=== PATIENT | female | born 1945 | race Caucasian/White ===

== ENCOUNTER 2020-07-23 11:59 | Outpatient (REF) | payer MEDICARE, SELFPAY ==
--- NOTE | 2020-07-23 | MM_ITS ---
EXAMINATION: MM SCREENING DIGITAL BREAST TOMOSYNTHESIS, BILATERAL CLINICAL INFORMATION: Screening. Asymptomatic. The lifetime risk of breast cancer based on the Tyrer-Cuzick Model is 3%. COMPARISON: Mammography: 11/30/2018, 11/24/2017 TECHNIQUE: Digital breast tomosynthesis is performed in both the craniocaudal and mediolateral oblique views along with computer-aided detection (CAD). Synthesized 2D images are generated from the tomosynthesis. FINDINGS: The breasts are almost entirely fatty (ACR BI-RADS breast composition Category a). Background stromal and fibroglandular densities are stable. There is no developing density. No significant changes. There are no significant masses, abnormal calcifications, or other abnormalities. MM/MM tomosynthesis screening BI IMPRESSION: No mammographic evidence of malignancy. ASSESSMENT: BI-RADS 1: Negative RECOMMENDATION: Routine annual mammography screening. This patient's information was entered into a reminder system with a target due date for their next mammogram.
== END 2020-07-23 12:00 | disposition home or self-care (01) ==
LOC: HO.MAMMO 11:59
PROVIDERS: PCP Family Medicine; Visit Provider Family Medicine
DX: Z12.31 Encounter for screening mammogram for malignant neoplasm of breast (principal)
CPT/HCPCS: 77063; 77067

== ENCOUNTER 2020-11-25 07:47 | Outpatient (REF) | payer MEDICARE, SELFPAY ==
--- NOTE | ~2020-11-25 | XR_ITS ---
EXAMINATION: BILATERAL AP KNEE. LEFT KNEE 2 VIEWS. CLINICAL INFORMATION: Pain left knee COMPARISON: None TECHNIQUE: AP bilateral knee standing. Left knee 2 views. FINDINGS: AP bilateral knee: Is moderate to severe loss of medial compartment joint space left knee and moderate loss of medial compartment right knee with moderate periapical spurring. There is minimal loss of lateral compartments both knee joints. No soft tissue abnormality seen. Left knee: There is severe loss of patellofemoral compartment joint space with moderate periapical spurring. There is an moderate size osteophyte along the posterior lateral femoral condyle. No abnormal joint effusion seen XR/XR knee standing BI IMPRESSION: Advanced degenerative changes tricompartment left knee with a moderate size posterior lateral condyle and calcified. No loose bodies or joint effusion seen in left knee. Degenerative arthritic changes medial and lateral compartment right knee with periarticular spurring.
--- NOTE | ~2020-11-25 | XR_ITS ---
EXAMINATION: BILATERAL AP KNEE. LEFT KNEE 2 VIEWS. CLINICAL INFORMATION: Pain left knee COMPARISON: None TECHNIQUE: AP bilateral knee standing. Left knee 2 views. FINDINGS: AP bilateral knee: Is moderate to severe loss of medial compartment joint space left knee and moderate loss of medial compartment right knee with moderate periapical spurring. There is minimal loss of lateral compartments both knee joints. No soft tissue abnormality seen. Left knee: There is severe loss of patellofemoral compartment joint space with moderate periapical spurring. There is an moderate size osteophyte along the posterior lateral femoral condyle. No abnormal joint effusion seen XR/XR knee LT 2V IMPRESSION: Advanced degenerative changes tricompartment left knee with a moderate size posterior lateral condyle and calcified. No loose bodies or joint effusion seen in left knee. Degenerative arthritic changes medial and lateral compartment right knee with periarticular spurring.
== END 2020-11-25 07:48 | disposition home or self-care (01) ==
LOC: HO.HOSX 07:47
PROVIDERS: Visit Provider Physician Assistant
DX: M17.12 Unilateral primary osteoarthritis, left knee (principal)
CPT/HCPCS: 20610; 73560; 73565; 99202; J1040

== ENCOUNTER 2021-01-08 13:00 | Outpatient (RCR) | payer MEDICARE, SELFPAY ==
--- NOTE | 2020-12-03 16:43 | MHC.PT.EP ---
[facility] [place] Office [place] Office [place] Office [address] [phone] F: [phone] F: [phone] F: [phone] F: [phone] Physical Therapy Plan of Care Date of Evaluation: 12/03/20 Date of Surgery: Diagnosis: OA of L knee Assessment: Pt is a 72 y/o female referred to PT for eval and treat of L knee L knee who presents with signs and sx consistent with L knee dysfunction resulting in decreased tolerance and ability to perform ambulatory and standing tasks for duration, as well as negotiating stairs, performing squatting activities and heavy HH chores secondary to decreased hip and knee strength, mild decreased L knee extension ROM as well as decreased posture, increased LE tissue tension, TTP of L popleteal area, gait abnormality and pain. Pt is deemed an appropriate candidate to receive skilled PT in order to address her physical limitations to improve her functional ability. Frequency and Duration: The patient will be seen 2 x /wk x 5 wks. Short Term Goals: In 1 week: initiate HEP with evidence of compliance. In 3 weeks: TTP of L popleteal area < 2+, initial 3+ (considerable). Half-Way Goals: In 5 weeks: I with HEP. In 5 weeks: negotiates 1fl of stairs with reciprocal fashion. initial: non-reciprocal, crawls. In 5 weeks: Pt will be able to walk 2 blocks with at most a little bit of difficulty; initial: extremely difficult or unable. Treatment Plan: Modalities to reduce pain, spasms and effusion. Manual therapy to restore motion and function. Therapeutic exercise to improve strength and flexibility. Neuromuscular re-education for posture and balance. Therapeutic activities to return to functional activities of daily living. Electronically signed by: Carroll Gomez PT. Please sign and return to therapist. Thank you for your referral.
--- NOTE | 2021-04-28 18:28 | MHC.PT.DC ---
[facility] [place] Office [place] Office [place] Office [address] Suri Tanner 140 [facility] [phone] F: [phone] F: [phone] F: [phone] F: [phone] Physical Therapy Discharge Report Diagnosis: OA of L knee Date of Surgery: Date of Evaluation: 12/03/20 Date of Discharge: 01/08/21 Treatments to Date: 10 Cancellations to Date: 0 No Shows to Date: 0 Discharge Status: Achieved Goals Improved Function Independent with HEP Discharge Summary: last note 01/08: Pt I with HEP. Pt improved gait with sc, transfers increased strength and balance. Electronically signed by: Carroll Gomez PT Please sign and return to therapist. Thank you for your referral.
== END 2021-04-28 18:28 | disposition home or self-care (01) ==
LOC: HO.PTCHIC 13:00
PROVIDERS: PCP Family Medicine; Visit Provider Physician Assistant
DX: M17.12 Unilateral primary osteoarthritis, left knee (principal)
CPT/HCPCS: 97110; 97140; 97162

== ENCOUNTER → 2021-03-03 13:38 | Outpatient (BNVA) | payer MEDICARE, SELFPAY | PROVIDERS: PCP Family Medicine; Visit Provider Surgery Vascular Surgery | DX: I83.11 Varicose veins of right lower extremity with inflammation (principal) | CPT/HCPCS: 99212 ==

== ENCOUNTER → 2021-03-23 13:23 | Outpatient (BNVA) | payer MEDICARE, SELFPAY | PROVIDERS: Visit Provider Physician Assistant | DX: M17.12 Unilateral primary osteoarthritis, left knee (principal); I10 Essential (primary) hypertension; Z96.643 Presence of artificial hip joint, bilateral; Z88.5 Allergy status to narcotic agent; Z88.0 Allergy status to penicillin; Z91.013 Allergy to seafood; Z88.8 Allergy status to other drugs, medicaments and biological substances; Z91.048 Other nonmedicinal substance allergy status | CPT/HCPCS: 99212 ==

== ENCOUNTER → 2021-03-25 10:15 | Outpatient (BNVA) | payer MEDICARE, SELFPAY | PROVIDERS: Visit Provider Orthopaedic Surgery | DX: M17.12 Unilateral primary osteoarthritis, left knee (principal) | CPT/HCPCS: 20610; 99212; J1040 ==

== ENCOUNTER 2021-03-30 12:42 | Outpatient (REF) | payer MEDICARE, SELFPAY ==
--- NOTE | ~2021-03-30 | US_ITS ---
EXAMINATION: US VENOUS ULTRASOUND WITH DOPPLER LOWER EXTREMITY, BILATERAL CLINICAL INFORMATION: EXAMINATION: RIGHT and LEFT LOWER EXTREMITY VENOUS ULTRASOUND (Reflux Exam) CLINICAL INDICATION: leg pain and varicose veins. COMPARISON: Previous exam most recent August 2019 TECHNIQUE: Color flow triplex imaging and compression Doppler was performed to evaluate both the deep and the superficial systems bilaterally. To evaluate the superficial system, the examination was performed in the upright position. Color-flow Doppler ultrasound and compression ultrasound were utilized. In addition, maneuvers were utilized to demonstrate reflux. FINDINGS: 1. DEEP VENOUS ULTRASOUND OF THE RIGHT LOWER EXTREMITY: Respiratory variation, normal compression and augmented flow are noted in the right common femoral vein as well as the right popliteal vein and there is no evidence of deep venous thrombosis at these locations. There is no evidence of reflux in the deep system in either the common femoral vein or the mid femoral vein. There is deep venous reflux in the popliteal vein measuring 1.2 seconds. There is a Francisco's cyst. 2. SUPERFICIAL ULTRASOUND WITH DOPPLER OF RIGHT LOWER EXTREMITY: The right great saphenous vein at the saphenofemoral junction measures 8 mm, at the mid thigh 2 mm, cpsnw-uma-ylpq 2 mm, gwbok-rcw-imkn 6 mm, at mid calf 5 mm and at the ankle measures 3 mm. There is right greater saphenous vein reflux from the ankles to above the knee measuring maximum 3.4 below the knee. The right small saphenous vein measures 4 mm and shows no reflux. There is are on varicosities in the thigh maximum measuring 5 mm. This demonstrates these demonstrate maximum 3.3 seconds reflux. 3. DEEP VENOUS ULTRASOUND OF THE LEFT LOWER EXTREMITY: Respiratory variation, normal compression and augmented flow are noted in the left common femoral vein as well as the left popliteal vein and there is no evidence of deep venous thrombosis at these locations. There is 0.6 seconds reflux in the common femoral vein. There is no evidence of reflux in the deep system in either the may femoral vein or the popliteal vein. . There is a Francisco's cyst. 4. SUPERFICIAL ULTRASOUND WITH DOPPLER OF LEFT LOWER EXTREMITY: Left great saphenous vein at the saphenofemoral junction measures 11 mm, at the mid thigh 4 mm, xkhqd-lse-obav 3 mm, qfacd-mbo-mohd 3 mm, at mid calf 2 mm and at the ankle measures 2 mm. There is 3.3 seconds reflux in the greater saphenous vein at the knee. The left small saphenous vein measures 1-3 mm and demonstrates 1.8 seconds reflux. There is a bet taker in the mid thigh that measures 2 mm and does not demonstrate reflux. There is a varicosity in the distal thigh that measures 4 mm and demonstrates 3.4 seconds reflux. US/US venous duplex LE BI IMPRESSION: 1. No evidence of DVT. Right popliteal and left common femoral vein deep venous reflux. 2. Bilateral greater saphenous vein reflux, right greater than left.
== END 2021-03-30 12:43 | disposition home or self-care (01) ==
LOC: HO.US 12:42
PROVIDERS: PCP Family Medicine; Visit Provider Surgery Vascular Surgery
DX: I83.893 Varicose veins of bilateral lower extremities with other complications (principal); I83.11 Varicose veins of right lower extremity with inflammation
CPT/HCPCS: 93970

== ENCOUNTER → 2021-03-31 13:14 | Outpatient (BNVA) | payer MEDICARE, SELFPAY | PROVIDERS: PCP Family Medicine; Visit Provider Surgery Vascular Surgery | DX: I83.11 Varicose veins of right lower extremity with inflammation (principal) | CPT/HCPCS: 99212 ==

== ENCOUNTER → 2021-05-01 08:27 | Outpatient (BNVA) | payer MEDICARE, SELFPAY | PROVIDERS: PCP Family Medicine; Visit Provider Surgery Vascular Surgery | DX: I83.11 Varicose veins of right lower extremity with inflammation (principal) | CPT/HCPCS: 36482 ==

== ENCOUNTER 2021-05-05 11:25 | Outpatient (REF) | payer MEDICARE, SELFPAY ==
--- NOTE | ~2021-05-05 | US_ITS ---
EXAMINATION: US VENOUS ULTRASOUND WITH DOPPLER LOWER EXTREMITY, RIGHT CLINICAL INFORMATION: Pain and swelling post venous procedure. COMPARISON: Previous exam most recent 03/30/2021 TECHNIQUE: Ultrasound of the deep veins is performed from the hip to the calf with compression sonography and color and pulse Doppler assessment. Spectral analysis with color-flow imaging is performed. FINDINGS: There is normal venous compression and respiratory variation and augmented flow. The visualized common femoral vein, superficial femoral vein, profunda femoral vein, popliteal vein, and the trifurcation region shows no evidence of deep venous thrombosis. There is echogenic material seen in the right greater saphenous vein post venous procedure. This is 15 cm from the saphenofemoral junction. There is a 10 x 3 x 6 cm Francisco's cyst. US/US venous duplex LE RT IMPRESSION: No DVT demonstrated in the right lower extremity. Large Francisco's cyst.
== END 2021-05-05 11:26 | disposition home or self-care (01) ==
LOC: HO.HMGCX 11:25
PROVIDERS: PCP Family Medicine; Visit Provider Surgery Vascular Surgery
DX: M79.604 Pain in right leg (principal)
CPT/HCPCS: 93971

== ENCOUNTER → 2021-05-14 13:11 | Outpatient (BNVA) | payer MEDICARE, SELFPAY | PROVIDERS: PCP Family Medicine; Visit Provider Surgery Vascular Surgery | DX: I83.11 Varicose veins of right lower extremity with inflammation (principal) | CPT/HCPCS: 99212 ==

== ENCOUNTER → 2021-06-11 14:06 | Outpatient (BNVA) | payer MEDICARE, SELFPAY | PROVIDERS: PCP Family Medicine; Visit Provider Surgery Vascular Surgery | DX: I83.11 Varicose veins of right lower extremity with inflammation (principal) | CPT/HCPCS: 99212 ==

== ENCOUNTER → 2021-07-30 13:46 | Outpatient (BNVA) | payer MEDICARE, SELFPAY | PROVIDERS: Visit Provider Physician Assistant | DX: M17.12 Unilateral primary osteoarthritis, left knee (principal) | CPT/HCPCS: 20610; 99212; J1040 ==

== ENCOUNTER 2021-09-02 13:49 | Outpatient (REF) | payer MEDICARE, SELFPAY ==
--- NOTE | ~2021-09-02 | MM_ITS ---
EXAMINATION: MM SCREENING DIGITAL BREAST TOMOSYNTHESIS, BILATERAL CLINICAL INFORMATION: Screening. Asymptomatic. The lifetime risk of breast cancer based on the Tyrer-Cuzick Model is 3%. COMPARISON: Mammography: 07/23/2020, 11/30/2018, 11/24/2017 TECHNIQUE: Digital breast tomosynthesis is performed in both the craniocaudal and mediolateral oblique views along with computer-aided detection (CAD). Synthesized 2D images are generated from the tomosynthesis. FINDINGS: The breasts are almost entirely fatty (ACR BI-RADS breast composition Category a). There are no significant masses, abnormal calcifications, or other abnormalities. Background stromal and fibroglandular densities are stable. No developing density. The axilla and skin contours are unremarkable. MM/MM tomosynthesis screening BI IMPRESSION: No mammographic evidence of malignancy. ASSESSMENT: BI-RADS 1: Negative RECOMMENDATION: Routine annual mammography screening. This patient's information was entered into a reminder system with a target due date for their next mammogram.
== END 2021-09-02 13:50 | disposition home or self-care (01) ==
LOC: HO.MAMMO 13:49
PROVIDERS: Visit Provider Family Medicine
DX: Z12.31 Encounter for screening mammogram for malignant neoplasm of breast (principal)
CPT/HCPCS: 77063; 77067

== ENCOUNTER → 2021-12-03 10:47 | Outpatient (BNVA) | payer MEDICARE, SELFPAY | PROVIDERS: Visit Provider Physician Assistant | DX: M17.12 Unilateral primary osteoarthritis, left knee (principal); I10 Essential (primary) hypertension; Z96.643 Presence of artificial hip joint, bilateral; Z88.8 Allergy status to other drugs, medicaments and biological substances; Z88.6 Allergy status to analgesic agent; Z88.1 Allergy status to other antibiotic agents; Z88.0 Allergy status to penicillin; Z91.013 Allergy to seafood | CPT/HCPCS: 20610; 99212; J1040 ==

== ENCOUNTER → 2022-04-08 13:19 | Outpatient (BNVA) | payer MEDICARE, SELFPAY | PROVIDERS: Visit Provider Physician Assistant | DX: M17.12 Unilateral primary osteoarthritis, left knee (principal) | CPT/HCPCS: 20610; 99212; J1040 ==

== ENCOUNTER 2022-05-18 22:48 | Emergency (ER) | payer MEDICARE, SELFPAY ==
[2022-05-19 01:22] VITALS: BP 145/65; PULSE 63; RESP 18; TEMP 36.6; O2SAT 99; BMI 34.4
--- NOTE | 2022-05-19 01:51 | ED.EXTPRO ---
HPI - Extremity Problem General Chief complaint: Extremity Injury, Upper Stated complaint: skin tear on arm Time Seen by Provider: 05/19/22 00:58 Source: patient Mode of arrival: ambulatory Limitations: no limitations History of Present Illness HPI Narrative: Patient comes to the ED complaining of a skin tear in her left upper extremity. Patient states that she was holding her old cat who lost balance and accidentaly scratched the patient in the arm. Pt is an indoor cat, is up-to-date with its immunizations.. However, patient states that she is not sure when she had her last tetanus shot. Patient states that the skin tear was bleeding quite a bit and therefore came to the emergency room. Patient is not on any blood thinners. Related Data Home Medications Medication Instructions Recorded Confirmed hydrochlorothiazide 12.5 mg capsule 12.5 mg PO DAILY 11/25/20 levothyroxine 13 mcg capsule 13 mcg PO DAILY 11/25/20 flaxseed oil 1,000 mg capsule 1,000 mg PO DAILY 03/03/21 levothyroxine 50 mcg tablet 50 mcg PO DAILY 05/14/21 Allergies Allergy/AdvReac Type Severity Reaction Status Date / Time diclofenac [From Voltaren] Allergy Mild HIVES Verified 04/08/22 13:24 penicillin G [Penicillin G] Allergy Mild ITCH Verified 04/08/22 13:24 penicillin V Allergy Unknown itching Verified 04/08/22 13:24 adhesive tape AdvReac Intermediate blisters Verified 04/08/22 13:24 codeine [Codeine] AdvReac Mild SYNCOPE,ABD Verified 04/08/22 13:24 PAIN erythromycin base AdvReac Mild ABDOMINAL Verified 04/08/22 13:24 [Erythromycin Base] PAIN Shellfish Allergy Severe ANAPHYLAXIS Uncoded 04/08/22 13:24 Review of Systems Review of Systems: Constitutional : No Weight loss, No Fever, No Chills, No Night Sweats, No Fatigue, No Malaise ENT/Mouth : No Hearing loss, No Ear Pain, No Nasal Congestion, No Sinus Pain, No Hoarseness, No sore throat, No Rhinorrhea, No Swallowing Difficulty Eyes: No Eye Pain, No Swelling, No Redness, No Foreign Body, No Discharge, No Vision Changes Cardiovascular : No Chest Pain, No SOB, No Dyspnea on Exertion, No Orthopnea, No Edema, No Palpitations Respiratory : No Cough, No Sputum, No Wheezing, No Smoke Exposure, No Dyspnea Gastrointestinal : No Nausea, No Vomiting, No Diarrhea, No Constipation, No abdominal Pain, No Hematochezia, No Melena Genitourinary : no irregular bleeding, No Dysuria, No Urinary Frequency, No Hematuria, No Urinary Incontinence, No Urgency, No Flank Pain, No Urinary Flow Changes, No Hesitancy Musculoskeletal : No joint pain, No Myalgias, No Joint Swelling Skin : Complaining of a skin tear in the left upper extremity Neuro : No Weakness, No Numbness, No Paresthesias, No Loss of Consciousness, No Dizziness, No Headache Psych : No Anxiety/Panic, No Depression, No SI/HI/AH/VH, No Social Issues, Heme/Lymph: No Bruising, No Bleeding,No Lymphadenopathy Endocrine : No Polyuria, No Polydipsia, No Temperature Intolerance [facility] Past Medical History Medical History FH: bilateral hip replacements Hypertension Knee pain Surgical History H/O thyroidectomy H/O: hysterectomy Social History Social History Advance Directives: Yes Advance Directives Information Provided: No Advance Directives on File: No Current occupational status: retired Current occupation: right handed Physical Exam Vital Signs: Vital Signs: Last Vital Signs Temp 97.9 F 05/19/22 01:22 Pulse 63 05/19/22 01:22 Resp 18 05/19/22 01:22 BP 145/65 H 05/19/22 01:22 Pulse Ox 99 05/19/22 01:22 O2 Del Method 05/19/22 01:22 BMI result Body Mass Index 34.4 Const: Other: Appearance: Alert. Oriented X3. No acute distress. Eyes: Pupils equal, round and reactive to light. ENT: Pharynx normal. Neck: Normal inspection. Neck supple. No lymph nodes noted. No crepitus CVS: Normal heart rate and rhythm. Pulses normal. Normal S1 and S2 Respiratory: No respiratory distress. Breath sounds normal. No Wheezing. No rales Abdomen: Soft and nontender. No rigidity. No distention. Skin: Skin warm and dry. triangular shaped skin tear to the left forearm, actively bleeding Extremities: No lower extremity edema. No Lacerations. No Rash Neuro: Oriented X 3. No motor deficit. No sensory deficit. Moving all extremities. No slurred speech. CN 2 through 12 grossly intact Psych: calm, cooperative, normal affect Course Course Course Narrative: despite holding pressure, the skin tear continued bleeding. I applied Surgicel to the wound, bleeding stopped. The wound was cleaned, Steri-Strips were applied. Patient instructed to follow-up with her primary care physician for wound check in 24-48 hours. At this time, patient does not need antibiotics. However, I discussed with the patient that if she sees any signs of infections which were discussed with the patient, she needs to return to the emergency room. Patient was given a booster of tdap Discharge Plan Discharge Clinical Impression: Skin tear of left upper extremity Patient Disposition: Home, Self-Care Instructions: Skin Tear (ED) Additional Instructions: Please follow-up with your primary care physician tomorrow. If you have any worsening or new symptoms, please return to the emergency room or call 911 Prescriptions: No Action flaxseed oil 1,000 mg capsule 1,000 mg PO DAILY Rx Instructions: administer with a meal hydrochlorothiazide 12.5 mg capsule 12.5 mg PO DAILY levothyroxine 13 mcg capsule 13 mcg PO DAILY levothyroxine 50 mcg tablet 50 mcg PO DAILY
[2022-05-19] MEDS: Diphth,Pertus(ACell),Tet Adult 0.5 ML SYRINGE IM (02:07)
== END 2022-05-19 02:12 | disposition home or self-care (01) ==
PROVIDERS: Emergency Provider Emergency Medicine; PCP Family Medicine
DX: S40.812A Abrasion of left upper arm, initial encounter (principal); W55.03XA Scratched by cat, initial encounter; Y93.89 Activity, other specified; Y92.019 Unspecified place in single-family (private) house as the place of occurrence of the external cause; Y99.9 Unspecified external cause status
CPT/HCPCS: 12001; 90471; 90715; 99282; 99284

== ENCOUNTER → 2022-07-12 12:32 | Outpatient (BNVA) | payer MEDICARE, SELFPAY | PROVIDERS: PCP Family Medicine; Visit Provider Physician Assistant | DX: M17.12 Unilateral primary osteoarthritis, left knee (principal) | CPT/HCPCS: 20610; 99212; J1040 ==

== ENCOUNTER 2022-09-08 11:54 | Outpatient (REF) | payer MEDICARE, SELFPAY ==
--- NOTE | ~2022-09-08 | MM_ITS ---
EXAMINATION: MM SCREENING DIGITAL BREAST TOMOSYNTHESIS, BILATERAL CLINICAL INFORMATION: Screening. Asymptomatic. The lifetime risk of breast cancer based on the Tyrer-Cuzick Model is 0.4%. COMPARISON: Mammography: September 02, 2021 and studies dating back to November 03, 2015 TECHNIQUE: Digital breast tomosynthesis is performed in both the craniocaudal and mediolateral oblique views along with computer-aided detection (CAD). Synthesized 2D images are generated from the tomosynthesis. FINDINGS: The breasts are almost entirely fatty (ACR BI-RADS breast composition Category a). There are no significant masses, abnormal calcifications, or other abnormalities. MM/MM tomosynthesis screening BI IMPRESSION: No significant changes from prior exam. ASSESSMENT: BI-RADS 1: Negative RECOMMENDATION: Routine annual mammography screening. This patient's information was entered into a reminder system with a target due date for their next mammogram.
== END 2022-09-08 11:55 | disposition home or self-care (01) ==
LOC: HO.MAMMO 11:54
PROVIDERS: PCP Family Medicine; Visit Provider Family Medicine
DX: Z12.31 Encounter for screening mammogram for malignant neoplasm of breast (principal)
CPT/HCPCS: 77063; 77067

== ENCOUNTER → 2022-10-14 12:20 | Outpatient (BNVA) | payer MEDICARE, SELFPAY | PROVIDERS: PCP Family Medicine; Visit Provider Physician Assistant | DX: M17.12 Unilateral primary osteoarthritis, left knee (principal) | CPT/HCPCS: 20610; 99212; J1040 ==

== ENCOUNTER → 2023-01-11 14:22 | Outpatient (BNVA) | payer MEDICARE, SELFPAY | PROVIDERS: PCP Family Medicine; Visit Provider Surgery Vascular Surgery | DX: I89.0 Lymphedema, not elsewhere classified (principal); M17.12 Unilateral primary osteoarthritis, left knee | CPT/HCPCS: 99212 ==

== ENCOUNTER → 2023-01-20 14:21 | Outpatient (BNVA) | payer MEDICARE, SELFPAY | PROVIDERS: PCP Family Medicine; Visit Provider Physician Assistant | DX: M17.12 Unilateral primary osteoarthritis, left knee (principal) | CPT/HCPCS: 20610; 99212; J1040 ==

== ENCOUNTER → 2023-02-22 10:52 | Outpatient (BNVA) | payer MEDICARE, SELFPAY | PROVIDERS: Visit Provider Orthopaedic Surgery | DX: M17.12 Unilateral primary osteoarthritis, left knee (principal) | CPT/HCPCS: 99212 ==

== ENCOUNTER 2023-04-11 12:32 | Outpatient (AMB) | payer MEDICARE, SELFPAY ==
[2023-04-11 12:35] VITALS: BMI 37.6
--- NOTE | 2023-04-11 12:35 | MHC.OFFVIS ---
Intake Vital Signs 04/11/23 12:35 Height 5 ft 6 in Weight 233 lb BMI 37.6 Intake Visit Reasons: OV-LT knee injection-last injection 01/20/23 Intake Note: Lilo is a 76 year old female who presents today for a follow up for her left knee osteoarthritis, last injection 01/20/23. Patient reports she would like to talk about repeating injections or surgery. Allergies diclofenac [From Voltaren] Allergy (Mild, Verified 04/11/23 12:35) HIVES penicillin G [Penicillin G] Allergy (Mild, Verified 04/11/23 12:35) ITCH penicillin V Allergy (Unknown, Verified 04/11/23 12:35) itching adhesive tape Adverse Reaction (Intermediate, Verified 04/11/23 12:35) blisters codeine [Codeine] Adverse Reaction (Mild, Verified 04/11/23 12:35) SYNCOPE,ABD PAIN erythromycin base [Erythromycin Base] Adverse Reaction (Mild, Verified 04/11/23 12:35) ABDOMINAL PAIN Shellfish Allergy (Severe, Uncoded 02/22/23 10:55) ANAPHYLAXIS HPI OV-LT knee injection-last injection 01/20/23 HPI Details 77-year-old female who presents in the office today for a follow up of left knee pain. The patient had a cortisone injection in the left knee on 01/20/2023. She would like to discuss another cortisone injection and possibly surgical intervention. [facility]LY [facility], [facility] Medical History FH: bilateral hip replacements Hypertension Knee pain Surgical History H/O thyroidectomy H/O: hysterectomy Social History Current occupational status: retired Current occupation: right handed Review of Systems Const All systems reviewed & are unremarkable except as noted in HPI and below Physical Exam Vital Signs: BMI result Body Mass Index 37.6 Const Other: Well-nourished well-developed very friendly female awake alert and oriented x3 in no acute distress General: cooperative, healthy appearing and no acute distress Resp Effort & Inspection: normal respiratory effort and able to speak in complete sentences Cardio Rate: regular rate Peripheral pulses: Peripheral pulses 2+ throughout GI Palpation (GI): Soft to palpation Skin Lesions: no lesions Rashes: no rashes Extrem Other: Left knee: extremity examination shows good capillary refill, no skin lesions noted, normal sensation light touch Left knee examination shows a mild effusion, palpable crepitus with range of motion, pain with range of motion, range of motion from -3 degrees to 115?, no instability Office Procedures Joint Injection/Drain Joint Injection/Drain Primary Site: left knee Prep: site was prepped using aseptic technique, ethochloride spray was applied and injection warnings given Injected: 80 mg of, DepoMedrol, with 8 mL of (2% plain lido ) and in the joint Approach Used: anterolateral Procedure: The patient tolerated the procedure well, but had some pain with the injection and there was some relief with the local anesthesia Coding 04465 - Large joint Procedure code (CPT) selection complete Results Reviewed Results Reviewed: 04/11/23 12:53 Lidocaine HCl 2 % MPF [Xylocaine 2 % MPF] 5 ml .ROUTE .STK-MED ONE methylPREDNISolone acetate [DEPO-MedroL] 80 mg .ROUTE .STK-MED ONE Assessment & Plan Assessment & Plan (1) Primary osteoarthritis of left knee: Code(s): M17.12 - Unilateral primary osteoarthritis, left knee Plan Ms. Bess is a 77-year-old female who presents in the office today for a follow up of left knee pain. The patient had a cortisone injection in the left knee on 01/20/2023. She would like to discuss another cortisone injection and possibly surgical intervention. The patient was offered a cortisone injection in the left knee with 80 mg of DepoMedrol. The patient was explained the risk, benefits, and alternatives to receiving this injection. After receiving consent for the injection, the patient had the procedure done while in office today. The patient tolerated the procedure well with no complications. The patient has been evaluated by Dr. Valencia and he is willing to proceed with left total knee arthroplasty. However at this time the office is attempting to seek his insurance privileges. I have sent a message to Claudia our nurse navigator to be on the look out for Dr. Ricketts privileges to be obtained. Once obtained we will proceed with a left total knee arthroplasty. We will try to schedule the patient for 06/2023. Follow up will be for her preoperative appointment once privileges are obtained, or sooner if needed. Patient Instructions: Scribed for Nohemi Pedro PA-C by Sheri West medical record librarians teacher, on 04/11/2023 at 12:40 pm, EST. Coding Level of Care Code Est Pt Level 3 (86576) Diagnoses Primary osteoarthritis of left knee M17.12 CPT Codes Coding - 94240 Large joint: 80336 - Large joint ([id number])
== END 2023-04-11 13:08 | disposition home or self-care (01) ==
PROVIDERS: Visit Provider Physician Assistant
DX: M17.12 Unilateral primary osteoarthritis, left knee (principal)
CPT/HCPCS: 20610

== ENCOUNTER → 2023-04-11 12:32 | Outpatient (BNVA) | payer MEDICARE, SELFPAY | PROVIDERS: Visit Provider Physician Assistant | DX: M17.12 Unilateral primary osteoarthritis, left knee (principal); Z96.643 Presence of artificial hip joint, bilateral | CPT/HCPCS: 20610; J1040 ==

== ENCOUNTER 2023-09-14 12:23 | Outpatient (REF) | payer MEDICARE, SELFPAY | END 2023-09-14 12:24 | disposition home or self-care (01) | LOC: HO.MAMMO 12:23 | PROVIDERS: PCP Family Medicine; Visit Provider Family Medicine | DX: Z12.31 Encounter for screening mammogram for malignant neoplasm of breast (principal) | CPT/HCPCS: 77063; 77067 ==

== ENCOUNTER → 2023-09-14 13:00 | Outpatient (BNV) | payer MEDICARE, SELFPAY | PROVIDERS: PCP Family Medicine; Visit Provider Radiology Diagnostic Radiology | DX: Z12.31 Encounter for screening mammogram for malignant neoplasm of breast (principal) | CPT/HCPCS: 77063; 77067 ==

== ENCOUNTER 2024-07-12 13:34 | Outpatient (AMB) | payer MEDICARE, SELFPAY ==
--- NOTE | 2024-07-12 14:21 | A.OFFVIS_ITS ---
Intake Visit Reasons: nocturia Intake Note: New Patient presents for initial visit for nocturia Urology Medications: none Blood Thinner: none PVR: 37ml's Electrotype Servicer Required: No Accompanied by: Self / Same As Patient Allergies diclofenac [From Voltaren] Allergy (Mild, Verified 07/12/24 15:06) HIVES penicillin G [Penicillin G] Allergy (Mild, Verified 07/12/24 15:06) ITCH penicillin V Allergy (Unknown, Verified 07/12/24 15:06) itching adhesive tape Adverse Reaction (Intermediate, Verified 07/12/24 15:06) blisters codeine [Codeine] Adverse Reaction (Mild, Verified 07/12/24 15:06) SYNCOPE,ABD PAIN erythromycin base [Erythromycin Base] Adverse Reaction (Mild, Verified 07/12/24 15:06) ABDOMINAL PAIN Shellfish Allergy (Severe, Uncoded 07/12/24 15:06) ANAPHYLAXIS Medication List - Last Reviewed 07/12/24 by Luis Antonio Erwin hydrochlorothiazide 12.5 mg PO DAILY levothyroxine 50 mcg PO DAILY HPI Comments Details: Lilo is a 78-year-old female patient of . She has a past medical history of hypertension and hypothyroidism. She presents to the office today as a new patient for nocturia. In discussion with the patient today she reports noting ongoing issues with nocturia. She reports initially symptoms of nocturia presented 4-5 years ago however feels since this summer they have increasingly worsened and she is up to experiencing nocturia 5 times per night. She otherwise denies any bothersome urinary issues throughout the day. She denies urinary urgency, urinary frequency, hematuria, dysuria, foul smelling urine, changes to urinary stream, flank pain, fever, and or chills. In assessment of the patient today 2 to 3+ bilateral lower leg edema noted. We discussed affects of lower leg edema in correlation to nocturia. She discusses typically she utilizes sequentials however did not put them on today. We discussed importance in doing so. In office urinalysis results reviewed with the patient today. PVR 37 mL. She denies any signs or symptoms of sleep apnea. We discussed at length potential causes of nocturia. Discussed obtaining retroperitoneal ultrasound for further assessment evaluation. She discusses her 's recent diagnosis of Lewy bodies dementia. She otherwise offers no other issues or concerns at this time. [facility] Medical History FH: bilateral hip replacements Hypertension Knee pain Surgical History H/O thyroidectomy H/O: hysterectomy Social History Current occupational status: retired Current occupation: right handed Review of Systems Const All systems reviewed & are unremarkable except as noted in HPI and below Physical Exam Const General: cooperative, healthy appearing, comfortable, no acute distress, well developed, alert and awake Nutritional Appearance: overweight Orientation/consciousness: patient oriented x3 Limitations: ambulation with cane HEENT Head: Yes normal to inspection, Yes normocephalic and Yes atraumatic Ears: hearing grossly normal bilaterally Eyes General: appearance normal, both eyes and all related structures Neck Neck: Yes normal visual inspection and Yes trachea midline Chest Chest palpation & inspection: normal inspection of the chest Resp Effort & Inspection: normal respiratory effort and able to speak in complete sentences Cardio Rate: regular rate GI Inspection: Yes normal to inspection General: Yes no CVA tenderness Back/Spine/Pelvis Back: no CVA tenderness Skin General skin exam: no rashes or lesions noted Neuro General: patient oriented x3 Extrem General: Yes normal to inspection Psych Appearance: grossly normal and well kempt Mental Status: mental status grossly normal Speech and movement: Normal speech and movement present and Clear speech present Affect: normal affect Attitude: cooperative Thought process: Normal thought process present Thought content: Normal thought content present Insight: Fair insight present (Psych) Judgement: Fair judgement present (Psych) Office Procedures Post Void Residual Post Residual Void Post Void Residual (PVR): 37 04134-Yiiv Void Residual by ultrasound Results AMB Urinalysis, Automated UA Leukoctes 15 Arnulfo/uL Last Edit by Luis Antonio Erwin on 07/12/24 15:08 UA Nitrite Last Edit by Luis Antonio Erwin on 07/12/24 15:08 UA Urobilinogen 0.2 mg/dL Last Edit by Luis Antonio Erwin on 07/12/24 15:08 UA Protein 0 mg/dL Last Edit by Luis Antonio Erwin on 07/12/24 15:08 UA pH 5.5 Last Edit by Luis Antonio Erwin on 07/12/24 15:08 UA Blood 10 Asher/uL Last Edit by Luis Antonio Erwin on 07/12/24 15:08 UA Specific Worthington 1.025 Last Edit by Luis Antonio Erwin on 07/12/24 15:08 UA Ketone Last Edit by Luis Antonio Erwin on 07/12/24 15:08 UA Bilirubin 0 mg/dL Last Edit by Luis Antonio Erwin on 07/12/24 15:08 UA Glucose 0 mg/dL Last Edit by Luis Antonio Erwin on 07/12/24 15:08 Assessment & Plan Assessment & Plan (1) Nocturia: Code(s): R35.1 - Nocturia Category: Medical Plan In office urinalysis results with the patient today; as noted above. PVR 37 mL. We discussed bladder triggers/irritants. Discussed importance of elevating legs in the late evening prior to bed to assist with decreasing episodes of nocturia. We discussed importance of limiting fluids 2-3 hours prior to bed to decrease episodes of nocturia. Will obtain retroperitoneal ultrasound for further assessment evaluation. We discussed potential near future in office cystoscopy and or urodynamics for further assessment evaluation. Follow-up in 1-3 months with imaging and PVR; or sooner with any issues, concerns, and or questions. Orders: Orders AMB Post Void Residual by ultrasound Today R35.1 - Nocturia AMB Urinalysis Automated Today Z13.9 - Encounter for screening, unspecified US retroperitoneal comp Today R35.1 - Nocturia Patient Instructions: The patient had an opportunity to ask questions regarding the treatment plan. All questions were answered. Physical exam, labs, and imaging were discussed and reviewed in detail. As well as risks, benefits, and discussion of treatment choices. No major barriers to understanding were identified. The patient expressed understanding and agreement with the above treatment plan. The patient was made aware they should contact our office by phone for worsening of their current condition, the appearance of new symptoms, or with any questions or concerns. Compliance is encouraged with any medications and follow up testing that is ordered. It is a privilege to be allowed the opportunity to participate in? your urological care.? Again, if you have any questions or concerns If you have any questions or concerns please do not hesitate to contact me. The office is [phone]. This note is constructed using voice recognition software. While every effort has been made to ensure accuracy cigarette stamper errors may have been included. Yours sincerely, PAULINE Rivas Coding Level of Care Code New Pt Level 3 (49147) Diagnoses Nocturia R35.1 CPT Codes Post Residual Void - PVR CPT Code: 76773-Setn Void Residual by ultrasound ([id number])
== END 2024-07-12 15:05 | disposition home or self-care (01) ==
PROVIDERS: PCP Family Medicine; Visit Provider Nurse Practitioner Family
DX: R35.1 Nocturia (principal); Z13.9 Encounter for screening, unspecified
CPT/HCPCS: 99203

== ENCOUNTER → 2024-07-12 13:34 | Outpatient (BNVA) | payer MEDICARE, SELFPAY | PROVIDERS: PCP Family Medicine; Visit Provider Nurse Practitioner Family | DX: R35.1 Nocturia (principal) | CPT/HCPCS: 51798; 81003; 99202 ==

== ENCOUNTER 2024-08-23 13:46 | Outpatient (REF) | payer MEDICARE, SELFPAY ==
--- OUTSIDE RECORDS SUMMARY | 2024-08-23 13:48 | XMS_ITS ---
[facility] Address [address] [place] [address] Care Team Providers Care Public Area Supervisor Name Role Phone La Zamora MD Primary Care Provider Unavailab Vee Crews Unavailable [phone] Allergies Allergen (clinical drug ingredient) Drug/Non Drug Allergy documented on EMR Reaction Allergy Type Onset Date Status amoxicillin Amoxicillin vaginal itching Drug Allergy Active povidone-iodine Betadine throat constricts Drug Allergy Inactive Erythrocin stomach cramps Drug Allergy A ctive Voltaren hives, rash Drug Allergy Activ e shrimp allergenic extract Shrimp (Diagnostic) throat constricts Drug Allergy Active Adhesive blistering Allergy Active codeine Codeine fainted, stomachache Drug Allergy Active Penicillin vaginal itching Drug Allergy Active Shellfish (FN) Shellfish-derived Products throat constricts Drug Allergy Active REASON FOR VISIT Painful nail(s) aggrevated by shoes and causing difficulty standing/walking., At Risk Footcare, Foot pain Medications Medication SIG (Take, Route, Frequency, Duration) Notes Start Date End Date Status Propranolol HCl ER Beads 80 MG 1 capsule at bedtime Orally Once a day Not-Taking Uuutslsl-Etwnwzzuc-Wyaicntp Not-Taking Iron 325 (65 Fe) MG 1 tablet Orally Once a day Not-Taking Nitro-Bid 2 % as directed Transdermal apply bid to toes for 30 days Not-Taking Flax Seeds Orally Not-Takin g Levothyroxine Sodium .05 1 tablet on an empty stomach in the morning Orally Once a day Active hydroCHLOROthiazide 12.5 MG Orally Active Flax Seeds Not-Takin g Tylenol Extra Strength 500 MG 1 tablet as needed Orally every 6 hrs Active Baby Aspirin Not-Dung ing Social History Tobacco Use: Social History Observation Description Date Details (start date - stop date) Former Smoker NA - NA Tobacco Use/Smoking Question Answer Notes Are you a: former smoker Additional Findings: Tobacco Non-User Current no n-smoker Tobacco use other than smoking: Question Answer Notes Are you an other tobacco user? No Problems Problem Type SNOMED Code ICD Code Onset Dates Problem Status W/U Status Risk Notes Problem Atherosclerosis of [place] artery of both lower extremities, with unspecified presence of clinical manifestation (I70.203) Active confirmed Q7(A), Q8(2B), Q9(1B,2C) Vital Signs Height 5 ft 7 in in 06/21/2024 Weight 219 lbs 06/21/2024 BMI 34.3 kg/m2 06/21/2024 Procedures Procedure Date Ordered Date Performed Result Body Sit e 66883-IMIMXIL NAIL, 6 OR MORE 06/21/2024 N/A 33545-XTNW SKIN LESIONS, OVER 4 06/21/2024 N/A Encounters Encounter Location Date Provider Diagnosis [facility] [address] [address] 06/21/2024 Vee Black Neuritis of right fo ot G57.91 ; Pain in right foot M79.671 ; Atherosclerosis of [place]ki[place] artery of both lower extremities, with unspecified presence of clinical manifestation I70.203 ; Tinea unguium B35.1 ; Pain in right toe(s) M79.674 and Pain in left toe(s) M79.675 Assessments Encounter Date Diagnosis (ICD Code) Assessment Notes Treatment Notes Treatment Clinical Notes Section Notes 06/21/2024 Neuritis of right foot (ICD-10 - G57.91) Response to treatment - Improvement 06/21/2024 Pain in right foot (ICD-10 - M79.671) 06/21/2024 Atherosclerosis of [place] artery of both lower extremities, with unspecified presence of clinical manifestation (ICD-10 - I70.203) Q7(A), Q8(2B), Q9(1B,2C) 06/21/2024 Tinea unguium (ICD-10 - B35.1) 06/21/2024 Pain in right toe(s) (ICD-10 - M79.674) 06/21/2024 Pain in left toe(s) (ICD-10 - M79.675) Plan Of Treatment Pending Test Test Name Order Date [id number]-[id number] NAIL, 6 OR MORE 06/21/2024 10615-HFBE SKIN LESIONS, OVER 4 06/21/20 Next Appt Details Follow Up: prn, Reason: Provider Name:Vee Ta , 08/30/2024 02:15:00 PM, [address] [place] [address], [phone], Provider Name:Vee Ta , 11/01/2024 01:30:00 PM, [address] [place] [address], [phone], Procedure Notes * Category Sub-Category Detail Notes Debride Nail 6-10 Nail debridement Performance o f this nail treatment by a nonprofessional would put this patients foot and overall health at risk. Therefore, nail debridement was performed extensively to reduce/remove overall nail length, girth, thickness, subungual debris, and necrotic tissue, by manual and/or electrical means through the use of a nail nipper and/or dremel-type precision thread grinder operator, to a more viable healthy nail plate or bed tissue 6-10. Silver nitrate used for any petechial bleeding as necessary. Definitive antifungal treatment options have been reviewed and discussed with the patient. The patient chooses, no pharmaceutical tx - 29393 Keratoma Treatment Parring or Cutting o f Benign Hyperkeratotic Lesion(s) 74025 ( >4 Lesions) - The Benign hyperkeratotic lesions, as described above were pared, and/or cut utilizing a sterile #15 blade, tissue nippers, and/or dremel, Q8 Progress Notes * Lilo KAYE MDOB:1945 (78 yo F)Acc No.[id number]:06/21/2024 Progress Note Patient:?Lilo Kaye Provider:?Vee DORY Ta :1945???Age:78 Y???Sex:Female D ate:06/21/2024 Address:[address] [place] [address] [id number] Pcp:La Zamora MD Subjective: * Chief Complaints: * ??? Painful nail(s) aggrevat ed by shoes and causing difficulty standing/walking.At Risk FootcareFoot pain * HPI: ???Painful Nails:?Pt States Last PCP Visit:?Date:?05/17/2024 ???At Risk footcare:?Pt States Last PCP Visit:?Date?05/17/2024 ???Foot Pain:?Nature:?, numbness.?Location:?, Great toe joint , RIGHT.?Duration:?several months.?Onset:?unknown.?Course:?, improved , at 60 %.?Aggravated:?any pressure.?Treatments:?rest/alter normal daily activity,soaks and topical medications.? * ROS:?General/Constitutional:?Nausea?denies.?Vomiting?denies.?Hunger Thirst?denies.?Loss appetite?denies.?Chills?denies.?Fatigue?admits.?Fever?denies.?Night Sweats?denies.?Unexplained weight loss?denies.?Unexplained weight gain?admits.?HEENTM:?Dentures?denies.?Dizziness?denies.?Glasses/contacts?admits.?Retinopathy?de nies.?Blurred/double vision?denies.?TMJ?denies.?Discharge/drainage?denies.?Implants?admits.?Sore throat?denies.?Dental implants?denies.?Hard of hearing ?denies.?Difficulty chewing/swallowing/speaking?denies.?Nose bleeds?denies.?Sore mouth?denies.?Respiratory:?On Oxygen?denies.?Pneumonia/pleurisy?admits.?Bronchitis?admits.?Emphysema?denies.?C oughing?denies.?Cough blood?denies.?Shortness of breath?denies.?Wheezing?denies.?Cardiovascular:?Pacemaker?denies.?MVP?denies.?WPW?denies.?CHF?denies.?Heart attack?denies.?Septal defect?denies.?Rapid beat?denies.?Chest pain ?denies.?Atrial Fib.?denies.?Murmur/Palpitations?denies.?Gastrointestinal:?Hemorrhoids?denies.?Stomach/Abdominal pain?denies.?Dark blood stool?denies.?Irritable bowel ?denies.?Constipation?denies.?Diarrhea?denies.?Hematology:?Swelling?admits.?Clots?denies.?Varicose Veins?denies.?Bruising?denies.?Bleeding problem?denies.?Genitourinary:?Blood urine?denies.?Frequent/Painfu/urination/bladder control?denies.?Kidney stones?denies.?Infection (UTI)?denies.?Nephropathy?denies.?sex trans dis (STD)?denies.?Prostate?denies.?Musculoskeletal:?Hammertoes?denies.?Bunions?denies.?Back Pain?admits.?Muscle Cramps/ Resting?denies.?Muscle cramps / walking?denies.?Generalized aches and pains?admits.?Weakness?denies.?Integ.:?Baez?denies.?Scars?denies.?Corns/calluses?denies.?Ingrown nails?denies.?Painful nails?denies.?Open Sores?denies.?Rashes?denies.?Neurologic:?Difficulty sleeping?denies.?Brain disorder?denies.?Numbness?admits.?Balance trouble?denies.?Confusion?denies.?Fainting/blackouts?denies.?Tingling?denies.?Tr emors?denies.? * Medical History:? * Surgical History:?vein surge ry 05/01/21Cortisone Inj 07/30/21Cortisone Inj 04/11/23 * Hospitalization/Major Diagno stic Procedure:?[facility]- Stomach cramps/ diarrhea 03/10/24 * Family History:?Mother: dece ased.?Father: , diagnosed with Unspecified heart disease.?Siblings: prostate cancer.?Spouse: dementia.? * Social History:?Tobacco Use:?Tobacco Use/Smoking?Are you a:?former smoker ?Additional Findings: Tobacco Non-User?Current non-smoker ?Tobacco use other than smoking?Are you an other tobacco user??No ???Miscellaneous:?no Caffeine, coffee, tea and Soda decaf, 1-2 cups per day. ?Children: yes, 2. ?Exercise: yes, sewing, knitting, quilting, walking when able, cooking. ?Marital status: . 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 * Medications:?TakinghydroCHLO ROthiazide 12.5 MG Tablet Orally Levothyroxine Sodium .05 Tablet 1 tablet on an empty stomach in the morning Orally Once a dayTylenol Extra Strength 500 MG Tablet 1 tablet as needed Orally every 6 hrsTaking hydroCHLOROthiazide 12.5 MG Tablet Orally Taking Levothyroxine Sodium .05 Tablet 1 tablet on an empty stomach in the morning Orally Once a dayTaking Tylenol Extra Strength 500 MG Tablet 1 tablet as needed Orally every 6 hrsNot-Taking/PRNFlax Seeds Baby Aspirin Dzdlpxkk-Ntmpvufvm-Bljmgnah Nitro-Bid 2 % Ointment as directed Transdermal apply bid to toesIron 325 (65 Fe) MG Tablet 1 tablet Orally Once a dayFlax Seeds Powder Orally Propranolol HCl ER Beads 80 MG Capsule Extended Release 24 Hour 1 capsule at bedtime Orally Once a dayMedication List reviewed and reconciled with the patientNot-Taking/PRN Flax Seeds Not-Taking/PRN Baby Aspirin Not- Taking/PRN Lsagqsiw-Qieglbbvc-Patlatfm Not-Taking/PRN Nitro-Bid 2 % Ointment as directed Transdermal apply bid to toesNot-Taking/PRN Iron 325 (65 Fe) MG Tablet 1 tablet Orally Once a dayNot-Taking/PRN Flax Seeds Powder Orally Not-Taking/PRN Propranolol HCl ER Beads 80 MG Capsule Extended Release 24 Hour 1 capsule at bedtime Orally Once a dayMedication List reviewed and reconciled with the patient * Allergies:?Erythrocin: stoma ch crampsVoltaren: hives, rashAmoxicillin: vaginal itchingCodeine: fainted, stomachacheShrimp (Diagnostic): throat constrictsShellfish-derived Products: throat constrictsAdhesive: blisteringPenicillin: vaginal itchingyes[Allergies Verified] Objective: * Vitals:?Ht: 5 ft 7 in, Wt: 2 19, BMI: 34.3, Shoe size: 9W, Wt-k.34 kg. * Examination: ???Neurological: ?SENSORY:?Neurological exam demonstrates , reduced light touch sensation , reduced sharp/dull pin prick discrimination right hallux , reduced vibration sensation , 5.07 monofilament test performed at plantar aspects of 5 varied sites per foot shows sensation , reduced at right hallux , Pt relates , anesthesia , Neurological exam reveals intact sensorium, pain sensation normal, vibration sensation intact, pinprick sensation is normal in the lower extremities, Pt denies, anesthesia, burning, paresthesia, tingling, B/L.?TINEL'S COMPRESSION:?Positive , Medial dorsal cutaneous nerve distribution , Intermediate dorsal cutaneous nerve distribution , Right reduced at 60 % Less.?Dermatologic: ?SKIN FINDINGS:?Skin exam reveals Keratotic lesion(s) located at, SUB MTH (s), 1, B/L, Heel(s), B/L SUB MTH (s) 5 B/L?.?Nails: ?NAILS are:?Elongated, overgrown, dystrophic, lytic, greater than 3mm thick, discolored and friable with crumbly malodorous subungual debris, with pain on palpation, , , 1-5 B/L ,?.?Vascular: ?DP PULSES(B):?, 2/4, B/L.?PT PULSES(B):?, 0/4, B/L.?CAPILLARY FILL TIME:? delayed, all digits, B/L.?TROPHIC CONDITION-TEXTURE/ELASTICITY/TURGOR/HAIR GROWTH(B):? decreased, fragile, thin, shiny skin, with sparse to absent hair growth, B/L.?TEMPERTURE GRADIENT(C):? decreased, cool to cool, proximal to distal, B/L.?PIGMENTATION:?, cyanotic, B/L.?EDEMA(C):?, 2/4 , non-pitting.?CLAUDICATION(C):?denies, B/L.?REST PAIN:?denies, B/L.?PARESTHESIA(C):?absent, B/L.?BURNING(C):?absent, B/L.? Assessment: * Assessment: 1.?Pain in right foot - M79. 671?2.?Neuritis of right foot - G57.91 (Primary), Response to treatment - Improvement?3.?Atherosclerosis of [place] artery of both lower extremities, with unspecified presence of clinical manifestation - I70.203, Q7(A), Q8(2B), Q9(1B,2C)?4.?Tinea unguium - B35.1?5.?Pain in right toe(s) - M79.674?6.?Pain in left toe(s) - M79.675? Plan: * Treatment: 2.?Tinea unguium?Procedure: [id number]-[id number] NAIL, 6 OR MORE * Procedures:?Debride Nail 6-10:?Nail debridement?Performance of this nail treatment by a nonprofessional would put this patients foot and overall health at risk. Therefore, nail debridement was performed extensively to reduce/remove overall nail length, girth, thickness, subungual debris, and necrotic tissue, by manual and/or electrical means through the use of a nail nipper and/or dremel-type precision thread grinder operator, to a more viable healthy nail plate or bed tissue 6-10. Silver nitrate used for any petechial bleeding as necessary. Definitive antifungal treatment options have been reviewed and discussed with the patient. The patient chooses, no pharmaceutical tx - 65273.?Keratoma Treatment:?Parring or Cutting of Benign Hyperkeratotic Lesion(s)?98870 ( >4 Lesions) - The Benign hyperkeratotic lesions, as described above were pared, and/or cut utilizing a sterile #15 blade, tissue nippers, and/or dremel, Q8.? * Procedure Codes:?77411 DEBRI DE NAIL, 6 OR MORE, Modifiers: XS 27777 TRIM SKIN LESIONS, OVER 4, Modifiers: Q8 * Preventive Medicine:? ??Counseling:?Discussion:?-12: Office or other outpatient visit for the evaluation and management of an established patient, which required a medically appropriate history and/or examination and STRAIGHTFORWARD level of MEDICAL DECISION MAKING, 1 SELF-LIMITED OR MINOR PROBLEM, MINIMAL- NO AMOUNT/COMPLEXITY OF DATA TO BE REVIEWED/ANALYZED, AND MINIMAL RISK OF COMPLICATION/MORBIDITY. The visit on the day of the encounter encompassed interpreting the data and educating the patient as to the nature of their condition, treatment options available according to their individual PMH, meds, allergies, and overall health/living conditions, as well as any potential risks or complications that may occur from a failure to adhere to, and participate in, the recommended course of therapy. The discussion included a complete verbal, and/or written explanation of the examination results, any x-rays taken, the proposed diagnosis, and outline of the treatment plan. A schedule for future care needs was also explained. The patient verbalized an understanding of the instructions at this time and agreed to be an active participant in their treatment. If the patient should think of any questions or concerns after the visit, I have encouraged the patient to call the office, Given recent successful results to treatment, The patient wishes to continue with the present treatment plan for their condition.? * Follow Up:?prn * Images: * Sign off status: Completed true * Provider:?Vee Ta DPM Date:?2023 Generated for Chastity mir/Janell/Yancy on:?08/23/2024 01:48 PM EST History and Physical Notes * HPI (History of Present Illness) Category Sub-Category Detail Notes Category Not es Painful Nails Pt States Last PCP Visit: Date:: 05/17/2024 At Risk footcare Pt States Last PCP Visit: Date: 4 Foot Pain Nature: , numbness Location: , Great toe joint , RIGHT Duration: several months Onset: unknown Course: , improved , at 60 % Aggravated: any pressure Treatments: rest/alter normal da camryn activity,soaks and topical medications Examination Category Sub-Category Detail Notes Category Not es Neurological SENSORY: Neurological exa m demonstrates , reduced light touch sensation , reduced sharp/dull pin prick discrimination right hallux , reduced vibration sensation , 5.07 monofilament test performed at plantar aspects of 5 varied sites per foot shows sensation , reduced at right hallux , Pt relates , anesthesia , Neurological exam reveals intact sensorium, pain sensation normal, vibration sensation intact, pinprick sensation is normal in the lower extremities, Pt denies, anesthesia, burning, paresthesia, tingling, B/L TINEL'S COMPRESSION: Positive , Medial d orsal cutaneous nerve distribution , Intermediate dorsal cutaneous nerve distribution , Right reduced at 60 % Less Dermatologic SKIN FINDINGS: Skin exam reveal s Keratotic lesion(s) located at, SUB MTH (s), 1, B/L, Heel(s), B/L SUB MTH (s) 5 B/L ULCER: Vascular DP PULSES (B): , 2/4, B/L PT PULSES (B): , 0/4, B/L CAPILLARY FILL TIME: delayed, all digits , B/L TEMPERTURE GRADIENT (C): decreased, cool to cool, proximal to distal, B/L TROPHIC CONDITION-TEXTURE/ELASTICITY/TURGOR/HAIR GROWTH (B): decreased, fragile, thin, shiny skin, wi th sparse to absent hair growth, B/L EDEMA (C): , 2/4 , non-pitting CLAUDICATION (C): denies, B/L REST PAIN: denies, B/L PIGMENTATION: , cyanotic, B/L PARESTHESIA (C): absent, B/L BURNING (C): absent, B/L Nails NAILS are: Elongated, overg rown, dystrophic, lytic, greater than 3mm thick, discolored and friable with crumbly malodorous subungual debris, with pain on palpation, , , 1-5 B/L ,
--- OUTSIDE RECORDS SUMMARY | 2024-08-23 13:49 | XMS_ITS ---
Author Organization [facility] Address [address] [facility] [place] [address] Care Team Providers Care Paraprofessional Aide Name Role Phone La Zamora MD Primary Care Provider Unavailab Vee Crews Unavailable [phone] Allergies Allergen (clinical drug ingredient) Drug/Non Drug [...] shoes and causing difficulty standing/walking., At Risk Footcare Medications Medication SIG (Take, Route, Frequency, Duration) Notes Start Date End Date Status Tylenol Extra Strength 500 MG 1 tablet as needed Orally every 6 hrs Active Flax Seeds Not-Takin g Baby Aspirin Not-Dung ing Rxbatmih-Wxjpwpfdh-Mubilfun Not-Taking Nitro-Bid 2 % as directed Transdermal apply bid to toes for 30 days Not-Taking Iron 325 (65 Fe) MG 1 tablet Orally Once a day Not-Taking Flax Seeds Orally Not-Takin g Propranolol HCl ER Beads 80 MG 1 capsule at bedtime Orally Once a day Not-Taking hydroCHLOROthiazide 12.5 MG Orally Active Levothyroxine Sodium .05 1 tablet on an empty stomach in the morning Orally Once a day Active Social History Tobacco Use: Social History Observation Description Date Details (start date - stop date) Former Smoker NA - NA Tobacco Use/Smoking Question Answer Notes Are you a: former smoker Additional Findings: Tobacco Non-User Current no n-smoker Alcohol Screen Question Answer Notes Did you have a drink contain ing alcohol in the past year? Yes How often did you have a dri nk containing alcohol in the past year? Monthly or less (1 point) Points 1 Interpretation Negative Tobacco use other than smoking: Question Answer Notes Are you an other tobacco user? 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 of extremities, bilateral legs I70.203 ; Tinea unguium B35.1 ; Pain in right toe(s) M79.674 and Pain in left toe(s) M79.675 Assessments Encounter Date Diagnosis (ICD Code) Assessment Notes Treatment Notes Treatment Clinical Notes Section Notes 02/16/2024 Unspecified atherosclerosis of [place] arteries of extremities, bilateral legs (ICD-10 - I70.203) 02/16/2024 Tinea unguium (ICD-10 - B35.1) 02/16/2024 Pain in right toe(s) (ICD-10 - M79.674) 02/16/2024 Pain in left toe(s) (ICD-10 - M79.675) Plan Of Treatment Pending Test Test Name Order Date 53582-MSIVFTC NAIL, 6 OR MORE 02/16/2024 40570-IJXX SKIN LESIONS, OVER 4 02/16/20 24 Next Appt Details Follow Up: prn, Reason: Provider Name:Vee Ta , 08/30/2024 02:15:00 PM, [address] [place] [address], [phone], Provider Name:Vee Ta , 11/01/2024 01:30:00 PM, [address] [place], [phone], Procedure Notes * Category Sub-Category Detail Notes Debride Nail 6-10 Nail debridement Nail debridem ent performed extensively to reduce/remove overall nail length and girth, subungual debris, and necrotic tissue, by manual and electrical means with use of a nail nipper and/or dremel, to more viable healthy nail plate or bed tissue 6-10. Silver nitrate used for any petechial bleeding as necessary. Patient chooses, no pharmaceutical tx (68334) Keratoma Treatment Parring or Cutting o f Benign Hyperkeratotic Lesion(s) 79253 ( >4 Lesions) - The Benign hyperkeratotic lesions, as described above were pared, and/or cut utilizing a sterile #15 blade, tissue nippers, and/or dremel, Q8 Progress Notes * Lilo KAYE MDOB:1945 (78 yo F)Acc No.[id number]:02/16/2024 Progress Note Patient:?Lilo Kaye Provider:?Vee Ta DPM :1945???Age:78 Y???Sex:Female D ate:02/16/2024 Address:[address] [place] [address] [id number] Pcp:La Zamora MD Subjective: * Chief Complaints: * ??? Painful nail(s) aggrevat ed by shoes and causing difficulty standing/walking.At Risk Footcare * HPI: ???Painful Nails:?Pt States Last PCP Visit:?Date:?11/11/2023 ???At Risk footcare:?Pt States Last PCP Visit:?Date?11/11/2023 * Medical History:? * Surgical History:?vein surge ry 05/01/21Cortisone Inj 07/30/21Cortisone Inj 04/11/23 * Hospitalization/Major Diagno stic Procedure:?Denies Past Hospitalization * Family History:?Mother: dece ased.?Father: , diagnosed with Unspecified heart disease.?Siblings: prostate cancer.?Spouse: dementia.? * Social History:?Tobacco Use:?Tobacco Use/Smoking?Are you a:?former smoker ?Additional Findings: Tobacco Non-User?Current non-smoker ?Tobacco use other than smoking?Are you an other tobacco user??No ???Drugs/Alcohol:?Drugs?Have you used drugs other than those for medical reasons in the past 12 months??No ?Alcohol Screen?Did you have a drink containing alcohol in the past year??Yes ?How often did you have a drink containing alcohol in the past year??Monthly or less (1 point) ?Points?1 ?Interpretation?Negative ???Miscellaneous:?no Caffeine, coffee, tea and Soda decaf, 1-2 cups per day. ?Children: yes, 2. ?Exercise: yes, sewing, knitting, quilting, walking when able, cooking. ?Marital status: . 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 * Medications:?TakinghydroCHLO ROthiazide 12.5 MG Tablet Orally [...] Orally every 6 hrsNot-Taking/PRNFlax Seeds Baby Aspirin Ohnjuyrm-Otctkkrfx-Ebsoouuz Nitro-Bid 2 % Ointment as directed Transdermal apply bid to toesIron 325 (65 Fe) MG Tablet 1 tablet Orally Once a dayFlax Seeds Powder Orally Propranolol HCl ER Beads 80 MG Capsule Extended Release 24 Hour 1 capsule at bedtime Orally Once a dayMedication List reviewed and reconciled with the patientNot-Taking/PRN Flax Seeds Not-Taking/PRN Baby Aspirin Not- Taking/PRN Hrttgsvs-Ollltcahl-Pdheinlv Not-Taking/PRN Nitro-Bid 2 % Ointment as directed [...] Vitals:?Ht: 5 ft 7 in, Wt: 2 24, BMI: 35.08, Shoe size: 9W, Wt-k.6 kg. * Examination: ???Vascular: ?DORSALIS PEDIS PULSE:?2/4, B/L.?POSTERIOR TIBIAL PULSE:?1/4, Right, 0/4, Left.?CAPILLARY REFILL:?delayed, all digits B/L.?TEMPERATURE GRADIENT:?cool to cold, B/L.?EDEMA:? +1/4.?INSPECTION:?cyanosis, bilateral digits 1-5.?HAIR GROWTH:? absent.?ABSENCE OF HAIR GROWTH:? bilaterally.?Dermatologic: ?SKIN FINDINGS:?Skin exam reveals Keratotic lesion(s) located at, SUB MTH (s), 1, B/L, Heel(s), B/L SUB MTH (s) 5 B/L .?Nails: ?NAILS are:?Elongated, overgrown, dystrophic, lytic, greater than 3mm thick, discolored and friable with crumbly malodorous subungual debris, with pain on palpation, , , 1-5 B/L.? Assessment: * Assessment: 1.?Unspecified atheroscleros is of [place] arteries of extremities, bilateral legs - I70.203 (Primary)?2.?Tinea unguium - B35.1?3.?Pain in right toe(s) - M79.674?4.?Pain in left toe(s) - M79.675? Plan: * Treatment: 2.?Tinea unguium?Procedure: 68146-KDSFJBR NAIL, 6 OR MORE * Procedures:?Debride Nail 6-10:?Nail debridement?Nail debridement performed extensively to reduce/remove overall nail length and girth, subungual debris, and necrotic tissue, by manual and electrical means with use of a nail nipper and/or dremel, to more viable healthy nail plate or bed tissue 6-10. Silver nitrate used for any petechial bleeding as necessary. Patient chooses, no pharmaceutical tx (24867).?Keratoma Treatment:?Parring or Cutting of Benign Hyperkeratotic Lesion(s)?44345 ( >4 Lesions) - The Benign hyperkeratotic lesions, as described above were pared, and/or cut utilizing a sterile #15 blade, tissue nippers, and/or dremel, Q8.? * Procedure Codes:?76562 DEBRI DE NAIL, 6 OR MORE, Modifiers: XS 02890 TRIM SKIN LESIONS, OVER 4, Modifiers: Q8 * Follow Up:?prn * Images: * Sign off status: Completed true * Provider:Anita Ta DPM Date:?2023 Generated for Chastity mir/Janell/Yancy on:?08/23/2024 01:49 PM EST History and Physical Notes * HPI (History of Present Illness) Category Sub-Category Detail Notes Category Not es Painful Nails Pt States Last PCP Visit: Date:: 11/11/2023 At Risk footcare Pt States Last PCP Visit: Date: 4 Examination Category Sub-Category Detail Notes Category Not es Neurological SENSORY: Dermatologic SKIN FINDINGS: Skin exam reveal s Keratotic lesion(s) located at, SUB MTH (s), 1, B/L, Heel(s), B/L SUB MTH (s) 5 B/L ULCER: Vascular DORSALIS PEDIS PULSE: 2/4, B/L EDEMA: +1/4 CAPILLARY REFILL: delayed, all digits B/L TEMPERATURE GRADIENT: cool to cold, B/L ABSENCE OF HAIR GROWTH: bilaterally POSTERIOR TIBIAL PULSE: 1/4, Right, 0/4, Left INSPECTION: cyanosis, bilateral digits 1-5 HAIR GROWTH: absent Nails NAILS are: Elongated, overg rown, dystrophic, lytic, greater than 3mm thick, discolored and friable with crumbly malodorous subungual debris, with pain on palpation, , , 1-5 B/L
--- OUTSIDE RECORDS SUMMARY | 2024-08-23 13:49 | XMS_ITS ---
Author Organization [facility] Address [address] [facility] [place] [address] Care Team Providers Care Medical Coding Technician Name Role Phone La Zamora MD Primary Care Provider Unavailab Vee Crews Unavailable [phone] Allergies Allergen (clinical drug ingredient) Drug/Non Drug [...] Duration) Notes Start Date End Date Status Flax Seeds Orally Not-Takin g Propranolol HCl ER Beads 80 MG 1 capsule at bedtime Orally Once a day Not-Taking Pwfijldr-Gislcldjz-Hxmzpouy Not-Taking Nitro-Bid 2 % as directed Transdermal apply bid to toes for 30 days Not-Taking Iron 325 (65 Fe) MG 1 tablet Orally Once a day Not-Taking hydroCHLOROthiazide 12.5 MG Orally Active Baby Aspirin Not-Dung ing Levothyroxine Sodium .05 1 tablet on an empty stomach in the morning Orally Once a day Active Tylenol Extra Strength 500 MG 1 tablet as needed Orally every 6 hrs Active Flax Seeds Not-Takin g Social History Tobacco Use: Social History Observation [...] Problem Status W/U Status Risk Notes Problem Mononeuropathy of lower limb (876886136) Neuritis of right foot (G57.91) Active confirmed Response to treatment - Improvement Vital Signs Height 5 ft 7 in in 04/19/2024 Weight 220 lbs 04/19/2024 BMI 34.45 kg/m2 04/19/2024 Procedures Procedure Date Ordered Date Performed Result Body Sit e 48983-JYFDHTK NAIL, 6 OR MORE 04/19/2024 N/A 82935-AEKT SKIN LESIONS, OVER 4 04/19/2024 N/A Encounters Encounter Location Date Provider Diagnosis [facility] [address] [place] [address] 04/19/2024 Vee Black Unspecified atherosclerosis of [place] arteries of extremities, bilateral legs I70.203 ; Neuritis of right foot G57.91 ; Tinea unguium B35.1 ; Pain in right toe(s) M79.674 ; Pain in left toe(s) M79.675 and Pain in right foot M79.671 Assessments Encounter Date Diagnosis (ICD Code) Assessment Notes Treatment Notes Treatment Clinical Notes Section Notes 04/19/2024 Unspecified atherosclerosis of [place] arteries of extremities, bilateral legs (ICD-10 - I70.203) 04/19/2024 Neuritis of right foot (ICD-10 - G57.91) 04/19/2024 Tinea unguium (ICD-10 - B35.1) 04/19/2024 Pain in right toe(s) (ICD-10 - M79.674) 04/19/2024 Pain in left toe(s) (ICD-10 - M79.675) 04/19/2024 Pain in right foot (ICD-10 - M79.671) Plan Of Treatment Pending Test Test Name Order Date 25713-BHQBFHB NAIL, 6 OR MORE 04/19/2024 41814-RSDJ SKIN LESIONS, OVER 4 04/19/20 24 Next Appt Details Follow Up: prn, Reason: Provider Name:Vee Ta , 08/30/2024 02:15:00 PM, [address] [place] [address], [phone], Provider Name:Vee Ta , 11/01/2024 01:30:00 PM, [address] [place] [address], [phone], Procedure Notes * Category Sub-Category Detail Notes [...] as necessary. Patient chooses, no pharmaceutical tx (93572) Keratoma Treatment Parring or Cutting o f Benign Hyperkeratotic Lesion(s) 60118 ( >4 Lesions) - The Benign hyperkeratotic lesions, as described above were pared, and/or cut utilizing a sterile #15 blade, tissue nippers, and/or dremel, Q8 Progress Notes * Lilo KAYE MDOB:1945 (78 yo F)Acc No.[id number]:04/19/2024 Progress Note Patient:?Lilo Kaye Provider:?Vee DORY Ta :1945???Age:78 Y???Sex:Female D ate:04/19/2024 Address:[address] [place] [address] [id number] Pcp:La Zamora MD Subjective: * Chief Complaints: * ??? Painful nail(s) aggrevat ed by shoes and causing difficulty standing/walking.At Risk FootcareFoot pain * HPI: ???Painful Nails:?Pt States Last PCP Visit:?Date:?11/11/2023 ???At Risk footcare:?Pt States Last PCP Visit:?Date?11/11/2023 ???Foot Pain:?Nature:?, numbness.?Location:?, Great toe joint , RIGHT.?Duration:?several months.?Onset:?unknown.?Course:?worse.?Aggravated:?any pressure.?Treatments:?rest/alter normal daily activity.? * ROS:?General/Constitutional:?Nausea?denies.?Vomiting?denies.?Hunger Thirst?denies.?Loss appetite?denies.?Chills?denies.?Fatigue?admits.?Fever?denies.?Night Sweats?denies.?Unexplained weight loss?denies.?Unexplained [...] able, cooking. ?Marital status: . 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 * Medications:?TakinghydroCHLO ROthiazide 12.5 MG Tablet Orally [...] Orally every 6 hrsNot-Taking/PRNFlax Seeds Baby Aspirin Hlfjlhuw-Mucvskain-Immxxxvf Nitro-Bid 2 % Ointment as directed Transdermal apply bid to toesIron 325 (65 Fe) MG Tablet 1 tablet Orally Once a dayFlax Seeds Powder Orally Propranolol HCl ER Beads 80 MG Capsule Extended Release 24 Hour 1 capsule at bedtime Orally Once a dayMedication List reviewed and reconciled with the patientNot-Taking/PRN Flax Seeds Not-Taking/PRN Baby Aspirin Not- Taking/PRN Tjrfuopk-Sjsszyxsf-Kbtzatkt Not-Taking/PRN Nitro-Bid 2 % Ointment as directed [...] Vitals:?Ht: 5 ft 7 in, Wt: 2 20, BMI: 34.45, Shoe size: 9W, Wt-k.79 kg. * Examination: ???Neurological: ?SENSORY:?Neurological exam demonstrates , reduced light touch sensation , reduced sharp/dull pin prick discrimination right hallux , reduced vibration sensation , 5.07 monofilament test performed at plantar aspects of 5 varied sites per foot shows sensation , reduced at right hallux , Pt relates , anesthesia.?TINEL'S COMPRESSION:?Positive , Medial dorsal cutaneous nerve distribution , Intermediate dorsal cutaneous nerve distribution , Right.?Vascular: ?DORSALIS PEDIS PULSE:?2/4, B/L.?POSTERIOR TIBIAL PULSE:?1/4, Right, [...] with pain on palpation, , , 1-5 B/L.?Neuroma Pain: ?PALPATION:?No interspace pain noted on palpation.?General Examination: ?GENERAL APPEARANCE:?Reveals a pleasant, alert, well nourished, well- developed, well hydrated individual, who demonstrates proper attention to hygiene/body habitus, and is in no acute distress, Pt serves as own historian for office visit today.?ORIENTED:?person, place, and time.?FOOT EXAM:? Assessment: * Assessment: 1.?Unspecified atheroscleros is of [place] arteries of extremities, bilateral legs - I70.203?2.?Neuritis of right foot - G57.91 (Primary), Acute problem, Uncomplicated (3)?3.?Tinea unguium - B35.1?4.?Pain in right toe(s) - M79.674?5.?Pain in left toe(s) - M79.675?6.?Pain in right foot - M79.671? Plan: * Treatment: 2.?Tinea unguium?Procedure: 98723-XNBXHRD NAIL, 6 OR MORE * Procedures:?Debride Nail 6-10:?Nail debridement?Nail debridement performed extensively to reduce/remove overall nail length and girth, subungual debris, and necrotic tissue, by manual and electrical means with use of a nail nipper and/or dremel, to more viable healthy nail plate or bed tissue 6-10. Silver nitrate used for any petechial bleeding as necessary. Patient chooses, no pharmaceutical tx (15888).?Keratoma Treatment:?Parring or Cutting of Benign Hyperkeratotic Lesion(s)?68505 ( >4 Lesions) - The Benign hyperkeratotic lesions, as described above were pared, and/or cut utilizing a sterile #15 blade, tissue nippers, and/or dremel, Q8.? * Procedure Codes:?69444 DEBRI DE NAIL, 6 OR MORE, Modifiers: XS 57911 TRIM SKIN LESIONS, OVER 4, Modifiers: Q8 * Preventive Medicine:? ??Counseling:?Discussion:?-13: Office or other outpatient visit for the evaluation and management of an established patient, which required a medically appropriate history and/or examination and LOW level of DECISION MAKING for: 1 STABLE ACUTE UNCOMPLICATED PROBLEM, 2 OR MORE MINOR PROBLEMS, OR 1 STABLE CHRONIC PROBLEM, THAT POSE(S) A LOW RISK FOR MORBIDITY/MORTALITY. The visit on the day of the [...] have encouraged the patient to call the office.?Neuritis/Neuropathy:?The patient was counseled on the diagnosis, possible etiologies (including mechanical stress, injury, entrapment, chemotherapy, diabetes, vertebral disk herniation if hx), treatment options, and importance for adherence to recommendations in order to address the patients Neuritis/Neuropathy. The advantages and disadvantages re: Accomidative mechanical support/offloading, Topical vs PO analgesics including aspercream/Voltaren gel/Lidoderm patches/Neurontin/Lyrica along with their potential side effects were discussed with the patient to their satisfaction. Also discussed the use of therapeutic injectable cortisone if needed. Surgical treatment, if considered an option, was discussed as well. If surgery is warranted, we discussed the potential successful outcomes as well as the possible complications such as failure, painful scar, permanent tingling/numbness/neuralgea/or intractable pain. Patient questions re: medication use, dosage, and possible side effects and drug interactions were reviewed and the answers to each understood. If the condition worsens, the patient was instructed to contact the office for an appointment. The patient verbally confirmed a full understanding of the above, Recommended Topical analgesics including aspercream/Voltaren gel/Lidoderm patches.? * Follow Up:?prn * Images: * Sign off status: Completed true * Provider:Anita Ta DPM Date:?2023 Generated for Sanderi adeola/Janell/eTransmitting on:?08/23/2024 01:48 PM EST History and Physical Notes * HPI (History of Present Illness) Category Sub-Category Detail Notes Category Not es Painful Nails Pt States Last PCP Visit: Date:: 11/11/2023 At Risk footcare Pt States Last PCP Visit: Date: Foot Pain Nature: , numbness Location: , Great toe joint , RIGHT Duration: several months Onset: unknown Course: worse Aggravated: any pressure Treatments: rest/alter normal da camryn activity Examination Category Sub-Category Detail Notes Category Not es Neuroma Pain PALPATION: No interspace pain noted on palpation Neurological SENSORY: Neurological exa m demonstrates , reduced light touch sensation , reduced sharp/dull pin prick discrimination right hallux , reduced vibration sensation , 5.07 monofilament test performed at plantar aspects of 5 varied sites per foot shows sensation , reduced at right hallux , Pt relates , anesthesia TINEL'S COMPRESSION: Positive , Medial d orsal cutaneous nerve distribution , Intermediate dorsal cutaneous nerve distribution , Right Dermatologic SKIN FINDINGS: Skin exam reveal s [...] cyanosis, bilateral digits 1-5 HAIR GROWTH: absent General Examination GENERAL APPEARANCE: Reveals a pleasant, alert, well nourished, well-developed, well hydrated individual, who demonstrates proper attention to hygiene/body habitus, and is in no acute distress, Pt serves as own historian for office visit today FOOT EXAM: Lower Extremity Neurological Exa m performed:: Yes Visual exam of foot performed:: Yes Date: 04/19/2024 Sensory testing performed:: sensations d iminished Sensory and motor testing performed:: se nsations diminished ORIENTED: person, place, and t truong Nails NAILS are: Elongated, overg rown, dystrophic, lytic, greater than 3mm thick, discolored and friable with crumbly malodorous subungual debris, with pain on palpation, , , 1-5 B/L
--- OUTSIDE RECORDS SUMMARY | 2024-08-23 13:49 | XMS_ITS | Patient Health Record ---
Author Organization [facility] mike Cervantes Address [address] [facility] [place] [address] Care Team Providers Care Plant Physiology Teacher Name Role Phone La Zamora MD Primary Care Provider Unavailab Vee Crews Unavailable [phone] Allergies Allergen (clinical drug ingredient) Drug/Non Drug [...] Shellfish-derived Products throat constricts Drug Allergy Active Reason For Referral No Information Medications Medication SIG (Take, Route, Frequency, Duration) Notes Start Date End Date Status Propranolol HCl ER Beads 80 MG 1 capsule at bedtime Orally Once a day Not-Taking Levothyroxine Sodium .05 1 tablet on an empty stomach in the morning Orally Once a day Active hydroCHLOROthiazide 12.5 MG Orally Active Flax Seeds Not-Takin g Tylenol Extra Strength 500 MG 1 tablet as needed Orally every 6 hrs Active Nacnoaez-Gqfmxdnjk-Smyrkxcv Not-Taking Baby Aspirin Not-Dung ing Iron 325 (65 Fe) MG 1 tablet Orally Once a day Not-Taking Nitro-Bid 2 % as directed Transdermal apply bid to toes for 30 days Not-Taking Flax Seeds Orally Not-Takin g Immunizations Vaccine Route Administration Date Status Comme nts COVID-19 Moderna Vaccine Unknown 07/09/2021 Administered 1st 10/07/2020 2nd 11/04/2020 Influenza Unknown 05/29/2021 Administered Social History Tobacco Use: Social History Observation [...] W/U Status Risk Notes Problem Atherosclerosis of kashia arteries of the extremities (847626299578918) 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, bilateral legs (I70.203) Active confirmed Problem Raynaud (590143220) Raynaud's syndrome without gangrene (I73.00) Active confirmed Problem Localized, primary osteoarthritis of the ankle and/or foot (570495579) Primary osteoarthritis, right ankle and foot (M19.071) Active confirmed Problem Ulcer of toe (954119174) Non-pressure chronic ulcer of other part of left foot limited to breakdown of skin (L97.521) Active confirmed Problem Non-pressure ulcer lower limb (931682226) Non-pressure chronic ulcer of other part of right foot limited to breakdown of 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) Active confirmed Problem Acquired hammer toe of right foot (9399303244788611 ) Other hammer toe(s) (acquired), right foot (M20.41) Active confirmed Problem Mononeuropathy of lower limb (792316288) Neuritis of right foot (G57.91) Active confirmed Response to treatment - Improvement Problem Atherosclerosis of kashia artery of both lower extremities, with unspecified presence of clinical manifestation (I70.203) Active confirmed Q7(A), Q8(2B), Q9(1B,2C) Problem Ulcer of toe of right foot (disorder) (2101638909136437 1) Skin ulcer of toe of right foot, limited to breakdown of 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) Active confirmed Problem Ulcer of toe of left foot (disorder) (5586673706931664 2) Skin ulcer of toe of left foot, limited to breakdown of skin (L97.521) Active confirmed Vital Signs Height 5 ft 7 in in 06/21/2024 Weight 219 lbs 06/21/2024 BMI 34.3 kg/m2 06/21/2024 Procedures Procedure Date Ordered Date Performed Result Body Sit e 79337-XOXWBRG NAIL, 6 OR MORE 10/13/2023 N/A 24920-Yuunlndp Plate 10/13/2023 N/A 15282-RTQW SKIN LESIONS, OVER 4 10/13/2023 N/A 09287-XDOFNRB NAIL, 6 OR MORE 12/15/2023 N/A 44806-NSBD SKIN LESIONS, OVER 4 12/15/2023 N/A 42580-NFAJYYY NAIL, 6 OR MORE 02/16/2024 N/A 99538-MKDX SKIN LESIONS, OVER 4 02/16/2024 N/A 11722-CAOZNTF NAIL, 6 OR MORE 04/19/2024 N/A 14290-RYLE SKIN LESIONS, OVER 4 04/19/2024 N/A 82677-SQTKJOW NAIL, 6 OR MORE 06/21/2024 N/A 07984-EVZU SKIN LESIONS, OVER 4 06/21/2024 N/A Encounters Encounter Location Date Provider Diagnosis [address] [address] 10/13/2023 Vee Black 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, bilateral legs I70.203 ; Tinea unguium B35.1 ; Pain in right toe(s) M79.674 ; Pain in left toe(s) M79.675 and Ingrown nail L60.[address] [address] 12/15/2023 Vee Black 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, bilateral legs I70.203 ; Tinea unguium B35.1 ; Pain in right toe(s) M79.674 and Pain in left toe(s) M79.[address] [address] 02/16/2024 Vee Black 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, bilateral legs I70.203 ; Tinea unguium B35.1 ; Pain in right toe(s) M79.674 and Pain in left toe(s) M79.[address] [address] 04/19/2024 Vee Black 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, bilateral legs I70.203 ; Neuritis of right foot G57.91 ; Tinea unguium B35.1 ; Pain in right toe(s) M79.674 ; Pain in left toe(s) M79.675 and Pain in right foot M79.[address] [address] 06/21/2024 Vee Black Neuritis of right fo ot G57.91 ; Pain in right foot M79.671 ; Atherosclerosis of kashia artery of both lower extremities, with unspecified presence of clinical manifestation I70.203 ; Tinea unguium B35.1 ; Pain in right toe(s) M79.674 and Pain in left toe(s) M79.675 Assessments Encounter Date Diagnosis (ICD Code) Assessment Notes Treatment Notes Treatment Clinical Notes Section Notes 10/13/2023 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, bilateral legs (ICD-10 - I70.203) 12/15/2023 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, bilateral legs (ICD-10 - I70.203) 02/16/2024 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, bilateral legs (ICD-10 - I70.203) 12/15/2023 Tinea unguium (ICD-10 - B35.1) 04/19/2024 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, bilateral legs (ICD-10 - I70.203) 04/19/2024 Neuritis of right foot (ICD-10 - G57.91) 06/21/2024 Pain in right foot (ICD-10 - M79.671) 06/21/2024 Neuritis of right foot (ICD-10 - G57.91) Response to treatment - Improvement 06/21/2024 Atherosclerosis of kashia artery of both lower extremities, with unspecified presence of clinical manifestation (ICD-10 - I70.203) Q7(A), Q8(2B), Q9(1B,2C) 12/15/2023 Pain in right toe(s) (ICD-10 - M79.674) 04/19/2024 Tinea unguium (ICD-10 - B35.1) 02/16/2024 Tinea unguium (ICD-10 - B35.1) 10/13/2023 Tinea unguium (ICD-10 - B35.1) 10/13/2023 Pain in right toe(s) (ICD-10 - M79.674) 02/16/2024 Pain in right toe(s) (ICD-10 - M79.674) 04/19/2024 Pain in right toe(s) (ICD-10 - M79.674) 12/15/2023 Pain in left toe(s) (ICD-10 - M79.675) 06/21/2024 Tinea unguium (ICD-10 - B35.1) 06/21/2024 Pain in right toe(s) (ICD-10 - M79.674) 04/19/2024 Pain in left toe(s) (ICD-10 - M79.675) 02/16/2024 Pain in left toe(s) (ICD-10 - M79.675) 10/13/2023 Pain in left toe(s) (ICD-10 - M79.675) 10/13/2023 Ingrown nail (ICD-10 - L60.0) 06/21/2024 Pain in left toe(s) (ICD-10 - M79.675) 04/19/2024 Pain in right foot (ICD-10 - M79.671) Plan Of Treatment Pending Test Test Name Order Date X ray : Ankle, right 2V 08/18/2020 X ray : Foot, left 3V 11/10/2015 66216-GHNVRJM NAIL, 6 OR MORE 09/01/2015 96294-CSQOLPU NAIL, 6 OR MORE 11/10/2015 39925-CYTXCEV NAIL, 6 OR MORE 01/13/2015 66535-LSGHBQU NAIL, 6 OR MORE 06/23/2015 04473-AKOYBTW NAIL, 6 OR MORE 05/27/2016 62292-TSPYJOI NAIL, 6 OR MORE 12/06/2013 76431-PPNKVBP NAIL, 6 OR MORE 03/11/2014 82553-UXDNZWT NAIL, 6 OR MORE 06/12/2014 22249-EXEEUVX NAIL, 6 OR MORE 09/04/2014 05219-GVDDHLL NAIL, 6 OR MORE 11/07/2014 48272-KNBSIVJ NAIL, 6 OR MORE 04/21/2015 06029-JOOVJCI NAIL, 6 OR MORE 2016 54943-GECKEBU NAIL, 6 OR MORE 02/17/2017 26624-IPYUSGF NAIL, 6 OR MORE 04/21/2017 15086-OCURPSO NAIL, 6 OR MORE 07/29/2016 21514-XGVKEKA NAIL, 6 OR MORE 10/11/2016 48819-THWPJTY NAIL, 6 OR MORE 06/27/2017 36422-SLOSMUM NAIL, 6 OR MORE 09/08/2017 82588-QUOSFKP NAIL, 6 OR MORE 11/10/2017 15725-REDEPUX NAIL, 6 OR MORE 01/12/2018 27025-HJLEDUK NAIL, 6 OR MORE 03/23/2018 58590-XOZHWXL NAIL, 6 OR MORE 05/25/2018 40480-FQVIDMU NAIL, 6 OR MORE 07/31/2018 05955-JRCRMHQ NAIL, 6 OR MORE 10/02/2018 71719-TWUPDSD NAIL, 6 OR MORE 12/04/2018 06270-LKROUOK NAIL, 6 OR MORE 10/30/2020 17020-TUNMEEZ NAIL, 6 OR MORE 01/01/2021 74623-IGCEQNT NAIL, 6 OR MORE 03/12/2021 88430-QBLMNFY NAIL, 6 OR MORE 05/15/2021 87550-EMVHIUZ NAIL, 6 OR MORE 04/23/2019 47098-ILWAZJU NAIL, 6 OR MORE 06/25/2019 09812-DCHSLSM NAIL, 6 OR MORE 09/10/2019 27271-IHZULXM NAIL, 6 OR MORE 11/21/2019 27914-OFWDDSJ NAIL, 6 OR MORE 01/24/2020 01222-SIJPVBK NAIL, 6 OR MORE 04/03/2020 73967-HVOYKFN NAIL, 6 OR MORE 06/16/2020 68378-IAXCNXR NAIL, 6 OR MORE 08/17/2021 45120-MLRLACW NAIL, 6 OR MORE 08/18/2020 26005-MKKPFHG NAIL, 6 OR MORE 11/26/2021 84795-SUQSBMV NAIL, 6 OR MORE 02/08/2022 02887-CXTTRPS NAIL, 6 OR MORE 04/12/2022 27227-MRKLFDZ NAIL, 6 OR MORE 06/14/2022 16432-CAMUNMJ NAIL, 6 OR MORE 08/16/2022 16946-EWKHQKK NAIL, 6 OR MORE 10/21/2022 68676-RJKFXIG NAIL, 6 OR MORE 12/23/2022 62358-OQHFSPW NAIL, 6 OR MORE 02/24/2023 19152-SDHHQQK NAIL, 6 OR MORE 04/28/2023 61318-QJUASUH NAIL, 6 OR MORE 08/08/2023 76586-PNEGFGS NAIL, 6 OR MORE 10/13/2023 27302-VCEFLSI NAIL, 6 OR MORE 12/15/2023 06894-KQEIVJH NAIL, 6 OR MORE 02/16/2024 06590-KODNKYE NAIL, 6 OR MORE 04/19/2024 76182-VKIORPT NAIL, 6 OR MORE 06/21/2024 58708-CDMZEDL NAIL, 1-5 05/27/2016 50541-VAUIROG NAIL, 1-5 01/12/2016 11852-EIXWNMT NAIL, 1-5 03/16/2016 35236-Wgad Destruction, 1-14 02/17/2017 83052-Gyuo Destruction, 1-14 10/11/2016 88983-Vgyr Destruction, 1-14 2016 66634-Umiubrox Plate 2016 25987-Ehfnrsyg Plate 04/21/2017 30155-Pamsrcsk Plate 06/27/2017 22694-Kybojqli Plate 10/02/2018 37568-Ruhnvhcs Plate 07/31/2018 77688-Jfyovpyq Plate 05/27/2016 82129-Tziycpip Plate 12/06/2013 33534-Aihwcoxp Plate 06/23/2015 12894-Ljqcrmtj Plate 04/21/2015 80875-Mztjfxid Plate 11/07/2014 72941-Kipjknhe Plate 01/13/2015 90253-Qggltpbs Plate 09/04/2014 81691-Mtfjaulz Plate 06/12/2014 03789-Fdqsmegw Plate 03/11/2014 29270-Evdkrrjq Plate 10/13/2023 48868-Nzihomad Plate 04/12/2022 20402-Gbsdmenh Plate 02/08/2022 68630-Rqzvnetq Plate 11/26/2021 06803-Pmolrmon Plate 04/03/2020 18374-Dibwoggb Plate 09/10/2019 98238-Ydblnwep Plate 03/12/2021 95437-Nkjckqia Plate 10/30/2020 63715-Hbemadqt Plate 06/16/2020 65894-Ardvcmxw Plate 02/24/2023 49460-Wkirfxbe Plate Each Additional 21644-Zxgtofrh Plate Each Additional 35166-Owepxxaf Plate Each Additional 97907-Knqfersk Plate Each Additional 93995-Uwycwpjb Plate Each Additional 81109-Umwflwct Plate Each Additional 65887- Debride <25 sq cm 06/11/2016 48255- Debride <25 sq cm 12/03/2015 10782- Debride <25 sq cm 12/04/2018 36054- Debride <25 sq cm 03/23/2018 00585- Debride <25 sq cm 06/27/2017 20273- Debride <25 sq cm 04/21/2017 69453- Debride <25 sq cm 04/28/2023 72834- Debride <25 sq cm 02/08/2022 81091- Debride <25 sq cm 01/24/2020 59667- Debride <25 sq cm 01/01/2021 19915- Debride <25 sq cm 05/15/2021 21010- Debride <25 sq cm 08/17/2021 50133-MBRXRSP SKIN/TISSUE 11/07/2014 32421 I&D ABSCESS- SIMPLE,SINGLE 014 60836 I&D ABSCESS- SIMPLE,SINGLE 016 81194 I&D ABSCESS- SIMPLE,SINGLE 016 13796 I&D ABSCESS- SIMPLE,SINGLE 016 54397 I&D ABSCESS- SIMPLE,SINGLE 016 02239 I&D ABSCESS- SIMPLE,SINGLE 017 42253-FIAN SKIN LESIONS, OVER 4 12/05/19 19 45962-NQVO SKIN LESIONS, OVER 4 01/14/20 15 71706-TXUM SKIN LESIONS, OVER 4 04/21/20 15 27984-KAIB SKIN LESIONS, OVER 4 08/17/20 21 19300-OIIK SKIN LESIONS, OVER 4 05/15/20 35104-PTHP SKIN LESIONS, OVER 4 03/12/20 47691-MCCE SKIN LESIONS, OVER 4 01/02/20 13093-CTGS SKIN LESIONS, OVER 4 08/18/20 78992-OKDG SKIN LESIONS, OVER 4 10/31/19 67861-RODL SKIN LESIONS, OVER 4 02/13/20 99414-OEVP SKIN LESIONS, OVER 4 04/03/20 30143-WOGV SKIN LESIONS, OVER 4 06/16/20 12405-ZMMW SKIN LESIONS, OVER 4 11/21/19 94002-PTRN SKIN LESIONS, OVER 4 01/24/20 25179-ILUG SKIN LESIONS, OVER 4 06/25/20 71558-NZCB SKIN LESIONS, OVER 4 09/10/19 36557-LRCE SKIN LESIONS, OVER 4 02/09/20 02052-QOMS SKIN LESIONS, OVER 4 11/27/19 67334-QJBA SKIN LESIONS, OVER 4 04/12/20 46688-PHMT SKIN LESIONS, OVER 4 06/14/20 45528-VHCH SKIN LESIONS, OVER 4 08/16/20 40701-LRNA SKIN LESIONS, OVER 4 10/21/19 45520-CMJU SKIN LESIONS, OVER 4 04/28/20 95254-WHKO SKIN LESIONS, OVER 4 02/25/20 80382-TUWZ SKIN LESIONS, OVER 4 12/24/19 86256-UQDC SKIN LESIONS, OVER 4 10/13/19 61365-MLOW SKIN LESIONS, OVER 4 08/08/20 10686-NYNQ SKIN LESIONS, OVER 4 02/16/20 76272-GMNU SKIN LESIONS, OVER 4 12/15/19 95035-MUDZ SKIN LESIONS, OVER 4 06/21/20 66585-RQWW SKIN LESIONS, OVER 4 04/19/20 78584-NBCF SKIN LESIONS, 2 TO 4 10/02/19 37068-MTDJ SKIN LESIONS, 2 TO 4 05/25/20 92595-QYKW SKIN LESIONS, 2 TO 4 07/31/20 36393-NJHO SKIN LESIONS, 2 TO 4 03/23/20 40714-DWON SKIN LESIONS, 2 TO 4 01/13/20 95874-ZPFX SKIN LESIONS, 2 TO 4 01/11/20 18 53050-ZREE SKIN LESIONS, 2 TO 4 11/11/19 18 87580-Zhrd. Subungual Hematoma 9 86112-OAAJZRJO OF HEMATOMA/FLUID 019 80524-DGPPHLGD OF HEMATOMA/FLUID 018 Next Appt Details Provider Name:Vee Ta , 08/30/2024 02:15:00 PM, [address] [place] [address], [phone], Provider Name:Vee Ta , 11/01/2024 01:30:00 PM, [address] [place] [address], [phone], Insurance Providers Payer Name Payer Address Payer Phone Subscriber Number Group Number Insured Name Patient Relationship to Insured Coverage Start Date Coverage End Date Medicare National Govt [employer] [address] [place] [address] [id number] Lilo Bess Self - patient is the insured [employer] [address] [place] [address] [id number] Lilo Bess Self - patient is the insured Medical (General) History Medical History History ICD Code Arthritis Back,Hip,and Knee pain Cancer Hiatal hernia High blood pressure Neuropathy Eczema Raynauds syndrome Scarlet fever Sciatica Thyroid disorder Skin ulcer Measles Mumps Chicken pox Bone implants/screws Transfusions covid Surgical History Surgery Date(Month/Year) vein surgery 05/01/21 Cortisone Inj 07/30/21 Cortisone Inj 04/11/23 Hospitalization History Reason Date(Month/Year) [facility]- Stomach cramps/ diarrhea
== END 2024-08-23 13:47 | disposition home or self-care (01) ==
LOC: HO.HMGCX 13:46
PROVIDERS: PCP Family Medicine; Visit Provider Nurse Practitioner Family
DX: R35.1 Nocturia (principal)
CPT/HCPCS: 76775

== ENCOUNTER → 2024-08-23 13:49 | Outpatient (BNV) | payer MEDICARE, SELFPAY | PROVIDERS: PCP Family Medicine; Visit Provider Radiology Diagnostic Radiology | DX: R35.1 Nocturia (principal) | CPT/HCPCS: 76775 ==

== ENCOUNTER 2024-08-27 13:31 | Outpatient (REF) | payer MEDICARE, SELFPAY ==
--- NOTE | ~2024-08-27 | US_ITS ---
EXAMINATION: US BLADDER HISTORY: NOCTURIA COMPARISON: There are no prior studies for comparison. FINDINGS: Sonographic examination of the urinary bladder was performed before and after voiding. Before voiding, the urinary bladder measured 8.7 x 7.2 x 7.4 cm for an estimated bladder volume of 239 mL. No intrinsic bladder abnormality is identified. Bilateral ureteral jets are noted. After voiding, the urinary bladder measured 2.0 x 2.3 x 3.3 cm, for an estimated volume of 8 mL. US/US bladder IMPRESSION: Post void bladder residual of 8 mL. No intrinsic bladder abnormality is identified. Electronically signed by: Jose Kilpatrick MD 09/04/2024 11:33 AM [facility]
--- OUTSIDE RECORDS SUMMARY | 2024-08-27 13:34 | XMS_ITS ---
Author Organization [facility] Address [address] [facility] [place] [address] Care Team Providers Care Isobutylene Operator Chief Name Role Phone La Zamora MD Primary Care Provider Unavailab Vee Crews Unavailable [phone] Allergies Allergen (clinical drug ingredient) Drug/Non Drug [...] at bedtime Orally Once a day Not-Taking Awbunxyq-Pqrfrolre-Tdvimewc Not-Taking Nitro-Bid 2 % as directed Transdermal [...] Risk Notes Problem Mononeuropathy of lower limb (784928120) Neuritis of right foot (G57.91) Active confirmed Response to treatment - Improvement Vital Signs Height 5 ft 7 in in 04/19/2024 Weight 220 lbs 04/19/2024 BMI 34.45 kg/m2 04/19/2024 Procedures Procedure Date Ordered Date Performed Result Body Sit e 93026-WVYIEDW NAIL, 6 OR MORE 04/19/2024 N/A 49218-UEXZ SKIN LESIONS, OVER 4 04/19/2024 N/A Encounters Encounter Location Date Provider Diagnosis [facility] [place] [address] [place] [address] 04/19/2024 Vee Black Unspecified atherosclerosis of [place] arteries of extremities, bilateral legs I70.203 ; Neuritis of right foot G57.91 ; Tinea unguium B35.1 ; Pain in right toe(s) M79.674 ; Pain in left toe(s) M79.675 and Pain in right foot M79.671 Assessments Encounter Date Diagnosis (ICD Code) Assessment Notes Treatment Notes Treatment Clinical Notes Section Notes 04/19/2024 Unspecified atherosclerosis of [place] arteries of extremities, bilateral legs (ICD-10 - I70.203) 04/19/2024 Neuritis of right foot (ICD-10 - G57.91) 04/19/2024 Tinea unguium (ICD-10 - B35.1) 04/19/2024 Pain in right toe(s) (ICD-10 - M79.674) 04/19/2024 Pain in left toe(s) (ICD-10 - M79.675) 04/19/2024 Pain in right foot (ICD-10 - M79.671) Plan Of Treatment Pending Test Test Name Order Date 14555-WGUAQVM NAIL, 6 OR MORE 04/19/2024 25525-XXVZ SKIN LESIONS, OVER 4 04/19/20 24 Next Appt Details Follow Up: prn, Reason: Provider Name:Vee Ta , 08/30/2024 02:15:00 PM, [address] [place] [address], [phone], Provider Name:Vee Ta , 11/01/2024 01:30:00 PM, [address] [place] [address], [phone], Procedure Notes * Category Sub-Category Detail Notes [...] as necessary. Patient chooses, no pharmaceutical tx (06618) Keratoma Treatment Parring or Cutting o f Benign Hyperkeratotic Lesion(s) 33791 ( >4 Lesions) - The Benign hyperkeratotic lesions, as described above were pared, and/or cut utilizing a sterile #15 blade, tissue nippers, and/or dremel, Q8 Progress Notes * Lilo KAYE MDOB:1945 (78 yo F)Acc No.[id number]:04/19/2024 Progress Note Patient:?Lilo Kaye Provider:?Vee DORY Ta :1945???Age:78 Y???Sex:Female D ate:04/19/2024 Address:[address] [place] [address] [phone] Pcp:La Zamora MD Subjective: * Chief Complaints: [...] able, cooking. ?Marital status: . 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 * Medications:?TakinghydroCHLO ROthiazide 12.5 MG Tablet Orally [...] Orally every 6 hrsNot-Taking/PRNFlax Seeds Baby Aspirin Cqxiitlc-Vqgrtvrlv-Ojdpzqcs Nitro-Bid 2 % Ointment as directed Transdermal apply bid to toesIron 325 (65 Fe) MG Tablet 1 tablet Orally Once a dayFlax Seeds Powder Orally Propranolol HCl ER Beads 80 MG Capsule Extended Release 24 Hour 1 capsule at bedtime Orally Once a dayMedication List reviewed and reconciled with the patientNot-Taking/PRN Flax Seeds Not-Taking/PRN Baby Aspirin Not- Taking/PRN Rtfivwpx-Lgyfoqvfi-Yixrfzna Not-Taking/PRN Nitro-Bid 2 % Ointment as directed [...] Assessment: * Assessment: 1.?Unspecified atheroscleros is of guid[place] arteries of extremities, bilateral legs - I70.203?2.?Neuritis of right foot - G57.91 (Primary), Acute problem, Uncomplicated (3)?3.?Tinea unguium - B35.1?4.?Pain in right toe(s) - M79.674?5.?Pain in left toe(s) - M79.675?6.?Pain in right foot - M79.671? Plan: * Treatment: 2.?Tinea unguium?Procedure: 90630-JZOIIOB NAIL, 6 OR MORE * Procedures:?Debride Nail 6-10:?Nail debridement?Nail debridement performed extensively to reduce/remove overall nail length and girth, subungual debris, and necrotic tissue, by manual and electrical means with use of a nail nipper and/or dremel, to more viable healthy nail plate or bed tissue 6-10. Silver nitrate used for any petechial bleeding as necessary. Patient chooses, no pharmaceutical tx (25657).?Keratoma Treatment:?Parring or Cutting of Benign Hyperkeratotic Lesion(s)?11286 ( >4 Lesions) - The Benign hyperkeratotic lesions, as described above were pared, and/or cut utilizing a sterile #15 blade, tissue nippers, and/or dremel, Q8.? * Procedure Codes:?46332 DEBRI DE NAIL, 6 OR MORE, Modifiers: XS 29051 TRIM SKIN LESIONS, OVER 4, Modifiers: Q8 [...] Ta DPM Date:?2023 Generated for Sanderi adeola/Janell/eTransmitting on:?08/27/2024 01:34 PM EST History and Physical Notes * [...]
--- OUTSIDE RECORDS SUMMARY | 2024-08-27 13:34 | XMS_ITS ---
Author Organization [facility] Address [address] [facility] [place] [address] Care Team Providers Care Obgyn Hospitalist Physician Name Role Phone La Zamora MD Primary Care Provider Unavailab Vee Crews Unavailable [phone] Allergies Allergen (clinical drug ingredient) Drug/Non Drug [...] Seeds Not-Takin g Baby Aspirin Not-Dung ing Wnhzgnts-Lfftxupfc-Ckbkrqhe Not-Taking Nitro-Bid 2 % as directed Transdermal [...] Ordered Date Performed Result Body Sit e 95362-JBKHVSE NAIL, 6 OR MORE 02/16/2024 N/A 37463-KCAT SKIN LESIONS, OVER 4 02/16/2024 N/A Encounters Encounter Location Date Provider Diagnosis [facility] [address] [address] 02/16/2024 Vee Keyon Unspecified atherosclerosis of [place] arteries of extremities, bilateral legs I70.203 ; Tinea unguium B35.1 ; Pain in right toe(s) M79.674 and Pain in left toe(s) M79.675 Assessments Encounter Date Diagnosis (ICD Code) Assessment Notes Treatment Notes Treatment Clinical Notes Section Notes 02/16/2024 Unspecified atherosclerosis of [place] arteries of extremities, bilateral legs (ICD-10 - I70.203) 02/16/2024 Tinea unguium (ICD-10 - B35.1) 02/16/2024 Pain in right toe(s) (ICD-10 - M79.674) 02/16/2024 Pain in left toe(s) (ICD-10 - M79.675) Plan Of Treatment Pending Test Test Name Order Date 69423-BUASWSF NAIL, 6 OR MORE 02/16/2024 79073-JDNA SKIN LESIONS, OVER 4 02/16/20 24 Next Appt Details Follow Up: prn, Reason: Provider Name:Vee Ta , 08/30/2024 02:15:00 PM, [address] [place] [address], [phone], Provider Name:Vee Ta , 11/01/2024 01:30:00 PM, [address] [place], [phone], Procedure Notes * Category Sub-Category Detail Notes [...] as necessary. Patient chooses, no pharmaceutical tx (79158) Keratoma Treatment Parring or Cutting o f Benign Hyperkeratotic Lesion(s) 36012 ( >4 Lesions) - The Benign hyperkeratotic lesions, as described above were pared, and/or cut utilizing a sterile #15 blade, tissue nippers, and/or dremel, Q8 Progress Notes * Lilo KAYE MDOB:1945 (78 yo F)Acc No.[id number]:02/16/2024 Progress Note Patient:?Lilo Kaye Provider:?Vee Ta DPM :1945???Age:78 Y???Sex:Female D ate:02/16/2024 Address:[address] [place] [address] [facility] Pcp:La Zamora MD Subjective: * Chief Complaints: [...] able, cooking. ?Marital status: . 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 * Medications:?TakinghydroCHLO ROthiazide 12.5 MG Tablet Orally [...] Orally every 6 hrsNot-Taking/PRNFlax Seeds Baby Aspirin Tssjycxi-Lpnojnqta-Umxtxwcw Nitro-Bid 2 % Ointment as directed Transdermal apply bid to toesIron 325 (65 Fe) MG Tablet 1 tablet Orally Once a dayFlax Seeds Powder Orally Propranolol HCl ER Beads 80 MG Capsule Extended Release 24 Hour 1 capsule at bedtime Orally Once a dayMedication List reviewed and reconciled with the patientNot-Taking/PRN Flax Seeds Not-Taking/PRN Baby Aspirin Not- Taking/PRN Cxlkfbhz-Idrrwgajc-Mrzzcoxo Not-Taking/PRN Nitro-Bid 2 % Ointment as directed [...] Assessment: * Assessment: 1.?Unspecified atheroscleros is of [place] arteries of extremities, bilateral legs - I70.203 (Primary)?2.?Tinea unguium - B35.1?3.?Pain in right toe(s) - M79.674?4.?Pain in left toe(s) - M79.675? Plan: * Treatment: 2.?Tinea unguium?Procedure: 97752-AAAJARZ NAIL, 6 OR MORE * Procedures:?Debride Nail 6-10:?Nail debridement?Nail debridement performed extensively to reduce/remove overall nail length and girth, subungual debris, and necrotic tissue, by manual and electrical means with use of a nail nipper and/or dremel, to more viable healthy nail plate or bed tissue 6-10. Silver nitrate used for any petechial bleeding as necessary. Patient chooses, no pharmaceutical tx (90698).?Keratoma Treatment:?Parring or Cutting of Benign Hyperkeratotic Lesion(s)?70921 ( >4 Lesions) - The Benign hyperkeratotic lesions, as described above were pared, and/or cut utilizing a sterile #15 blade, tissue nippers, and/or dremel, Q8.? * Procedure Codes:?43088 DEBRI DE NAIL, 6 OR MORE, Modifiers: XS 55746 TRIM SKIN LESIONS, OVER 4, Modifiers: Q8 * Follow Up:?prn * Images: * Sign off status: Completed true * Provider:Anita Ta DPM Date:?2023 Generated for Chastity mir/Janell/Yancy on:?08/27/2024 01:34 PM EST History and Physical [...]
--- OUTSIDE RECORDS SUMMARY | 2024-08-27 13:34 | XMS_ITS | Patient Health Record ---
Author Organization [facility] mike Cervantes Address [address] [facility] [place] [address] Care Team Providers Care Park Aide Name Role Phone La Zamora MD Primary Care Provider Unavailab Vee Crews Unavailable [phone] Allergies Allergen (clinical drug ingredient) Drug/Non Drug [...] as needed Orally every 6 hrs Active Awfxtuel-Ldndijfmf-Qtqaholl Not-Taking Baby Aspirin Not-Dung ing Iron 325 [...] W/U Status Risk Notes Problem Atherosclerosis of [place] arteries of the extremities (339607809062560) Unspecified atherosclerosis of [place] arteries of extremities, bilateral legs (I70.203) Active confirmed Problem Raynaud (557079782) Raynaud's syndrome without gangrene (I73.00) Active confirmed Problem Localized, primary osteoarthritis of the ankle and/or foot (466456206) Primary osteoarthritis, right ankle and foot (M19.071) Active confirmed Problem Ulcer of toe (794754003) Non-pressure chronic ulcer of other part of left foot limited to breakdown of skin (L97.521) Active confirmed Problem Non-pressure ulcer lower limb (735285488) Non-pressure chronic ulcer of other part of right foot limited to breakdown of 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) Active confirmed Problem Acquired hammer toe of right foot (1871096050989023 ) Other hammer toe(s) (acquired), right foot (M20.41) Active confirmed Problem Mononeuropathy of lower limb (413259170) Neuritis of right foot (G57.91) Active confirmed Response to treatment - Improvement Problem Atherosclerosis of [place] artery of both lower extremities, with unspecified presence of clinical manifestation (I70.203) Active confirmed Q7(A), Q8(2B), Q9(1B,2C) Problem Ulcer of toe of right foot (disorder) (2099694926879708 1) Skin ulcer of toe of right foot, limited to breakdown of 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) Active confirmed Problem Ulcer of toe of left foot (disorder) (8830231278610553 2) Skin ulcer of toe of left foot, limited to breakdown of skin (L97.521) Active confirmed Vital Signs Height 5 ft 7 in in 06/21/2024 Weight 219 lbs 06/21/2024 BMI 34.3 kg/m2 06/21/2024 Procedures Procedure Date Ordered Date Performed Result Body Sit e 72154-ABIHPPU NAIL, 6 OR MORE 10/13/2023 N/A 06071-Mkytdlzu Plate 10/13/2023 N/A 84747-BZKC SKIN LESIONS, OVER 4 10/13/2023 N/A 57299-OFIWNAK NAIL, 6 OR MORE 12/15/2023 N/A 23677-XNKC SKIN LESIONS, OVER 4 12/15/2023 N/A 21881-QFMOOFV NAIL, 6 OR MORE 02/16/2024 N/A 26909-BVBB SKIN LESIONS, OVER 4 02/16/2024 N/A 73493-TAMFHQN NAIL, 6 OR MORE 04/19/2024 N/A 76666-PQYL SKIN LESIONS, OVER 4 04/19/2024 N/A 46299-REOJWRJ NAIL, 6 OR MORE 06/21/2024 N/A 78043-KLYX SKIN LESIONS, OVER 4 06/21/2024 N/A Encounters Encounter Location Date Provider Diagnosis [address] [address] 10/13/2023 Vee Black Unspecified atherosclerosis of [place] arteries of extremities, bilateral legs I70.203 ; Tinea unguium B35.1 ; Pain in right toe(s) M79.674 ; Pain in left toe(s) M79.675 and Ingrown nail L60.[address] [address] 12/15/2023 Vee Black Unspecified atherosclerosis of [place] arteries of extremities, bilateral legs I70.203 ; Tinea unguium B35.1 ; Pain in right toe(s) M79.674 and Pain in left toe(s) M79.[address] [address] 02/16/2024 Vee Black Unspecified atherosclerosis of [place] arteries of extremities, bilateral legs I70.203 ; Tinea unguium B35.1 ; Pain in right toe(s) M79.674 and Pain in left toe(s) M79.[address] [address] 04/19/2024 Vee Black Unspecified atherosclerosis of [place] arteries of extremities, bilateral legs I70.203 ; Neuritis of right foot G57.91 ; Tinea unguium B35.1 ; Pain in right toe(s) M79.674 ; Pain in left toe(s) M79.675 and Pain in right foot M79.[address] [address] 06/21/2024 Vee Black Neuritis of right fo ot G57.91 ; Pain in right foot M79.671 ; Atherosclerosis of [place] artery of both lower extremities, with unspecified presence of clinical manifestation I70.203 ; Tinea unguium B35.1 ; Pain in right toe(s) M79.674 and Pain in left toe(s) M79.675 Assessments Encounter Date Diagnosis (ICD Code) Assessment Notes Treatment Notes Treatment Clinical Notes Section Notes 10/13/2023 Unspecified atherosclerosis of [place] arteries of extremities, bilateral legs (ICD-10 - I70.203) 12/15/2023 Unspecified atherosclerosis of [place] arteries of extremities, bilateral legs (ICD-10 - I70.203) 02/16/2024 Unspecified atherosclerosis of [place] arteries of extremities, bilateral legs (ICD-10 - I70.203) 12/15/2023 Tinea unguium (ICD-10 - B35.1) 04/19/2024 Unspecified atherosclerosis of [place] arteries of extremities, bilateral legs (ICD-10 - I70.203) 04/19/2024 Neuritis of right foot (ICD-10 - G57.91) 06/21/2024 Pain in right foot (ICD-10 - M79.671) 06/21/2024 Neuritis of right foot (ICD-10 - G57.91) Response to treatment - Improvement 06/21/2024 Atherosclerosis of [place] artery of both lower extremities, with unspecified [...] X ray : Foot, left 3V 11/10/2015 28647-ATQYRXE NAIL, 6 OR MORE 09/01/2015 98147-BIVXXQW NAIL, 6 OR MORE 11/10/2015 99760-CIKRGTE NAIL, 6 OR MORE 01/13/2015 90263-EMEWOWB NAIL, 6 OR MORE 06/23/2015 46082-IDDRPQK NAIL, 6 OR MORE 05/27/2016 04692-LFWJMJI NAIL, 6 OR MORE 12/06/2013 68546-TFXZLXW NAIL, 6 OR MORE 03/11/2014 21501-VSNOZDD NAIL, 6 OR MORE 06/12/2014 03117-GKSEBJA NAIL, 6 OR MORE 09/04/2014 32545-KZVCTZS NAIL, 6 OR MORE 11/07/2014 52116-ZXSCRZK NAIL, 6 OR MORE 04/21/2015 36185-GLCBSGW NAIL, 6 OR MORE 2016 23178-ZUDHABC NAIL, 6 OR MORE 02/17/2017 33561-JCOGQGY NAIL, 6 OR MORE 04/21/2017 16245-YGVHEZI NAIL, 6 OR MORE 07/29/2016 25709-YPQNGWI NAIL, 6 OR MORE 10/11/2016 93985-IAKQOCP NAIL, 6 OR MORE 06/27/2017 05455-WUMJIZK NAIL, 6 OR MORE 09/08/2017 80328-MWNLQQF NAIL, 6 OR MORE 11/10/2017 33609-JMWFTLH NAIL, 6 OR MORE 01/12/2018 33149-CKDENBM NAIL, 6 OR MORE 03/23/2018 80589-ZXADYOX NAIL, 6 OR MORE 05/25/2018 99499-OVXVQTR NAIL, 6 OR MORE 07/31/2018 06272-VGHYEKL NAIL, 6 OR MORE 10/02/2018 39398-QSYIQPS NAIL, 6 OR MORE 12/04/2018 45517-EAQLNYV NAIL, 6 OR MORE 10/30/2020 14749-GVTLAKT NAIL, 6 OR MORE 01/01/2021 22616-UJHOYVJ NAIL, 6 OR MORE 03/12/2021 54502-JXTBNPV NAIL, 6 OR MORE 05/15/2021 83283-GKYSJNI NAIL, 6 OR MORE 04/23/2019 44528-FMEQEZO NAIL, 6 OR MORE 06/25/2019 04853-JLULQZX NAIL, 6 OR MORE 09/10/2019 17029-NNVJMQP NAIL, 6 OR MORE 11/21/2019 55630-DKMADKO NAIL, 6 OR MORE 01/24/2020 96661-LXUYLJB NAIL, 6 OR MORE 04/03/2020 30751-RJZOVKU NAIL, 6 OR MORE 06/16/2020 11920-HITHUYX NAIL, 6 OR MORE 08/17/2021 99974-EQQTFDC NAIL, 6 OR MORE 08/18/2020 99497-GSCHFFT NAIL, 6 OR MORE 11/26/2021 34256-NMJZWZE NAIL, 6 OR MORE 02/08/2022 93168-NVHGCIZ NAIL, 6 OR MORE 04/12/2022 62505-IMIQKKW NAIL, 6 OR MORE 06/14/2022 43413-ECLVFLD NAIL, 6 OR MORE 08/16/2022 53400-FQEYKPL NAIL, 6 OR MORE 10/21/2022 92399-ZUYMZMD NAIL, 6 OR MORE 12/23/2022 37161-BVKSOOM NAIL, 6 OR MORE 02/24/2023 70133-CZFXCBY NAIL, 6 OR MORE 04/28/2023 67203-TIGUCQB NAIL, 6 OR MORE 08/08/2023 43564-QYOBIOH NAIL, 6 OR MORE 10/13/2023 41519-LRFSCMM NAIL, 6 OR MORE 12/15/2023 37329-DCMKKKP NAIL, 6 OR MORE 02/16/2024 96573-JHHMYFS NAIL, 6 OR MORE 04/19/2024 56938-ZNQOJVE NAIL, 6 OR MORE 06/21/2024 69514-ZDTKBRV NAIL, 1-5 05/27/2016 74058-XUTOMFO NAIL, 1-5 01/12/2016 07490-CPTINZU NAIL, 1-5 03/16/2016 65473-Dsax Destruction, 1-14 02/17/2017 31916-Brsw Destruction, 1-14 10/11/2016 36050-Yoni Destruction, 1-14 2016 10024-Nmdswupf Plate 2016 29659-Gnmjajpq Plate 04/21/2017 32726-Xjwimkic Plate 06/27/2017 65213-Eujjzxvl Plate 10/02/2018 85447-Szaqneur Plate 07/31/2018 25434-Dpyrdqzw Plate 05/27/2016 54849-Cvztdgus Plate 12/06/2013 03070-Chnbijyh Plate 06/23/2015 71615-Xvexupfa Plate 04/21/2015 65492-Pvmgtudt Plate 11/07/2014 29532-Vtoeqgpv Plate 01/13/2015 01480-Gxvdcdwr Plate 09/04/2014 45707-Mvrdrrsz Plate 06/12/2014 56033-Sysrhqag Plate 03/11/2014 16007-Rjrxcott Plate 10/13/2023 87067-Xtrsbvfp Plate 04/12/2022 06061-Dzxxrrpq Plate 02/08/2022 30740-Twhxzjrw Plate 11/26/2021 50964-Fnuuocwo Plate 04/03/2020 31837-Grbyysau Plate 09/10/2019 34592-Jhqsqwgj Plate 03/12/2021 67188-Lrhleqvh Plate 10/30/2020 65696-Bhzpzsiw Plate 06/16/2020 41228-Kzurdvpu Plate 02/24/2023 05232-Ucdeffvf Plate Each Additional 87797-Bzwmczsy Plate Each Additional 66059-Bjyuwhzh Plate Each Additional 70536-Ffmqjiqw Plate Each Additional 81171-Xbkxpean Plate Each Additional 23609-Vyrjwovw Plate Each Additional 73248- Debride <25 sq cm 06/11/2016 19238- Debride <25 sq cm 12/03/2015 95134- Debride <25 sq cm 12/04/2018 57110- Debride <25 sq cm 03/23/2018 99618- Debride <25 sq cm 06/27/2017 94385- Debride <25 sq cm 04/21/2017 43849- Debride <25 sq cm 04/28/2023 78253- Debride <25 sq cm 02/08/2022 72098- Debride <25 sq cm 01/24/2020 76350- Debride <25 sq cm 01/01/2021 52599- Debride <25 sq cm 05/15/2021 11103- Debride <25 sq cm 08/17/2021 69169-TEUQMWW SKIN/TISSUE 11/07/2014 39657 I&D ABSCESS- SIMPLE,SINGLE 014 03769 I&D ABSCESS- SIMPLE,SINGLE 016 40763 I&D ABSCESS- SIMPLE,SINGLE 016 08028 I&D ABSCESS- SIMPLE,SINGLE 016 81287 I&D ABSCESS- SIMPLE,SINGLE 016 00975 I&D ABSCESS- SIMPLE,SINGLE 017 98583-XINU SKIN LESIONS, OVER 4 12/05/19 19 90416-QEJH SKIN LESIONS, OVER 4 01/14/20 15 71241-LONY SKIN LESIONS, OVER 4 04/21/20 15 06100-FXFV SKIN LESIONS, OVER 4 08/17/20 21 67918-TIPZ SKIN LESIONS, OVER 4 05/15/20 66247-SCPI SKIN LESIONS, OVER 4 03/12/20 76132-QPHL SKIN LESIONS, OVER 4 01/02/20 57205-GUKC SKIN LESIONS, OVER 4 08/18/20 36575-SOKF SKIN LESIONS, OVER 4 10/31/19 67280-PNWF SKIN LESIONS, OVER 4 02/13/20 19064-QWRZ SKIN LESIONS, OVER 4 04/03/20 65112-FKCA SKIN LESIONS, OVER 4 06/16/20 73696-DAWK SKIN LESIONS, OVER 4 11/21/19 23843-PJUP SKIN LESIONS, OVER 4 01/24/20 92907-OPTW SKIN LESIONS, OVER 4 06/25/20 27663-VAOY SKIN LESIONS, OVER 4 09/10/19 62180-NUJN SKIN LESIONS, OVER 4 02/09/20 70288-FVST SKIN LESIONS, OVER 4 11/27/19 91019-IGAL SKIN LESIONS, OVER 4 04/12/20 90006-TEDE SKIN LESIONS, OVER 4 06/14/20 59307-FDZZ SKIN LESIONS, OVER 4 08/16/20 22074-SZPE SKIN LESIONS, OVER 4 10/21/19 39284-MYEG SKIN LESIONS, OVER 4 04/28/20 45092-SGLF SKIN LESIONS, OVER 4 02/25/20 68292-AWVH SKIN LESIONS, OVER 4 12/24/19 20542-EXTC SKIN LESIONS, OVER 4 10/13/19 12254-EUGZ SKIN LESIONS, OVER 4 08/08/20 89437-KEDO SKIN LESIONS, OVER 4 02/16/20 61512-JTDU SKIN LESIONS, OVER 4 12/15/19 58708-KKOE SKIN LESIONS, OVER 4 06/21/20 54729-VZJN SKIN LESIONS, OVER 4 04/19/20 47846-LQCK SKIN LESIONS, 2 TO 4 10/02/19 55463-HMLT SKIN LESIONS, 2 TO 4 05/25/20 09607-RAYK SKIN LESIONS, 2 TO 4 07/31/20 38746-VESG SKIN LESIONS, 2 TO 4 03/23/20 72755-CYZS SKIN LESIONS, 2 TO 4 01/13/20 47408-ZFVU SKIN LESIONS, 2 TO 4 01/11/20 18 76288-MALL SKIN LESIONS, 2 TO 4 11/11/19 18 98005-Qhxl. Subungual Hematoma 9 48667-RUUPQENJ OF HEMATOMA/FLUID 019 49878-FFJRRIOM OF HEMATOMA/FLUID 018 Next Appt Details Provider Name:Vee Ta , 08/30/2024 02:15:00 PM, [address] [place] [address], [phone], Provider Name:Vee Ta , 11/01/2024 01:30:00 PM, [address] [place] [address], [phone], Insurance Providers Payer Name Payer Address Payer Phone Subscriber Number Group Number Insured Name Patient Relationship to Insured Coverage Start Date Coverage End Date Medicare National Govt [employer] [address] [facility] [place] [address] [id number] Lilo Bess Self - patient is the insured [employer] [address] [place] [address] [phone] [id number] Lilo Bess Self - patient is the [...]
--- OUTSIDE RECORDS SUMMARY | 2024-08-27 13:34 | XMS_ITS ---
Author Organization [facility] Address [address] [facility] [place] [address] Care Team Providers Care Clinical Biochemist Name Role Phone La Zamora MD Primary Care Provider Unavailab Vee Crews Unavailable [phone] Allergies Allergen (clinical drug ingredient) Drug/Non Drug [...] at bedtime Orally Once a day Not-Taking Zldxdvla-Isxirfvun-Lldhmpzh Not-Taking Iron 325 (65 Fe) MG 1 [...] W/U Status Risk Notes Problem Atherosclerosis of [place] artery of both lower extremities, with unspecified presence of clinical manifestation (I70.203) Active confirmed Q7(A), Q8(2B), Q9(1B,2C) Vital Signs Height 5 ft 7 in in 06/21/2024 Weight 219 lbs 06/21/2024 BMI 34.3 kg/m2 06/21/2024 Procedures Procedure Date Ordered Date Performed Result Body Sit e 45764-CYLQOBV NAIL, 6 OR MORE 06/21/2024 N/A 71659-DKAX SKIN LESIONS, OVER 4 06/21/2024 N/A Encounters Encounter Location Date Provider Diagnosis [facility] [address] [address] 06/21/2024 Vee Black Neuritis of right fo ot G57.91 ; Pain in right foot M79.671 ; Atherosclerosis of [place] artery of both lower extremities, with unspecified [...] foot (ICD-10 - M79.671) 06/21/2024 Atherosclerosis of [place] artery of both lower extremities, with unspecified presence of clinical manifestation (ICD-10 - I70.203) Q7(A), Q8(2B), Q9(1B,2C) 06/21/2024 Tinea unguium (ICD-10 - B35.1) 06/21/2024 Pain in right toe(s) (ICD-10 - M79.674) 06/21/2024 Pain in left toe(s) (ICD-10 - M79.675) Plan Of Treatment Pending Test Test Name Order Date 66577-BKXHBZY NAIL, 6 OR MORE 06/21/2024 84163-HPRF SKIN LESIONS, OVER 4 06/21/20 Next Appt Details Follow Up: prn, Reason: Provider Name:Vee Ta , 08/30/2024 02:15:00 PM, [address] [place] [address], [phone], Provider Name:Vee Ta , 11/01/2024 01:30:00 PM, [address] [place] [address], [phone], Procedure Notes * Category Sub-Category Detail Notes Debride Nail 6-10 Nail debridement Performance o f this nail treatment by a nonprofessional would put this patients foot and overall health at risk. Therefore, nail debridement was performed extensively to reduce/remove overall nail length, girth, thickness, subungual debris, and necrotic tissue, by manual and/or electrical means through the use of a nail nipper and/or dremel-type edge grinder machine, to a more viable healthy nail plate or bed tissue 6-10. Silver nitrate used for any petechial bleeding as necessary. Definitive antifungal treatment options have been reviewed and discussed with the patient. The patient chooses, no pharmaceutical tx - 79792 Keratoma Treatment Parring or Cutting o f Benign Hyperkeratotic Lesion(s) 95582 ( >4 Lesions) - The Benign hyperkeratotic lesions, as described above were pared, and/or cut utilizing a sterile #15 blade, tissue nippers, and/or dremel, Q8 Progress Notes * Lilo KAYE MDOB:1945 (78 yo F)Acc No.[id number]:06/21/2024 Progress Note Patient:?Lilo Kaye Provider:?Vee DORY Ta :1945???Age:78 Y???Sex:Female D ate:06/21/2024 Address:[address] [place] [address] [id number] Pcp:La Zamora MD Subjective: * Chief Complaints: [...] able, cooking. ?Marital status: . ?Occupation: retired, [employer]. * Medications:?TakinghydroCHLO ROthiazide 12.5 MG Tablet Orally [...] Orally every 6 hrsNot-Taking/PRNFlax Seeds Baby Aspirin Klakvzla-Vxouqzqfa-Ykalvsmq Nitro-Bid 2 % Ointment as directed Transdermal apply bid to toesIron 325 (65 Fe) MG Tablet 1 tablet Orally Once a dayFlax Seeds Powder Orally Propranolol HCl ER Beads 80 MG Capsule Extended Release 24 Hour 1 capsule at bedtime Orally Once a dayMedication List reviewed and reconciled with the patientNot-Taking/PRN Flax Seeds Not-Taking/PRN Baby Aspirin Not- Taking/PRN Clqtmlow-Tazlbrztf-Dhgkenko Not-Taking/PRN Nitro-Bid 2 % Ointment as directed [...] (Primary), Response to treatment - Improvement?3.?Atherosclerosis of [place] artery of both lower extremities, with unspecified presence of clinical manifestation - I70.203, Q7(A), Q8(2B), Q9(1B,2C)?4.?Tinea unguium - B35.1?5.?Pain in right toe(s) - M79.674?6.?Pain in left toe(s) - M79.675? Plan: * Treatment: 2.?Tinea unguium?Procedure: 73294-SYBAYFU NAIL, 6 OR MORE * Procedures:?Debride Nail 6-10:?Nail debridement?Performance of this nail treatment by a nonprofessional would put this patients foot and overall health at risk. Therefore, nail debridement was performed extensively to reduce/remove overall nail length, girth, thickness, subungual debris, and necrotic tissue, by manual and/or electrical means through the use of a nail nipper and/or dremel-type edge grinder machine, to a more viable healthy nail plate or bed tissue 6-10. Silver nitrate used for any petechial bleeding as necessary. Definitive antifungal treatment options have been reviewed and discussed with the patient. The patient chooses, no pharmaceutical tx - 96458.?Keratoma Treatment:?Parring or Cutting of Benign Hyperkeratotic Lesion(s)?33458 ( >4 Lesions) - The Benign hyperkeratotic lesions, as described above were pared, and/or cut utilizing a sterile #15 blade, tissue nippers, and/or dremel, Q8.? * Procedure Codes:?46585 DEBRI DE NAIL, 6 OR MORE, Modifiers: XS 27228 TRIM SKIN LESIONS, OVER 4, Modifiers: Q8 [...] Provider:?Vee Ta DPM Date:?2023 Generated for Chastity mir/Janell/eTmara on:?08/27/2024 01:33 PM EST History and Physical Notes * [...]
--- OUTSIDE RECORDS SUMMARY | 2024-08-27 13:34 | XMS_ITS | Continuity of Care Document ---
Author Organization [facility] RETAIL TEAM LEADER Oncolog y Address [address] [place] [address]- Support Name Relationship Address Phone HOPFE, BARBARA Personal Relationship Unknown Unav ailable HOPFE, BARBARA Personal Relationship Unknown Unav ailable HOPFE, BARBARA spouse Unknown Unavailable HOPFE, BARBARA Personal Relationship Unknown Unav ailable HOPFE, BARBARA Personal Relationship Unknown Unav ailable HOPFE, BARBARA Personal Relationship Unknown Unav ailable HOPFE, BARBARA Personal Relationship Unknown Unav ailable HOPFE, BARBARA Personal Relationship Unknown Unav ailable HOPFE, BARBARA Personal Relationship Unknown Unav ailable HOPFE, BARBARA Personal Relationship Unknown Unav ailable HOPFE, BARBARA Personal Relationship Unknown Unav ailable HOPFE, BENNIE Personal Relationship Unknown Unavai lable HOPFE, BARBARA Personal Relationship Unknown Unav ailable HOPFE, BARBARA Personal Relationship Unknown Unav ailable HOPFE, BARBARA Personal Relationship Unknown Unav ailable HOPFE, BENNIE M Personal Relationship Unknown Unava ilable DARIA, LONNIE child Unknown Unavailable HOPFE, BARBARA Personal Relationship Unknown Unav ailable HOPFE, BARBARA Personal Relationship Unknown Unav ailable HOPFE, BARBARA Personal Relationship Unknown Unav ailable Care Team Providers Care Promotions Executive Producer Name Role Phone Noah DELGADO, La Conrad Primary Care Physician [phone] [place] [facility] [place] - 08/19/24 [facility] TE[employer] LE[facility] Oncology [address], [place] [address] Encounter Type: Triage Allergies, Adverse Reactions, Alerts Substance Criticality Severity Reaction Reaction Severity Status codeine stomach pain fainted Active Adhesive Bandage 1 A ctive erythromycin stomach pain Acti ve penicillin vaginal itching Act yana Voltaren hives Active shellfish throat closes hives Active 1patient reports having blisters with custodial use. Immunizations Given and Recorded Vaccine Date Status Refusal Reason influenza virus vaccine, inactivated 10/15/23 Abel rded influenza virus vaccine, inactivated 05/27/21 Abel rded influenza virus vaccine, inactivated 05/08/20 Abel rded influenza virus vaccine, inactivated 05/17/19 Abel rded influenza virus vaccine, inactivated 06/28/18 Abel rded influenza virus vaccine, inactivated 05/18/18 Abel rded influenza virus vaccine, inactivated 06/13/17 Abel rded influenza virus vaccine, inactivated 1 05/29/17 Re corded influenza virus vaccine, inactivated 06/17/16 Abel rded influenza virus vaccine, inactivated 2 06/05/15 Re corded influenza virus vaccine, inactivated 06/20/14 Abel rded influenza virus vaccine, inactivated 3 05/29/14 Gi latasha influenza virus vaccine, inactivated 4 05/29/13 Gi latasha influenza virus vaccine, inactivated 5 05/29/12 Gi latasha SARS-CoV-2(COVID-19)mRNA-LNP vac([id number]) 06/12/23 Recorded [id number] bivalent booster vax 08/04/22 Recorded tetanus/diphtheria/pertussis, acel(Tdap) 05/19/22 Recorded tetanus/diphtheria/pertussis, acel(Tdap) 09/18/13 Given SARS-CoV-2 (COVID-19) mRNA-1273 vaccine 07/08/21 R ecorded SARS-CoV-2 (COVID-19) mRNA-1273 vaccine 11/04/20 R ecorded SARS-CoV-2 (COVID-19) mRNA-1273 vaccine 10/07/20 R ecorded Influenza Virus Vaccine (oldterm) 05/30/20 Recorde d Influenza Virus Vaccine (oldterm) 06/03/15 Given Influenza Virus Vaccine (oldterm) 6 05/29/10 Given Influenza Virus Vaccine (oldterm) 7 06/17/08 Given pneumococcal 13-valent vaccine 12/10/14 Given Fluarix (oldterm) 8 06/02/11 Given Pneumococcal Vacc (oldterm) 9 01/14/09 Given Tetanus Toxoid Vaccine (oldterm) 08/29/03 Given 1Location History: [facility] 2Result Comment: [10/06/2016] given at [facility] 3Result Comment: [10/28/2014] [facility] 4Result Comment: [09/18/2013] Received at [facility] [place] [facility] 5Admin Note: [place] [facility] 6Admin Note: [facility] 7Admin Note: elsewhere 8Admin Note: [facility] 9Admin Note: Received at [facility] Medications hydroCHLOROthiazide 12.5 mg oral capsule 1 capsule, By Mouth, Daily, # 90 capsule, 3 Refills, Maintenance, 11/11/23 1:15:00 PM EDT, [facility], 163, cm, 11/11/23 12:58:00 EDT, Height Start Date: 11/11/23 Status: Ordered Quantity: 90.0 Unit: capsule Repeat number: 4 levothyroxine 0.05 mg oral tablet 1 tablet, By Mouth, Daily, # 90 tablet, 3 Refills, Maintenance, 11/11/23 1:15:00 PM EDT, [facility], 163, cm, 11/11/23 12:58:00 EDT, Height Start Date: 11/11/23 Status: Ordered Quantity: 90.0 Unit: tablet Repeat number: 4 Readi-Cat 2 Smoothie Creamy Vanilla 2% oral suspension See Instructions, If scan before 12PM; drink one bottle before bed, second bottle 90 mins before scan. If scan after noon; drink one bottle at 8 AM, second bottle 90 mins before scan. If scan after 4PM; drink one bottle 6 hours before, second bottle 90 mins before scan., # 2 each, 0 Refills, Maintenance, 01/12/24 1:18:00 PM EDT, [facility], Partial fill upon patient request if theprescription is for a schedule II opioid drug., If scan before 12PM; drink one bottle before bed, second bottle 90 mins before scan. ; If scan after noon; drink one bottle at 8 AM, second bottle 90 mins before scan. If scan after 4PM; drink one bottle 6 hours before, second bottle 90 mins before scan., 170.18, cm, 01/12/24 13:15:00 EDT, Height, 101, kg, 01/12/24 13:15:00 EDT, Dry Weight Start Date: 01/12/24 Status: Ordered Quantity: 2.0 Unit: each Repeat number: 1 Problem List Condition Confirmation Course Effective Dates Status H ealth Status Informant Anemia Confirmed Active Edema of leg Confirmed Active History of endometrial cancer Confirmed Active Hyperglycemia Confirmed Active Hypertension Confirmed Active Hypothyroid Confirmed Active Malignant neoplasm of corpus uteri, excluding isthmus Confirmed Active Morbid Obesity (BMI>40) 278.01 Confirmed Active Obesity monitoring status Confirmed Active Osteoarthritis Confirmed Active PAD (peripheral artery disease) Confirmed Active Raynaud's Syndrome Confirmed Active Severe obesity (BMI 35.0-39.9) with comorbidity Confirmed Active Social History Social History Type Response Smoking Status Former smoker; Start ed at age: 11; Stopped at age: 22; entered on: 09/22/15 Sex Sex Representation Female (finding) Patient Care team information Care Team Personnel Name: La Zamora MD Position: [facility] Physician - Primary Care Member Role: PCP Address: [address] [place] [address]- Telecom: Name: Priscilla Benites RN Position: [facility] RN Member Role: Primary Care Nurse Name: Dayana Rudolph RN Position: [facility] [place] Nurse Member Role: Primary Care Nurse Name: Ute Pal RN Position: [facility] RN Member Role: Primary Care Nurse Care Team Related Persons Name: BARBARA KAYE Name: LONNIE HUFF Insurance Providers Guarantor name: BENNIE KAYE Health Plan Information #: 1 Payer: MEDICARE PART B OUTPT Member Number: NA Policy Number: NA Group Number: NA Health Plan Information #: 2 Payer: MEDEX Member Number: NA Policy Number: NA Group Number: NA
== END 2024-08-27 13:32 | disposition home or self-care (01) ==
LOC: HO.HMGCX 13:31
PROVIDERS: PCP Family Medicine; Visit Provider Nurse Practitioner Family
DX: R35.1 Nocturia (principal)
CPT/HCPCS: 76857

== ENCOUNTER → 2024-08-27 13:33 | Outpatient (BNV) | payer MEDICARE, SELFPAY | PROVIDERS: PCP Family Medicine; Visit Provider Radiology Diagnostic Radiology | DX: R35.1 Nocturia (principal) | CPT/HCPCS: 76857 ==

== ENCOUNTER 2024-09-05 14:15 | Outpatient (AMB) | payer MEDICARE, SELFPAY ==
--- NOTE | 2024-09-05 14:17 | MHC.OFFVIS ---
Intake Visit Reasons: 2m/US Intake Note: Patient presents today for follow up visit for nocturia and ultrasound results Imaging Completed: 08/27/24 Urology Medications: none Blood Thinner: none PVR: 13ml's Commercial Floor Covering Installer Required: No Accompanied by: Self / Same As Patient Allergies diclofenac [From Voltaren] Allergy (Mild, Verified 09/05/24 15:39) HIVES penicillin G [Penicillin G] Allergy (Mild, Verified 09/05/24 15:39) ITCH penicillin V Allergy (Unknown, Verified 09/05/24 15:39) itching adhesive tape Adverse Reaction (Intermediate, Verified 09/05/24 15:39) blisters codeine [Codeine] Adverse Reaction (Mild, Verified 09/05/24 15:39) SYNCOPE,ABD PAIN erythromycin base [Erythromycin Base] Adverse Reaction (Mild, Verified 09/05/24 15:39) ABDOMINAL PAIN Shellfish Allergy (Severe, Uncoded 09/05/24 15:39) ANAPHYLAXIS Medication List - Last Reconciled 09/05/24 by VIVIANE Rivas-SKYE hydrochlorothiazide 12.5 mg PO DAILY levothyroxine 50 mcg PO DAILY HPI Comments Details: Lilo is a 78-year-old female patient of . She has a past medical history of hypertension and hypothyroidism. She presents to the office today for follow-up. Of note, patient was seen approximately 2 months ago as a new patient for nocturia at which time a retroperitoneal ultrasound was ordered for further assessment evaluation. These results were reviewed with the patient today. No intrinsic bladder abnormality is identified. Bilateral kidneys with no hydronephrosis or renal calculi. Lower pole right renal cyst measuring 1.2 cm. Left kidney with peripelvic upper pole and mid pole renal cysts largest measuring 1.2 cm. Discussed incidental finding noting large gallbladder stone with sludge. In discussion with the patient today she reports feeling it has been helpful elevating bilateral lower extremities in the late evening. She reports episodes of nocturia have decreased from 5-6 times per night to no more than 3 times per night. She also notes she feels she has better control of her bladder upon wakening. In office urinalysis results reviewed with the patient today 3+ leukocytes however patient denies any UTI like symptoms. She denies urinary urgency, urinary frequency, hematuria, dysuria, foul smelling urine, changes to urinary stream, flank pain, fever, and or chills. We discussed affects of lower leg edema in correlation to nocturia. PVR 13 mL. She denies any signs or symptoms of sleep apnea. We discussed at length potential causes of nocturia. She discusses her 's recent diagnosis of Lewy bodies dementia. She otherwise offers no other issues or concerns at this time. [facility] Medical History FH: bilateral hip replacements Hypertension Knee pain Surgical History H/O: hysterectomy H/O thyroidectomy Social History Current occupational status: retired Current occupation: right handed Review of Systems Const All systems reviewed & are unremarkable except as noted in HPI and below Physical Exam Const General: cooperative, healthy appearing, comfortable, no acute distress, well developed, alert and awake Nutritional Appearance: overweight Orientation/consciousness: patient oriented x3 Limitations: ambulation with cane HEENT Head: Yes normal to inspection, Yes normocephalic and Yes atraumatic Ears: hearing grossly normal bilaterally Eyes General: appearance normal, both eyes and all related structures Neck Neck: Yes normal visual inspection and Yes trachea midline Chest Chest palpation & inspection: normal inspection of the chest Resp Effort & Inspection: normal respiratory effort and able to speak in complete sentences Cardio Rate: regular rate GI Inspection: Yes normal to inspection General: Yes no CVA tenderness Back/Spine/Pelvis Back: no CVA tenderness Skin General skin exam: no rashes or lesions noted Neuro General: patient oriented x3 Extrem General: Yes normal to inspection Psych Appearance: grossly normal and well kempt Mental Status: mental status grossly normal Speech and movement: Normal speech and movement present and Clear speech present Affect: normal affect Attitude: cooperative Thought process: Normal thought process present Thought content: Normal thought content present Insight: Fair insight present (Psych) Judgement: Fair judgement present (Psych) Office Procedures Post Void Residual Post Residual Void Post Void Residual (PVR): 13 33275-Hxaw Void Residual by ultrasound Results AMB Urinalysis, Automated UA Leukoctes 500 Arnulfo/uL Last Edit by Luis Antonio Erwin on 09/05/24 14:35 UA Nitrite Last Edit by Luis Antonio Erwin on 09/05/24 14:35 UA Urobilinogen 0.2 mg/dL Last Edit by WhoisEDIkassye Yaima on 09/05/24 14:35 UA Protein 15 mg/dL Last Edit by WhoisEDIjustyna Erwin on 09/05/24 14:35 UA pH 6.0 Last Edit by WhoisEDIkassye Yaima on 09/05/24 14:35 UA Blood 10 Asher/uL Last Edit by [employer] on 09/05/24 14:35 UA Specific [place] 1.020 Last Edit by YOGITECHmargie on 09/05/24 14:35 UA Ketone Last Edit by GLOBALDRUMsherice [employer] and Powerm[employer]ie on 09/05/24 14:35 UA Bilirubin 0 mg/dL Last Edit by YOGITECHmargie on 09/05/24 14:35 UA Glucose 0 mg/dL Last Edit by WhoisEDIjustyna Erwin on 09/05/24 14:35 Results Reviewed Results Reviewed: Laboratory Last Values Urine pH (Auto) 6.0 09/05/24 14:25 Specific [place] (Auto) 1.020 09/05/24 14:25 Urine Protein (Auto) 15 mg/dL 09/05/24 14:25 Glucose (UA)(Auto) 0 mg/dL 09/05/24 14:25 Urine Blood (Auto) 10 Asher/uL 09/05/24 14:25 Urine Bilirubin (Auto) 0 mg/dL 09/05/24 14:25 Urine Urobilinogen (Auto) 0.2 mg/dL 09/05/24 14:25 Leukocyte Esterase (Auto) 500 Arnulfo/uL 09/05/24 14:25 Date of Service: 08/27/24 EXAMINATION: US BLADDER HISTORY: NOCTURIA COMPARISON: There are no prior studies for comparison. FINDINGS: Sonographic examination of the urinary bladder was performed before and after voiding. Before voiding, the urinary bladder measured 8.7 x 7.2 x 7.4 cm for an estimated bladder volume of 239 mL. No intrinsic bladder abnormality is identified. Bilateral ureteral jets are noted. After voiding, the urinary bladder measured 2.0 x 2.3 x 3.3 cm, for an estimated volume of 8 mL. IMPRESSION: Post void bladder residual of 8 mL. No intrinsic bladder abnormality is identified. Assessment & Plan Assessment & Plan (1) Nocturia: Code(s): R35.1 - Nocturia Category: Medical (2) Renal cyst: Code(s): N28.1 - Cyst of kidney, acquired Category: Medical Plan In office urinalysis results with the patient today; as noted above. PVR 13 mL. We discussed bladder triggers/irritants. Discussed importance of continuing to elevate legs in the late evening prior to bed to assist with decreasing episodes of nocturia. Continue elevating bilateral lower leg extremities in the evening. We discussed importance of limiting fluids 2-3 hours prior to bed to decrease episodes of nocturia. She reports be happy with current voiding parameters. Will continue with surveillance monitoring at this time. We discussed further treatment options and risks and benefits of these treatment options. Recent retroperitoneal ultrasound results reviewed with the patient today she will follow-up with PCP regarding GI findings. We discussed potential near future in office cystoscopy and or urodynamics for further assessment evaluation. Follow-up in 3-6 months with PVR; or sooner with any issues, concerns, and or questions. Orders: Orders AMB Post Void Residual by ultrasound Today R35.1 - Nocturia AMB Urinalysis Automated Today Z13.9 - Encounter for screening, unspecified Patient Instructions: The patient had an opportunity to ask questions regarding the treatment plan. All questions were answered. Physical exam, labs, and imaging were discussed and reviewed in detail. As well as risks, benefits, and discussion of treatment choices. No major barriers to understanding were identified. The patient expressed understanding and agreement with the above treatment plan. The patient was made aware they should contact our office by phone for worsening of their current condition, the appearance of new symptoms, or with any questions or concerns. Compliance is encouraged with any medications and follow up testing that is ordered. It is a privilege to be allowed the opportunity to participate in? your urological care.? Again, if you have any questions or concerns If you have any questions or concerns please do not hesitate to contact me. The office is [phone]. This note is constructed using voice recognition software. While every effort has been made to ensure accuracy supervisor heat treating errors may have been included. Yours sincerely, PAULINE Rivas Coding Level of Care Code Est Pt Level 3 (22495) Complex EM visit Add On G2211 Diagnoses Nocturia R35.1 Renal cyst N28.1 CPT Codes Post Residual Void - PVR CPT Code: 37778-Mdzx Void Residual by ultrasound ([id number])
--- OUTSIDE RECORDS SUMMARY | 2024-09-05 14:25 | XMS_ITS ---
Author Organization [facility] Address [address] [facility] [place] [address] Care Team Providers Care Foamite Mixer Name Role Phone La Zamora MD Primary Care Provider Unavailab Vee Crews Unavailable [phone] Allergies Allergen (clinical drug ingredient) Drug/Non Drug [...] Date Status Flax Seeds Orally Not-Takin g Baby Aspirin Not-Dung ing Mcyujhxk-Yyvlrzkgl-Xpdecwgt Not-Taking Nitro-Bid 2 % as directed Transdermal apply bid to toes for 30 days Not-Taking Iron 325 (65 Fe) MG 1 tablet Orally Once a day Not-Taking Levothyroxine Sodium .05 1 tablet on an empty stomach in the morning Orally Once a day Active Tylenol Extra Strength 500 MG 1 tablet as needed Orally every 6 hrs Active Flax Seeds Not-Takin g Propranolol HCl ER Beads 80 MG 1 capsule at bedtime Orally Once a day Not-Taking hydroCHLOROthiazide 12.5 MG Orally Active Social History Tobacco Use: Social History [...] Signs Height 5 ft 7 in in 08/30/2024 Weight 219 lbs 08/30/2024 BMI 34.3 kg/m2 08/30/2024 Blood pressure systolic 145 mm Hg 08/30/19 25 Blood pressure diastolic 66 mm Hg 025 Procedures Procedure Date Ordered Date Performed Result Body Sit e 03586-QQLVNCF NAIL, 6 OR MORE 08/30/2024 N/A 68476-JXCJ SKIN LESIONS, OVER 4 08/30/2024 N/A Encounters Encounter Location Date Provider Diagnosis [facility] [address] [place] [address] 08/30/2024 Vee Ta Atherosclerosis of [place] artery of both lower extremities, with unspecified presence of clinical manifestation I70.203 ; Tinea unguium B35.1 ; Pain in right toe(s) M79.674 and Pain in left toe(s) M79.675 Assessments Encounter Date Diagnosis (ICD Code) Assessment Notes Treatment Notes Treatment Clinical Notes Section Notes 08/30/2024 Atherosclerosis of [place] artery of both lower extremities, with unspecified presence of clinical manifestation (ICD-10 - I70.203) Q7(A), Q8(2B), Q9(1B,2C) 08/30/2024 Tinea unguium (ICD-10 - B35.1) 08/30/2024 Pain in right toe(s) (ICD-10 - M79.674) 08/30/2024 Pain in left toe(s) (ICD-10 - M79.675) Plan Of Treatment Pending Test Test Name Order Date 88183-WCXQAHP NAIL, 6 OR MORE 08/30/2024 01141-TESQ SKIN LESIONS, OVER 4 08/30/19 25 Next Appt Details Follow Up: prn, Reason: Provider Name:Vee Ta , 11/01/2024 01:30:00 PM, [address] [place] [address], [phone], Provider Name:Vee Ta , 01/03/2025 01:00:00 PM, [address] [place] [address], [phone], Procedure Notes * Category Sub-Category Detail Notes Debride Nail 6-10 Nail debridement Due to the cl inical pathology outlined in the exam findings, performance of this nail treatment is medically necessary as its management by an unskilled/untrained nonprofessional would put this patients foot and overall health at risk. Therefore, debridement to affected nail(s), as described in exam ( TA, T1, T2, T3, T4, T5, T6, T7, T8, T9, ), was performed exclusively by the physician of record to reduce/remove overall nail length, girth, thickness, subungual debris, and necrotic tissue, by manual and/or electrical means through the use of a nail nipper and/or dremel-type needle grinder, to a more viable healthy nail plate or bed tissue 6-10 nails in total. Silver nitrate was used for any petechial bleeding as necessary. Definitive antifungal treatment options, both pharmaceutical and surgical, have been reviewed and discussed with the patient. The patient solely prefers the use of intermittent/as needed professional debridement services for their nail condition and understands the need for additional periodic treatments to maintain effectiveness in symptomatic relief - 90692 Keratoma Treatment Parring or Cutting o f Benign Hyperkeratotic Lesion(s) (-57) More than 4 Lesions - Due to the at risk nature of the patients medical condition as documented in the exam findings, performance of this keratoderma treatment is medically necessary as its management by an unskilled/untrained nonprofessional would put this patients foot and overall health at risk. Therefore, the benign hyperkeratotic lesions, ( 6) in total, locations as stated and described in the exam ( SUB MTH (s), 1, B/L, Plantar Heel(s), B/L, SUB MTH (s) 5 B/L ), were pared, and/or cut utilizing a sterile 15 blade, tissue nippers, and/or power dremel instrumentation by the physician of record - 97926, Q8 Progress Notes * Lilo KAYE MDOB:1945 (78 yo F)Acc No.[id number]:08/30/2024 Progress Note Patient:?Lilo KAYE Provider:?Vee Ta DPM :1945???Age:78 Y???Sex:Female D ate:08/30/2024 Address:[address] [place] [address] [place] [id number] Pcp:La Zamora MD Subjective: * Chief Complaints: * ??? Painful nail(s) aggrevat ed by shoes and causing difficulty standing/walking.At Risk Footcare * HPI: ???Painful Nails:?Pt States Last PCP Visit:?Date:?05/17/2024 ???At Risk footcare:?Pt States Last PCP Visit:?Date?05/17/2024 * ROS:?General/Constitutional:?Nausea?denies.?Vomiting?denies.?Hunger Thirst?denies.?Loss appetite?denies.?Chills?denies.?Fatigue?admits.?Fever?denies.?Night Sweats?denies.?Unexplained weight loss?denies.?Unexplained weight gain?admits.?HEENTM:?Dentures?denies.?Dizziness?denies.?Glasses/contacts?admits.?Retinopathy?de nies.?Blurred/double vision?denies.?TMJ?denies.?Discharge/drainage?denies.?Implants?admits.?Sore throat?denies.?Dental implants?denies.?Hard of hearing ?denies.?Difficulty chewing/swallowing/speaking?denies.?Nose bleeds?denies.?Sore mouth?denies.?Respiratory:?On Oxygen?denies.?Pneumonia/pleurisy?admits.?Bronchitis?admits.?Emphysema?denies.?C oughing?denies.?Cough blood?denies.?Shortness of breath?denies.?Wheezing?denies.?Cardiovascular:?Pacemaker?denies.?MVP?denies.?WPW?denies.?CHF?denies.?Heart attack?denies.?Septal defect?denies.?Rapid beat?denies.?Chest pain ?denies.?Atrial Fib.?denies.?Murmur/Palpitations?denies.?Gastrointestinal:?Hemorrhoids?denies.?Stomach/Abdominal pain?denies.?Dark blood stool?denies.?Irritable bowel ?denies.?Constipation?denies.?Diarrhea?denies.?Hematology:?Swelling?admits.?Clots?denies.?Varicose Veins?denies.?Bruising?denies.?Bleeding problem?denies.?Genitourinary:?Blood urine?denies.?Frequent/Painfu/urination/bladder control?denies.?Kidney stones?denies.?Infection (UTI)?denies.?Nephropathy?denies.?sex trans dis (STD)?denies.?Prostate?denies.?Musculoskeletal:?Hammertoes?denies.?Bunions?denies.?Back Pain?admits.?Muscle Cramps/ Resting?denies.?Muscle cramps / walking?denies.?Generalized aches and pains?admits.?Weakness?denies.?Integ.:?Baez?denies.?Scars?denies.?Corns/calluses?, admits.?Ingrown nails?denies.?Painful nails?,admits.?Open Sores?denies.?Rashes?denies.?Neurologic:?Difficulty sleeping?denies.?Brain disorder?denies.?Numbness?admits.?Balance trouble?denies.?Confusion?denies.?Fainting/blackouts?denies.?Tingling?denies.?Tr emors?denies.? * Medical [...] year??Monthly or less (1 point) ?Points?1 ?Interpretation?Negative ???Miscellaneous:?Caffeine: no, coffee, tea and Soda decaf, 1-2 cups per day. ?Children: yes, 2. ?Exercise: yes, sewing, knitting, quilting, walking when able, cooking. ?Marital status: . 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 * Medications:?TakinghydroCHLO ROthiazide 12.5 MG Tablet Orally Levothyroxine Sodium .05 Tablet 1 tablet on an empty stomach in the morning Orally Once a day Tylenol Extra Strength 500 MG Tablet 1 tablet as needed Orally every 6 hrs Taking hydroCHLOROthiazide 12.5 MG Tablet Orally Taking Levothyroxine Sodium .05 Tablet 1 tablet on an empty stomach in the morning Orally Once a day Taking Tylenol Extra Strength 500 MG Tablet 1 tablet as needed Orally every 6 hrs Not-Taking/PRNFlax Seeds Baby Aspirin Gpgvjjzk-Hlbdmzarl-Unvtajwf Nitro-Bid 2 % Ointment as directed Transdermal apply bid to toes Iron 325 (65 Fe) MG Tablet 1 tablet Orally Once a day Flax Seeds Powder Orally Propranolol HCl ER Beads 80 MG Capsule Extended Release 24 Hour 1 capsule at bedtime Orally Once a day Medication List reviewed and reconciled with the patientNot-Taking/PRN Flax Seeds Not-Taking/PRN Baby Aspirin Not- Taking/PRN Sqprkedr-Fyluyffml-Vfzfplvh Not-Taking/PRN Nitro-Bid 2 % Ointment as directed Transdermal apply bid to toes Not-Taking/PRN Iron 325 (65 Fe) MG Tablet 1 tablet Orally Once a day Not-Taking/PRN Flax Seeds Powder Orally Not-Taking/PRN Propranolol HCl ER Beads 80 MG Capsule Extended Release 24 Hour 1 capsule at bedtime Orally Once a day Medication List reviewed and reconciled with the patient * Allergies:?Erythrocin: stoma ch crampsVoltaren: hives, rashAmoxicillin: vaginal itchingCodeine: fainted, stomachacheShrimp (Diagnostic): throat constrictsShellfish-derived Products: throat constrictsAdhesive: blisteringPenicillin: vaginal itchingyes[Allergies Verified] Objective: * Vitals:?Ht: 5 ft 7 in, Wt: 2 19, BMI: 34.3, Shoe size: 9W, BP: 145/66 mm Hg, Wt- k.34 kg. * Examination: ???Neurological: ?SENSORY:?Neurological exam demonstrates [...] extremities, Pt denies, anesthesia, burning, paresthesia, tingling, B/L.?Dermatologic: ?SKIN FINDINGS:?Skin exam reveals Keratotic lesion(s) located at SUB MTH (s), 1, B/L, Plantar Heel(s), B/L, SUB MTH (s) 5 B/L .?Nails: ?NAILS are:?Elongated, overgrown, dystrophic, lytic, greater than 3mm thick, discolored and friable with crumbly malodorous subungual debris, with pain on palpation, , , 1-5 B/L ,?.?Vascular: ?DP PULSES (B):?, 2/4, B/L.?PT PULSES (B):?, 0/4, B/L.?CAPILLARY FILL TIME:? delayed, all digits, B/L.?TROPHIC CONDITION-TEXTURE/ELASTICITY/TURGOR/HAIR GROWTH (B):? decreased, fragile, thin, shiny skin, with sparse to absent hair growth, B/L.?TEMPERTURE GRADIENT (C):? decreased, cool to cool, proximal to distal, B/L.?PIGMENTATION:?, cyanotic, B/L.?EDEMA (C):?, 2/4 , non-pitting.?CLAUDICATION (C):?denies, B/L.?REST PAIN:?denies, B/L.?PARESTHESIA (C):?absent, B/L.?BURNING (C):?absent, B/L.? Assessment: * Assessment: 1.?Tinea unguium - B35.1???2 .?Atherosclerosis of [place] artery of both lower extremities, with unspecified presence of clinical manifestation - I70.203 (Primary)???Notes :Q7(A), Q8(2B), Q9(1B,2C)???3.?Pain in right toe(s) - M79.674???4.?Pain in left toe(s) - M79.675??? Plan: * Treatment: 2.?Tinea unguium?Procedure: 43350-ICPTGKH NAIL, 6 OR MORE * Procedures:?Debride Nail 6-10:?Nail debridement?Due to the clinical pathology outlined in the exam findings, performance of this nail treatment is medically necessary as its management by an unskilled/untrained nonprofessional would put this patients foot and overall health at risk. Therefore, debridement to affected nail(s), as described in exam ( TA, T1, T2, T3, T4, T5, T6, T7, T8, T9, ), was performed exclusively by the physician of record to reduce/remove overall nail length, girth, thickness, subungual debris, and necrotic tissue, by manual and/or electrical means through the use of a nail nipper and/or dremel-type needle grinder, to a more viable healthy nail plate or bed tissue 6- 10 nails in total. Silver nitrate was used for any petechial bleeding as necessary. Definitive antifungal treatment options, both pharmaceutical and surgical, have been reviewed and discussed with the patient. The patient solely prefers the use of intermittent/as needed professional debridement services for their nail condition and understands the need for additional periodic treatments to maintain effectiveness in symptomatic relief - 00509.?Keratoma Treatment:?Parring or Cutting of Benign Hyperkeratotic Lesion(s)?(-57) More than 4 Lesions - Due to the at risk nature of the patients medical condition as documented in the exam findings, performance of this keratoderma treatment is medically necessary as its management by an unskilled/untrained nonprofessional would put this patients foot and overall health at risk. Therefore, the benign hyperkeratotic lesions, ( 6) in total, locations as stated and described in the exam ( SUB MTH (s), 1, B/L, Plantar Heel(s), B/L, SUB MTH (s) 5 B/L ), were pared, and/or cut utilizing a sterile 15 blade, tissue nippers, and/or power dremel instrumentation by the physician of record - 72397, Q8.? * Procedure Codes:?18069 DEBRI DE NAIL, 6 OR MORE, Modifiers: XS 16417 TRIM SKIN LESIONS, OVER 4, Modifiers: Q8 * Preventive Medicine:? ??Screening/Special Tests:?Fall Risk?Screening:?No falls in the past year * Follow Up:?prn * Images: * Sign off status: Completed true * Provider:?Vee Ta DPM Date:?2024 Generated for Chastity mir/Janell/eTransmitting on:?09/05/2024 02:24 PM EST History and Physical Notes * HPI (History of Present Illness) Category Sub-Category Detail Notes Category Not es Painful Nails Pt States Last PCP Visit: Date:: 05/17/2024 At Risk footcare Pt States Last PCP Visit: Date: Examination Category Sub-Category Detail Notes Category Not [...] anesthesia, burning, paresthesia, tingling, B/L TINEL'S COMPRESSION: Dermatologic SKIN FINDINGS: Skin exam reveal s Keratotic lesion(s) located at SUB MTH (s), 1, B/L, Plantar Heel(s), B/L, SUB MTH (s) 5 B/L ULCER: Vascular [...]
--- OUTSIDE RECORDS SUMMARY | 2024-09-05 14:25 | XMS_ITS ---
Author Organization [facility] Address [address] [facility] [place] [address] Care Team Providers Care Tool/Die Maker Name Role Phone La Zamora MD Primary Care Provider Unavailab Vee Crews Unavailable [phone] Allergies Allergen (clinical drug ingredient) Drug/Non Drug [...] at bedtime Orally Once a day Not-Taking Rpeaucvw-Xeozncspq-Gjtjkkjt Not-Taking Iron 325 (65 Fe) MG 1 [...] W/U Status Risk Notes Problem Atherosclerosis of cabaz[place] artery of both lower extremities, with unspecified presence of clinical manifestation (I70.203) Active confirmed Q7(A), Q8(2B), Q9(1B,2C) Vital Signs Height 5 ft 7 in in 06/21/2024 Weight 219 lbs 06/21/2024 BMI 34.3 kg/m2 06/21/2024 Procedures Procedure Date Ordered Date Performed Result Body Sit e 82139-NWJMQBJ NAIL, 6 OR MORE 06/21/2024 N/A 48039-QUEJ SKIN LESIONS, OVER 4 06/21/2024 N/A Encounters Encounter Location Date Provider Diagnosis [facility] [address] [address] 06/21/2024 Vee Black Neuritis of right fo ot G57.91 ; Pain in right foot M79.671 ; Atherosclerosis of cabaz[place] artery of both lower extremities, with unspecified [...] foot (ICD-10 - M79.671) 06/21/2024 Atherosclerosis of cabaz[place] artery of both lower extremities, with unspecified presence of clinical manifestation (ICD-10 - I70.203) Q7(A), Q8(2B), Q9(1B,2C) 06/21/2024 Tinea unguium (ICD-10 - B35.1) 06/21/2024 Pain in right toe(s) (ICD-10 - M79.674) 06/21/2024 Pain in left toe(s) (ICD-10 - M79.675) Plan Of Treatment Pending Test Test Name Order Date 94765-SJCGGWE NAIL, 6 OR MORE 06/21/2024 38733-RXGB SKIN LESIONS, OVER 4 06/21/20 Next Appt Details Follow Up: prn, Reason: Provider Name:Vee Ta , 11/01/2024 01:30:00 PM, [address] [place] [address], [phone], Provider Name:Vee Ta , 01/03/2025 01:00:00 PM, [address] [place] [address], [phone], Procedure Notes * Category Sub-Category Detail Notes Debride Nail 6-10 Nail debridement Performance o f this nail treatment by a nonprofessional would put this patients foot and overall health at risk. Therefore, nail debridement was performed extensively to reduce/remove overall nail length, girth, thickness, subungual debris, and necrotic tissue, by manual and/or electrical means through the use of a nail nipper and/or dremel-type grinder and plater, to a more viable healthy nail plate or bed tissue 6-10. Silver nitrate used for any petechial bleeding as necessary. Definitive antifungal treatment options have been reviewed and discussed with the patient. The patient chooses, no pharmaceutical tx - 94788 Keratoma Treatment Parring or Cutting o f Benign Hyperkeratotic Lesion(s) 84577 ( >4 Lesions) - The Benign hyperkeratotic lesions, as described above were pared, and/or cut utilizing a sterile #15 blade, tissue nippers, and/or dremel, Q8 Progress Notes * Lilo KAYE MDOB:1945 (78 yo F)Acc No.[id number]:06/21/2024 Progress Note Patient:?Lilo Kaye Provider:?Vee DORY Ta :1945???Age:78 Y???Sex:Female D ate:06/21/2024 Address:[address] [place] [address] [id number] Pcp:La Zamora MD Subjective: * Chief Complaints: [...] able, cooking. ?Marital status: . 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 * Medications:?TakinghydroCHLO ROthiazide 12.5 MG Tablet Orally [...] Orally every 6 hrsNot-Taking/PRNFlax Seeds Baby Aspirin Gcqqtblk-Mkwveraon-Qzutyasy Nitro-Bid 2 % Ointment as directed Transdermal apply bid to toesIron 325 (65 Fe) MG Tablet 1 tablet Orally Once a dayFlax Seeds Powder Orally Propranolol HCl ER Beads 80 MG Capsule Extended Release 24 Hour 1 capsule at bedtime Orally Once a dayMedication List reviewed and reconciled with the patientNot-Taking/PRN Flax Seeds Not-Taking/PRN Baby Aspirin Not- Taking/PRN Jhfjssqj-Xvvfewssa-Uoqfodqx Not-Taking/PRN Nitro-Bid 2 % Ointment as directed [...] (Primary), Response to treatment - Improvement?3.?Atherosclerosis of cabaz[place] artery of both lower extremities, with unspecified presence of clinical manifestation - I70.203, Q7(A), Q8(2B), Q9(1B,2C)?4.?Tinea unguium - B35.1?5.?Pain in right toe(s) - M79.674?6.?Pain in left toe(s) - M79.675? Plan: * Treatment: 2.?Tinea unguium?Procedure: 39234-WWFPMKD NAIL, 6 OR MORE * Procedures:?Debride Nail 6-10:?Nail debridement?Performance of this nail treatment by a nonprofessional would put this patients foot and overall health at risk. Therefore, nail debridement was performed extensively to reduce/remove overall nail length, girth, thickness, subungual debris, and necrotic tissue, by manual and/or electrical means through the use of a nail nipper and/or dremel-type grinder and plater, to a more viable healthy nail plate or bed tissue 6-10. Silver nitrate used for any petechial bleeding as necessary. Definitive antifungal treatment options have been reviewed and discussed with the patient. The patient chooses, no pharmaceutical tx - 71880.?Keratoma Treatment:?Parring or Cutting of Benign Hyperkeratotic Lesion(s)?82239 ( >4 Lesions) - The Benign hyperkeratotic lesions, as described above were pared, and/or cut utilizing a sterile #15 blade, tissue nippers, and/or dremel, Q8.? * Procedure Codes:?64286 DEBRI DE NAIL, 6 OR MORE, Modifiers: XS 09110 TRIM SKIN LESIONS, OVER 4, Modifiers: Q8 [...] Ta DPM Date:?2023 Generated for Chastity mir/Janell/Yancy on:?09/05/2024 02:24 PM EST History and Physical [...]
--- OUTSIDE RECORDS SUMMARY | 2024-09-05 14:25 | XMS_ITS ---
Author Organization [facility] Address [address] [facility] [place] [address] Care Team Providers Care Real Estate Manager Name Role Phone La Zamora MD Primary Care Provider Unavailab Vee Crews Unavailable [phone] Allergies Allergen (clinical drug ingredient) Drug/Non Drug [...] at bedtime Orally Once a day Not-Taking Sptfwadw-Cymtmqebk-Lvkedwst Not-Taking Nitro-Bid 2 % as directed Transdermal [...] Risk Notes Problem Mononeuropathy of lower limb (040970305) Neuritis of right foot (G57.91) Active confirmed Response to treatment - Improvement Vital Signs Height 5 ft 7 in in 04/19/2024 Weight 220 lbs 04/19/2024 BMI 34.45 kg/m2 04/19/2024 Procedures Procedure Date Ordered Date Performed Result Body Sit e 82674-RYDWFAR NAIL, 6 OR MORE 04/19/2024 N/A 06026-IWJQ SKIN LESIONS, OVER 4 04/19/2024 N/A Encounters Encounter Location Date Provider Diagnosis [facility] [place] [address] [place] [address] 04/19/2024 Vee Black Unspecified atherosclerosis of [place] arteries of extremities, bilateral legs I70.203 ; Neuritis of right foot G57.91 ; Tinea unguium B35.1 ; Pain in right toe(s) M79.674 ; Pain in left toe(s) M79.675 and Pain in right foot M79.671 Assessments Encounter Date Diagnosis (ICD Code) Assessment Notes Treatment Notes Treatment Clinical Notes Section Notes 04/19/2024 Unspecified atherosclerosis of [place] arteries of extremities, bilateral legs (ICD-10 - I70.203) 04/19/2024 Neuritis of right foot (ICD-10 - G57.91) 04/19/2024 Tinea unguium (ICD-10 - B35.1) 04/19/2024 Pain in right toe(s) (ICD-10 - M79.674) 04/19/2024 Pain in left toe(s) (ICD-10 - M79.675) 04/19/2024 Pain in right foot (ICD-10 - M79.671) Plan Of Treatment Pending Test Test Name Order Date 51302-BGAXSVM NAIL, 6 OR MORE 04/19/2024 70616-ROBS SKIN LESIONS, OVER 4 04/19/20 24 Next Appt Details Follow Up: prn, Reason: Provider Name:Vee Ta , 11/01/2024 01:30:00 PM, [address] [place], [phone], Provider Name:Vee aT , 01/03/2025 01:00:00 PM, [address] [place] [address], [phone], Procedure Notes * Category Sub-Category Detail Notes [...] as necessary. Patient chooses, no pharmaceutical tx (69127) Keratoma Treatment Parring or Cutting o f Benign Hyperkeratotic Lesion(s) 70115 ( >4 Lesions) - The Benign hyperkeratotic lesions, as described above were pared, and/or cut utilizing a sterile #15 blade, tissue nippers, and/or dremel, Q8 Progress Notes * Lilo KAYE MDOB:1945 (78 yo F)Acc No.[id number]:04/19/2024 Progress Note Patient:?Lilo Kaye Provider:?Vee DORY Ta :1945???Age:78 Y???Sex:Female D ate:04/19/2024 Address:[address] [place] [address] [place] FD-[id number] Pcp:La Zamora MD Subjective: * Chief Complaints: [...] able, cooking. ?Marital status: . 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 * Medications:?TakinghydroCHLO ROthiazide 12.5 MG Tablet [...] Orally every 6 hrsNot-Taking/PRNFlax Seeds Baby Aspirin Ezuqlcgb-Eiiwxlknb-Wjtdhtqm Nitro-Bid 2 % Ointment as directed Transdermal apply bid to toesIron 325 (65 Fe) MG Tablet 1 tablet Orally Once a dayFlax Seeds Powder Orally Propranolol HCl ER Beads 80 MG Capsule Extended Release 24 Hour 1 capsule at bedtime Orally Once a dayMedication List reviewed and reconciled with the patientNot-Taking/PRN Flax Seeds Not-Taking/PRN Baby Aspirin Not- Taking/PRN Fwlmqsgs-Qpddlxzkq-Aoxiwshb Not-Taking/PRN Nitro-Bid 2 % Ointment as directed [...] Assessment: * Assessment: 1.?Unspecified atheroscleros is of [place] arteries of extremities, bilateral legs - I70.203?2.?Neuritis of right foot - G57.91 (Primary), Acute problem, Uncomplicated (3)?3.?Tinea unguium - B35.1?4.?Pain in right toe(s) - M79.674?5.?Pain in left toe(s) - M79.675?6.?Pain in right foot - M79.671? Plan: * Treatment: 2.?Tinea unguium?Procedure: 74303-WVCMDFC NAIL, 6 OR MORE * Procedures:?Debride Nail 6-10:?Nail debridement?Nail debridement performed extensively to reduce/remove overall nail length and girth, subungual debris, and necrotic tissue, by manual and electrical means with use of a nail nipper and/or dremel, to more viable healthy nail plate or bed tissue 6-10. Silver nitrate used for any petechial bleeding as necessary. Patient chooses, no pharmaceutical tx (83293).?Keratoma Treatment:?Parring or Cutting of Benign Hyperkeratotic Lesion(s)?32402 ( >4 Lesions) - The Benign hyperkeratotic lesions, as described above were pared, and/or cut utilizing a sterile #15 blade, tissue nippers, and/or dremel, Q8.? * Procedure Codes:?64776 DEBRI DE NAIL, 6 OR MORE, Modifiers: XS 42627 TRIM SKIN LESIONS, OVER 4, Modifiers: Q8 [...] Ta DPM Date:?2023 Generated for Sanderi adeola/Janell/eTransmitting on:?09/05/2024 02:25 PM EST History and Physical Notes * [...]
--- OUTSIDE RECORDS SUMMARY | 2024-09-05 14:25 | XMS_ITS | Patient Health Record ---
Author Organization [facility] Address [address] [facility] [place] [address] Care Team Providers Care Vascular Nurse Name Role Phone La Zamora MD Primary Care Provider Unavailab Vee Crews Unavailable [phone] Allergies Allergen (clinical drug ingredient) Drug/Non Drug [...] Duration) Notes Start Date End Date Status Levothyroxine Sodium .05 1 tablet on an empty stomach in the morning Orally Once a day Active Tylenol Extra Strength 500 MG 1 tablet as needed Orally every 6 hrs Active Flax Seeds Not-Takin g Flax Seeds Orally Not-Takin g Propranolol HCl ER Beads 80 MG 1 capsule at bedtime Orally Once a day Not-Taking hydroCHLOROthiazide 12.5 MG Orally Active Baby Aspirin Not-Dung ing Mogbxczj-Bycsmxziq-Ohczifpx Not-Taking Nitro-Bid 2 % as directed Transdermal apply bid to toes for 30 days Not-Taking Iron 325 (65 Fe) MG 1 tablet Orally Once a day Not-Taking Immunizations Vaccine Route Administration Date Status Comme [...] W/U Status Risk Notes Problem Atherosclerosis of [place] arteries of the extremities (003999750345455) Unspecified atherosclerosis of [place] arteries of extremities, bilateral legs (I70.203) Active confirmed Problem Raynaud (110752374) Raynaud's syndrome without gangrene (I73.00) Active confirmed Problem Localized, primary osteoarthritis of the ankle and/or foot (273786894) Primary osteoarthritis, right ankle and foot (M19.071) Active confirmed Problem Ulcer of toe (772609960) Non-pressure chronic ulcer of other part of left foot limited to breakdown of skin (L97.521) Active confirmed Problem Non-pressure ulcer lower limb (451083498) Non-pressure chronic ulcer of other part of right foot limited to breakdown of 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) Active confirmed Problem Acquired hammer toe of right foot (1666126469747832 ) Other hammer toe(s) (acquired), right foot (M20.41) Active confirmed Problem Mononeuropathy of lower limb (820373751) Neuritis of right foot (G57.91) Active confirmed Response to treatment - Improvement Problem Atherosclerosis of [place] artery of both lower extremities, with unspecified presence of clinical manifestation (I70.203) Active confirmed Q7(A), Q8(2B), Q9(1B,2C) Problem Ulcer of toe of right foot (disorder) (8894197530629615 1) Skin ulcer of toe of right foot, limited to breakdown of 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) Active confirmed Problem Ulcer of toe of left foot (disorder) (4231070558079472 2) Skin ulcer of toe of left foot, limited to breakdown of skin (L97.521) Active confirmed Vital Signs Blood pressure diastolic 66 mm Hg 08/30/2024 Height 5 ft 7 in in 08/30/2024 Blood pressure systolic 145 mm Hg 08/30/2024 Weight 219 lbs 08/30/2024 BMI 34.3 kg/m2 08/30/2024 Procedures Procedure Date Ordered Date Performed Result Body Sit e 89385-IFIIWLJ NAIL, 6 OR MORE 10/13/2023 N/A 99781-Cvdoxtcp Plate 10/13/2023 N/A 98637-FIAQ SKIN LESIONS, OVER 4 10/13/2023 N/A 79611-NZYHMXV NAIL, 6 OR MORE 12/15/2023 N/A 53590-GODB SKIN LESIONS, OVER 4 12/15/2023 N/A 95061-ILVAMLN NAIL, 6 OR MORE 04/19/2024 N/A 75145-SNQG SKIN LESIONS, OVER 4 04/19/2024 N/A 92666-QCAGPOB NAIL, 6 OR MORE 06/21/2024 N/A 64692-HFLQ SKIN LESIONS, OVER 4 06/21/2024 N/A 77648-VENJFQJ NAIL, 6 OR MORE 08/30/2024 N/A 34175-MXRH SKIN LESIONS, OVER 4 08/30/2024 N/A 00291-YYDP SKIN LESIONS, OVER 4 02/16/2024 N/A 77243-DNQGJPJ NAIL, 6 OR MORE 02/16/2024 N/A Encounters Encounter Location Date Provider Diagnosis [address] [address] 10/13/2023 Vee Black Unspecified atherosclerosis of [place] arteries of extremities, bilateral legs I70.203 ; Tinea unguium B35.1 ; Pain in right toe(s) M79.674 ; Pain in left toe(s) M79.675 and Ingrown nail L60.[address] [address] 12/15/2023 Vee Black Unspecified atherosclerosis of [place] arteries of extremities, bilateral legs I70.203 ; Tinea unguium B35.1 ; Pain in right toe(s) M79.674 and Pain in left toe(s) M79.[address] [place] [address] 02/16/2024 Vee Black Unspecified atherosclerosis of [place] arteries of extremities, bilateral legs I70.203 ; Tinea unguium B35.1 ; Pain in right toe(s) M79.674 and Pain in left toe(s) M79.[address] [address] 04/19/2024 Vee Black Unspecified atherosclerosis of [place] arteries of extremities, bilateral legs I70.203 ; Neuritis of right foot G57.91 ; Tinea unguium B35.1 ; Pain in right toe(s) M79.674 ; Pain in left toe(s) M79.675 and Pain in right foot M79.[address] [address] 06/21/2024 Vee Black Neuritis of right fo ot G57.91 ; Pain in right foot M79.671 ; Atherosclerosis of [place] artery of both lower extremities, with unspecified presence of clinical manifestation I70.203 ; Tinea unguium B35.1 ; Pain in right toe(s) M79.674 and Pain in left toe(s) M79.[address] [address] 08/30/2024 Vee Black Atherosclerosis of [place] artery of both lower extremities, with unspecified presence of clinical manifestation I70.203 ; Tinea unguium B35.1 ; Pain in right toe(s) M79.674 and Pain in left toe(s) M79.675 Assessments Encounter Date Diagnosis (ICD Code) Assessment Notes Treatment Notes Treatment Clinical Notes Section Notes 10/13/2023 Unspecified atherosclerosis of [place] arteries of extremities, bilateral legs (ICD-10 - I70.203) 12/15/2023 Unspecified atherosclerosis of [place] arteries of extremities, bilateral legs (ICD-10 - I70.203) 02/16/2024 Unspecified atherosclerosis of [place] arteries of extremities, bilateral legs (ICD-10 - I70.203) 12/15/2023 Tinea unguium (ICD-10 - B35.1) 04/19/2024 Unspecified atherosclerosis of [place] arteries of extremities, bilateral legs (ICD-10 - I70.203) 04/19/2024 Neuritis of right foot (ICD-10 - G57.91) 06/21/2024 Pain in right foot (ICD-10 - M79.671) 06/21/2024 Neuritis of right foot (ICD-10 - G57.91) Response to treatment - Improvement 08/30/2024 Tinea unguium (ICD-10 - B35.1) 08/30/2024 Atherosclerosis of [place] artery of both lower extremities, with unspecified presence of clinical manifestation (ICD-10 - I70.203) Q7(A), Q8(2B), Q9(1B,2C) 08/30/2024 Pain in right toe(s) (ICD-10 - M79.674) 06/21/2024 Atherosclerosis of [place] artery of both lower extremities, with unspecified [...] M79.675) 06/21/2024 Tinea unguium (ICD-10 - B35.1) 08/30/2024 Pain in left toe(s) (ICD-10 - M79.675) 06/21/2024 Pain in right toe(s) (ICD-10 - [...] X ray : Foot, left 3V 11/10/2015 42546-SBWEQLK NAIL, 6 OR MORE 09/01/2015 63306-UTVFSZY NAIL, 6 OR MORE 11/10/2015 04251-JGQHAPG NAIL, 6 OR MORE 01/13/2015 81392-NONFALX NAIL, 6 OR MORE 06/23/2015 28627-GPAGRCQ NAIL, 6 OR MORE 05/27/2016 74448-ICCWTBL NAIL, 6 OR MORE 12/06/2013 82221-BZUIWML NAIL, 6 OR MORE 03/11/2014 87940-HSEHAKU NAIL, 6 OR MORE 06/12/2014 84628-GFOURYE NAIL, 6 OR MORE 09/04/2014 33948-OVETHZM NAIL, 6 OR MORE 11/07/2014 35295-QBLWFQS NAIL, 6 OR MORE 04/21/2015 89868-AVOCIIZ NAIL, 6 OR MORE 2016 22777-HIFZWKS NAIL, 6 OR MORE 02/17/2017 51515-BQFMQGF NAIL, 6 OR MORE 04/21/2017 16658-ILJCLXP NAIL, 6 OR MORE 07/29/2016 33209-LRTFQBN NAIL, 6 OR MORE 10/11/2016 92184-FGUXJFD NAIL, 6 OR MORE 06/27/2017 87424-OOAKCRY NAIL, 6 OR MORE 09/08/2017 24052-RDSYGIT NAIL, 6 OR MORE 11/10/2017 11315-SDCIEND NAIL, 6 OR MORE 01/12/2018 74511-OPZPNDC NAIL, 6 OR MORE 03/23/2018 49710-MLRJCOO NAIL, 6 OR MORE 05/25/2018 47106-CIYJMNW NAIL, 6 OR MORE 07/31/2018 11728-PJDLTRH NAIL, 6 OR MORE 10/02/2018 95696-RNNUXNX NAIL, 6 OR MORE 12/04/2018 53206-RYZCQBY NAIL, 6 OR MORE 10/30/2020 73333-MDXTLEH NAIL, 6 OR MORE 01/01/2021 25350-CTZIIZJ NAIL, 6 OR MORE 03/12/2021 20821-IBCHXYY NAIL, 6 OR MORE 05/15/2021 17861-POQLHHU NAIL, 6 OR MORE 04/23/2019 38163-TRPFGTC NAIL, 6 OR MORE 06/25/2019 86351-BYFYCJW NAIL, 6 OR MORE 09/10/2019 37757-DSKFXQV NAIL, 6 OR MORE 11/21/2019 61630-XSDEFXW NAIL, 6 OR MORE 01/24/2020 31230-ZPHGBNZ NAIL, 6 OR MORE 04/03/2020 00340-BREYTMU NAIL, 6 OR MORE 06/16/2020 60208-BBUBKUH NAIL, 6 OR MORE 08/17/2021 83669-XBSFSVC NAIL, 6 OR MORE 08/18/2020 68906-KKAJMCI NAIL, 6 OR MORE 11/26/2021 72479-LSTOENC NAIL, 6 OR MORE 02/08/2022 91331-VSHWGOD NAIL, 6 OR MORE 04/12/2022 03558-YADJWUR NAIL, 6 OR MORE 06/14/2022 11333-WLYSUEQ NAIL, 6 OR MORE 08/16/2022 55053-WNYOZSZ NAIL, 6 OR MORE 10/21/2022 75461-CAHVVRE NAIL, 6 OR MORE 12/23/2022 26312-DWEJVSL NAIL, 6 OR MORE 02/24/2023 16139-OWCWSTN NAIL, 6 OR MORE 04/28/2023 47158-AQQSOMK NAIL, 6 OR MORE 08/08/2023 62305-VTWBQLO NAIL, 6 OR MORE 10/13/2023 01452-FHHCIMG NAIL, 6 OR MORE 12/15/2023 89273-XXDLNSU NAIL, 6 OR MORE 02/16/2024 43623-JBOZBZZ NAIL, 6 OR MORE 04/19/2024 15097-YYVWSEJ NAIL, 6 OR MORE 06/21/2024 96570-DOYYAAC NAIL, 6 OR MORE 08/30/2024 55061-UELJOHT NAIL, 1-5 05/27/2016 02556-EHGVXPS NAIL, 1-5 01/12/2016 19847-HZHFHZA NAIL, 1-5 03/16/2016 96529-Alag Destruction, 1-14 02/17/2017 97535-Tsom Destruction, 1-14 10/11/2016 55347-Kexn Destruction, 1-14 2016 94741-Pvgnvxgb Plate 2016 78541-Fvlbfszt Plate 04/21/2017 25183-Eozbxgyp Plate 06/27/2017 27371-Hifbbmau Plate 10/02/2018 98910-Luknlqsx Plate 07/31/2018 75080-Sozifqwp Plate 05/27/2016 79318-Snekexry Plate 12/06/2013 53757-Uueblrjb Plate 06/23/2015 50634-Lwhhadsf Plate 04/21/2015 33750-Yebliluh Plate 11/07/2014 95420-Ykmpcktr Plate 01/13/2015 49618-Slhfgmbw Plate 09/04/2014 76174-Uerqzwym Plate 06/12/2014 73168-Etewzqjy Plate 03/11/2014 14337-Pkvyhcec Plate 10/13/2023 22958-Heytriho Plate 04/12/2022 70398-Uputnryp Plate 02/08/2022 26524-Oryykeda Plate 11/26/2021 93408-Mihgcqdq Plate 04/03/2020 54111-Ahjdyiqi Plate 09/10/2019 93212-Tojpjqmu Plate 03/12/2021 91280-Lwylhiuo Plate 10/30/2020 92674-Wiptkxek Plate 06/16/2020 25334-Rwlvgcis Plate 02/24/2023 27062-Qwxglqar Plate Each Additional 76894-Hghcmktp Plate Each Additional 67934-Ymswekky Plate Each Additional 92375-Perhnosq Plate Each Additional 82744-Sfiybtof Plate Each Additional 52150-Cxuxtelm Plate Each Additional 60269- Debride <25 sq cm 06/11/2016 19369- Debride <25 sq cm 12/03/2015 18769- Debride <25 sq cm 12/04/2018 23751- Debride <25 sq cm 03/23/2018 73198- Debride <25 sq cm 06/27/2017 10875- Debride <25 sq cm 04/21/2017 85108- Debride <25 sq cm 04/28/2023 15650- Debride <25 sq cm 02/08/2022 99298- Debride <25 sq cm 01/24/2020 65165- Debride <25 sq cm 01/01/2021 96428- Debride <25 sq cm 05/15/2021 16623- Debride <25 sq cm 08/17/2021 07430-BFUMNUC SKIN/TISSUE 11/07/2014 32445 I&D ABSCESS- SIMPLE,SINGLE 014 53859 I&D ABSCESS- SIMPLE,SINGLE 016 01207 I&D ABSCESS- SIMPLE,SINGLE 016 05827 I&D ABSCESS- SIMPLE,SINGLE 016 88675 I&D ABSCESS- SIMPLE,SINGLE 016 83045 I&D ABSCESS- SIMPLE,SINGLE 017 16953-ENSL SKIN LESIONS, OVER 4 12/05/19 19 98020-ZPUS SKIN LESIONS, OVER 4 01/14/20 15 23569-NEZK SKIN LESIONS, OVER 4 04/21/20 15 23195-GEON SKIN LESIONS, OVER 4 08/17/20 21 59439-RUKP SKIN LESIONS, OVER 4 05/15/20 21 68089-MZNK SKIN LESIONS, OVER 4 03/12/20 21 31970-JBIW SKIN LESIONS, OVER 4 01/02/20 21 63924-SEFK SKIN LESIONS, OVER 4 08/18/20 20 89403-ERXY SKIN LESIONS, OVER 4 10/31/19 21 01806-GXZV SKIN LESIONS, OVER 4 02/13/20 19 73837-AGUH SKIN LESIONS, OVER 4 04/03/20 20 11838-HLJW SKIN LESIONS, OVER 4 06/16/20 20 76547-MBXU SKIN LESIONS, OVER 4 11/21/19 20 52729-PQCW SKIN LESIONS, OVER 4 01/24/20 20 36298-HPDK SKIN LESIONS, OVER 4 06/25/20 19 63373-KGAZ SKIN LESIONS, OVER 4 09/10/19 20 67628-EEYC SKIN LESIONS, OVER 4 02/09/20 16022-GCLU SKIN LESIONS, OVER 4 11/27/19 22 20048-AUFO SKIN LESIONS, OVER 4 04/12/20 14842-SEOO SKIN LESIONS, OVER 4 06/14/20 13581-URSU SKIN LESIONS, OVER 4 08/16/20 93717-CDQV SKIN LESIONS, OVER 4 10/21/19 49304-YPSR SKIN LESIONS, OVER 4 04/28/20 71527-KPVC SKIN LESIONS, OVER 4 02/25/20 05303-RIJS SKIN LESIONS, OVER 4 12/24/19 48965-GUQQ SKIN LESIONS, OVER 4 10/13/19 82741-CGFI SKIN LESIONS, OVER 4 08/08/20 00186-OVHK SKIN LESIONS, OVER 4 02/16/20 01754-OWPU SKIN LESIONS, OVER 4 12/15/19 97921-CPKB SKIN LESIONS, OVER 4 08/30/19 71614-LZXA SKIN LESIONS, OVER 4 06/21/20 23739-PPQZ SKIN LESIONS, OVER 4 04/19/20 19993-HHMC SKIN LESIONS, 2 TO 4 10/02/19 19 25254-RIYL SKIN LESIONS, 2 TO 4 05/25/20 18 19960-MMEM SKIN LESIONS, 2 TO 4 07/31/20 18 80455-HMJM SKIN LESIONS, 2 TO 4 03/23/20 18 32707-LNJI SKIN LESIONS, 2 TO 4 01/13/20 18 58532-PPKZ SKIN LESIONS, 2 TO 4 09/08/19 18 72551-EVAY SKIN LESIONS, 2 TO 4 11/11/19 18 40715-Kgfr. Subungual Hematoma 9 08130-AQBWWIYE OF HEMATOMA/FLUID 019 53885-TRNOSYNM OF HEMATOMA/FLUID 018 Next Appt Details Provider Name:Vee Ta , 11/01/2024 01:30:00 PM, [address] [place] [address], [phone], Provider Name:Vee Ta , 01/03/2025 01:00:00 PM, [address] [place] [address], [phone], Insurance Providers Payer Name Payer Address Payer Phone Subscriber Number Group Number Insured Name Patient Relationship to Insured Coverage Start Date Coverage End Date Medicare National [employer] [address] [place] [address] [phone] [id number] Lilo Bess Self - patient is the insured [employer] [facility] [address] [place] [address] [phone] [id number] José LuisrosyGricelan Self - patient is the insured Medical [...]
== END 2024-09-05 15:00 | disposition home or self-care (01) ==
PROVIDERS: PCP Family Medicine; Visit Provider Nurse Practitioner Family
DX: R35.1 Nocturia (principal); N28.1 Cyst of kidney, acquired; Z13.9 Encounter for screening, unspecified
CPT/HCPCS: 99213; G2211

== ENCOUNTER → 2024-09-05 14:15 | Outpatient (BNVA) | payer MEDICARE, SELFPAY | PROVIDERS: PCP Family Medicine; Visit Provider Nurse Practitioner Family | DX: R35.1 Nocturia (principal); N28.1 Cyst of kidney, acquired | CPT/HCPCS: 51798; 81003; 99212 ==

== ENCOUNTER 2024-09-19 12:28 | Outpatient (REF) | payer MEDICARE, SELFPAY | END 2024-09-19 12:29 | disposition home or self-care (01) | LOC: HO.MAMMO 12:28 | PROVIDERS: PCP Family Medicine; Visit Provider Family Medicine | DX: Z12.31 Encounter for screening mammogram for malignant neoplasm of breast (principal) | CPT/HCPCS: 77063; 77067 ==

== ENCOUNTER → 2024-09-19 13:00 | Outpatient (BNV) | payer MEDICARE, SELFPAY | PROVIDERS: PCP Family Medicine; Visit Provider Internal Medicine | DX: Z12.31 Encounter for screening mammogram for malignant neoplasm of breast (principal) | CPT/HCPCS: 77063; 77067 ==

== ENCOUNTER 2024-10-31 11:04 | Outpatient (AMB) | payer MEDICARE, SELFPAY ==
[2024-10-31 11:06] VITALS: BMI 34.9
--- NOTE | 2024-10-31 11:06 | MHC.OFFVIS ---
Vital Signs 10/31/24 11:06 Height 5 ft 6 in Weight 216 lb BMI 34.9 Intake Visit Reasons: Left knee pain Intake Note: Lilo is an 78 year old female who presents with complaints of progressively worsening left knee pain. She describes her pain as severe and sharp in nature. Her left knee pain has gotten worse over the last few years in spite of continued non operative treatments. She has tried Tylenol and anti-inflammatory medicines which gave her minimal relief. She has also done physical therapy exercises which aggravated her pain. She has had multiple injections. The most recent injection gave her no relief. The patient has difficulty walking even short distances because of her pain. At this point her left knee pain is interfering with her activities of daily living and her ability to sleep well through the night. The patient has undergone bilateral total hip replacement surgeries in the past. Following both of those surgeries she went to inpatient rehabilitation at [facility]. Allergies diclofenac [From Voltaren] Allergy (Mild, Verified 10/31/24 11:06) HIVES penicillin G [Penicillin G] Allergy (Mild, Verified 10/31/24 11:06) ITCH penicillin V Allergy (Unknown, Verified 10/31/24 11:06) itching adhesive tape Adverse Reaction (Intermediate, Verified 10/31/24 11:06) blisters codeine [Codeine] Adverse Reaction (Mild, Verified 10/31/24 11:06) SYNCOPE,ABD PAIN erythromycin base [Erythromycin Base] Adverse Reaction (Mild, Verified 10/31/24 11:06) ABDOMINAL PAIN Shellfish Allergy (Severe, Uncoded 10/31/24 11:06) ANAPHYLAXIS Medication List - Last Reconciled 10/31/24 by Da Valencia MD hydrochlorothiazide 12.5 mg PO DAILY levothyroxine 50 mcg PO DAILY PFSH Medical History FH: bilateral hip replacements Hypertension Knee pain Surgical History H/O: hysterectomy H/O thyroidectomy Social History Current occupational status: retired Current occupation: right handed Physical Exam Vital Signs: BMI result Body Mass Index 34.9 Const Other: Well-nourished well-developed very friendly female awake alert and oriented x3 in no acute distress Extrem Other: Bilateral lower extremity examination shows good capillary refill, no skin lesions noted, normal sensation light touch Left knee examination shows a minimal effusion, palpable crepitus with range of motion, pain with range of motion, range of motion from -3 degrees to 115 degrees, no instability Results Reviewed Results Reviewed: X-rays of the patient's left knee taken previously show end-stage degenerative joint disease with grade 4 qjim-oc-wgbt arthritis, subchondral sclerosis, osteophyte formation, no acute bony abnormalities Assessment & Plan Assessment & Plan (1) Left knee pain: Code(s): M25.562 - Pain in left knee (2) Arthritis of left knee: Code(s): M17.12 - Unilateral primary osteoarthritis, left knee Category: Medical Plan Mrs. Bess presents with progressively worsening left knee pain due to end-stage degenerative joint disease. I had a lengthy discussion with the patient regarding the treatment options. At this point she has failed continued non operative treatments. The risks and benefits of left total knee replacement surgery were discussed at length with the patient. The patient wishes to proceed with surgery. legal services manager will be consulted following her surgery for inpatient rehabilitation at [facility]. The patient went to [facility] following both of her total hip replacement surgeries and did well. I do feel that inpatient rehabilitation would be indicated based on the patient's age, medical comorbidities and history. I will see the patient back 1 week prior to her surgery to answer any final questions that she might have. Feel free to call me at any time should questions regarding her orthopedic management arise. I spent 22 minutes in reviewing the patient's records and imaging studies, seeing the patient and documenting in the medical record. Orders: Orders XR knee LT 3V Today M17.12 - Unilateral primary osteoarthritis, left knee Coding Level of Care Code Est Pt Level 3 (08956) Complex EM visit Add On G2211 Diagnoses Left knee pain M25.562 Arthritis of left knee M17.12
--- OUTSIDE RECORDS SUMMARY | 2024-10-31 13:22 | XMS_ITS ---
Author Organization [facility] Address [address] [facility] [place] [address] Care Team Providers Care Engineer Intern Name Role Phone La Zamora MD Primary Care Provider Unavailab Vee Crews Unavailable [phone] Allergies Allergen (clinical drug ingredient) Drug/Non Drug [...] Orally Not-Takin g Baby Aspirin Not-Dung ing Exfsoccr-Omrpunuao-Oqheqejy Not-Taking Nitro-Bid 2 % as directed Transdermal [...] Ordered Date Performed Result Body Sit e 45807-LLKHSDG NAIL, 6 OR MORE 08/30/2024 N/A 78347-ZGEK SKIN LESIONS, OVER 4 08/30/2024 N/A Encounters Encounter Location Date Provider Diagnosis [facility] [address] [place] [address] 08/30/2024 Vee Ta Atherosclerosis of [place] artery of both lower extremities, with unspecified presence of clinical manifestation I70.203 ; Tinea unguium B35.1 ; Pain in right toe(s) M79.674 and Pain in left toe(s) M79.675 Assessments Encounter Date Diagnosis (ICD Code) Assessment Notes Treatment Notes Treatment Clinical Notes Section Notes 08/30/2024 Atherosclerosis of [place] artery of both lower extremities, with unspecified presence of clinical manifestation (ICD-10 - I70.203) Q7(A), Q8(2B), Q9(1B,2C) 08/30/2024 Tinea unguium (ICD-10 - B35.1) 08/30/2024 Pain in right toe(s) (ICD-10 - M79.674) 08/30/2024 Pain in left toe(s) (ICD-10 - M79.675) Plan Of Treatment Pending Test Test Name Order Date 91182-OKXGMDL NAIL, 6 OR MORE 08/30/2024 88227-FFLN SKIN LESIONS, OVER 4 08/30/19 25 Next Appt Details Follow Up: prn, Reason: Provider Name:Vee Ta , 11/01/2024 01:30:00 PM, [address] [place] [address], [phone], Provider Name:Vee Ta , 01/03/2025 01:00:00 PM, [address] [place] [address], [phone], Procedure Notes * Category Sub-Category Detail Notes [...] of a nail nipper and/or dremel-type grinder brake lining, to a more viable healthy nail plate [...] to maintain effectiveness in symptomatic relief - 39781 Keratoma Treatment Parring or Cutting o f [...] instrumentation by the physician of record - 45755, Q8 Progress Notes * Lilo KAYE MDOB:1945 (78 yo F)Acc No.[id number]:08/30/2024 Progress Note Patient:?Lilo KAYE Provider:?Vee Ta DPM :1945???Age:78 Y???Sex:Female D ate:08/30/2024 Address:[address] [place] [address] [phone] Pcp:La Zamora MD Subjective: * Chief Complaints: [...] able, cooking. ?Marital status: . ?Occupation: retired, [employer]. * Medications:?TakinghydroCHLO ROthiazide 12.5 MG Tablet Orally [...] every 6 hrs Not-Taking/PRNFlax Seeds Baby Aspirin Rugkensp-Kbthmbiwu-Wgiimwey Nitro-Bid 2 % Ointment as directed Transdermal apply bid to toes Iron 325 (65 Fe) MG Tablet 1 tablet Orally Once a day Flax Seeds Powder Orally Propranolol HCl ER Beads 80 MG Capsule Extended Release 24 Hour 1 capsule at bedtime Orally Once a day Medication List reviewed and reconciled with the patientNot-Taking/PRN Flax Seeds Not-Taking/PRN Baby Aspirin Not- Taking/PRN Opqxganf-Zqxjjyuzq-Asrkpcwu Not-Taking/PRN Nitro-Bid 2 % Ointment as directed [...] Assessment: 1.?Tinea unguium - B35.1???2 .?Atherosclerosis of [place] artery of both lower extremities, with unspecified presence of clinical manifestation - I70.203 (Primary)???Notes :Q7(A), Q8(2B), Q9(1B,2C)???3.?Pain in right toe(s) - M79.674???4.?Pain in left toe(s) - M79.675??? Plan: * Treatment: 2.?Tinea unguium?Procedure: 12316-MXYJZAY NAIL, 6 OR MORE * Procedures:?Debride Nail [...] of a nail nipper and/or dremel-type grinder brake lining, to a more viable healthy nail plate [...] to maintain effectiveness in symptomatic relief - 87236.?Keratoma Treatment:?Parring or Cutting of Benign Hyperkeratotic Lesion(s)?(-57) [...] instrumentation by the physician of record - 34185, Q8.? * Procedure Codes:?98226 DEBRI DE NAIL, 6 OR MORE, Modifiers: XS 02047 TRIM SKIN LESIONS, OVER 4, Modifiers: Q8 * Preventive Medicine:? ??Screening/Special Tests:?Fall Risk?Screening:?No falls in the past year * Follow Up:?prn * Images: * Sign off status: Completed true * Provider:?Vee Ta DPM Date:?2024 Generated for Chastity mir/Janell/eTransmitting on:?10/31/2024 01:22 PM EST History and Physical Notes * [...]
--- OUTSIDE RECORDS SUMMARY | 2024-10-31 13:22 | XMS_ITS ---
Author Organization [facility] Address [address] [facility] [place] [address] Care Team Providers Care Compressor Operator Portable Name Role Phone La Zamora MD Primary Care Provider Unavailab Vee Crews Unavailable [phone] Allergies Allergen (clinical drug ingredient) Drug/Non Drug [...] at bedtime Orally Once a day Not-Taking Tdvognxp-Dsqlboaac-Njniyxix Not-Taking Iron 325 (65 Fe) MG 1 [...] W/U Status Risk Notes Problem Atherosclerosis of morongo artery of both lower extremities, with unspecified presence of clinical manifestation (I70.203) Active confirmed Q7(A), Q8(2B), Q9(1B,2C) Vital Signs Height 5 ft 7 in in 06/21/2024 Weight 219 lbs 06/21/2024 BMI 34.3 kg/m2 06/21/2024 Procedures Procedure Date Ordered Date Performed Result Body Sit e 96745-NAKYOIP NAIL, 6 OR MORE 06/21/2024 N/A 16796-JZSL SKIN LESIONS, OVER 4 06/21/2024 N/A Encounters Encounter Location Date Provider Diagnosis [facility] [address] [address] 06/21/2024 Vee Black Neuritis of right fo ot G57.91 ; Pain in right foot M79.671 ; Atherosclerosis of morongo artery of both lower extremities, with unspecified [...] foot (ICD-10 - M79.671) 06/21/2024 Atherosclerosis of morongo artery of both lower extremities, with unspecified presence of clinical manifestation (ICD-10 - I70.203) Q7(A), Q8(2B), Q9(1B,2C) 06/21/2024 Tinea unguium (ICD-10 - B35.1) 06/21/2024 Pain in right toe(s) (ICD-10 - M79.674) 06/21/2024 Pain in left toe(s) (ICD-10 - M79.675) Plan Of Treatment Pending Test Test Name Order Date 04544-SKGZFFV NAIL, 6 OR MORE 06/21/2024 12144-QJNI SKIN LESIONS, OVER 4 06/21/20 Next Appt Details Follow Up: prn, Reason: Provider Name:Vee Ta , 11/01/2024 01:30:00 PM, [address] [place] [address], [phone], Provider Name:Vee Ta , 01/03/2025 01:00:00 PM, [address] [place] [address], [phone], Procedure Notes * Category Sub-Category Detail Notes [...] of a nail nipper and/or dremel-type grinder carbon plant, to a more viable healthy nail plate or bed tissue 6-10. Silver nitrate used for any petechial bleeding as necessary. Definitive antifungal treatment options have been reviewed and discussed with the patient. The patient chooses, no pharmaceutical tx - 94687 Keratoma Treatment Parring or Cutting o f Benign Hyperkeratotic Lesion(s) 56034 ( >4 Lesions) - The Benign hyperkeratotic lesions, as described above were pared, and/or cut utilizing a sterile #15 blade, tissue nippers, and/or dremel, Q8 Progress Notes * Lilo KAYE MDOB:1945 (78 yo F)Acc No.[id number]:06/21/2024 Progress Note Patient:?Lilo Kaye Provider:?Vee DORY Ta :1945???Age:78 Y???Sex:Female D ate:06/21/2024 Address:[address] [place] [address] [id number] Pcp:La Zamora MD Subjective: * Chief Complaints: [...] able, cooking. ?Marital status: . 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 * Medications:?TakinghydroCHLO ROthiazide 12.5 MG Tablet Orally [...] Orally every 6 hrsNot-Taking/PRNFlax Seeds Baby Aspirin Upnztotk-Dxdeukjxe-Etjvcvdt Nitro-Bid 2 % Ointment as directed Transdermal apply bid to toesIron 325 (65 Fe) MG Tablet 1 tablet Orally Once a dayFlax Seeds Powder Orally Propranolol HCl ER Beads 80 MG Capsule Extended Release 24 Hour 1 capsule at bedtime Orally Once a dayMedication List reviewed and reconciled with the patientNot-Taking/PRN Flax Seeds Not-Taking/PRN Baby Aspirin Not- Taking/PRN Eyirmsno-Irlwarhvh-Bfeqzgqs Not-Taking/PRN Nitro-Bid 2 % Ointment as directed [...] (Primary), Response to treatment - Improvement?3.?Atherosclerosis of morongo artery of both lower extremities, with unspecified presence of clinical manifestation - I70.203, Q7(A), Q8(2B), Q9(1B,2C)?4.?Tinea unguium - B35.1?5.?Pain in right toe(s) - M79.674?6.?Pain in left toe(s) - M79.675? Plan: * Treatment: 2.?Tinea unguium?Procedure: 96164-ZFKVMYQ NAIL, 6 OR MORE * Procedures:?Debride Nail 6-10:?Nail debridement?Performance of this nail treatment by a nonprofessional would put this patients foot and overall health at risk. Therefore, nail debridement was performed extensively to reduce/remove overall nail length, girth, thickness, subungual debris, and necrotic tissue, by manual and/or electrical means through the use of a nail nipper and/or dremel-type grinder carbon plant, to a more viable healthy nail plate or bed tissue 6-10. Silver nitrate used for any petechial bleeding as necessary. Definitive antifungal treatment options have been reviewed and discussed with the patient. The patient chooses, no pharmaceutical tx - 80595.?Keratoma Treatment:?Parring or Cutting of Benign Hyperkeratotic Lesion(s)?81477 ( >4 Lesions) - The Benign hyperkeratotic lesions, as described above were pared, and/or cut utilizing a sterile #15 blade, tissue nippers, and/or dremel, Q8.? * Procedure Codes:?83959 DEBRI DE NAIL, 6 OR MORE, Modifiers: XS 62937 TRIM SKIN LESIONS, OVER 4, Modifiers: Q8 [...] Ta DPM Date:?2023 Generated for Chastity mir/Janell/Yancy on:?10/31/2024 01:22 PM EST History and Physical [...]
--- OUTSIDE RECORDS SUMMARY | 2024-10-31 13:22 | XMS_ITS ---
Author Organization [facility] Address [address] [facility] [place] [address] Care Team Providers Care Diploma Maker Name Role Phone La Zamora MD Primary Care Provider Unavailab Vee Crews Unavailable [phone] Allergies Allergen (clinical drug ingredient) Drug/Non Drug [...] at bedtime Orally Once a day Not-Taking Fzdsiofy-Ypyyncigb-Rcwndqob Not-Taking Nitro-Bid 2 % as directed Transdermal [...] Risk Notes Problem Mononeuropathy of lower limb (155667620) Neuritis of right foot (G57.91) Active confirmed Response to treatment - Improvement Vital Signs Height 5 ft 7 in in 04/19/2024 Weight 220 lbs 04/19/2024 BMI 34.45 kg/m2 04/19/2024 Procedures Procedure Date Ordered Date Performed Result Body Sit e 25935-NXFZOZE NAIL, 6 OR MORE 04/19/2024 N/A 84442-WYKT SKIN LESIONS, OVER 4 04/19/2024 N/A Encounters Encounter Location Date Provider Diagnosis [facility] [address] [place] [address] 04/19/2024 Vee Black Unspecified atherosclerosis of paiute-shoshone arteries of extremities, bilateral legs I70.203 ; Neuritis of right foot G57.91 ; Tinea unguium B35.1 ; Pain in right toe(s) M79.674 ; Pain in left toe(s) M79.675 and Pain in right foot M79.671 Assessments Encounter Date Diagnosis (ICD Code) Assessment Notes Treatment Notes Treatment Clinical Notes Section Notes 04/19/2024 Unspecified atherosclerosis of paiute-shoshone arteries of extremities, bilateral legs (ICD-10 - I70.203) 04/19/2024 Neuritis of right foot (ICD-10 - G57.91) 04/19/2024 Tinea unguium (ICD-10 - B35.1) 04/19/2024 Pain in right toe(s) (ICD-10 - M79.674) 04/19/2024 Pain in left toe(s) (ICD-10 - M79.675) 04/19/2024 Pain in right foot (ICD-10 - M79.671) Plan Of Treatment Pending Test Test Name Order Date 94345-ANLITXT NAIL, 6 OR MORE 04/19/2024 09397-ZKCA SKIN LESIONS, OVER 4 04/19/20 24 Next Appt Details Follow Up: prn, Reason: Provider Name:Vee Ta , 11/01/2024 01:30:00 PM, [address] [place], [phone], Provider Name:Vee Ta , 01/03/2025 01:00:00 PM, [address] [place] [address], [phone], Procedure Notes * Category Sub-Category Detail Notes [...] as necessary. Patient chooses, no pharmaceutical tx (24698) Keratoma Treatment Parring or Cutting o f Benign Hyperkeratotic Lesion(s) 24283 ( >4 Lesions) - The Benign hyperkeratotic lesions, as described above were pared, and/or cut utilizing a sterile #15 blade, tissue nippers, and/or dremel, Q8 Progress Notes * Lilo KAYE MDOB:1945 (78 yo F)Acc No.[id number]:04/19/2024 Progress Note Patient:?Lilo Kaye Provider:?Vee DORY Ta :1945???Age:78 Y???Sex:Female D ate:04/19/2024 Address:[address] [place] [address] [id number] Pcp:La Zamora MD Subjective: * Chief Complaints: [...] able, cooking. ?Marital status: . 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 * Medications:?TakinghydroCHLO ROthiazide 12.5 MG Tablet Orally [...] Orally every 6 hrsNot-Taking/PRNFlax Seeds Baby Aspirin Ezdzznqw-Mkfaovynd-Quroamge Nitro-Bid 2 % Ointment as directed Transdermal apply bid to toesIron 325 (65 Fe) MG Tablet 1 tablet Orally Once a dayFlax Seeds Powder Orally Propranolol HCl ER Beads 80 MG Capsule Extended Release 24 Hour 1 capsule at bedtime Orally Once a dayMedication List reviewed and reconciled with the patientNot-Taking/PRN Flax Seeds Not-Taking/PRN Baby Aspirin Not- Taking/PRN Ykzybdcd-Mbmrnrzuu-Fishuxsp Not-Taking/PRN Nitro-Bid 2 % Ointment as directed [...] for office visit today.?ORIENTED:?person, place, and time.?FOOT EXAM:?Lower Extremity Neurological Exam performed:?Yes ?Visual exam of foot performed:?Yes ?Date?04/19/2024 ?Sensory testing performed:?sensations diminished ?Sensory and motor testing performed:?sensations diminished??? Assessment: * Assessment: 1.?Unspecified atheroscleros is of paiute-shoshone arteries of extremities, bilateral legs - I70.203?2.?Neuritis of right foot - G57.91 (Primary), Acute problem, Uncomplicated (3)?3.?Tinea unguium - B35.1?4.?Pain in right toe(s) - M79.674?5.?Pain in left toe(s) - M79.675?6.?Pain in right foot - M79.671? Plan: * Treatment: 2.?Tinea unguium?Procedure: 24430-BLYBPJU NAIL, 6 OR MORE * Procedures:?Debride Nail 6-10:?Nail debridement?Nail debridement performed extensively to reduce/remove overall nail length and girth, subungual debris, and necrotic tissue, by manual and electrical means with use of a nail nipper and/or dremel, to more viable healthy nail plate or bed tissue 6-10. Silver nitrate used for any petechial bleeding as necessary. Patient chooses, no pharmaceutical tx (21736).?Keratoma Treatment:?Parring or Cutting of Benign Hyperkeratotic Lesion(s)?12808 ( >4 Lesions) - The Benign hyperkeratotic lesions, as described above were pared, and/or cut utilizing a sterile #15 blade, tissue nippers, and/or dremel, Q8.? * Procedure Codes:?45429 DEBRI DE NAIL, 6 OR MORE, Modifiers: XS 81009 TRIM SKIN LESIONS, OVER 4, Modifiers: Q8 [...]
--- OUTSIDE RECORDS SUMMARY | 2024-10-31 13:22 | XMS_ITS | Patient Health Record ---
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, bilateral legs (I70.203) Active confirmed Problem Raynaud (083662335) Raynaud's syndrome without gangrene (I73.00) Active confirmed Problem Localized, primary osteoarthritis of the ankle and/or foot (404125802) Primary osteoarthritis, right ankle and foot (M19.071) Active confirmed Problem Ulcer of toe (972100560) Non-pressure chronic ulcer of other part of left foot limited to breakdown of skin (L97.521) Active confirmed Problem Non-pressure ulcer lower limb (795559359) Non-pressure chronic ulcer of other part of right foot limited to breakdown of 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) Active confirmed Problem Acquired hammer toe of right foot (6099676484879739 ) Other hammer toe(s) (acquired), right foot (M20.41) Active confirmed Problem Mononeuropathy of lower limb (891789883) Neuritis of right foot (G57.91) Active confirmed Response to treatment - Improvement Problem Atherosclerosis of beaver artery of both lower extremities, with unspecified presence of clinical manifestation (I70.203) Active confirmed Q7(A), Q8(2B), Q9(1B,2C) Problem Ulcer of toe of right foot (disorder) (5353167462546821 1) Skin ulcer of toe of right foot, limited to breakdown of 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) Active confirmed Problem Ulcer of toe of left foot (disorder) (3935046039092590 2) Skin ulcer of toe of left foot, limited to breakdown of skin (L97.521) Active confirmed Vital Signs Blood pressure diastolic 66 mm Hg 08/30/2024 Height 5 ft 7 in in 08/30/2024 Blood pressure systolic 145 mm Hg 08/30/2024 Weight 219 lbs 08/30/2024 BMI 34.3 kg/m2 08/30/2024 Procedures Procedure Date Ordered Date Performed Result Body Sit e 46944-LJQLIDD NAIL, 6 OR MORE 12/15/2023 N/A 50087-KWOQ SKIN LESIONS, OVER 4 12/15/2023 N/A 57519-SJQVVJM NAIL, 6 OR MORE 02/16/2024 N/A 78050-ZNXG SKIN LESIONS, OVER 4 02/16/2024 N/A 27110-GYVPHWD NAIL, 6 OR MORE 04/19/2024 N/A 42846-HOEX SKIN LESIONS, OVER 4 04/19/2024 N/A 19417-PLBMWIQ NAIL, 6 OR MORE 06/21/2024 N/A 46488-FNEV SKIN LESIONS, OVER 4 06/21/2024 N/A 64654-KTMOYQX NAIL, 6 OR MORE 08/30/2024 N/A 48337-KSLG SKIN LESIONS, OVER 4 08/30/2024 N/A Encounters Encounter Location Date Provider Diagnosis [address] [address] 12/15/2023 Vee Black Unspecified atherosclerosis of beaver arteries of extremities, bilateral legs I70.203 ; Tinea unguium B35.1 ; Pain in right toe(s) M79.674 and Pain in left toe(s) M79.675 [facility] [address] 02/16/2024 Vee Black Unspecified atherosclerosis of beaver arteries of extremities, bilateral legs I70.203 ; Tinea unguium B35.1 ; Pain in right toe(s) M79.674 and Pain in left toe(s) M79.[address] [address] 04/19/2024 Vee Black Unspecified atherosclerosis of beaver arteries of extremities, bilateral legs I70.203 ; Neuritis of right foot G57.91 ; Tinea unguium B35.1 ; Pain in right toe(s) M79.674 ; Pain in left toe(s) M79.675 and Pain in right foot M79.[address] [address] 06/21/2024 Vee Black Neuritis of right fo ot G57.91 ; Pain in right foot M79.671 ; Atherosclerosis of beaver artery of both lower extremities, with unspecified presence of clinical manifestation I70.203 ; Tinea unguium B35.1 ; Pain in right toe(s) M79.674 and Pain in left toe(s) M79.[address] [address] 08/30/2024 Vee Black Atherosclerosis of beaver artery of both lower extremities, with unspecified presence of clinical manifestation I70.203 ; Tinea unguium B35.1 ; Pain in right toe(s) M79.674 and Pain in left toe(s) M79.675 Assessments Encounter Date Diagnosis (ICD Code) Assessment Notes Treatment Notes Treatment Clinical Notes Section Notes 12/15/2023 Unspecified atherosclerosis of beaver arteries of extremities, bilateral legs (ICD-10 - I70.203) 02/16/2024 Unspecified atherosclerosis of beaver arteries of extremities, bilateral legs (ICD-10 - I70.203) 12/15/2023 Tinea unguium (ICD-10 - B35.1) 04/19/2024 Unspecified atherosclerosis of beaver arteries of extremities, bilateral legs (ICD-10 - I70.203) 04/19/2024 Neuritis of right foot (ICD-10 - G57.91) 06/21/2024 Pain in right foot (ICD-10 - M79.671) 06/21/2024 Neuritis of right foot (ICD-10 - G57.91) Response to treatment - Improvement 08/30/2024 Tinea unguium (ICD-10 - B35.1) 08/30/2024 Atherosclerosis of beaver artery of both lower extremities, with unspecified presence of clinical manifestation (ICD-10 - I70.203) Q7(A), Q8(2B), Q9(1B,2C) 08/30/2024 Pain in right toe(s) (ICD-10 - M79.674) 06/21/2024 Atherosclerosis of beaver artery of both lower extremities, with unspecified presence of clinical manifestation (ICD-10 - I70.203) Q7(A), Q8(2B), Q9(1B,2C) 12/15/2023 Pain in right toe(s) (ICD-10 - M79.674) 04/19/2024 Tinea unguium (ICD-10 - B35.1) 02/16/2024 Tinea unguium (ICD-10 - B35.1) 02/16/2024 [...] toe(s) (ICD-10 - M79.675) 06/21/2024 Pain in left toe(s) (ICD-10 - M79.675) 04/19/2024 Pain in right foot (ICD-10 - M79.671) Plan Of Treatment Pending Test Test Name Order Date X ray : Ankle, right 2V 08/18/2020 X ray : Foot, left 3V 11/10/2015 45262-ITGRLWX NAIL, 6 OR MORE 09/01/2015 29173-SNCZWZD NAIL, 6 OR MORE 11/10/2015 98243-ODWSFTK NAIL, 6 OR MORE 01/13/2015 62293-PJQWREN NAIL, 6 OR MORE 06/23/2015 30448-MTRHHBM NAIL, 6 OR MORE 05/27/2016 19942-DLCAWRK NAIL, 6 OR MORE 12/06/2013 43819-KCFQNPM NAIL, 6 OR MORE 03/11/2014 20886-JHTGRWB NAIL, 6 OR MORE 06/12/2014 70294-ORVRCYF NAIL, 6 OR MORE 09/04/2014 75431-VBVPVZA NAIL, 6 OR MORE 11/07/2014 76570-FDBBHEQ NAIL, 6 OR MORE 04/21/2015 48557-HOGUFOG NAIL, 6 OR MORE 2016 69692-YJJVHLN NAIL, 6 OR MORE 02/17/2017 40137-YOGQLDU NAIL, 6 OR MORE 04/21/2017 89555-QUXRBVU NAIL, 6 OR MORE 07/29/2016 74298-NGFJGGJ NAIL, 6 OR MORE 10/11/2016 76983-FHTTBLK NAIL, 6 OR MORE 06/27/2017 82973-WHHVZJL NAIL, 6 OR MORE 09/08/2017 24559-GKAFQRF NAIL, 6 OR MORE 11/10/2017 29151-ZUMUKRD NAIL, 6 OR MORE 01/12/2018 53072-FZJPAPR NAIL, 6 OR MORE 03/23/2018 38769-OBUYVEE NAIL, 6 OR MORE 05/25/2018 04404-FHZMGGR NAIL, 6 OR MORE 07/31/2018 57210-EARCRBR NAIL, 6 OR MORE 10/02/2018 79433-GWUMXEJ NAIL, 6 OR MORE 12/04/2018 87765-OIWGMTK NAIL, 6 OR MORE 10/30/2020 08751-CXEXUGM NAIL, 6 OR MORE 01/01/2021 59070-IUZZOHM NAIL, 6 OR MORE 03/12/2021 39029-YCKUOSY NAIL, 6 OR MORE 05/15/2021 90017-CRLYBXH NAIL, 6 OR MORE 04/23/2019 89420-FTGXSPG NAIL, 6 OR MORE 06/25/2019 63922-HQPCOBL NAIL, 6 OR MORE 09/10/2019 49107-QSWSCSB NAIL, 6 OR MORE 11/21/2019 69759-QIVVXIG NAIL, 6 OR MORE 01/24/2020 88286-ENTMFUO NAIL, 6 OR MORE 04/03/2020 01604-IYOUNBC NAIL, 6 OR MORE 06/16/2020 51310-HAHVPSJ NAIL, 6 OR MORE 08/17/2021 98488-HVLCVCQ NAIL, 6 OR MORE 08/18/2020 28439-OBYMCIO NAIL, 6 OR MORE 11/26/2021 40423-ORVDDXM NAIL, 6 OR MORE 02/08/2022 46465-QDLHISH NAIL, 6 OR MORE 04/12/2022 29551-SQEOMQJ NAIL, 6 OR MORE 06/14/2022 94832-BBXVAEY NAIL, 6 OR MORE 08/16/2022 30988-DVSPBOK NAIL, 6 OR MORE 10/21/2022 92037-ZTKJDZE NAIL, 6 OR MORE 12/23/2022 33035-LTEAEJO NAIL, 6 OR MORE 02/24/2023 41855-VBWVLWG NAIL, 6 OR MORE 04/28/2023 95965-ACWCIBH NAIL, 6 OR MORE 08/08/2023 10742-VJYCZAB NAIL, 6 OR MORE 10/13/2023 41684-PJQIEZG NAIL, 6 OR MORE 12/15/2023 20357-XTFENQR NAIL, 6 OR MORE 02/16/2024 30743-ZWINRJV NAIL, 6 OR MORE 04/19/2024 39028-GQKWBDE NAIL, 6 OR MORE 06/21/2024 76942-LTKPTJO NAIL, 6 OR MORE 08/30/2024 78759-KNEPTAW NAIL, 1-5 05/27/2016 16927-SOZVUSE NAIL, 1-5 01/12/2016 95203-NGPLAIN NAIL, 1-5 03/16/2016 09192-Lgzr Destruction, 1-14 02/17/2017 65138-Xleh Destruction, 1-14 10/11/2016 17405-Uulx Destruction, 1-14 2016 43747-Ucszfuxl Plate 2016 90256-Lxvrzvyf Plate 04/21/2017 66892-Ogxlxgsw Plate 06/27/2017 31149-Tsjphgag Plate 10/02/2018 57670-Qrulszdp Plate 07/31/2018 06846-Wkftnnkx Plate 05/27/2016 26877-Bkbctplx Plate 12/06/2013 04842-Wkhobhfe Plate 06/23/2015 61126-Wvyhyeic Plate 04/21/2015 54280-Jltpshqi Plate 11/07/2014 95153-Ehndwbpg Plate 01/13/2015 04890-Rlgwaqkp Plate 09/04/2014 24034-Ijyuknqd Plate 06/12/2014 69263-Omopiyqo Plate 03/11/2014 04134-Lkrkkzko Plate 10/13/2023 15512-Jcvainqz Plate 04/12/2022 00117-Bvkkewzo Plate 02/08/2022 66000-Cdqugsle Plate 11/26/2021 60122-Edkabgaf Plate 04/03/2020 74963-Ijssflhy Plate 09/10/2019 86462-Oruvyspe Plate 03/12/2021 48252-Usskpubg Plate 10/30/2020 08025-Gvqhjgnf Plate 06/16/2020 89442-Xbotngrx Plate 02/24/2023 15684-Givijynk Plate Each Additional 08956-Jafwkdes Plate Each Additional 16816-Xsxmlbxc Plate Each Additional 54600-Mygaakan Plate Each Additional 47904-Rzvggsec Plate Each Additional 99637-Ndtmrsos Plate Each Additional 71533- Debride <25 sq cm 06/11/2016 97133- Debride <25 sq cm 12/03/2015 73722- Debride <25 sq cm 12/04/2018 69913- Debride <25 sq cm 03/23/2018 09993- Debride <25 sq cm 06/27/2017 84197- Debride <25 sq cm 04/21/2017 83612- Debride <25 sq cm 04/28/2023 96686- Debride <25 sq cm 02/08/2022 14541- Debride <25 sq cm 01/24/2020 52065- Debride <25 sq cm 01/01/2021 17149- Debride <25 sq cm 05/15/2021 51727- Debride <25 sq cm 08/17/2021 67195-ZUERKKM SKIN/TISSUE 11/07/2014 95937 I&D ABSCESS- SIMPLE,SINGLE 014 99967 I&D ABSCESS- SIMPLE,SINGLE 016 40165 I&D ABSCESS- SIMPLE,SINGLE 016 55225 I&D ABSCESS- SIMPLE,SINGLE 016 27531 I&D ABSCESS- SIMPLE,SINGLE 016 17859 I&D ABSCESS- SIMPLE,SINGLE 017 99713-ZCTO SKIN LESIONS, OVER 4 12/05/19 19 26011-BUHJ SKIN LESIONS, OVER 4 01/14/20 15 91181-OJJE SKIN LESIONS, OVER 4 04/21/20 05487-CLNL SKIN LESIONS, OVER 4 08/17/20 04200-ZPBC SKIN LESIONS, OVER 4 05/15/20 76854-YLSD SKIN LESIONS, OVER 4 03/12/20 38111-HLBK SKIN LESIONS, OVER 4 01/02/20 41929-UJXB SKIN LESIONS, OVER 4 08/18/20 23238-YGDC SKIN LESIONS, OVER 4 10/31/19 48626-MUSR SKIN LESIONS, OVER 4 02/13/20 04880-WNPH SKIN LESIONS, OVER 4 04/03/20 60408-CRSG SKIN LESIONS, OVER 4 06/16/20 99980-MOST SKIN LESIONS, OVER 4 11/21/19 02708-IBKS SKIN LESIONS, OVER 4 01/24/20 95839-JYZK SKIN LESIONS, OVER 4 06/25/20 28195-RUOE SKIN LESIONS, OVER 4 09/10/19 64729-EZHG SKIN LESIONS, OVER 4 02/09/20 09418-UHKF SKIN LESIONS, OVER 4 11/27/19 84953-BFYV SKIN LESIONS, OVER 4 04/12/20 60703-SIEV SKIN LESIONS, OVER 4 06/14/20 34513-NXOH SKIN LESIONS, OVER 4 08/16/20 49987-YKWZ SKIN LESIONS, OVER 4 10/21/19 95190-FPHD SKIN LESIONS, OVER 4 04/28/20 42754-RVWC SKIN LESIONS, OVER 4 02/25/20 83466-ACAZ SKIN LESIONS, OVER 4 12/24/19 73564-TIKG SKIN LESIONS, OVER 4 10/13/19 43449-IBSD SKIN LESIONS, OVER 4 08/08/20 23082-NCXZ SKIN LESIONS, OVER 4 02/16/20 25469-MFIE SKIN LESIONS, OVER 4 12/15/19 12836-FKRX SKIN LESIONS, OVER 4 08/30/19 13726-UKXD SKIN LESIONS, OVER 4 06/21/20 05971-UQAE SKIN LESIONS, OVER 4 04/19/20 58315-RSSC SKIN LESIONS, 2 TO 4 10/02/19 37224-GHNG SKIN LESIONS, 2 TO 4 05/25/20 33001-XAIG SKIN LESIONS, 2 TO 4 07/31/20 82943-AUQC SKIN LESIONS, 2 TO 4 03/23/20 18 18736-JWDD SKIN LESIONS, 2 TO 4 01/13/20 18 90666-XFIT SKIN LESIONS, 2 TO 4 09/08/19 18 23704-FHRA SKIN LESIONS, 2 TO 4 11/11/19 18 21595-Hlgc. Subungual Hematoma 9 96179-FPQFOZLR OF HEMATOMA/FLUID 019 10160-HKIGXSNQ OF HEMATOMA/FLUID 018 Next Appt Details Provider Name:Vee Ta , 11/01/2024 01:30:00 PM, [address] [place] [address], [phone], Provider Name:Vee Ta , 01/03/2025 01:00:00 PM, [address] [place] [address], [phone], Insurance Providers Payer Name Payer Address Payer Phone Subscriber Number Group Number Insured Name Patient Relationship to Insured Coverage Start Date Coverage End Date [employer] [address] [place] [address] [id number] Lilo Bess Self - patient is the insured [employer] [address] [place] [address] [id number] Lilo Bess Self - patient is the [...]
== END 2024-10-31 11:51 | disposition home or self-care (01) ==
PROVIDERS: PCP Family Medicine; Visit Provider Orthopaedic Surgery
DX: M17.12 Unilateral primary osteoarthritis, left knee (principal); M25.562 Pain in left knee
CPT/HCPCS: 99213; G2211

== ENCOUNTER → 2024-10-31 11:11 | Outpatient (BNV) | payer MEDICARE, SELFPAY | PROVIDERS: Visit Provider Radiology Diagnostic Radiology | DX: M17.12 Unilateral primary osteoarthritis, left knee (principal) | CPT/HCPCS: 73562 ==

== ENCOUNTER 2024-10-31 14:35 | Outpatient (REF) | payer MEDICARE, SELFPAY ==
--- NOTE | ~2024-10-31 | XR_ITS ---
EXAMINATION: XR KNEE 3 VIEWS LEFT HISTORY: M17.12 - Unilateral primary osteoarthritis, left knee COMPARISON: Comparison is made with the prior examination dated 11/25/2020. FINDINGS: Three views of the left knee are submitted. Osseous mineralization is normal. There is no fracture or dislocation. Again seen is severe osteoarthritis of the medial and patellofemoral compartments with joint space narrowing, osteophyte formation, and subchondral cyst formation. There is mild to moderate osteoarthritis of the lateral compartment. There is a small to moderate joint effusion. XR/XR knee LT 3V IMPRESSION: Osteoarthritis of the left knee as described. Electronically signed by: Jose Kilpatrick MD 11/05/2024 08:45 AM EDT
--- OUTSIDE RECORDS SUMMARY | 2024-11-01 17:57 | XMS_ITS | Patient Health Record ---
Author Organization [facility] mike Cervantes Address [address] [facility] [place] [address] Care Team Providers Care Miniature Set Constructor Name Role Phone La Zamora MD Primary Care Provider Unavailab Vee Crews Unavailable [phone] Allergies Allergen (clinical drug ingredient) Drug/Non Drug [...] Orally every 6 hrs Active Flax Seeds Orally Not-Takin g Iron 325 (65 Fe) MG 1 tablet Orally Once a day Not-Taking Propranolol HCl ER Beads 80 MG 1 capsule at bedtime Orally Once a day Not-Taking Oweuvemh-Vgivjglbm-Dodivmer Not-Taking Baby Aspirin Not-Dung ing Nitro-Bid 2 % as directed Transdermal apply bid to toes for 30 days Not-Taking Immunizations Vaccine Route Administration Date Status Comme nts COVID-19 Moderna Vaccine Unknown 07/09/2021 Administered 1st 10/07/2020 2nd 11/04/2020 Influenza Unknown 05/29/2021 Administered Social History Tobacco Use: Social History Observation Description Date Details (start date - stop date) Never Smoker NA - NA Tobacco use other than smoking: Question Answer Notes Are you an other tobacco user? No Tobacco Control (Standard) Question Answer Notes Tobacco use: Nonsmoker Additional Findings: Tobacco non-user Current no nsmoker AUDIT-C (Standard) Question Answer Notes Did you have a drink contain ing alcohol in the past year? Yes How often did you have a dri nk containing alcohol in the past year? Monthly or less (1 point) How many drinks did you have on a typical day when you were drinking in the past year? 1 or 2 drinks (0 point) How often did you have six o r more drinks on one occasion in the past year? Never (0 point) Points 1 Interpretation Negative Problems Problem Type SNOMED Code ICD Code Onset Dates Problem Status W/U Status Risk Notes Problem Atherosclerosis of gak[place] arteries of the extremities (891983322713993) Unspecified atherosclerosis of g[place] arteries of extremities, bilateral legs (I70.203) Active confirmed Problem Raynaud (923894140) Raynaud's syndrome without gangrene (I73.00) Active confirmed Problem Localized, primary osteoarthritis of the ankle and/or foot (244506118) Primary osteoarthritis, right ankle and foot (M19.071) Active confirmed Problem Ulcer of toe (943183956) Non-pressure chronic ulcer of other part of left foot limited to breakdown of skin (L97.521) Active confirmed Problem Non-pressure ulcer lower limb (573935066) Non-pressure chronic ulcer of other part of right foot limited to breakdown of 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) Active confirmed Problem Acquired hammer toe of right foot (6135001909486116 ) Other hammer toe(s) (acquired), right foot (M20.41) Active confirmed Problem Mononeuropathy of lower limb (610759493) Neuritis of right foot (G57.91) Active confirmed Response to treatment - Improvement Problem Atherosclerosis of g[place] arteries of the extremities (015013097999875) Atherosclerosis of g[place] artery of both lower extremities, with unspecified presence of clinical manifestation (I70.203) Active confirmed Q7(A), Q8(2B), Q9(1B,2C) Problem Ulcer of toe of right foot (disorder) (6546218633389739 1) Skin ulcer of toe of right foot, limited to breakdown of 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) Active confirmed Problem Ulcer of toe of left foot (disorder) (0142110930767814 2) Skin ulcer of toe of left foot, limited to breakdown of skin (L97.521) Active confirmed Vital Signs Blood pressure diastolic 70 mm Hg 11/01/2024 Height 5 ft 7 in in 11/01/2024 Blood pressure systolic 166 mm Hg 11/01/2024 Weight 216 lbs 11/01/2024 BMI 33.83 kg/m2 11/01/2024 Procedures Procedure Date Ordered Date Performed Result Body Sit e 39671-GUGEPOR NAIL, 6 OR MORE 12/15/2023 N/A 22560-BPTN SKIN LESIONS, OVER 4 12/15/2023 N/A 74840-STIMRAD NAIL, 6 OR MORE 02/16/2024 N/A 57957-KCTA SKIN LESIONS, OVER 4 02/16/2024 N/A 80083-JBYRTAO NAIL, 6 OR MORE 04/19/2024 N/A 77091-VKZM SKIN LESIONS, OVER 4 04/19/2024 N/A 23667-DLEFKUY NAIL, 6 OR MORE 06/21/2024 N/A 50122-NNQH SKIN LESIONS, OVER 4 06/21/2024 N/A 86973-DYJCEIT NAIL, 6 OR MORE 08/30/2024 N/A 41045-MCMI SKIN LESIONS, OVER 4 08/30/2024 N/A 32102-OKIXKZJ NAIL, 6 OR MORE 11/01/2024 N/A 73611-NDRW SKIN LESIONS, OVER 4 11/01/2024 N/A Encounters Encounter Location Date Provider Diagnosis [facility] [address] [address] 12/15/2023 Vee Black Unspecified atherosclerosis of gak[place] arteries of extremities, bilateral legs I70.203 ; Tinea unguium B35.1 ; Pain in right toe(s) M79.674 and Pain in left toe(s) M79.675 [facility] [address] 02/16/2024 Vee Black Unspecified atherosclerosis of g[place] arteries of extremities, bilateral legs I70.203 ; Tinea unguium B35.1 ; Pain in right toe(s) M79.674 and Pain in left toe(s) M79.[address] [address] 04/19/2024 Vee Black Unspecified atherosclerosis of [place] arteries of extremities, bilateral legs I70.203 ; Neuritis of right foot G57.91 ; Tinea unguium B35.1 ; Pain in right toe(s) M79.674 ; Pain in left toe(s) M79.675 and Pain in right foot M79.[address] [address] 06/21/2024 Vee Black Neuritis of right fo ot G57.91 ; Pain in right foot M79.671 ; Atherosclerosis of [place] artery of both lower extremities, with unspecified presence of clinical manifestation I70.203 ; Tinea unguium B35.1 ; Pain in right toe(s) M79.674 and Pain in left toe(s) M79.[address] [address] 08/30/2024 Vee Black Atherosclerosis of gak[place] artery of both lower extremities, with unspecified presence of clinical manifestation I70.203 ; Tinea unguium B35.1 ; Pain in right toe(s) M79.674 and Pain in left toe(s) M79.[address] [address] 11/01/2024 Vee Black Atherosclerosis of [place] artery of both lower extremities, with unspecified presence of clinical manifestation I70.203 ; Tinea unguium B35.1 ; Pain in right toe(s) M79.674 and Pain in left toe(s) M79.675 Assessments Encounter Date Diagnosis (ICD Code) Assessment Notes Treatment Notes Treatment Clinical Notes Section Notes 12/15/2023 Unspecified atherosclerosis of [place] arteries of extremities, bilateral legs (ICD-10 - I70.203) 02/16/2024 Unspecified atherosclerosis of [place] arteries of extremities, bilateral legs (ICD-10 - I70.203) 12/15/2023 Tinea unguium (ICD-10 - B35.1) 04/19/2024 Unspecified atherosclerosis of gak[place] arteries of extremities, bilateral legs (ICD-10 - I70.203) 04/19/2024 Neuritis of right foot (ICD-10 - G57.91) 06/21/2024 Pain in right foot (ICD-10 - M79.671) 06/21/2024 Neuritis of right foot (ICD-10 - G57.91) Response to treatment - Improvement 08/30/2024 Tinea unguium (ICD-10 - B35.1) 08/30/2024 Atherosclerosis of g[place] artery of both lower extremities, with unspecified presence of clinical manifestation (ICD-10 - I70.203) Q7(A), Q8(2B), Q9(1B,2C) 11/01/2024 Atherosclerosis of [place] artery of both lower extremities, with unspecified presence of clinical manifestation (ICD-10 - I70.203) Q7(A), Q8(2B), Q9(1B,2C) 11/01/2024 Tinea unguium (ICD-10 - B35.1) 08/30/2024 Pain in right toe(s) (ICD-10 - M79.674) 06/21/2024 Atherosclerosis of gakona artery of both lower extremities, with unspecified [...] Pain in left toe(s) (ICD-10 - M79.675) 11/01/2024 Pain in right toe(s) (ICD-10 - M79.674) 11/01/2024 Pain in left toe(s) (ICD-10 - M79.675) [...] X ray : Foot, left 3V 11/10/2015 72011-QDQQVMF NAIL, 6 OR MORE 09/01/2015 85950-RYINDHP NAIL, 6 OR MORE 11/10/2015 35807-AJPGKHC NAIL, 6 OR MORE 01/13/2015 77925-JROALET NAIL, 6 OR MORE 06/23/2015 06819-NZWJGOE NAIL, 6 OR MORE 05/27/2016 08244-AVGSECA NAIL, 6 OR MORE 12/06/2013 03625-ZCGPVMK NAIL, 6 OR MORE 03/11/2014 35208-MPMSYDX NAIL, 6 OR MORE 06/12/2014 04316-HMHZAZA NAIL, 6 OR MORE 09/04/2014 17343-TITFHOJ NAIL, 6 OR MORE 11/07/2014 08931-JYJGPID NAIL, 6 OR MORE 04/21/2015 51962-GQVSSKY NAIL, 6 OR MORE 2016 58313-OIAOEDI NAIL, 6 OR MORE 02/17/2017 79932-KEPWFJS NAIL, 6 OR MORE 04/21/2017 42800-JFDDOPK NAIL, 6 OR MORE 07/29/2016 61531-REEHXGC NAIL, 6 OR MORE 10/11/2016 21762-VDITSSQ NAIL, 6 OR MORE 06/27/2017 54352-IUFAPEW NAIL, 6 OR MORE 09/08/2017 65537-YKGAQYA NAIL, 6 OR MORE 11/10/2017 74653-QVJLCPW NAIL, 6 OR MORE 01/12/2018 96851-FPUASMJ NAIL, 6 OR MORE 03/23/2018 70343-UEAUJVI NAIL, 6 OR MORE 05/25/2018 82462-GKYGMNJ NAIL, 6 OR MORE 07/31/2018 48948-EGTLQZR NAIL, 6 OR MORE 10/02/2018 08084-GGWYXUJ NAIL, 6 OR MORE 12/04/2018 19334-ZYADMES NAIL, 6 OR MORE 10/30/2020 78549-NXFMRLW NAIL, 6 OR MORE 01/01/2021 68317-CITQGBY NAIL, 6 OR MORE 03/12/2021 35079-GBNDFYU NAIL, 6 OR MORE 05/15/2021 23380-HJSCZLD NAIL, 6 OR MORE 04/23/2019 54412-MHZHDJM NAIL, 6 OR MORE 06/25/2019 66659-RSXSROV NAIL, 6 OR MORE 09/10/2019 72891-CAJHTYH NAIL, 6 OR MORE 11/21/2019 36762-JUUONNH NAIL, 6 OR MORE 01/24/2020 39683-VYCDRHA NAIL, 6 OR MORE 04/03/2020 65499-RXRGAQG NAIL, 6 OR MORE 06/16/2020 64803-DVZJBYZ NAIL, 6 OR MORE 08/17/2021 80808-UPYCGTC NAIL, 6 OR MORE 08/18/2020 33977-XDZZZCL NAIL, 6 OR MORE 11/26/2021 32224-XNGDJFL NAIL, 6 OR MORE 02/08/2022 55797-BFMKTXA NAIL, 6 OR MORE 04/12/2022 09739-PWFCBJG NAIL, 6 OR MORE 06/14/2022 90555-GZTDDRJ NAIL, 6 OR MORE 08/16/2022 10223-AQDJVPT NAIL, 6 OR MORE 10/21/2022 83088-MWGYFFZ NAIL, 6 OR MORE 12/23/2022 25873-TJRIENG NAIL, 6 OR MORE 02/24/2023 44456-VYMKCJP NAIL, 6 OR MORE 04/28/2023 89097-TKTUGAE NAIL, 6 OR MORE 08/08/2023 05610-JHSHXBA NAIL, 6 OR MORE 10/13/2023 43069-JNOXRLW NAIL, 6 OR MORE 12/15/2023 25303-CSHEJGX NAIL, 6 OR MORE 02/16/2024 96972-SPEANTU NAIL, 6 OR MORE 04/19/2024 08770-RKPIYSM NAIL, 6 OR MORE 06/21/2024 41427-JIJTHAT NAIL, 6 OR MORE 08/30/2024 88986-XSGWERY NAIL, 6 OR MORE 11/01/2024 31945-JJRJTDM NAIL, 1-5 05/27/2016 37153-GEETUXJ NAIL, 1-5 01/12/2016 53431-HMHMAAS NAIL, 1-5 03/16/2016 17795-Ipko Destruction, -14 02/17/2017 96391-Aznu Destruction, 1-14 10/11/2016 26857-Roup Destruction, -14 2016 31826-Ywpkiowy Plate 2016 23827-Mhezixca Plate 04/21/2017 67414-Ofxgpxhi Plate 06/27/2017 49469-Khzfwxxp Plate 10/02/2018 18000-Pegopokm Plate 07/31/2018 79840-Lybluhhx Plate 05/27/2016 80628-Spycrcyh Plate 12/06/2013 54894-Kpmlujtl Plate 06/23/2015 72810-Ssdupeaj Plate 04/21/2015 26809-Jqsrtncc Plate 11/07/2014 66809-Crgzcoyg Plate 01/13/2015 61284-Axdhzqcr Plate 09/04/2014 19447-Pvamoiie Plate 06/12/2014 61740-Xdtzyafy Plate 03/11/2014 48462-Kdpvvvaw Plate 10/13/2023 31373-Kqqqcbff Plate 04/12/2022 31629-Naozkitl Plate 02/08/2022 36497-Oqisaamk Plate 11/26/2021 63638-Gezioabn Plate 04/03/2020 89579-Yhmvcsvb Plate 09/10/2019 30991-Dhgqoooe Plate 03/12/2021 30383-Sxgnpeav Plate 10/30/2020 61203-Dkvdawgc Plate 06/16/2020 96468-Xgsyttbf Plate 02/24/2023 95860-Rzxpclsp Plate Each Additional 16882-Lbulwivl Plate Each Additional 89575-Kmiwkiwa Plate Each Additional 54577-Kgsxsfjx Plate Each Additional 78480-Mmvklxpz Plate Each Additional 25187-Pjoxivpw Plate Each Additional 37988- Debride <25 sq cm 06/11/2016 37950- Debride <25 sq cm 12/03/2015 36185- Debride <25 sq cm 12/04/2018 71065- Debride <25 sq cm 03/23/2018 26612- Debride <25 sq cm 06/27/2017 09331- Debride <25 sq cm 04/21/2017 32961- Debride <25 sq cm 04/28/2023 24537- Debride <25 sq cm 02/08/2022 67591- Debride <25 sq cm 01/24/2020 80933- Debride <25 sq cm 01/01/2021 57459- Debride <25 sq cm 05/15/2021 37589- Debride <25 sq cm 08/17/2021 61325-KUATIXN SKIN/TISSUE 11/07/2014 03661 I&D ABSCESS- SIMPLE,SINGLE 014 20572 I&D ABSCESS- SIMPLE,SINGLE 016 09002 I&D ABSCESS- SIMPLE,SINGLE 016 56023 I&D ABSCESS- SIMPLE,SINGLE 016 54253 I&D ABSCESS- SIMPLE,SINGLE 016 16292 I&D ABSCESS- SIMPLE,SINGLE 017 38874-NFSW SKIN LESIONS, OVER 4 12/05/19 19 60209-WFXR SKIN LESIONS, OVER 4 01/14/20 15 46026-SYWS SKIN LESIONS, OVER 4 04/21/20 15 36165-CYPU SKIN LESIONS, OVER 4 08/17/20 21 07692-IYKK SKIN LESIONS, OVER 4 05/15/20 21 70686-XFUT SKIN LESIONS, OVER 4 03/12/20 21 70122-VRBH SKIN LESIONS, OVER 4 01/02/20 21 89205-JTWS SKIN LESIONS, OVER 4 08/18/20 20 86260-OZSH SKIN LESIONS, OVER 4 10/31/19 21 08130-NHAD SKIN LESIONS, OVER 4 02/13/20 19 95417-TCQY SKIN LESIONS, OVER 4 04/03/20 20 06722-JGIQ SKIN LESIONS, OVER 4 06/16/20 20 41012-HSHK SKIN LESIONS, OVER 4 11/21/19 20 80586-LCZN SKIN LESIONS, OVER 4 01/24/20 53024-COXF SKIN LESIONS, OVER 4 06/25/20 26437-XAUP SKIN LESIONS, OVER 4 09/10/19 07232-SAAO SKIN LESIONS, OVER 4 02/09/20 81480-XJZM SKIN LESIONS, OVER 4 11/27/19 41767-EQUY SKIN LESIONS, OVER 4 04/12/20 27394-HJDN SKIN LESIONS, OVER 4 06/14/20 19651-QGXT SKIN LESIONS, OVER 4 08/16/20 78627-BHZH SKIN LESIONS, OVER 4 10/21/19 76838-NLJV SKIN LESIONS, OVER 4 04/28/20 81522-ZAXZ SKIN LESIONS, OVER 4 02/25/20 31320-SYBL SKIN LESIONS, OVER 4 12/24/19 28185-UMQC SKIN LESIONS, OVER 4 10/13/19 16511-YTME SKIN LESIONS, OVER 4 08/08/20 18226-HRBO SKIN LESIONS, OVER 4 02/16/20 11174-EAIT SKIN LESIONS, OVER 4 12/15/19 13865-OMYU SKIN LESIONS, OVER 4 11/02/19 48576-TBNW SKIN LESIONS, OVER 4 08/30/19 92856-HDNU SKIN LESIONS, OVER 4 06/21/20 10059-VFAQ SKIN LESIONS, OVER 4 04/19/20 23235-ISOS SKIN LESIONS, 2 TO 4 10/02/19 00318-RDEI SKIN LESIONS, 2 TO 4 05/25/20 21071-CJHU SKIN LESIONS, 2 TO 4 07/31/20 92391-QNRB SKIN LESIONS, 2 TO 4 03/23/20 49435-VTSQ SKIN LESIONS, 2 TO 4 01/13/20 28447-PWSL SKIN LESIONS, 2 TO 4 09/08/19 72060-YHVZ SKIN LESIONS, 2 TO 4 11/11/19 18 71060-Kcyz. Subungual Hematoma 9 57994-TOMTYDSH OF HEMATOMA/FLUID 019 73556-BSTQLECT OF HEMATOMA/FLUID 018 Next Appt Details Provider Name:Vee Ta , 01/03/2025 01:00:00 PM, [address] [place] [address], [place], [address], Provider Name:Vee Ta , 03/07/2025 02:45:00 PM, [address] [facility], [place], [address], Insurance Providers Payer Name Payer Address Payer Phone Subscriber Number Group Number Insured Name Patient Relationship to Insured Coverage Start Date Coverage End Date Medicare National [facility] [address] [place] [address] [phone] [id number] Lilo Bess Self - patient is the insured [employer] [address] [place] [address] [id number] Lilo Bess Self - patient is the [...]
--- OUTSIDE RECORDS SUMMARY | 2024-11-01 17:57 | XMS_ITS ---
Author Organization [facility] Address [address] [facility] [place] [address] Care Team Providers Care Health Care Legal Assistant Name Role Phone La Zamora MD Primary Care Provider Unavailab Vee Crews Unavailable [phone] Allergies Allergen (clinical drug ingredient) Drug/Non Drug [...] Orally Not-Takin g Baby Aspirin Not-Dung ing Hzkymcjx-Swnkreyvb-Bbouiser Not-Taking Nitro-Bid 2 % as directed Transdermal [...] Ordered Date Performed Result Body Sit e 97740-SXOERNO NAIL, 6 OR MORE 08/30/2024 N/A 22137-CYRU SKIN LESIONS, OVER 4 08/30/2024 N/A Encounters Encounter Location Date Provider Diagnosis [facility] [place] [address] [place] [address] 08/30/2024 Vee Ta Atherosclerosis of [place] artery of both lower extremities, with unspecified presence of clinical manifestation I70.203 ; Tinea unguium B35.1 ; Pain in right toe(s) M79.674 and Pain in left toe(s) M79.675 Assessments Encounter Date Diagnosis (ICD Code) Assessment Notes Treatment Notes Treatment Clinical Notes Section Notes 08/30/2024 Atherosclerosis of [place] artery of both lower extremities, with unspecified presence of clinical manifestation (ICD-10 - I70.203) Q7(A), Q8(2B), Q9(1B,2C) 08/30/2024 Tinea unguium (ICD-10 - B35.1) 08/30/2024 Pain in right toe(s) (ICD-10 - M79.674) 08/30/2024 Pain in left toe(s) (ICD-10 - M79.675) Plan Of Treatment Pending Test Test Name Order Date 63940-LFPNQIR NAIL, 6 OR MORE 08/30/2024 12413-SLST SKIN LESIONS, OVER 4 08/30/19 25 Next Appt Details Follow Up: prn, Reason: Provider Name:Vee Ta , 01/03/2025 01:00:00 PM, [address] [place] [address], [phone], Provider Name:Vee Ta , 03/07/2025 02:45:00 PM, [address] [place] [address], [phone], Procedure Notes * Category Sub-Category Detail Notes [...] of a nail nipper and/or dremel-type grinder mill operator, to a more viable healthy nail [...] to maintain effectiveness in symptomatic relief - 33644 Keratoma Treatment Parring or Cutting o f [...] instrumentation by the physician of record - 13059, Q8 Progress Notes * Lilo KAYE MDOB:1945 (78 yo F)Acc No.[id number]:08/30/2024 Progress Note Patient:?Lilo KAYE Provider:?Vee Ta DPM :1945???Age:78 Y???Sex:Female D ate:08/30/2024 Address:[address] [place] [address] [place]-[id number] Pcp:La Zamora MD Subjective: * Chief Complaints: [...] able, cooking. ?Marital status: . ?Occupation: retired, [employer]. * Medications:?TakinghydroCHLO ROthiazide 12.5 MG Tablet Orally [...] every 6 hrs Not-Taking/PRNFlax Seeds Baby Aspirin Vyypgcrz-Fhwvqqrvb-Oofdxxyc Nitro-Bid 2 % Ointment as directed Transdermal apply bid to toes Iron 325 (65 Fe) MG Tablet 1 tablet Orally Once a day Flax Seeds Powder Orally Propranolol HCl ER Beads 80 MG Capsule Extended Release 24 Hour 1 capsule at bedtime Orally Once a day Medication List reviewed and reconciled with the patientNot-Taking/PRN Flax Seeds Not-Taking/PRN Baby Aspirin Not- Taking/PRN Mmbkquet-Zenkrrbas-Hmmzthej Not-Taking/PRN Nitro-Bid 2 % Ointment as directed [...] 1.?Tinea unguium - B35.1???2 .?Atherosclerosis of [place] artery of both lower extremities, with unspecified presence of clinical manifestation - I70.203 (Primary)???Notes :Q7(A), Q8(2B), Q9(1B,2C)???3.?Pain in right toe(s) - M79.674???4.?Pain in left toe(s) - M79.675??? Plan: * Treatment: 2.?Tinea unguium?Procedure: 85342-YZKVWET NAIL, 6 OR MORE * Procedures:?Debride Nail [...] of a nail nipper and/or dremel-type grinder mill operator, to a more viable healthy nail [...] to maintain effectiveness in symptomatic relief - 73527.?Keratoma Treatment:?Parring or Cutting of Benign Hyperkeratotic Lesion(s)?(-57) [...] instrumentation by the physician of record - 23786, Q8.? * Procedure Codes:?54550 DEBRI DE NAIL, 6 OR MORE, Modifiers: XS 81934 TRIM SKIN LESIONS, OVER 4, Modifiers: Q8 * Preventive Medicine:? ??Screening/Special Tests:?Fall Risk?Screening:?No falls in the past year * Follow Up:?prn * Images: * Sign off status: Completed true * Provider:?Vee Ta DPM Date:?2024 Generated for Chastity mir/Janell/eTransmitting on:?11/01/2024 05:57 PM EST History and Physical Notes * [...]
--- OUTSIDE RECORDS SUMMARY | 2024-11-01 17:58 | XMS_ITS ---
Author Organization [facility] Address [address] [facility] [place] [address] Care Team Providers Care Analytics Consultant Name Role Phone La Zamora MD Primary Care Provider Unavailab Vee Crews Unavailable [phone] Allergies Allergen (clinical drug ingredient) Drug/Non Drug [...] Date Status Flax Seeds Orally Not-Takin g Iron 325 (65 Fe) MG 1 tablet Orally Once a day Not-Taking Propranolol HCl ER Beads 80 MG 1 capsule at bedtime Orally Once a day Not-Taking Ukjfufgp-Suffnyyuh-Plmusgya Not-Taking Nitro-Bid 2 % as directed Transdermal apply bid to toes for 30 days Not-Taking Levothyroxine Sodium .05 1 tablet on [...] Never (0 point) Points 1 Interpretation Negative Vital Signs Height 5 ft 7 in in 11/01/2024 Weight 216 lbs 11/01/2024 BMI 33.83 kg/m2 11/01/2024 Blood pressure systolic 166 mm Hg 11/02/19 25 Blood pressure diastolic 70 mm Hg 025 Procedures Procedure Date Ordered Date Performed Result Body Sit e 53625-AUHULCB NAIL, 6 OR MORE 11/01/2024 N/A 22654-SFPE SKIN LESIONS, OVER 4 11/01/2024 N/A Encounters Encounter Location Date Provider Diagnosis [facility] [place] [address] [place] [address] 11/01/2024 Vee Black Atherosclerosis of [place] artery of both lower extremities, with unspecified presence of clinical manifestation I70.203 ; Tinea unguium B35.1 ; Pain in right toe(s) M79.674 and Pain in left toe(s) M79.675 Assessments Encounter Date Diagnosis (ICD Code) Assessment Notes Treatment Notes Treatment Clinical Notes Section Notes 11/01/2024 Atherosclerosis of [place] artery of both lower extremities, with unspecified presence of clinical manifestation (ICD-10 - I70.203) Q7(A), Q8(2B), Q9(1B,2C) 11/01/2024 Tinea unguium (ICD-10 - B35.1) 11/01/2024 Pain in right toe(s) (ICD-10 - M79.674) 11/01/2024 Pain in left toe(s) (ICD-10 - M79.675) Plan Of Treatment Pending Test Test Name Order Date 95076-OLTGERC NAIL, 6 OR MORE 11/01/2024 89590-VOKH SKIN LESIONS, OVER 4 11/02/19 25 Next Appt Details Follow Up: prn, Reason: Provider Name:Vee Ta , 01/03/2025 01:00:00 PM, [address] [place] [address], [phone], Provider Name:Vee Ta , 03/07/2025 02:45:00 PM, [address] [place] [address], [phone], Procedure Notes * Category Sub-Category Detail Notes [...] use of a nail nipper and/or dremel-type blade grinder, to a more viable healthy nail [...] to maintain effectiveness in symptomatic relief - 46215 Keratoma Treatment Parring or Cutting o f [...] instrumentation by the physician of record - 71034, Q8 Progress Notes * Lilo KAYE MDOB:1945 (78 yo F)Acc No.[id number]:11/01/2024 Progress Note Patient:?VARGASGricelan Houston Provider:?Vee Ta DPM :1945???Age:78 Y???Sex:Female D ate:11/01/2024 Address:[address] [place] [address] [id number] Pcp:La Zamora MD Subjective: * Chief Complaints: * ??? Painful nail(s) aggrevat ed by shoes and causing difficulty standing/walking.At Risk Footcare * HPI: ???Painful Nails:?Pt States Last PCP Visit:?Date:?08/17/2024 ???At Risk footcare:?Pt States Last PCP Visit:?Date?08/17/2024 * ROS:?General/Constitutional:?Nausea?denies.?Vomiting?denies.?Hunger Thirst?denies.?Loss appetite?denies.?Chills?denies.?Fatigue?admits.?Fever?denies.?Night Sweats?denies.?Unexplained weight loss?denies.?Unexplained [...] prostate cancer.?Spouse: dementia.? * Social History:?Tobacco Use:?Tobacco use other than smoking?Are you an other tobacco user??No ?Tobacco Control (Standard)?Tobacco use:?Nonsmoker ?Additional Findings: Tobacco non-user?Current nonsmoker ???Drugs/Alcohol:?Drugs?Have you used drugs other than those for medical reasons in the past 12 months??No ???Miscellaneous:?Caffeine: no, coffee, tea and Soda decaf, 1-2 cups per day. ?Children: yes, 2. ?Exercise: yes, sewing, knitting, quilting, walking when able, cooking. ?Marital status: . 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 ???Drug/Alcohol:?AUDIT-C (Standard)?Did you have a drink containing alcohol in the past year??Yes ?How often did you have a drink containing alcohol in the past year??Monthly or less (1 point) ?How many drinks did you have on a typical day when you were drinking in the past year??1 or 2 drinks (0 point) ?How often did you have six or more drinks on one occasion in the past year??Never (0 point) ?Points?1 ?Interpretation?Negative * Medications:?TakinghydroCHLO ROthiazide 12.5 MG Tablet Orally [...] every 6 hrs Not-Taking/PRNFlax Seeds Baby Aspirin Xgllrhsd-Hqgxsuvve-Uqjeumna Nitro-Bid 2 % Ointment as directed Transdermal apply bid to toes Iron 325 (65 Fe) MG Tablet 1 tablet Orally Once a day Flax Seeds Powder Orally Propranolol HCl ER Beads 80 MG Capsule Extended Release 24 Hour 1 capsule at bedtime Orally Once a day Medication List reviewed and reconciled with the patientNot-Taking/PRN Flax Seeds Not-Taking/PRN Baby Aspirin Not- Taking/PRN Lbiwiwsx-Hrmykwegk-Hdvarojs Not-Taking/PRN Nitro-Bid 2 % Ointment as directed [...] Vitals:?Ht: 5 ft 7 in, Wt: 2 16, BMI: 33.83, Shoe size: 9W, BP: 166/70 mm Hg, Wt- k.98 kg. * Examination: ???General Examination: ?GENERAL APPEARANCE:?Reveals a pleasant, alert, well nourished, well- developed, well hydrated individual, who demonstrates proper attention to hygiene/body habitus, and is in no acute distress, Pt serves as own historian for office visit today.?ORIENTED:?person, place, and time.?Neurological: ?SENSORY:?Neurological exam demonstrates , reduced light touch sensation , reduced sharp/dull pin prick discrimination right hallux , reduced vibration sensation , 5.07 monofilament test performed at plantar aspects of 5 varied sites per foot shows sensation , reduced at right hallux , Pt relates , anesthesia ,.?Dermatologic: ?SKIN FINDINGS:?Skin exam reveals Keratotic lesion(s) located at SUB MTH (s), 1, B/L, Plantar Heel(s), B/L, SUB MTH (s) 5 B/L .?Nails: ?NAILS are:?Elongated, overgrown, dystrophic, lytic, greater than 3mm thick, discolored and friable with crumbly malodorous subungual debris, with pain on palpation, , TA, T1, T2, T3, T4, T5, T6, T7, T8, T9.?Vascular: ?DP PULSES (B):?, 2/4, B/L.?PT PULSES (B):?, 0/4, B/L.?CAPILLARY FILL TIME:? delayed, all digits, B/L.?TROPHIC CONDITION-TEXTURE/ELASTICITY/TURGOR/HAIR GROWTH (B):? decreased, fragile, thin, shiny skin, with sparse to absent hair growth, B/L.?TEMPERTURE GRADIENT (C):? decreased, cool to cool, proximal to distal, B/L.?PIGMENTATION:?, cyanotic, B/L.?EDEMA (C):?, 2/4 , non-pitting.?CLAUDICATION (C):?denies, B/L.?REST PAIN:?denies, B/L.?PARESTHESIA (C):?absent, B/L.?BURNING (C):?absent, B/L.? Assessment: * Assessment: 1.?Atherosclerosis of [place] artery of both lower extremities, with unspecified presence of clinical manifestation - I70.203 (Primary)???Notes :Q7(A), Q8(2B), Q9(1B,2C)???2.?Tinea unguium - B35.1???3.?Pain in right toe(s) - M79.674???4.?Pain in left toe(s) - M79.675??? Plan: * Treatment: 2.?Tinea unguium?Procedure: 32684-CFFCEMB NAIL, 6 OR MORE * Procedures:?Debride Nail [...] use of a nail nipper and/or dremel-type blade grinder, to a more viable healthy nail [...] to maintain effectiveness in symptomatic relief - 94225.?Keratoma Treatment:?Parring or Cutting of Benign Hyperkeratotic Lesion(s)?(-57) [...] instrumentation by the physician of record - 37828, Q8.? * Procedure Codes:?79744 DEBRI DE NAIL, 6 OR MORE, Modifiers: XS 95311 TRIM SKIN LESIONS, OVER 4, Modifiers: Q8 * Follow Up:?prn * Images: * Sign off status: Completed true * Provider:?Vee Ta DPM Date:?2024 Generated for Chastity mir/Janell/Yancy on:?11/01/2024 05:57 PM EST History and Physical Notes * HPI (History of Present Illness) Category Sub-Category Detail Notes Category Not es Painful Nails Pt States Last PCP Visit: Date:: 08/17/2024 At Risk footcare Pt States Last PCP [...] hallux , Pt relates , anesthesia , TINEL'S COMPRESSION: Dermatologic SKIN FINDINGS: Skin exam reveal s Keratotic lesion(s) located at SUB MTH (s), 1, B/L, Plantar Heel(s), B/L, SUB MTH (s) 5 B/L ULCER: General Examination GENERAL APPEARANCE: Reveals a pleasant, alert, well nourished, well-developed, well hydrated individual, who demonstrates proper attention to hygiene/body habitus, and is in no acute distress, Pt serves as own historian for office visit today ORIENTED: person, place, and t truong Vascular DP PULSES (B): , 2/4, B/L [...] subungual debris, with pain on palpation, , TA, T1, T2, T3, T4, T5, T6, T7, T8, T9
--- OUTSIDE RECORDS SUMMARY | 2024-11-01 17:58 | XMS_ITS ---
Author Organization [facility] Address [address] [facility] [place] [address] Care Team Providers Care Supervisor [employer] Name Role Phone La Zamora MD Primary Care Provider Unavailab Vee Crews Unavailable [phone] Allergies Allergen (clinical drug ingredient) Drug/Non Drug [...] at bedtime Orally Once a day Not-Taking Vsrqbyfc-Cxsuljcyh-Dleqaqvp Not-Taking Iron 325 (65 Fe) MG 1 [...] W/U Status Risk Notes Problem Atherosclerosis of [place] arteries of the extremities ([id number]) Atherosclerosis of [place] artery of both lower extremities, with unspecified presence of clinical manifestation (I70.203) Active confirmed Q7(A), Q8(2B), Q9(1B,2 C) Vital Signs Height 5 ft 7 in in 06/21/2024 Weight 219 lbs 06/21/2024 BMI 34.3 kg/m2 06/21/2024 Procedures Procedure Date Ordered Date Performed Result Body Sit e 70103-LDOLFXC NAIL, 6 OR MORE 06/21/2024 N/A 27356-BCCA SKIN LESIONS, OVER 4 06/21/2024 N/A Encounters Encounter Location Date Provider Diagnosis [facility] [address] [address] 06/21/2024 Vee Black Neuritis of right fo ot G57.91 ; Pain in right foot M79.671 ; Atherosclerosis of [place] artery of both lower extremities, with unspecified [...] foot (ICD-10 - M79.671) 06/21/2024 Atherosclerosis of [place] artery of both lower extremities, with unspecified presence of clinical manifestation (ICD-10 - I70.203) Q7(A), Q8(2B), Q9(1B,2C) 06/21/2024 Tinea unguium (ICD-10 - B35.1) 06/21/2024 Pain in right toe(s) (ICD-10 - M79.674) 06/21/2024 Pain in left toe(s) (ICD-10 - M79.675) Plan Of Treatment Pending Test Test Name Order Date 91771-FCBBXAF NAIL, 6 OR MORE 06/21/2024 28072-GQNF SKIN LESIONS, OVER 4 06/21/20 Next Appt Details Follow Up: prn, Reason: Provider Name:Vee Ta , 01/03/2025 01:00:00 PM, [address] [place] [address], [phone], Provider Name:Vee Ta , 03/07/2025 02:45:00 PM, [address] [place] [address], [phone], Procedure Notes * Category Sub-Category Detail Notes Debride Nail 6-10 Nail debridement Performance o f this nail treatment by a nonprofessional would put this patients foot and overall health at risk. Therefore, nail debridement was performed extensively to reduce/remove overall nail length, girth, thickness, subungual debris, and necrotic tissue, by manual and/or electrical means through the use of a nail nipper and/or dremel-type regrinder operator, to a more viable healthy nail plate or bed tissue 6-10. Silver nitrate used for any petechial bleeding as necessary. Definitive antifungal treatment options have been reviewed and discussed with the patient. The patient chooses, no pharmaceutical tx - 96728 Keratoma Treatment Parring or Cutting o f Benign Hyperkeratotic Lesion(s) 66899 ( >4 Lesions) - The Benign hyperkeratotic lesions, as described above were pared, and/or cut utilizing a sterile #15 blade, tissue nippers, and/or dremel, Q8 Progress Notes * Lilo KAYE MDOB:1945 (78 yo F)Acc No.[id number]:06/21/2024 Progress Note Patient:?Lilo Kaye Provider:?Vee Ta DPM :1945???Age:78 Y???Sex:Female D ate:06/21/2024 Address:[address] [place], [place] [id number] Pcp:La Zamora MD Subjective: * Chief Complaints: [...] able, cooking. ?Marital status: . 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 * Medications:?TakinghydroCHLO ROthiazide 12.5 MG Tablet Orally [...] Orally every 6 hrsNot-Taking/PRNFlax Seeds Baby Aspirin Fgluoxwp-Xzkpzmhwy-Lmnuaoky Nitro-Bid 2 % Ointment as directed Transdermal apply bid to toesIron 325 (65 Fe) MG Tablet 1 tablet Orally Once a dayFlax Seeds Powder Orally Propranolol HCl ER Beads 80 MG Capsule Extended Release 24 Hour 1 capsule at bedtime Orally Once a dayMedication List reviewed and reconciled with the patientNot-Taking/PRN Flax Seeds Not-Taking/PRN Baby Aspirin Not- Taking/PRN Hyfsehsl-Wbkbfevbi-Fghbgtkf Not-Taking/PRN Nitro-Bid 2 % Ointment as directed [...] (Primary), Response to treatment - Improvement?3.?Atherosclerosis of [place] artery of both lower extremities, with unspecified presence of clinical manifestation - I70.203, Q7(A), Q8(2B), Q9(1B,2C)?4.?Tinea unguium - B35.1?5.?Pain in right toe(s) - M79.674?6.?Pain in left toe(s) - M79.675? Plan: * Treatment: 2.?Tinea unguium?Procedure: 55717-HVOCCPE NAIL, 6 OR MORE * Procedures:?Debride Nail 6-10:?Nail debridement?Performance of this nail treatment by a nonprofessional would put this patients foot and overall health at risk. Therefore, nail debridement was performed extensively to reduce/remove overall nail length, girth, thickness, subungual debris, and necrotic tissue, by manual and/or electrical means through the use of a nail nipper and/or dremel-type regrinder operator, to a more viable healthy nail plate or bed tissue 6-10. Silver nitrate used for any petechial bleeding as necessary. Definitive antifungal treatment options have been reviewed and discussed with the patient. The patient chooses, no pharmaceutical tx - 57407.?Keratoma Treatment:?Parring or Cutting of Benign Hyperkeratotic Lesion(s)?07538 ( >4 Lesions) - The Benign hyperkeratotic lesions, as described above were pared, and/or cut utilizing a sterile #15 blade, tissue nippers, and/or dremel, Q8.? * Procedure Codes:?17061 DEBRI DE NAIL, 6 OR MORE, Modifiers: XS 29597 TRIM SKIN LESIONS, OVER 4, Modifiers: Q8 [...] Provider:Anita Ta DPM Date:?2023 Generated for Chastity mir/Janell/eTmariaitting on:?11/01/2024 05:58 PM EST History and Physical Notes * [...]
== END 2024-10-31 14:36 | disposition home or self-care (01) ==
LOC: HO.HOSX 14:35
PROVIDERS: Visit Provider Orthopaedic Surgery
DX: M17.12 Unilateral primary osteoarthritis, left knee (principal); M25.562 Pain in left knee
CPT/HCPCS: 73562; 99212

== ENCOUNTER → 2024-12-31 08:34 | Outpatient (BNVA) | payer MEDICARE, SELFPAY | PROVIDERS: PCP Family Medicine | DX: Z01.818 Encounter for other preprocedural examination (principal) ==

== ENCOUNTER 2025-01-08 10:41 | Outpatient (AMB) | payer MEDICARE, SELFPAY ==
[2025-01-08 10:52] VITALS: BP 118/62; PULSE 62; BMI 34.9
--- NOTE | 2025-01-08 10:52 | A.OFFVIS_ITS ---
Vital Signs 01/08/25 10:52 Height 5 ft 6 in Weight 216 lb 0.848 oz BMI 34.9 BP 118/62 Blood Pressure Location Lt brachial Position Sitting Pulse 62 Pulse Source Pulse Oximeter Intake Visit Reasons: Preop otho Allergies shellfish derived [shellfish] Allergy (Severe, Verified 01/04/25 08:24) Anaphylaxis Penicillins Allergy (Intermediate, Verified 01/04/25 08:24) Itching diclofenac [From Voltaren] Allergy (Mild, Verified 12/31/24 09:07) HIVES adhesive tape Adverse Reaction (Intermediate, Verified 12/31/24 09:07) blisters codeine [Codeine] Adverse Reaction (Intermediate, Verified 01/04/25 08:25) SYNCOPE,ABD PAIN erythromycin base [Erythromycin Base] Adverse Reaction (Mild, Verified 12/31/24 09:07) ABDOMINAL PAIN Medication List - Last Reconciled 01/08/25 by Dudley May MD acetaminophen ER (Tylenol Arthritis Pain) 650 mg PO Q12H PRN hydrochlorothiazide 12.5 mg PO QAM levothyroxine 50 mcg PO QAM walker Folding front wheeled walker HPI Comments Details: Lilo is here for consultation regarding preoperative risk stratification before knee surgery. She does not have any previous cardiac history. No known coronary disease or myocardial infarction or cardiomyopathy. She was recently seen in the [facility] preoperative clinic and because of a cardiac murmur an echocardiogram has been scheduled. Otherwise, within limits of her activity she does not have any clear-cut symptoms like angina or shortness of breath. However, comorbidities limited because of knee pain. She has a cane for ambulation. [facility], LAT[facility] Medical History (Updated 01/08/25 @ 11:17 by Dudley May MD) History of blood transfusion Anesthesia complication Uterine cancer GERD (gastroesophageal reflux disease) Murmur Lower extremity edema Eczema Chronic renal insufficiency Hiatal hernia Raynauds disease Hypothyroid Diverticulosis Coronary artery calcification seen on CAT scan PAD (peripheral artery disease) Anemia Varicose vein of leg Lymphedema Renal cyst Heart block Arthritis Hypertension Surgical History (Updated 01/07/25 @ 12:18 by Elsa Talavera RN) H/O colonoscopy History of excision of pilonidal cyst Hx of tonsillectomy History of bilateral total hip arthroplasty H/O: hysterectomy H/O thyroidectomy Social History Are you a primary critical care transport nurse to a significant other at home: No Do you presently have visiting nurse or other home services: No Patient Tobacco Use Status: Former Tobacco user Tobacco use type: Cigarette Years Smoked: 5 Current occupational status: retired Current occupation: right handed Review of Systems Const Denies weakness ENT Denies dizziness Card Denies chest pain, Denies chest pain with activity, Denies syncope, Denies rapid heart rate, Denies pedal edema, Denies edema, Denies leg edema, Denies lightheadedness, Denies palpitations, Denies dyspnea, Denies dyspnea on exertion and Denies orthopnea Resp Denies cough, Denies dyspnea and Denies dyspnea on exertion GI Denies hematochezia and Denies change in stool character Musc Denies abnormal gait, Denies muscle cramps, Denies muscle weakness, Denies numbness, Denies radiating pain into limb and Denies tingling Neuro Denies abnormal gait, Denies dizziness, Denies syncope, Denies numbness, Denies tingling and Denies weakness Endo Denies palpitations Physical Exam Vital Signs: Last Vital Signs Pulse 62 01/08/25 10:52 BP 118/62 01/08/25 10:52 BMI result Body Mass Index 34.9 Const General: comfortable and no acute distress Orientation/consciousness: patient oriented x3 HEENT Other: Unremarkable Head: Yes normal to inspection Neck Neck: Yes normal visual inspection Chest Chest palpation & inspection: normal inspection of the chest Resp Auscultation: clear to auscultation bilaterally Cardio Palpation: normal PMI Heart sounds: S1 normal heart sound present, S2 normal heart sound present, no gallops, Murmur heart sound present systolic III/ and at the right sternal border and no rubs GI Palpation (GI): Soft to palpation Back/Spine/Pelvis Other: unremarkable Skin General skin exam: no rashes or lesions noted Neuro General: patient oriented x3 Extrem General: Yes normal to inspection Psych Mental Status: mental status grossly normal Assessment & Plan Assessment & Plan (1) Non-rheumatic aortic stenosis: Code(s): I35.0 - Nonrheumatic aortic (valve) stenosis Category: Medical Plan: Cardiac murmur suggestive of aortic stenosis. She needs an echocardiogram for evaluation. We will try to get this as soon as possible. If any hemodynamically significant aortic stenosis, we will need to re-evaluate. (2) Heart block: Code(s): I45.9 - Conduction disorder, unspecified Category: Medical Plan: In the recent EKG from [facility], there is evidence of markedly prolonged SD to 472 millisecond; right bundle-branch block and left anterior fascicular block- bifascicular block. She needs a Holter monitor to evaluate for high-grade AV blocks. She has had an EP consult in 2015 for vasovagal syncope. In that note, there was mentioned of bifascicular block but the SD interval at that time was only 204 milliseconds. Hence there is indeed progression of conduction system disease over the last few years. (3) Preoperative cardiovascular examination: Code(s): Z01.810 - Encounter for preprocedural cardiovascular examination Category: Medical Plan: We will need the above results before proceeding further. Plan for ischemic evaluation based on the above. Plan Discussion Notes During our detailed discussion, the patient was informed of the suspected valve problem and the significance of the heart murmur detected. The abnormal EKG findings raise concerns about electrical conduction which necessitates further monitoring through a heart monitor. I discussed with the patient that an echocardiogram is critical to confirm potential valvular issues; she preferred this be done at our facility. We reviewed the importance of these tests concerning her safety for the surgical procedure. The patient consenting for the proposed echocardiogram and heart monitoring was obtained, understanding these will determine her eligibility for her upcoming surgery, and I assured her we will strive to expedite this within the week. Patient was informed and verbally consented to the use of an ambient scribe for clinic note documentation during this visit. Orders: Orders CA echo transthoracic complete Today I35.0 - Nonrheumatic aortic (valve) stenosis ECG 3 day holter monitor Today I45.9 - Conduction disorder, unspecified Patient Instructions: - Schedule and attend the echocardiogram to check valve function. - Use the prescribed heart monitor as instructed to track heart rhythms. - Maintain current activity level, using a cane for support. - Report any new or worsening symptoms immediately. - Follow up as scheduled for review of test results. Coding Level of Care Code New Pt Level 4 (92844) Complex EM visit Add On G2211 Diagnoses Non-rheumatic aortic stenosis I35.0 Heart block I45.9 Preoperative cardiovascular examination Z01.810
--- OUTSIDE RECORDS SUMMARY | 2025-01-08 11:53 | XMS_ITS | Patient Health Record ---
[facility] Address [address] [facility] [place] [address] Care Team Providers Care Special Makeup Fx Artist Instructor Name Role Phone La Zamora MD Primary Care Provider Unavailab Vee Crews Unavailable [phone] Allergies Allergen (clinical drug ingredient) Drug/Non Drug [...] Duration) Notes Start Date End Date Status Nkrotnha-Htsenfcht-Yxmmaynp Not-Taking Nitro-Bid 2 % as directed Transdermal [...] Seeds Not-Takin g Baby Aspirin Not-Dung ing Immunizations Vaccine Route Administration Date Status Comme [...] Problem Status W/U Status Risk Notes Problem Raynaud ([id number]) Raynaud's syndrome without gangrene (I73.00) Active confirmed Problem Atherosclerosis of [place] arteries of the extremities ([id number]) Atherosclerosis of [place] artery of both lower extremities, with unspecified presence of clinical manifestation (I70.203) Active confirmed Q7(A), Q8(2B), Q9(1B,2 C) Vital Signs Blood pressure diastolic 78 mm Hg 01/03/2025 Height 5 ft 7 in in 01/03/2025 Blood pressure systolic 150 mm Hg 01/03/2025 Weight 217 lbs 01/03/2025 BMI 33.98 kg/m2 01/03/2025 Procedures Procedure Date Ordered Date Performed Result Body Sit e 70727-YQKFVHB NAIL, 6 OR MORE 04/19/2024 N/A 63405-MDEX SKIN LESIONS, OVER 4 04/19/2024 N/A 01219-ZTJYCAB NAIL, 6 OR MORE 06/21/2024 N/A 11132-JBBH SKIN LESIONS, OVER 4 06/21/2024 N/A 17517-HVCIAJC NAIL, 6 OR MORE 08/30/2024 N/A 51972-IMAY SKIN LESIONS, OVER 4 08/30/2024 N/A 36158-RVNKCWO NAIL, 6 OR MORE 11/01/2024 N/A 04226-ZOYX SKIN LESIONS, OVER 4 11/01/2024 N/A 23236-CBJTMDL NAIL, 6 OR MORE 01/03/2025 N/A 46013-Iadvxjwu Plate 01/03/2025 N/A 32942-MJHV SKIN LESIONS, OVER 4 01/03/2025 N/A 67432-VPBC SKIN LESIONS, OVER 4 02/16/2024 N/A 90324-OMMOFMQ NAIL, 6 OR MORE 02/16/2024 N/A Encounters Encounter Location Date Provider Diagnosis [address] [address] 02/16/2024 Vee Black Unspecified atherosclerosis of [place] arteries of extremities, bilateral legs I70.203 ; Tinea unguium B35.1 ; Pain in right toe(s) M79.674 and Pain in left toe(s) M79.[address] [address] 04/19/2024 Vee Black Unspecified atherosclerosis of [place] arteries of extremities, bilateral legs I70.203 ; Neuritis of right foot G57.91 ; Tinea unguium B35.1 ; Pain in right toe(s) M79.674 ; Pain in left toe(s) M79.675 and Pain in right foot M79.[address] [address] 06/21/2024 Vee Black Neuritis of right fo ot G57.91 ; Pain in right foot M79.671 ; Atherosclerosis of [place] artery of both lower extremities, with unspecified presence of clinical manifestation I70.203 ; Tinea unguium B35.1 ; Pain in right toe(s) M79.674 and Pain in left toe(s) M79.[address] [address] 08/30/2024 Vee Black Atherosclerosis of [place] artery of both lower extremities, with unspecified presence of clinical manifestation I70.203 ; Tinea unguium B35.1 ; Pain in right toe(s) M79.674 and Pain in left toe(s) M79.[address] [address] 11/01/2024 Vee Black Atherosclerosis of [place] artery of both lower extremities, with unspecified presence of clinical manifestation I70.203 ; Tinea unguium B35.1 ; Pain in right toe(s) M79.674 and Pain in left toe(s) M79.675 [facility] [place] [address] [place] [address] 01/03/2025 Vee Black Atherosclerosis of [place] artery of both lower extremities, with unspecified presence of clinical manifestation I70.203 ; Tinea unguium B35.1 ; Pain in right toe(s) M79.674 ; Pain in left toe(s) M79.675 and Ingrown nail L60.0 Assessments Encounter Date Diagnosis (ICD Code) Assessment Notes Treatment Notes Treatment Clinical Notes Section Notes 02/16/2024 Unspecified atherosclerosis of [place] arteries of extremities, bilateral legs (ICD-10 - I70.203) 04/19/2024 Unspecified atherosclerosis of [place] arteries of extremities, bilateral legs (ICD-10 - I70.203) 04/19/2024 Neuritis of right foot (ICD-10 - G57.91) 06/21/2024 Pain in right foot (ICD-10 - M79.671) 06/21/2024 Neuritis of right foot (ICD-10 - G57.91) Response to treatment - Improvement 08/30/2024 Tinea unguium (ICD-10 - B35.1) 08/30/2024 Atherosclerosis of [place] artery of both lower extremities, with unspecified presence of clinical manifestation (ICD-10 - I70.203) Q7(A), Q8(2B), Q9(1B,2C) 11/01/2024 Atherosclerosis of [place] artery of both lower extremities, with unspecified presence of clinical manifestation (ICD-10 - I70.203) Q7(A), Q8(2B), Q9(1B,2C) 01/03/2025 Atherosclerosis of [place] artery of both lower extremities, with unspecified presence of clinical manifestation (ICD-10 - I70.203) Q7(A), Q8(2B), Q9(1B,2C) 01/03/2025 Tinea unguium (ICD-10 - B35.1) 11/01/2024 Tinea unguium (ICD-10 - B35.1) 08/30/2024 Pain in right toe(s) (ICD-10 - M79.674) 06/21/2024 Atherosclerosis of [place] artery of both lower extremities, with unspecified [...] Pain in right toe(s) (ICD-10 - M79.674) 01/03/2025 Pain in right toe(s) (ICD-10 - M79.674) 01/03/2025 Pain in left toe(s) (ICD-10 - M79.675) 11/01/2024 Pain in left toe(s) (ICD-10 - M79.675) 06/21/2024 Pain in right toe(s) (ICD-10 - M79.674) 04/19/2024 Pain in left toe(s) (ICD-10 - M79.675) 02/16/2024 Pain in left toe(s) (ICD-10 - M79.675) 06/21/2024 Pain in left toe(s) (ICD-10 - M79.675) 04/19/2024 Pain in right foot (ICD-10 - M79.671) 01/03/2025 Ingrown nail (ICD-10 - L60.0) Plan Of Treatment Pending Test Test Name Order Date X ray : Ankle, right 2V 08/18/2020 X ray : Foot, left 3V 11/10/2015 50764-EXWOPDY NAIL, 6 OR MORE 09/01/2015 17689-AGXMJAP NAIL, 6 OR MORE 11/10/2015 78422-TECWJNB NAIL, 6 OR MORE 01/13/2015 74865-ANCBUDM NAIL, 6 OR MORE 06/23/2015 11317-OXXSNMK NAIL, 6 OR MORE 05/27/2016 32138-GXJMOCC NAIL, 6 OR MORE 12/06/2013 62141-TMEPYPV NAIL, 6 OR MORE 03/11/2014 76470-FCPOEOD NAIL, 6 OR MORE 06/12/2014 43868-DLQDRTB NAIL, 6 OR MORE 09/04/2014 22628-YUADHOC NAIL, 6 OR MORE 11/07/2014 02908-SFJSGMT NAIL, 6 OR MORE 04/21/2015 65756-JHZJUXC NAIL, 6 OR MORE 2016 50362-PBYRNPN NAIL, 6 OR MORE 02/17/2017 83984-UCVUBFP NAIL, 6 OR MORE 04/21/2017 34859-UHJGSMZ NAIL, 6 OR MORE 07/29/2016 11758-PFMFOYA NAIL, 6 OR MORE 10/11/2016 81918-ZPUNGJE NAIL, 6 OR MORE 06/27/2017 54623-CJAAJEN NAIL, 6 OR MORE 09/08/2017 59503-TZZEAMT NAIL, 6 OR MORE 11/10/2017 68732-XCAPVMJ NAIL, 6 OR MORE 01/12/2018 71274-NYBBHFN NAIL, 6 OR MORE 03/23/2018 64036-RTUKMFC NAIL, 6 OR MORE 05/25/2018 21754-SMMHITS NAIL, 6 OR MORE 07/31/2018 18137-BSHCEOY NAIL, 6 OR MORE 10/02/2018 34273-IUBWEQQ NAIL, 6 OR MORE 12/04/2018 02437-SOCRUZS NAIL, 6 OR MORE 10/30/2020 17619-OCFOQFQ NAIL, 6 OR MORE 01/01/2021 39181-OIMVBKC NAIL, 6 OR MORE 03/12/2021 77828-UDXFENT NAIL, 6 OR MORE 05/15/2021 79724-PFYMNJX NAIL, 6 OR MORE 04/23/2019 07910-LAHBBSU NAIL, 6 OR MORE 06/25/2019 86262-MYMQGWA NAIL, 6 OR MORE 09/10/2019 82986-YATRWDN NAIL, 6 OR MORE 11/21/2019 19613-DSLPOVY NAIL, 6 OR MORE 01/24/2020 34696-SNNMWSH NAIL, 6 OR MORE 04/03/2020 87421-WESVBJK NAIL, 6 OR MORE 06/16/2020 30513-NHQGEHY NAIL, 6 OR MORE 08/17/2021 94054-MBMPJEZ NAIL, 6 OR MORE 08/18/2020 81071-BEMDNCV NAIL, 6 OR MORE 11/26/2021 77564-KSHAGRM NAIL, 6 OR MORE 02/08/2022 40326-NROSAXZ NAIL, 6 OR MORE 04/12/2022 33972-SHPOBCM NAIL, 6 OR MORE 06/14/2022 45748-GPIYLSV NAIL, 6 OR MORE 08/16/2022 63867-NGEAIWQ NAIL, 6 OR MORE 10/21/2022 83764-VPOLWDQ NAIL, 6 OR MORE 12/23/2022 76561-NCWNNNL NAIL, 6 OR MORE 02/24/2023 41740-NKBIPKN NAIL, 6 OR MORE 04/28/2023 99086-FBWBOAG NAIL, 6 OR MORE 08/08/2023 35517-MZMDAPS NAIL, 6 OR MORE 10/13/2023 69154-TYNOYNR NAIL, 6 OR MORE 12/15/2023 44886-ZHAFBXW NAIL, 6 OR MORE 02/16/2024 78126-ZFRVXVH NAIL, 6 OR MORE 04/19/2024 16360-DAJUCGP NAIL, 6 OR MORE 06/21/2024 79904-CARMWZM NAIL, 6 OR MORE 08/30/2024 24192-PMJRBEH NAIL, 6 OR MORE 11/01/2024 53954-ZRLQHKN NAIL, 6 OR MORE 01/03/2025 10800-IUHIIZS NAIL, 1-5 05/27/2016 05710-SJRMSRR NAIL, 1-5 01/12/2016 45283-RIFOWZP NAIL, 1-5 03/16/2016 22398-Pzat Destruction, -14 02/17/2017 17037-Nspb Destruction, -14 10/11/2016 84213-Dvef Destruction, -14 2016 88440-Mbwzymnc Plate 2016 93981-Lwpqhnbj Plate 04/21/2017 01101-Nxdgflhm Plate 06/27/2017 45241-Ycvhrono Plate 10/02/2018 72577-Izsixkci Plate 07/31/2018 77372-Halwwsbd Plate 05/27/2016 90268-Kzfxaaya Plate 12/06/2013 94442-Hkqajsbp Plate 06/23/2015 43110-Rhhimrcc Plate 04/21/2015 07758-Usxeweib Plate 11/07/2014 56308-Agshviie Plate 01/13/2015 06577-Ghjwxwnf Plate 09/04/2014 23244-Vpfzacbp Plate 06/12/2014 37071-Tkfcmhsg Plate 03/11/2014 62410-Ptutjhhg Plate 10/13/2023 65174-Mkihzsxi Plate 04/12/2022 43915-Bcltjxtt Plate 02/08/2022 63482-Dpyfjkew Plate 11/26/2021 92748-Nmkpnvsq Plate 04/03/2020 81058-Mbyaycrp Plate 09/10/2019 07109-Pzwgwrhk Plate 03/12/2021 66751-Xtkkakqy Plate 10/30/2020 04106-Tmwqnhyj Plate 06/16/2020 31524-Ctatacoa Plate 02/24/2023 21747-Swvgsfwg Plate 01/03/2025 98581-Wnzfnfaf Plate Each Additional 03077-Zajlrnnr Plate Each Additional 08122-Rsyilqrq Plate Each Additional 85212-Cvvrylit Plate Each Additional 49387-Dfwvxlvo Plate Each Additional 99344-Lhshsutx Plate Each Additional 25173- Debride <25 sq cm 06/11/2016 75352- Debride <25 sq cm 12/03/2015 85618- Debride <25 sq cm 12/04/2018 43344- Debride <25 sq cm 03/23/2018 19303- Debride <25 sq cm 06/27/2017 03714- Debride <25 sq cm 04/21/2017 19738- Debride <25 sq cm 04/28/2023 33583- Debride <25 sq cm 02/08/2022 16093- Debride <25 sq cm 01/24/2020 08335- Debride <25 sq cm 01/01/2021 39142- Debride <25 sq cm 05/15/2021 41951- Debride <25 sq cm 08/17/2021 29632-FZODCJF SKIN/TISSUE 11/07/2014 44571 I&D ABSCESS- SIMPLE,SINGLE 014 93946 I&D ABSCESS- SIMPLE,SINGLE 016 81921 I&D ABSCESS- SIMPLE,SINGLE 016 94597 I&D ABSCESS- SIMPLE,SINGLE 016 73737 I&D ABSCESS- SIMPLE,SINGLE 016 30143 I&D ABSCESS- SIMPLE,SINGLE 017 13497-VUIF SKIN LESIONS, OVER 4 12/05/19 19 12790-MFKT SKIN LESIONS, OVER 4 01/14/20 15 92355-SSFH SKIN LESIONS, OVER 4 04/21/20 15 01909-FIFT SKIN LESIONS, OVER 4 08/17/20 16888-PKVI SKIN LESIONS, OVER 4 05/15/20 11981-UBBI SKIN LESIONS, OVER 4 03/12/20 27444-PPQO SKIN LESIONS, OVER 4 01/02/20 77773-AOHH SKIN LESIONS, OVER 4 08/18/20 20 88231-NCUH SKIN LESIONS, OVER 4 10/31/19 95422-DRXC SKIN LESIONS, OVER 4 02/13/20 19 88863-RFGW SKIN LESIONS, OVER 4 04/03/20 93036-XKVA SKIN LESIONS, OVER 4 06/16/20 20 03539-ODCL SKIN LESIONS, OVER 4 11/21/19 67299-KKEM SKIN LESIONS, OVER 4 01/24/20 20 60180-OPXX SKIN LESIONS, OVER 4 06/25/20 19 85971-RNZY SKIN LESIONS, OVER 4 09/10/19 66908-AQBD SKIN LESIONS, OVER 4 02/09/20 10701-YYVG SKIN LESIONS, OVER 4 11/27/19 14898-OQIA SKIN LESIONS, OVER 4 04/12/20 71783-SVKW SKIN LESIONS, OVER 4 06/14/20 84861-IESP SKIN LESIONS, OVER 4 08/16/20 34917-SOJH SKIN LESIONS, OVER 4 10/21/19 23 36191-FDXK SKIN LESIONS, OVER 4 04/28/20 33241-MWSM SKIN LESIONS, OVER 4 02/25/20 23 64683-PZGH SKIN LESIONS, OVER 4 12/24/19 23 51030-DOAN SKIN LESIONS, OVER 4 10/13/19 24 47915-XSAG SKIN LESIONS, OVER 4 08/08/20 23 69899-CTQC SKIN LESIONS, OVER 4 02/16/20 24 44136-GESW SKIN LESIONS, OVER 4 12/15/19 24 10650-XUYH SKIN LESIONS, OVER 4 01/04/20 25 50102-CUHY SKIN LESIONS, OVER 4 11/02/19 25 37965-VMKH SKIN LESIONS, OVER 4 08/30/19 25 29968-IOFO SKIN LESIONS, OVER 4 06/21/20 24 66370-KRXU SKIN LESIONS, OVER 4 04/19/20 24 28849-IMWH SKIN LESIONS, 2 TO 4 10/02/19 19 21770-ZUNA SKIN LESIONS, 2 TO 4 05/25/20 18 27282-DHUH SKIN LESIONS, 2 TO 4 07/31/20 18 18798-MOAA SKIN LESIONS, 2 TO 4 03/23/20 18 48498-BPEX SKIN LESIONS, 2 TO 4 01/13/20 18 13846-HKCF SKIN LESIONS, 2 TO 4 09/08/19 18 06114-UWYA SKIN LESIONS, 2 TO 4 11/11/19 18 88302-Vraw. Subungual Hematoma 9 11860-HHSXWCKG OF HEMATOMA/FLUID 019 42016-QFGNEBYI OF HEMATOMA/FLUID 018 Next Appt Details Provider Name:Vee Ta , 05/16/2025 01:00:00 PM, [address] [place] [address], [phone], Provider Name:Vee Ta , 07/18/2025 01:00:00 PM, [address] [place] [address], [phone], Insurance Providers Payer Name Payer Address Payer Phone Subscriber Number Group Number Insured Name Patient Relationship to Insured Coverage Start Date Coverage End Date Medicare National [employer]t S[employer] [address] [place] [address] [phone] [id number] Lilo Bess Self - patient is the insured [employer] [address] [place] [address] [phone] [id number] Lilo Bess Self - patient is the [...]
--- OUTSIDE RECORDS SUMMARY | 2025-01-08 11:53 | XMS_ITS ---
Author Organization [facility] Address [address] [facility] [place] [address] Care Team Providers Care Boat Outfitter Name Role Phone La Zamora MD Primary Care Provider Unavailab Vee Crews Unavailable [phone] Allergies Allergen (clinical drug ingredient) Drug/Non Drug [...] and causing difficulty standing/walking., At Risk Footcare, Ingrown Nail Medications Medication SIG (Take, Route, Frequency, Duration) Notes Start Date End Date Status Ucuuerdj-Tcxyztfci-Hjuclfsm Not-Taking Nitro-Bid 2 % as directed Transdermal [...] Seeds Not-Takin g Baby Aspirin Not-Dung ing Social History Tobacco Use: Social History Observation Description Date Details (start date - stop date) Never Smoker NA - NA Tobacco use other than smoking: Question Answer Notes Are you an other tobacco user? No Tobacco Control (Standard) Question Answer Notes Tobacco use: Nonsmoker Additional Findings: Tobacco non-user Current no nsmoker Vital Signs Height 5 ft 7 in in 01/03/2025 Weight 217 lbs 01/03/2025 BMI 33.98 kg/m2 01/03/2025 Blood pressure systolic 150 mm Hg 01/04/20 25 Blood pressure diastolic 78 mm Hg 025 Procedures Procedure Date Ordered Date Performed Result Body Sit e 34907-LGNKDAS NAIL, 6 OR MORE 01/03/2025 N/A 47272-Gwjgrjsz Plate 01/03/2025 N/A 95910-SODG SKIN LESIONS, OVER 4 01/03/2025 N/A Encounters Encounter Location Date Provider Diagnosis [facility] [place] [address] [place] [address] 01/03/2025 Vee Black Atherosclerosis of [place] artery of both lower extremities, with unspecified presence of clinical manifestation I70.203 ; Tinea unguium B35.1 ; Pain in right toe(s) M79.674 ; Pain in left toe(s) M79.675 and Ingrown nail L60.0 Assessments Encounter Date Diagnosis (ICD Code) Assessment Notes Treatment Notes Treatment Clinical Notes Section Notes 01/03/2025 Atherosclerosis of [place] artery of both lower extremities, with unspecified presence of clinical manifestation (ICD-10 - I70.203) Q7(A), Q8(2B), Q9(1B,2C) 01/03/2025 Tinea unguium (ICD-10 - B35.1) 01/03/2025 Pain in right toe(s) (ICD-10 - M79.674) 01/03/2025 Pain in left toe(s) (ICD-10 - M79.675) 01/03/2025 Ingrown nail (ICD-10 - L60.0) Plan Of Treatment Pending Test Test Name Order Date 75833-XVAIMIA NAIL, 6 OR MORE 01/03/2025 15314-Hlvfezhs Plate 01/03/2025 62478-QPXR SKIN LESIONS, OVER 4 01/04/20 25 Next Appt Details Follow Up: 2 Weeks,prn, Reas on: Provider Name:Vee Ta , 05/16/2025 01:00:00 PM, [address] [place] [address], [phone], Provider Name:Vee Ta , 07/18/2025 01:00:00 PM, [address] [place] [address], [phone], Procedure Notes * Category Sub-Category Detail Notes Nail Avulsion Procedure A fine sterile e levator was placed between the eponychium, nail fold, and nail plate to separate the structures. A sterile nail splitter, and/or sterile 316 blade, was then used to longitudinally section the nail along its entire length through the eponychium to the area under the nail fold. The offending portion of nail was from the nail bed with a rolling action and then removed with a hemostat. No underlying bone was identified. There was minimal bleeding as hemostasis was achieved through the temporary use of either a digital tourniquet or the aforementioned local with epinephrine. A bacitracin sterile dressing was applied. Local wound aftercare instructions were discussed and dispensed. The patient was informed of both conservative and future surgical procedures to prevent recurrence. Tylenol or Motrin was recommended for pain or discomfort - 61561,, CIRCULATION: Matricectomy deferred at this time due to compromised circulation risk Anesthesia , 3cc of 1 percent L idocaine/Epi 1:200,000 local anesthesic utilizing aseptic technique Location , Lateral nail borde r, T5 Debride Nail 6-10 Nail debridement Due to [...] use of a nail nipper and/or dremel-type industrial coffee grinder, to a more viable healthy nail [...] to maintain effectiveness in symptomatic relief - 36885 Keratoma Treatment Parring or Cutting o f Benign Hyperkeratotic Lesion(s) (-57) More than 4 Lesions - Due to the a t risk nature of the patients medical condition [...] instrumentation by the physician of record - 77975, Q8 Progress Notes * Lilo KAYE MDOB:1945 (79 yo F)Acc No.[id number]:01/03/2025 Progress Note Patient:?Lilo KAYE Provider:?Vee Ta DPM :1945???Age:79 Y???Sex:Female D ate:01/03/2025 Address:[address] [place] [id number] Pcp:La Zamora MD Subjective: * Chief Complaints: * ??? Painful nail(s) aggrevat ed by shoes and causing difficulty standing/walking.At Risk FootcareIngrown Nail * HPI: ???At Risk footcare:?Pt States Last PCP Visit:?Date?11/22/2024 ???Painful Nails:?Pt States Last PCP Visit:?Date:?11/22/2024 * ROS:?General/Constitutional:?Nausea?denies.?Vomiting?denies.?Hunger Thirst?denies.?Loss appetite?denies.?Chills?denies.?Fatigue?admits.?Fever?denies.?Night Sweats?denies.?Unexplained weight loss?denies.?Unexplained weight gain?admits.?HEENTM:?Dentures?denies.?Dizziness?denies.?Glasses/contacts?admits.?Retinopathy?de nies.?Blurred/double vision?denies.?TMJ?denies.?Discharge/drainage?denies.?Implants?admits.?Sore throat?denies.?Dental implants?denies.?Hard of hearing ?denies.?Difficulty chewing/swallowing/speaking?denies.?Nose bleeds?denies.?Sore mouth?denies.?Respiratory:?On Oxygen?denies.?Pneumonia/pleurisy?admits.?Bronchitis?admits.?Emphysema?denies.?C oughing?denies.?Cough blood?denies.?Shortness of breath?denies.?Wheezing?denies.?Cardiovascular:?Pacemaker?denies.?MVP?denies.?WPW?denies.?CHF?denies.?Heart attack?denies.?Septal defect?denies.?Rapid beat?denies.?Chest pain ?denies.?Atrial Fib.?denies.?Murmur/Palpitations?denies.?Gastrointestinal:?Hemorrhoids?denies.?Stomach/Abdominal pain?denies.?Dark blood stool?denies.?Irritable bowel ?denies.?Constipation?denies.?Diarrhea?denies.?Hematology:?Swelling?admits.?Clots?denies.?Varicose Veins?denies.?Bruising?denies.?Bleeding problem?denies.?Genitourinary:?Blood urine?denies.?Frequent/Painfu/urination/bladder control?denies.?Kidney stones?denies.?Infection (UTI)?denies.?Nephropathy?denies.?sex trans dis (STD)?denies.?Prostate?denies.?Musculoskeletal:?Hammertoes?denies.?Bunions?denies.?Back Pain?admits.?Muscle Cramps/ Resting?denies.?Muscle cramps / walking?denies.?Generalized aches and pains?admits.?Weakness?denies.?Integ.:?Baez?denies.?Scars?denies.?Corns/calluses?, admits.?Ingrown nails?, admits.?Painful nails?,admits.?Open Sores?denies.?Rashes?denies.?Neurologic:?Difficulty sleeping?denies.?Brain disorder?denies.?Numbness?admits.?Balance trouble?denies.?Confusion?denies.?Fainting/blackouts?denies.?Tingling?denies.?Tr emors?denies.? * [...] (Standard)?Tobacco use:?Nonsmoker ?Additional Findings: Tobacco non-user?Current nonsmoker ???Miscellaneous:?Caffeine: no, coffee, tea and Soda decaf, 1-2 cups per day. ?Children: yes, 2. ?Exercise: yes, sewing, knitting, quilting, walking when able, cooking. ?Marital status: . 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 * Medications:?TakinghydroCHLO ROthiazide 12.5 MG Tablet Orally [...] every 6 hrs Not-Taking/PRNFlax Seeds Baby Aspirin Vxkjxczu-Twjmamfom-Wapqgpsk Nitro-Bid 2 % Ointment as directed Transdermal apply bid to toes Iron 325 (65 Fe) MG Tablet 1 tablet Orally Once a day Flax Seeds Powder Orally Propranolol HCl ER Beads 80 MG Capsule Extended Release 24 Hour 1 capsule at bedtime Orally Once a day Medication List reviewed and reconciled with the patientNot-Taking/PRN Flax Seeds Not-Taking/PRN Baby Aspirin Not- Taking/PRN Tgpmrjqk-Xkkjgiell-Rpnsumju Not-Taking/PRN Nitro-Bid 2 % Ointment as directed [...] Vitals:?Ht: 5 ft 7 in, Wt: 2 17, BMI: 33.98, Shoe size: 9W, BP: 150/78 mm Hg, Wt- k.43 kg. * Examination: ???General Examination: ?GENERAL APPEARANCE:?Reveals [...] palpation, , TA, T1, T2, T3, T4, T6, T7, T8, T9.?Vascular: ?DP PULSES (B):?, 2/4, B/L.?PT PULSES (B):?, 0/4, B/L.?CAPILLARY FILL TIME:? delayed, all digits, B/L.?TROPHIC CONDITION-TEXTURE/ELASTICITY/TURGOR/HAIR GROWTH (B):? decreased, fragile, thin, shiny skin, with sparse to absent hair growth, B/L.?TEMPERTURE GRADIENT (C):? decreased, cool to cool, proximal to distal, B/L.?PIGMENTATION:?, cyanotic, B/L.?EDEMA (C):?, 2/4 , non-pitting.?CLAUDICATION (C):?denies, B/L.?REST PAIN:?denies, B/L.?PARESTHESIA (C):?absent, B/L.?BURNING (C):?absent, B/L.?Ingrown Nail: ?INSPECTION:?Reveals nail incurvation, pain on palpation, groove hypertrophy, groove ischemia, Lateral nail border, T5.? Assessment: * Assessment: 1.?Atherosclerosis of [place] artery of both lower extremities, with unspecified presence of clinical manifestation - I70.203 (Primary)???Notes :Q7(A), Q8(2B), Q9(1B,2C)???2.?Tinea unguium - B35.1???3.?Pain in right toe(s) - M79.674???4.?Pain in left toe(s) - M79.675???5.?Ingrown nail - L60.0??? Plan: * Treatment: 2.?Tinea unguium?Procedure: 38550-DJWZUXN NAIL, 6 OR MORE 3.?Ingrown nail?Procedure: 93271-Rdnmlren Plate * Procedures:?Debride Nail 6-10:?Nail debridement?Due to the [...] use of a nail nipper and/or dremel-type industrial coffee grinder, to a more viable healthy nail [...] to maintain effectiveness in symptomatic relief - 52782.?Keratoma Treatment:?Parring or Cutting of Benign Hyperkeratotic Lesion(s)?(-57) [...] instrumentation by the physician of record - 67306, Q8.?Nail Avulsion:?Location?, Lateral nail border, T5.?Anesthesia?, 3cc of 1 percent Lidocaine/Epi 1:200,000 local anesthesic utilizing aseptic technique.?Procedure?A fine sterile elevator was placed between the eponychium, nail fold, and nail plate to separate the structures. A sterile nail splitter, and/or sterile 316 blade, was then used to longitudinally section the nail along its entire length through the eponychium to the area under the nail fold. The offending portion of nail was from the nail bed with a rolling action and then removed with a hemostat. No underlying bone was identified. There was minimal bleeding as hemostasis was achieved through the temporary use of either a digital tourniquet or the aforementioned local with epinephrine. A bacitracin sterile dressing was applied. Local wound aftercare instructions were discussed and dispensed. The patient was informed of both conservative and future surgical procedures to prevent recurrence. Tylenol or Motrin was recommended for pain or discomfort - 14500,, CIRCULATION: Matricectomy deferred at this time due to compromised circulation risk.? * Procedure Codes:?51759 DEBRI DE NAIL, 6 OR MORE, Modifiers: XS 08725 Avulsion Plate, Modifiers: T5 83345 TRIM SKIN LESIONS, OVER 4, Modifiers: Q8 * Follow Up:?2 Weeks,prn * Images: * Sign off status: Completed true * Provider:?Vee Ta DPM Date:?2024 Generated for Sanderi adeola/Janell/eTransmitting on:?01/08/2025 11:52 AM EDT History and Physical Notes * HPI (History of Present Illness) Category Sub-Category Detail Notes Category Not es Painful Nails Pt States Last PCP Visit: Date:: 11/22/2024 At Risk footcare Pt States Last PCP Visit: Date: Examination Category Sub-Category Detail Notes Category Not es Ingrown Nail INSPECTION: Reveals nail inc urvation, pain on palpation, groove hypertrophy, groove ischemia, Lateral nail border, T5 Neurological SENSORY: Neurological exa m demonstrates , [...] palpation, , TA, T1, T2, T3, T4, T6, T7, T8, T9
--- OUTSIDE RECORDS SUMMARY | 2025-01-08 11:53 | XMS_ITS ---
Author [facility] Address [address] [facility] [place] [address] Care Team Providers Care Manufacturing Project Manager Name Role Phone La Zamora MD Primary Care Provider Unavailab Vee Crews Unavailable [phone] Allergies Allergen (clinical drug ingredient) Drug/Non Drug [...] at bedtime Orally Once a day Not-Taking Belrwmmv-Kfzvijuzi-Txrorwks Not-Taking Nitro-Bid 2 % as directed Transdermal [...] Ordered Date Performed Result Body Sit e 20390-BUMLULL NAIL, 6 OR MORE 11/01/2024 N/A 67833-PNKL SKIN LESIONS, OVER 4 11/01/2024 N/A Encounters Encounter Location Date Provider Diagnosis [facility] [place] [address] [place] [address] 11/01/2024 Vee Black Atherosclerosis of [place] artery of both lower extremities, with unspecified presence of clinical manifestation I70.203 ; Tinea unguium B35.1 ; Pain in right toe(s) M79.674 and Pain in left toe(s) M79.675 Assessments Encounter Date Diagnosis (ICD Code) Assessment Notes Treatment Notes Treatment Clinical Notes Section Notes 11/01/2024 Atherosclerosis of [place] artery of both lower extremities, with unspecified presence of clinical manifestation (ICD-10 - I70.203) Q7(A), Q8(2B), Q9(1B,2C) 11/01/2024 Tinea unguium (ICD-10 - B35.1) 11/01/2024 Pain in right toe(s) (ICD-10 - M79.674) 11/01/2024 Pain in left toe(s) (ICD-10 - M79.675) Plan Of Treatment Pending Test Test Name Order Date 70647-LLQQNJD NAIL, 6 OR MORE 11/01/2024 51109-ILQE SKIN LESIONS, OVER 4 11/02/19 25 Next Appt Details Follow Up: prn, Reason: Provider Name:Vee Ta , 05/16/2025 01:00:00 PM, [address] [place] [address], [phone], Provider Name:Vee Ta , 07/18/2025 01:00:00 PM, [address] [place] [address], [phone], Procedure Notes * Category Sub-Category Detail Notes [...] use of a nail nipper and/or dremel-type sausage grinder, to a more viable healthy nail [...] to maintain effectiveness in symptomatic relief - 14435 Keratoma Treatment Parring or Cutting o f [...] instrumentation by the physician of record - 98203, Q8 Progress Notes * Lilo KAYE MDOB:1945 (78 yo F)Acc No.[id number]:11/01/2024 Progress Note Patient:?VARGASGricelan [place] Provider:?Vee Ta DPM :1945???Age:78 Y???Sex:Female D ate:11/01/2024 Address:[address] [place] [address] [id number] Pcp:La Zamora MD Subjective: * Chief Complaints: [...] able, cooking. ?Marital status: . 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 ???Drug/Alcohol:?AUDIT-C (Standard)?Did you have a drink containing [...] every 6 hrs Not-Taking/PRNFlax Seeds Baby Aspirin Ububmagq-Sdhrrjajc-Owspdkun Nitro-Bid 2 % Ointment as directed Transdermal apply bid to toes Iron 325 (65 Fe) MG Tablet 1 tablet Orally Once a day Flax Seeds Powder Orally Propranolol HCl ER Beads 80 MG Capsule Extended Release 24 Hour 1 capsule at bedtime Orally Once a day Medication List reviewed and reconciled with the patientNot-Taking/PRN Flax Seeds Not-Taking/PRN Baby Aspirin Not- Taking/PRN Iqtcaayk-Xmxlxqrab-Iazsaonj Not-Taking/PRN Nitro-Bid 2 % Ointment as directed [...] (C):?absent, B/L.? Assessment: * Assessment: 1.?Atherosclerosis of [place] artery of both lower extremities, with unspecified presence of clinical manifestation - I70.203 (Primary)???Notes :Q7(A), Q8(2B), Q9(1B,2C)???2.?Tinea unguium - B35.1???3.?Pain in right toe(s) - M79.674???4.?Pain in left toe(s) - M79.675??? Plan: * Treatment: 2.?Tinea unguium?Procedure: 30717-FWIOIVX NAIL, 6 OR MORE * Procedures:?Debride Nail [...] use of a nail nipper and/or dremel-type sausage grinder, to a more viable healthy nail [...] to maintain effectiveness in symptomatic relief - 39815.?Keratoma Treatment:?Parring or Cutting of Benign Hyperkeratotic Lesion(s)?(-57) [...] instrumentation by the physician of record - 18425, Q8.? * Procedure Codes:?71099 DEBRI DE NAIL, 6 OR MORE, Modifiers: XS 22866 TRIM SKIN LESIONS, OVER 4, Modifiers: Q8 * Follow Up:?prn * Images: * Sign off status: Completed true * Provider:?Vee Ta DPM Date:?2024 Generated for Chastity mir/Janell/Yancy on:?01/08/2025 11:52 AM EDT History and Physical [...]
--- OUTSIDE RECORDS SUMMARY | 2025-01-08 11:53 | XMS_ITS ---
Author Organization [facility] Address [address] [facility] [place] [address] Care Team Providers Care Digital Advertising Specialist Name Role Phone La Zamora MD Primary Care Provider Unavailab Vee Crews Unavailable [phone] Allergies Allergen (clinical drug ingredient) Drug/Non Drug [...] Orally Not-Takin g Baby Aspirin Not-Dung ing Tdsyvbsq-Ghtjohijr-Bkiqnazl Not-Taking Nitro-Bid 2 % as directed Transdermal [...] Ordered Date Performed Result Body Sit e 64441-MKBZKEV NAIL, 6 OR MORE 08/30/2024 N/A 91903-FHDN SKIN LESIONS, OVER 4 08/30/2024 N/A Encounters Encounter Location Date Provider Diagnosis [facility] [place] [address] [place] [address] 08/30/2024 Vee Ta Atherosclerosis of [place] artery of both lower extremities, with unspecified presence of clinical manifestation I70.203 ; Tinea unguium B35.1 ; Pain in right toe(s) M79.674 and Pain in left toe(s) M79.675 Assessments Encounter Date Diagnosis (ICD Code) Assessment Notes Treatment Notes Treatment Clinical Notes Section Notes 08/30/2024 Atherosclerosis of [place] artery of both lower extremities, with unspecified presence of clinical manifestation (ICD-10 - I70.203) Q7(A), Q8(2B), Q9(1B,2C) 08/30/2024 Tinea unguium (ICD-10 - B35.1) 08/30/2024 Pain in right toe(s) (ICD-10 - M79.674) 08/30/2024 Pain in left toe(s) (ICD-10 - M79.675) Plan Of Treatment Pending Test Test Name Order Date 92185-KISDYAQ NAIL, 6 OR MORE 08/30/2024 05189-HFBN SKIN LESIONS, OVER 4 08/30/19 25 Next Appt Details Follow Up: prn, Reason: Provider Name:Vee Ta , 05/16/2025 01:00:00 PM, [address] [place] [address], [phone], Provider Name:Vee Ta , 07/18/2025 01:00:00 PM, [address] [place] [address], [phone], Procedure Notes * Category Sub-Category Detail Notes [...] of a nail nipper and/or dremel-type grinder set up operator internal, to a more viable healthy nail plate [...] to maintain effectiveness in symptomatic relief - 04549 Keratoma Treatment Parring or Cutting o f [...] instrumentation by the physician of record - 19977, Q8 Progress Notes * Lilo KAYE MDOB:1945 (78 yo F)Acc No.[id number]:08/30/2024 Progress Note Patient:?Lilo KAYE Provider:?Vee Ta DPM :1945???Age:78 Y???Sex:Female D ate:08/30/2024 Address:[address] [place] [address] [phone] Pcp:La Zamora MD Subjective: * Chief Complaints: [...] able, cooking. ?Marital status: . 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 * Medications:?TakinghydroCHLO ROthiazide 12.5 MG Tablet [...] every 6 hrs Not-Taking/PRNFlax Seeds Baby Aspirin Zxfxpywn-Jkbrdgcwy-Ulgrtgdw Nitro-Bid 2 % Ointment as directed Transdermal apply bid to toes Iron 325 (65 Fe) MG Tablet 1 tablet Orally Once a day Flax Seeds Powder Orally Propranolol HCl ER Beads 80 MG Capsule Extended Release 24 Hour 1 capsule at bedtime Orally Once a day Medication List reviewed and reconciled with the patientNot-Taking/PRN Flax Seeds Not-Taking/PRN Baby Aspirin Not- Taking/PRN Jcmbyrue-Ghxekqadi-Nthpkehp Not-Taking/PRN Nitro-Bid 2 % Ointment as directed [...] Assessment: 1.?Tinea unguium - B35.1???2 .?Atherosclerosis of [place] artery of both lower extremities, with unspecified presence of clinical manifestation - I70.203 (Primary)???Notes :Q7(A), Q8(2B), Q9(1B,2C)???3.?Pain in right toe(s) - M79.674???4.?Pain in left toe(s) - M79.675??? Plan: * Treatment: 2.?Tinea unguium?Procedure: 29193-OJXBOKN NAIL, 6 OR MORE * Procedures:?Debride Nail [...] of a nail nipper and/or dremel-type grinder set up operator internal, to a more viable healthy nail plate [...] to maintain effectiveness in symptomatic relief - 85223.?Keratoma Treatment:?Parring or Cutting of Benign Hyperkeratotic Lesion(s)?(-57) [...] instrumentation by the physician of record - 90515, Q8.? * Procedure Codes:?88147 DEBRI DE NAIL, 6 OR MORE, Modifiers: XS 50232 TRIM SKIN LESIONS, OVER 4, Modifiers: Q8 * Preventive Medicine:? ??Screening/Special Tests:?Fall Risk?Screening:?No falls in the past year * Follow Up:?prn * Images: * Sign off status: Completed true * Provider:?Vee Ta DPM Date:?2024 Generated for Chastity mir/Janell/eTransmitting on:?01/08/2025 11:53 AM EDT History and Physical Notes * [...]
== END 2025-01-08 11:17 | disposition home or self-care (01) ==
PROVIDERS: PCP Family Medicine; Visit Provider Internal Medicine
DX: I35.0 Nonrheumatic aortic (valve) stenosis (principal); I45.9 Conduction disorder, unspecified; Z01.810 Encounter for preprocedural cardiovascular examination
CPT/HCPCS: 99204; G2211

== ENCOUNTER → 2025-01-08 10:41 | Outpatient (BNVA) | payer MEDICARE, SELFPAY | PROVIDERS: PCP Family Medicine; Visit Provider Internal Medicine | DX: Z01.810 Encounter for preprocedural cardiovascular examination (principal); I35.0 Nonrheumatic aortic (valve) stenosis; I45.9 Conduction disorder, unspecified | CPT/HCPCS: 99202 ==

== ENCOUNTER → 2025-01-10 12:30 | Outpatient (REF) | payer MEDICARE, SELFPAY ==
--- NOTE | 2025-01-10 12:35 | CA_ITS ---
Transthoracic Echocardiogram Patient (Last, First, Middle): Lilo Bess M Gender: Female Date of : 1945 Age: 79 Procedure Date: 01/10/2025 Procedure Type: Transthoracic Echocardiogram Location: OP Height: 167.64 cm Weight: 97.98 kg BSA: 2.07 m2 Heart Rate: 56 bpm BP: 118 / 62 mmHg Press Operator Automatic: SB/RC Referring MD: Dudley May MD Lead Systems Architect: Lefty Melo MD Symptoms: I35.0 - Nonrheumatic aortic (valve) stenosis Study Quality: Adequate/Fair apical window ECG Rhythm: Bradycardia Conclusions: - 1. Normal LV ejection fraction of 65-70% with mild asymmetric septal hypertrophy with mild obstructive physiology without dynamic obstruction 2. Mildly dilated left atrium 3. Moderate mitral calcification with normal cardiac valvular Dopplers 4. Normal RV systolic pressure 5. Mildly dilated ascending aorta 6. No pericardial effusion Findings Left Ventricle Normal left ventricular size, thickness, and systolic function. The visually estimated ejection fraction is between 65-70%. There is mild septal asymmetric hypertrophy. there was narrowing noted at the LVOT with increased gradient across the LVOT suggestive of obstructive physiology but without any dynamic obstruction noted Right Ventricle Normal right ventricular cavity size and systolic function. Atria The left atrium is mildly dilated. There is no evidence of interatrial shunt. The right atrium is normal in size. Aortic Valve The aortic valve was not well visualized. There is mild calcification of the aortic valve. There is no aortic valve stenosis. There is no aortic valve regurgitation. Mitral Valve There is mild anterior mitral leaflet thickening. There is moderate mitral annular calcification. There is trace mitral valve regurgitation. There is no mitral valve stenosis. Pulmonic Valve The pulmonic valve was not well visualized. Tricuspid Valve Likely normal tricuspid valve structure and function. There is mild tricuspid valve regurgitation. The right ventricular systolic pressure is normal. The right ventricular systolic pressure is 25 mmHg. Normal right atrial pressure. There is no evidence of pulmonary hypertension. Great Vessels The pulmonary artery was not well visualized. There is mild dilatation of the ascending aorta measuring 3.70 cm. Venous The inferior vena cava is normal in size and collapses greater than 50% with inspiration. Pericardium/Pleural There is no evidence of pericardial effusion. Prior Study Comparison No prior study available for comparison. Measurements 2D Linear Measurements IVSd: 0.88 0.6-0.9/0.6-1.0 cm LVIDd: 4.44 3.9-5.3/4.2-5.9 cm LVIDd Index: 2.14 2.4-3.2/2.2-3.1 cm/m2 LVIDs: 2.08 2.0-3.6 cm LVPWd: 1.11 0.7-1.1 cm LA Diam: 3.90 2.7-3.8/3.0-4.0 cm LAIDs Index: 1.88 1.5-2.3 cm/m2 LV Mass: 185.84 67-162/88-224 g LV Mass Index: 89.78 43-95/49-115 g/m2 LVOT Diam: 1.80 3.0+(-)1.3 cm 2D Systolic Function EF 4C: 70.70 >55% EF 2C: 61.70 >55% EF BiP: 67.10 >55% Mitral Valve MV VTI: 0.33 MV Pk Mitch: 1.02 MV Mn Mitch: 0.69 MV Pk Grad: 4.00 MV Mn Grad: 2.00 MV Pk E: 0.88 MV PK A: 0.88 MV Decel Time: 275.00 E/A: 1.00 E'Lateral: 6.53 E'Medial: 4.90 E/E' Med: 18.00 E/E' Lat: 13.50 PHT: 80.00 MVA PHT: 2.75 MVA Continuity: 2.95 Decel Bacon: 3.21 Aortic Valve AoV Pk Mitch: 1.46 AoV Mn Mitch: 1.22 AoV VTI: 0.37 AoV Pk Grad: 9.00 Aov Mn Grad: 6.00 ALFREDITO Cont.VTI: 2.64 LVOT LVOT Pk Mitch: 1.48 LVOT Mn Mitch: 1.08 LVOT VTI: 0.39 LVOT Pk Grad: 9.00 LVOT Mn Grad: 5.00 LVOT Diam: 1.80 LVOT Area: 2.54 Diastolic Function MV Pk E: 0.88 MV Pk A: 0.88 E/A: 1.00 E'Medial: 4.90 E/E' Med: 18.00 E' Laterial: 6.53 E/E' Lat: 13.50 Right Ventricle TAPSE (mm): 19.80 TVS' Mitch: 10.70 Tricuspid Valve TR Pk Mitch: 2.33 TR Pk Grad: 22.00 RA Press: 3.00 RVSP: 25.00 Great Vessels Aorta Sinus of Valsalva: 3.30 2.0-3.5 cm Ao Asc: 3.70 2.1-3.4 cm Pulmonary Valve PV Pk Mitch: 0.87 Peak PV Grad: 3.00 Updated in Other Vendor System with Status of Final Lefty Melo MD electronically signed on 01/10/2025 6:44:56 PM with status of Final
--- OUTSIDE RECORDS SUMMARY | 2025-01-10 13:15 | XMS_ITS ---
Author Organization [facility] Address [address] [facility] [place] [address] Care Team Providers Care Direct Care Supervisor Name Role Phone La Zamora MD Primary Care Provider Unavailab Vee Crews Unavailable [phone] Allergies Allergen (clinical drug ingredient) Drug/Non Drug [...] Duration) Notes Start Date End Date Status Ivyeihko-Npayhpsab-Uwxxajwu Not-Taking Nitro-Bid 2 % as directed Transdermal [...] Ordered Date Performed Result Body Sit e 45842-YHDSXKV NAIL, 6 OR MORE 01/03/2025 N/A 27254-Ybxdcogk Plate 01/03/2025 N/A 74115-WEXN SKIN LESIONS, OVER 4 01/03/2025 N/A Encounters Encounter Location Date Provider Diagnosis [facility] [place] [address] [place] [address] 01/03/2025 Vee Black Atherosclerosis of [place] artery of both lower extremities, with unspecified presence of clinical manifestation I70.203 ; Tinea unguium B35.1 ; Pain in right toe(s) M79.674 ; Pain in left toe(s) M79.675 and Ingrown nail L60.0 Assessments Encounter Date Diagnosis (ICD Code) Assessment Notes Treatment Notes Treatment Clinical Notes Section Notes 01/03/2025 Atherosclerosis of [place] artery of both lower extremities, with unspecified presence of clinical manifestation (ICD-10 - I70.203) Q7(A), Q8(2B), Q9(1B,2C) 01/03/2025 Tinea unguium (ICD-10 - B35.1) 01/03/2025 Pain in right toe(s) (ICD-10 - M79.674) 01/03/2025 Pain in left toe(s) (ICD-10 - M79.675) 01/03/2025 Ingrown nail (ICD-10 - L60.0) Plan Of Treatment Pending Test Test Name Order Date 51457-KQXESBT NAIL, 6 OR MORE 01/03/2025 40438-Tvijomnk Plate 01/03/2025 72107-VVOT SKIN LESIONS, OVER 4 01/04/20 25 Next Appt Details Follow Up: 2 Weeks,prn, Reas on: Provider Name:Vee Ta , 05/16/2025 01:00:00 PM, [address] [place] [address], [phone], Provider Name:Vee Ta , 07/18/2025 01:00:00 PM, [address] [place] [address], [phone], Procedure Notes * Category Sub-Category Detail [...] was recommended for pain or discomfort - 74921,, CIRCULATION: Matricectomy deferred at this time due [...] to maintain effectiveness in symptomatic relief - 30143 Keratoma Treatment Parring or Cutting o f [...] instrumentation by the physician of record - 56341, Q8 Progress Notes * Lilo KAYE MDOB:1945 (79 yo F)Acc No.[id number]:01/03/2025 Progress Note Patient:?Lilo KAYE Provider:?Vee Ta DPM :1945???Age:79 Y???Sex:Female D ate:01/03/2025 Address:[address] [place] [id number] Pcp:La Zamora MD Subjective: * Chief Complaints: [...] able, cooking. ?Marital status: . ?Occupation: retired, Fore[employer]. * Medications:?TakinghydroCHLO ROthiazide 12.5 MG Tablet Orally [...] every 6 hrs Not-Taking/PRNFlax Seeds Baby Aspirin Bnugfial-Kbifgcjzd-Hwzvmshv Nitro-Bid 2 % Ointment as directed Transdermal apply bid to toes Iron 325 (65 Fe) MG Tablet 1 tablet Orally Once a day Flax Seeds Powder Orally Propranolol HCl ER Beads 80 MG Capsule Extended Release 24 Hour 1 capsule at bedtime Orally Once a day Medication List reviewed and reconciled with the patientNot-Taking/PRN Flax Seeds Not-Taking/PRN Baby Aspirin Not- Taking/PRN Zly[place]aka-Txrimbwjf-Jiksbxgc Not-Taking/PRN Nitro-Bid 2 % Ointment as directed [...] border, T5.? Assessment: * Assessment: 1.?Atherosclerosis of [place] artery of both lower extremities, with unspecified presence of clinical manifestation - I70.203 (Primary)???Notes :Q7(A), Q8(2B), Q9(1B,2C)???2.?Tinea unguium - B35.1???3.?Pain in right toe(s) - M79.674???4.?Pain in left toe(s) - M79.675???5.?Ingrown nail - L60.0??? Plan: * Treatment: 2.?Tinea unguium?Procedure: 83720-JFERCDK NAIL, 6 OR MORE 3.?Ingrown nail?Procedure: 75837-Psochmjx Plate * Procedures:?Debride Nail 6-10:?Nail debridement?Due to [...] to maintain effectiveness in symptomatic relief - 66329.?Keratoma Treatment:?Parring or Cutting of Benign Hyperkeratotic Lesion(s)?(-57) [...] instrumentation by the physician of record - 55183, Q8.?Nail Avulsion:?Location?, Lateral nail border, T5.?Anesthesia?, 3cc [...] was recommended for pain or discomfort - 91560,, CIRCULATION: Matricectomy deferred at this time due to compromised circulation risk.? * Procedure Codes:?40007 DEBRI DE NAIL, 6 OR MORE, Modifiers: XS 19083 Avulsion Plate, Modifiers: T5 72096 TRIM SKIN LESIONS, OVER 4, Modifiers: Q8 * Follow Up:?2 Weeks,prn * Images: * Sign off status: Completed true * Provider:?Vee Ta DPM Date:?2024 Generated for Sanderi adeola/Janell/eTransmitting on:?01/10/2025 01:15 PM EDT History and Physical Notes * [...]
--- OUTSIDE RECORDS SUMMARY | 2025-01-10 13:15 | XMS_ITS ---
Author Organization [facility] Address [address] [facility] [place] [address] Care Team Providers Care Chief Of Staff Name Role Phone La Zamora MD Primary Care Provider Unavailab Vee Crews Unavailable [phone] Allergies Allergen (clinical drug ingredient) Drug/Non Drug [...] at bedtime Orally Once a day Not-Taking Qfondzru-Ombxwtvfo-Rmblzwjg Not-Taking Nitro-Bid 2 % as directed Transdermal [...] Ordered Date Performed Result Body Sit e 19612-IMVJICG NAIL, 6 OR MORE 11/01/2024 N/A 12774-BSIN SKIN LESIONS, OVER 4 11/01/2024 N/A Encounters Encounter Location Date Provider Diagnosis [facility] [place] [address] [place] [address] 11/01/2024 Vee Black Atherosclerosis of [place] artery of both lower extremities, with unspecified presence of clinical manifestation I70.203 ; Tinea unguium B35.1 ; Pain in right toe(s) M79.674 and Pain in left toe(s) M79.675 Assessments Encounter Date Diagnosis (ICD Code) Assessment Notes Treatment Notes Treatment Clinical Notes Section Notes 11/01/2024 Atherosclerosis of [place] artery of both lower extremities, with unspecified presence of clinical manifestation (ICD-10 - I70.203) Q7(A), Q8(2B), Q9(1B,2C) 11/01/2024 Tinea unguium (ICD-10 - B35.1) 11/01/2024 Pain in right toe(s) (ICD-10 - M79.674) 11/01/2024 Pain in left toe(s) (ICD-10 - M79.675) Plan Of Treatment Pending Test Test Name Order Date 06500-XRVJHBP NAIL, 6 OR MORE 11/01/2024 94638-JAUM SKIN LESIONS, OVER 4 11/02/19 25 Next Appt Details Follow Up: prn, Reason: Provider Name:Vee Ta , 05/16/2025 01:00:00 PM, [address] [place] [address], [phone], Provider Name:Vee Ta , 07/18/2025 01:00:00 PM, [address] [place] [address], [phone], Procedure Notes * Category Sub-Category Detail Notes [...] use of a nail nipper and/or dremel-type meal grinder tender, to a more viable healthy nail plate [...] to maintain effectiveness in symptomatic relief - 83184 Keratoma Treatment Parring or Cutting o f [...] instrumentation by the physician of record - 17202, Q8 Progress Notes * Lilo KAYE MDOB:1945 (78 yo F)Acc No.[id number]:11/01/2024 Progress Note Patient:?VARGASGricelan Houston Provider:?Vee Ta DPM :1945???Age:78 Y???Sex:Female D ate:11/01/2024 Address:[address] [place] [address] [phone] Pcp:La Zamora MD Subjective: * Chief Complaints: [...] able, cooking. ?Marital status: . 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 ???Drug/Alcohol:?AUDIT-C (Standard)?Did you have a drink containing [...] every 6 hrs Not-Taking/PRNFlax Seeds Baby Aspirin Zjbmqlmm-Qvqkesjsd-Glgmwbmv Nitro-Bid 2 % Ointment as directed Transdermal apply bid to toes Iron 325 (65 Fe) MG Tablet 1 tablet Orally Once a day Flax Seeds Powder Orally Propranolol HCl ER Beads 80 MG Capsule Extended Release 24 Hour 1 capsule at bedtime Orally Once a day Medication List reviewed and reconciled with the patientNot-Taking/PRN Flax Seeds Not-Taking/PRN Baby Aspirin Not- Taking/PRN Aasdlrmg-Rxmnrqvaw-Vpzfgtcx Not-Taking/PRN Nitro-Bid 2 % Ointment as directed [...] (C):?absent, B/L.? Assessment: * Assessment: 1.?Atherosclerosis of [place] artery of both lower extremities, with unspecified presence of clinical manifestation - I70.203 (Primary)???Notes :Q7(A), Q8(2B), Q9(1B,2C)???2.?Tinea unguium - B35.1???3.?Pain in right toe(s) - M79.674???4.?Pain in left toe(s) - M79.675??? Plan: * Treatment: 2.?Tinea unguium?Procedure: 33147-RAQSLRJ NAIL, 6 OR MORE * Procedures:?Debride Nail [...] use of a nail nipper and/or dremel-type meal grinder tender, to a more viable healthy nail plate [...] to maintain effectiveness in symptomatic relief - 56892.?Keratoma Treatment:?Parring or Cutting of Benign Hyperkeratotic Lesion(s)?(-57) [...] instrumentation by the physician of record - 79347, Q8.? * Procedure Codes:?05955 DEBRI DE NAIL, 6 OR MORE, Modifiers: XS 79314 TRIM SKIN LESIONS, OVER 4, Modifiers: Q8 * Follow Up:?prn * Images: * Sign off status: Completed true * Provider:?Vee Ta DPM Date:?2024 Generated for Chastity mir/Janell/Yancy on:?01/10/2025 01:15 PM EDT History and Physical [...]
--- OUTSIDE RECORDS SUMMARY | 2025-01-10 13:16 | XMS_ITS | Patient Health Record ---
Author Organization [facility] [place] Address [address] [facility] [place] [address] Care Team Providers Care Archival Records Clerk Name Role Phone La Zamora MD Primary Care Provider Unavailab Vee Crews Unavailable [phone] Allergies Allergen (clinical drug ingredient) Drug/Non Drug [...] Duration) Notes Start Date End Date Status Xvfpldoz-Wsjlymili-Hmkwexel Not-Taking Nitro-Bid 2 % as directed Transdermal [...] Status W/U Status Risk Notes Problem Raynaud ([id number]) Raynaud's syndrome without gangrene (I73.00) Active confirmed Problem Atherosclerosis of [place] arteries of the extremities ([id number]) Atherosclerosis of [place] artery of both lower extremities, with unspecified presence of clinical manifestation (I70.203) Active confirmed Q7(A), Q8(2B), Q9(1B,2 C) Vital Signs Blood pressure diastolic 78 mm Hg 01/03/2025 Height 5 ft 7 in in 01/03/2025 Blood pressure systolic 150 mm Hg 01/03/2025 Weight 217 lbs 01/03/2025 BMI 33.98 kg/m2 01/03/2025 Procedures Procedure Date Ordered Date Performed Result Body Sit e 30202-HDLWWKJ NAIL, 6 OR MORE 02/16/2024 N/A 94806-TGQE SKIN LESIONS, OVER 4 02/16/2024 N/A 13955-EJOYHWY NAIL, 6 OR MORE 04/19/2024 N/A 59361-JLSJ SKIN LESIONS, OVER 4 04/19/2024 N/A 79213-ZSGUMYB NAIL, 6 OR MORE 06/21/2024 N/A 05884-YLRY SKIN LESIONS, OVER 4 06/21/2024 N/A 17652-EQUKCBO NAIL, 6 OR MORE 08/30/2024 N/A 34822-DGCI SKIN LESIONS, OVER 4 08/30/2024 N/A 24518-WVNDZXB NAIL, 6 OR MORE 11/01/2024 N/A 83815-OCUK SKIN LESIONS, OVER 4 11/01/2024 N/A 27206-CTXJHXJ NAIL, 6 OR MORE 01/03/2025 N/A 55230-Oighzqrp Plate 01/03/2025 N/A 27139-UUFJ SKIN LESIONS, OVER 4 01/03/2025 N/A Encounters Encounter Location Date Provider Diagnosis [address] [address] 02/16/2024 Vee Black Unspecified atherosclerosis of [place] arteries of extremities, bilateral legs I70.203 ; Tinea unguium B35.1 ; Pain in right toe(s) M79.674 and Pain in left toe(s) M79.[address] [address] 04/19/2024 Vee Black Unspecified atherosclerosis of [place] arteries of extremities, bilateral legs I70.203 ; Neuritis of right foot G57.91 ; Tinea unguium B35.1 ; Pain in right toe(s) M79.674 ; Pain in left toe(s) M79.675 and Pain in right foot M79.[address] [address] 06/21/2024 Vee Black Neuritis of right fo ot G57.91 ; Pain in right foot M79.671 ; Atherosclerosis of [place] artery of both lower extremities, with unspecified presence of clinical manifestation I70.203 ; Tinea unguium B35.1 ; Pain in right toe(s) M79.674 and Pain in left toe(s) M79.[address] [address] 08/30/2024 Vee Black Atherosclerosis of [place] artery of both lower extremities, with unspecified presence of clinical manifestation I70.203 ; Tinea unguium B35.1 ; Pain in right toe(s) M79.674 and Pain in left toe(s) M79.[address] [address] 11/01/2024 Vee Black Atherosclerosis of [place] artery of both lower extremities, with unspecified presence of clinical manifestation I70.203 ; Tinea unguium B35.1 ; Pain in right toe(s) M79.674 and Pain in left toe(s) M79.675 [facility] [place] [address] [place] [address] 01/03/2025 Vee Black Atherosclerosis of [place] artery of both lower extremities, with unspecified presence of clinical manifestation I70.203 ; Tinea unguium B35.1 ; Pain in right toe(s) M79.674 ; Pain in left toe(s) M79.675 and Ingrown nail L60.0 Assessments Encounter Date Diagnosis (ICD Code) Assessment Notes Treatment Notes Treatment Clinical Notes Section Notes 02/16/2024 Unspecified atherosclerosis of [place] arteries of extremities, bilateral legs (ICD-10 - I70.203) 04/19/2024 Unspecified atherosclerosis of [place] arteries of extremities, bilateral legs (ICD-10 - I70.203) 04/19/2024 Neuritis of right foot (ICD-10 - G57.91) 06/21/2024 Pain in right foot (ICD-10 - M79.671) 06/21/2024 Neuritis of right foot (ICD-10 - G57.91) Response to treatment - Improvement 08/30/2024 Tinea unguium (ICD-10 - B35.1) 08/30/2024 Atherosclerosis of [place] artery of both lower extremities, with unspecified presence of clinical manifestation (ICD-10 - I70.203) Q7(A), Q8(2B), Q9(1B,2C) 11/01/2024 Atherosclerosis of [place] artery of both lower extremities, with unspecified presence of clinical manifestation (ICD-10 - I70.203) Q7(A), Q8(2B), Q9(1B,2C) 01/03/2025 Atherosclerosis of [place] artery of both lower extremities, with unspecified presence of clinical manifestation (ICD-10 - I70.203) Q7(A), Q8(2B), Q9(1B,2C) 01/03/2025 Tinea unguium (ICD-10 - B35.1) 11/01/2024 Tinea unguium (ICD-10 - B35.1) 08/30/2024 Pain in right toe(s) (ICD-10 - M79.674) 06/21/2024 Atherosclerosis of [place] artery of both lower extremities, with unspecified [...] X ray : Foot, left 3V 11/10/2015 46066-BBEJXLV NAIL, 6 OR MORE 09/01/2015 15269-ZMSSEJC NAIL, 6 OR MORE 11/10/2015 52427-WJYOPBL NAIL, 6 OR MORE 01/13/2015 10607-HEOEBBX NAIL, 6 OR MORE 06/23/2015 94695-PLCPFNE NAIL, 6 OR MORE 05/27/2016 67632-CLYGSFD NAIL, 6 OR MORE 12/06/2013 67923-LSHGCQR NAIL, 6 OR MORE 03/11/2014 07211-FKEYAHU NAIL, 6 OR MORE 06/12/2014 42530-BVHUIHI NAIL, 6 OR MORE 09/04/2014 44640-DZXWFTY NAIL, 6 OR MORE 11/07/2014 55698-GWIDCQF NAIL, 6 OR MORE 04/21/2015 74753-FZUZDPB NAIL, 6 OR MORE 2016 69896-MKRHYTA NAIL, 6 OR MORE 02/17/2017 66796-CFFIGIP NAIL, 6 OR MORE 04/21/2017 69981-IFFXDGA NAIL, 6 OR MORE 07/29/2016 71246-YOAFSTT NAIL, 6 OR MORE 10/11/2016 50779-CQEQWME NAIL, 6 OR MORE 06/27/2017 70199-IWSNAJO NAIL, 6 OR MORE 09/08/2017 31784-WRYFJTO NAIL, 6 OR MORE 11/10/2017 46472-VSSDYJD NAIL, 6 OR MORE 01/12/2018 89542-IARUOKQ NAIL, 6 OR MORE 03/23/2018 74280-PEWRLWM NAIL, 6 OR MORE 05/25/2018 13098-NPCFLVU NAIL, 6 OR MORE 07/31/2018 16693-AYWHDOH NAIL, 6 OR MORE 10/02/2018 89172-WKQJRIB NAIL, 6 OR MORE 12/04/2018 36861-ACRBBYE NAIL, 6 OR MORE 10/30/2020 83869-IXPKNZE NAIL, 6 OR MORE 01/01/2021 46616-NSDEIZZ NAIL, 6 OR MORE 03/12/2021 86464-PHVYQJW NAIL, 6 OR MORE 05/15/2021 82606-YONBAHT NAIL, 6 OR MORE 04/23/2019 05524-XPPJPJW NAIL, 6 OR MORE 06/25/2019 76393-PLEPEAZ NAIL, 6 OR MORE 09/10/2019 41669-IVCRBWI NAIL, 6 OR MORE 11/21/2019 75177-JESFDHF NAIL, 6 OR MORE 01/24/2020 43633-COQEXZF NAIL, 6 OR MORE 04/03/2020 36845-IQQUXDS NAIL, 6 OR MORE 06/16/2020 01986-YHORJFA NAIL, 6 OR MORE 08/17/2021 61677-SYVKVWH NAIL, 6 OR MORE 08/18/2020 92610-XFYFHWY NAIL, 6 OR MORE 11/26/2021 13021-KAEMQCX NAIL, 6 OR MORE 02/08/2022 25492-DKXMVZO NAIL, 6 OR MORE 04/12/2022 04665-ZBVUBLX NAIL, 6 OR MORE 06/14/2022 24932-RKXBBAQ NAIL, 6 OR MORE 08/16/2022 98913-YMWSQHH NAIL, 6 OR MORE 10/21/2022 91571-TZQZUXS NAIL, 6 OR MORE 12/23/2022 45888-RQRVPQZ NAIL, 6 OR MORE 02/24/2023 33800-IOACISM NAIL, 6 OR MORE 04/28/2023 62985-SSYAJZS NAIL, 6 OR MORE 08/08/2023 22247-EOUVBOO NAIL, 6 OR MORE 10/13/2023 88881-TTFTYSI NAIL, 6 OR MORE 12/15/2023 31005-MXKIYKI NAIL, 6 OR MORE 02/16/2024 63494-RKGYSCL NAIL, 6 OR MORE 04/19/2024 63505-XCXOUNX NAIL, 6 OR MORE 06/21/2024 54538-ILYOPLI NAIL, 6 OR MORE 08/30/2024 83925-VTQITZU NAIL, 6 OR MORE 11/01/2024 84919-TUKXILX NAIL, 6 OR MORE 01/03/2025 27199-MXIZEON NAIL, 1-5 05/27/2016 46225-HXHXBEN NAIL, 1-5 01/12/2016 36180-OTCRRTA NAIL, 1-5 03/16/2016 95040-Usye Destruction, -14 02/17/2017 26629-Jdhc Destruction, -14 10/11/2016 64947-Kcmu Destruction, -14 2016 38400-Cwgsfrdh Plate 2016 78087-Wlnkjdqy Plate 04/21/2017 87196-Evvmdqes Plate 06/27/2017 21325-Xikirtbq Plate 10/02/2018 65602-Eqvedzwu Plate 07/31/2018 89652-Mrctlixc Plate 05/27/2016 21985-Hxrqgaul Plate 12/06/2013 79007-Adfjksrg Plate 06/23/2015 51166-Yzoldcrn Plate 04/21/2015 31036-Pjuehpbr Plate 11/07/2014 54061-Fnnkpyjr Plate 01/13/2015 44924-Hotvzanw Plate 09/04/2014 58854-Fmlarklh Plate 06/12/2014 74585-Oqqnvqzc Plate 03/11/2014 72266-Ocrwznca Plate 10/13/2023 57623-Tnunwvdd Plate 04/12/2022 51954-Emdnlstk Plate 02/08/2022 65284-Grnlcndx Plate 11/26/2021 03468-Ooqsiyfo Plate 04/03/2020 00092-Qdamjaiy Plate 09/10/2019 42371-Mwwrmzsv Plate 03/12/2021 30588-Pzzqfpdn Plate 10/30/2020 59919-Eezazoks Plate 06/16/2020 92625-Smvlnljc Plate 02/24/2023 05946-Aifmjvnq Plate 01/03/2025 15236-Llkwrseb Plate Each Additional 20588-Ffnfmatn Plate Each Additional 88806-Sifuwunv Plate Each Additional 11908-Lcqasckb Plate Each Additional 10141-Qqnjktzw Plate Each Additional 98789-Ybkyixhh Plate Each Additional 61838- Debride <25 sq cm 06/11/2016 14691- Debride <25 sq cm 12/03/2015 09742- Debride <25 sq cm 12/04/2018 72545- Debride <25 sq cm 03/23/2018 83981- Debride <25 sq cm 06/27/2017 63372- Debride <25 sq cm 04/21/2017 68252- Debride <25 sq cm 04/28/2023 07388- Debride <25 sq cm 02/08/2022 52047- Debride <25 sq cm 01/24/2020 22816- Debride <25 sq cm 01/01/2021 53688- Debride <25 sq cm 05/15/2021 23695- Debride <25 sq cm 08/17/2021 78249-WIJZWPW SKIN/TISSUE 11/07/2014 24767 I&D ABSCESS- SIMPLE,SINGLE 014 24827 I&D ABSCESS- SIMPLE,SINGLE 016 63785 I&D ABSCESS- SIMPLE,SINGLE 016 56068 I&D ABSCESS- SIMPLE,SINGLE 016 56509 I&D ABSCESS- SIMPLE,SINGLE 016 55733 I&D ABSCESS- SIMPLE,SINGLE 017 45220-BIUV SKIN LESIONS, OVER 4 12/05/19 19 49011-IIJG SKIN LESIONS, OVER 4 01/14/20 15 73066-IJFV SKIN LESIONS, OVER 4 04/21/20 15 01936-UMCA SKIN LESIONS, OVER 4 08/17/20 40451-SJFY SKIN LESIONS, OVER 4 05/15/20 25396-EIYC SKIN LESIONS, OVER 4 03/12/20 09515-BFDE SKIN LESIONS, OVER 4 01/02/20 58355-KIXE SKIN LESIONS, OVER 4 08/18/20 20 75411-EYFY SKIN LESIONS, OVER 4 10/31/19 60178-FPSB SKIN LESIONS, OVER 4 02/13/20 19 39431-EOOD SKIN LESIONS, OVER 4 04/03/20 10993-RNSR SKIN LESIONS, OVER 4 06/16/20 20 10372-IZPP SKIN LESIONS, OVER 4 11/21/19 20582-NWLM SKIN LESIONS, OVER 4 01/24/20 20 53903-ONYU SKIN LESIONS, OVER 4 06/25/20 19 21506-TLKY SKIN LESIONS, OVER 4 09/10/19 55489-MPFK SKIN LESIONS, OVER 4 02/09/20 32997-RSGJ SKIN LESIONS, OVER 4 11/27/19 79579-WQNW SKIN LESIONS, OVER 4 04/12/20 11045-MCXV SKIN LESIONS, OVER 4 06/14/20 81899-YGVC SKIN LESIONS, OVER 4 08/16/20 75122-KVSO SKIN LESIONS, OVER 4 10/21/19 23 53082-OANL SKIN LESIONS, OVER 4 04/28/20 98916-FIWA SKIN LESIONS, OVER 4 02/25/20 23 92507-NVSB SKIN LESIONS, OVER 4 12/24/19 23 11209-YIGB SKIN LESIONS, OVER 4 10/13/19 24 47371-EEOT SKIN LESIONS, OVER 4 08/08/20 23 52379-HFKD SKIN LESIONS, OVER 4 02/16/20 24 80718-KGFO SKIN LESIONS, OVER 4 12/15/19 24 46307-PBKL SKIN LESIONS, OVER 4 01/04/20 25 06696-DJED SKIN LESIONS, OVER 4 11/02/19 25 09625-CUXB SKIN LESIONS, OVER 4 08/30/19 25 00084-ZXMB SKIN LESIONS, OVER 4 06/21/20 24 99277-UCVA SKIN LESIONS, OVER 4 04/19/20 24 54633-TPCA SKIN LESIONS, 2 TO 4 10/02/19 19 76124-VKIM SKIN LESIONS, 2 TO 4 05/25/20 18 83812-RSEN SKIN LESIONS, 2 TO 4 07/31/20 18 39791-OLXT SKIN LESIONS, 2 TO 4 03/23/20 18 64853-HRMB SKIN LESIONS, 2 TO 4 01/13/20 18 65047-APFD SKIN LESIONS, 2 TO 4 09/08/19 18 21268-SEBQ SKIN LESIONS, 2 TO 4 11/11/19 18 37376-Iguo. Subungual Hematoma 9 46580-QANISQTM OF HEMATOMA/FLUID 019 64056-ILVYQIVC OF HEMATOMA/FLUID 018 Next Appt Details Provider Name:Vee Ta , 05/16/2025 01:00:00 PM, [address] [place] [address], [phone], Provider Name:Vee Ta , 07/18/2025 01:00:00 PM, [address] [place] [address], [phone], Insurance Providers Payer Name Payer Address Payer Phone Subscriber Number Group Number Insured Name Patient Relationship to Insured Coverage Start Date Coverage End Date Medicare National [employer] [address] [place] [address] [id number] Lilo Bess Self - patient is the insured [employer] [address] [place] [address] [id number] Lilo Bess Self - patient is the [...]
--- OUTSIDE RECORDS SUMMARY | 2025-01-10 13:16 | XMS_ITS ---
[facility] Organization [facility] Address [address] [facility] [place] [address] Care Team Providers Care Landscaper Helper Name Role Phone La Zamora MD Primary Care Provider Unavailab Vee Crews Unavailable [phone] Allergies Allergen (clinical drug ingredient) Drug/Non Drug [...] Orally Not-Takin g Baby Aspirin Not-Dung ing Givpnxkd-Cysojwxpc-Pvxkfqyp Not-Taking Nitro-Bid 2 % as directed Transdermal [...] Ordered Date Performed Result Body Sit e 49614-SDLPUOD NAIL, 6 OR MORE 08/30/2024 N/A 92386-ETDP SKIN LESIONS, OVER 4 08/30/2024 N/A Encounters Encounter Location Date Provider Diagnosis [facility] [place] [address] [place] [address] 08/30/2024 Vee Ta Atherosclerosis of [place] artery of both lower extremities, with unspecified presence of clinical manifestation I70.203 ; Tinea unguium B35.1 ; Pain in right toe(s) M79.674 and Pain in left toe(s) M79.675 Assessments Encounter Date Diagnosis (ICD Code) Assessment Notes Treatment Notes Treatment Clinical Notes Section Notes 08/30/2024 Atherosclerosis of [place] artery of both lower extremities, with unspecified presence of clinical manifestation (ICD-10 - I70.203) Q7(A), Q8(2B), Q9(1B,2C) 08/30/2024 Tinea unguium (ICD-10 - B35.1) 08/30/2024 Pain in right toe(s) (ICD-10 - M79.674) 08/30/2024 Pain in left toe(s) (ICD-10 - M79.675) Plan Of Treatment Pending Test Test Name Order Date 97271-DBMGMZW NAIL, 6 OR MORE 08/30/2024 97346-AQAV SKIN LESIONS, OVER 4 08/30/19 25 Next Appt Details Follow Up: prn, Reason: Provider Name:Vee Ta , 05/16/2025 01:00:00 PM, [address] [place] [address], [phone], Provider Name:Vee Ta , 07/18/2025 01:00:00 PM, [address] [place] [address], [phone], Procedure Notes * Category Sub-Category Detail Notes [...] use of a nail nipper and/or dremel-type automatic corn grinder operator, to a more viable healthy [...] to maintain effectiveness in symptomatic relief - 37952 Keratoma Treatment Parring or Cutting o f [...] instrumentation by the physician of record - 52985, Q8 Progress Notes * Lilo KAYE MDOB:1945 (78 yo F)Acc No.[id number]:08/30/2024 Progress Note Patient:?Lilo KAYE Provider:?Vee Ta DPM :1945???Age:78 Y???Sex:Female D ate:08/30/2024 Address:[address] [place] [address] [id number] Pcp:La Zamora MD Subjective: * Chief Complaints: [...] able, cooking. ?Marital status: . 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 * Medications:?TakinghydroCHLO ROthiazide 12.5 MG Tablet [...] every 6 hrs Not-Taking/PRNFlax Seeds Baby Aspirin Vcmleqse-Plbuvaupl-Vlxtkpco Nitro-Bid 2 % Ointment as directed Transdermal apply bid to toes Iron 325 (65 Fe) MG Tablet 1 tablet Orally Once a day Flax Seeds Powder Orally Propranolol HCl ER Beads 80 MG Capsule Extended Release 24 Hour 1 capsule at bedtime Orally Once a day Medication List reviewed and reconciled with the patientNot-Taking/PRN Flax Seeds Not-Taking/PRN Baby Aspirin Not- Taking/PRN Yiakydex-Fybxavphh-Iwtdjhuv Not-Taking/PRN Nitro-Bid 2 % Ointment as directed [...] Assessment: 1.?Tinea unguium - B35.1???2 .?Atherosclerosis of [place] artery of both lower extremities, with unspecified presence of clinical manifestation - I70.203 (Primary)???Notes :Q7(A), Q8(2B), Q9(1B,2C)???3.?Pain in right toe(s) - M79.674???4.?Pain in left toe(s) - M79.675??? Plan: * Treatment: 2.?Tinea unguium?Procedure: 10424-IIAKPXB NAIL, 6 OR MORE * Procedures:?Debride Nail [...] use of a nail nipper and/or dremel-type automatic corn grinder operator, to a more viable healthy [...] to maintain effectiveness in symptomatic relief - 13419.?Keratoma Treatment:?Parring or Cutting of Benign Hyperkeratotic Lesion(s)?(-57) [...] instrumentation by the physician of record - 91431, Q8.? * Procedure Codes:?81635 DEBRI DE NAIL, 6 OR MORE, Modifiers: XS 33173 TRIM SKIN LESIONS, OVER 4, Modifiers: Q8 * Preventive Medicine:? ??Screening/Special Tests:?Fall Risk?Screening:?No falls in the past year * Follow Up:?prn * Images: * Sign off status: Completed true * Provider:?Vee Ta DPM Date:?2024 Generated for Chastity mir/Janell/eTransmitting on:?01/10/2025 01:15 PM EDT History and Physical [...]
== END ==
LOC: HO.CARD 12:30
PROVIDERS: PCP Family Medicine; Visit Provider Internal Medicine
DX: I44.2 Atrioventricular block, complete (principal); I35.0 Nonrheumatic aortic (valve) stenosis
CPT/HCPCS: 93242; 93306

== ENCOUNTER → 2025-01-10 12:35 | Outpatient (BNV) | payer MEDICARE, SELFPAY | PROVIDERS: PCP Family Medicine; Visit Provider Internal Medicine Cardiovascular Disease | DX: I35.0 Nonrheumatic aortic (valve) stenosis (principal); I34.81 Nonrheumatic mitral (valve) annulus calcification; I34.0 Nonrheumatic mitral (valve) insufficiency | CPT/HCPCS: 93306 ==

== ENCOUNTER → 2025-01-10 12:54 | Outpatient (REF) | payer MEDICARE, SELFPAY | LOC: HO.CARD 12:54 | PROVIDERS: PCP Family Medicine; Visit Provider Internal Medicine | DX: Z13.89 Encounter for screening for other disorder (principal) ==

== ENCOUNTER 2025-01-15 14:17 | Outpatient (AMB) | payer MEDICARE, SELFPAY ==
--- NOTE | 2025-01-15 14:27 | A.OFFVIS_ITS ---
Intake Visit Reasons: 4m/PVR Intake Note: Patient presents today for follow up visit for nocturia and renal cyst Urology Medications: none Blood Thinner: none PVR: 0ml's Dean Of Girls Required: No Accompanied by: Self / Same As Patient Allergies shellfish derived [shellfish] Allergy (Severe, Verified 01/15/25 21:33) Anaphylaxis Penicillins Allergy (Intermediate, Verified 01/15/25 21:33) Itching diclofenac [From Voltaren] Allergy (Mild, Verified 01/15/25 21:33) HIVES adhesive tape Adverse Reaction (Intermediate, Verified 01/15/25 21:33) blisters codeine [Codeine] Adverse Reaction (Intermediate, Verified 01/15/25 21:33) SYNCOPE,ABD PAIN erythromycin base [Erythromycin Base] Adverse Reaction (Mild, Verified 01/15/25 21:33) ABDOMINAL PAIN Medication List - Last Reconciled 01/15/25 by PAULINE Rivas acetaminophen ER (Tylenol Arthritis Pain) 650 mg PO Q12H PRN hydrochlorothiazide 12.5 mg PO QAM levothyroxine 50 mcg PO QAM walker Folding front wheeled walker HPI Comments Details: Lilo is a 78-year-old female patient of Dr Hankins. She has a past medical history of hypertension and hypothyroidism. She presents to the office today for follow-up of her nocturia. In discussion with the patient today she does feel episodes of nocturia have decreased from 5 times per night down to 3 times per night. She reports she has been limiting fluids 2-3 hours prior to bed and feels this has been helpful. She reports attempting to recline her bilateral lower extremities in the late evening prior to bed to assist with potential bilateral lower leg edema contributing to nocturia however did not find this helpful as she felt she was falling asleep in the recliner and then was unable to sleep at night. Previous workup has included a retroperitoneal ultrasound 08/21 noting bilateral kidneys with no hydronephrosis or renal calculi. Lower pole right renal cyst measuring 1.2 cm. Left kidney with peripelvic upper pole and mid pole renal cysts largest measuring 1.2 cm. In office urinalysis results reviewed with the patient today. PVR 0 mL. She reports feeling happy with her current voiding parameters as nocturia has somewhat improved. We will continue with surveillance monitoring. She denies urinary urgency, urinary frequency, hematuria, dysuria, foul smelling urine, changes to urinary stream, flank pain, fever, and or chills. She denies any signs or symptoms of sleep apnea. We discussed at length potential causes of nocturia. She discusses her 's recent diagnosis of Lewy bodies dementia and her upcoming left knee replacement. She otherwise offers no other issues or concerns at this time. [facility] Medical History History of blood transfusion Anesthesia complication Uterine cancer GERD (gastroesophageal reflux disease) Murmur Lower extremity edema Eczema Chronic renal insufficiency Hiatal hernia Raynauds disease Hypothyroid Diverticulosis Coronary artery calcification seen on CAT scan PAD (peripheral artery disease) Anemia Varicose vein of leg Lymphedema Renal cyst Heart block Arthritis Hypertension Surgical History H/O colonoscopy History of excision of pilonidal cyst Hx of tonsillectomy History of bilateral total hip arthroplasty H/O: hysterectomy H/O thyroidectomy Social History Are you a primary hemodialysis patient care specialist to a significant other at home: No Do you presently have visiting nurse or other home services: No Patient Tobacco Use Status: Former Tobacco user Tobacco use type: Cigarette Years Smoked: 5 Current occupational status: retired Current occupation: right handed Review of Systems Const All systems reviewed & are unremarkable except as noted in HPI and below Physical Exam Const General: cooperative, healthy appearing, comfortable, no acute distress, well developed, alert and awake Nutritional Appearance: overweight Orientation/consciousness: patient oriented x3 Limitations: ambulation with cane HEENT Head: Yes normal to inspection, Yes normocephalic and Yes atraumatic Ears: hearing grossly normal bilaterally Eyes General: appearance normal, both eyes and all related structures Neck Neck: Yes normal visual inspection and Yes trachea midline Chest Chest palpation & inspection: normal inspection of the chest Resp Effort & Inspection: normal respiratory effort and able to speak in complete sentences Cardio Rate: regular rate GI Inspection: Yes normal to inspection General: Yes no CVA tenderness Back/Spine/Pelvis Back: no CVA tenderness Skin General skin exam: no rashes or lesions noted Neuro General: patient oriented x3 Extrem General: Yes normal to inspection Psych Appearance: grossly normal and well kempt Mental Status: mental status grossly normal Speech and movement: Normal speech and movement present and Clear speech present Affect: normal affect Attitude: cooperative Thought process: Normal thought process present Thought content: Normal thought content present Insight: Fair insight present (Psych) Judgement: Fair judgement present (Psych) Office Procedures Post Void Residual Post Residual Void Post Void Residual (PVR): 0 25281-Klhu Void Residual by ultrasound Results AMB Urinalysis, Automated UA Leukoctes 70 Arnulfo/uL Last Edit by [facility] on 01/15/25 15:17 UA Nitrite [facility] on 01/15/25 15:17 UA Urobilinogen 0.2 mg/dL [facility] 01/15/25 15:17 UA Protein 0 mg/dL Last Edit by [facility] on 01/15/25 15:17 UA pH 6.5 Last Edit by [facility] on 01/15/25 15:17 UA Blood 0 Asher/uL [facility] 01/15/25 15:17 UA Specific Monroe 1.015 Last Edit by [facility] on 01/15/25 15:17 UA Ketone Last Edit by [facility] on 01/15/25 15:17 UA Bilirubin 0 mg/dL Last Edit by [facility] on 01/15/25 15:17 UA Glucose 0 mg/dL Last Edit by [facility] on 01/15/25 15:17 Results Reviewed Results Reviewed: Laboratory Last Values Urine pH (Auto) 6.5 01/15/25 15:15 Specific Monroe (Auto) 1.015 01/15/25 15:15 Urine Protein (Auto) 0 mg/dL 01/15/25 15:15 Glucose (UA)(Auto) 0 mg/dL 01/15/25 15:15 Urine Blood (Auto) 0 Asher/uL 01/15/25 15:15 Urine Bilirubin (Auto) 0 mg/dL 01/15/25 15:15 Urine Urobilinogen (Auto) 0.2 mg/dL 01/15/25 15:15 Leukocyte Esterase (Auto) 70 Arnulfo/uL 01/15/25 15:15 Assessment & Plan Assessment & Plan (1) Nocturia: Code(s): R35.1 - Nocturia Category: Medical (2) Renal cyst: Code(s): N28.1 - Cyst of kidney, acquired Category: Medical Plan In office urinalysis results with the patient today; as noted above. PVR 0 mL. We discussed bladder triggers/irritants. We discussed importance of continuing to limit fluids 2-3 hours prior to bed to decrease episodes of nocturia. She reports be happy with current voiding parameters. Will continue with surveillance monitoring at this time. We discussed further treatment options and risks and benefits of these treatment options. We discussed potential near future in office cystoscopy and or urodynamics for further assessment evaluation. Follow-up in 3-6 months with PVR; or sooner with any issues, concerns, and or questions. Orders: Orders AMB Post Void Residual by ultrasound Today R35.1 - Nocturia AMB Urinalysis Automated Today Z13.9 - Encounter for screening, unspecified Patient Instructions: The patient had an opportunity to ask questions regarding the treatment plan. All questions were answered. Physical exam, labs, and imaging were discussed and reviewed in detail. As well as risks, benefits, and discussion of treatment choices. No major barriers to understanding were identified. The patient expressed understanding and agreement with the above treatment plan. The patient was made aware they should contact our office by phone for worsening of their current condition, the appearance of new symptoms, or with any questions or concerns. Compliance is encouraged with any medications and follow up testing that is ordered. It is a privilege to be allowed the opportunity to participate in? your urological care.? Again, if you have any questions or concerns If you have any questions or concerns please do not hesitate to contact me. The office is [phone]. This note is constructed using voice recognition software. While every effort has been made to ensure accuracy blueprint processor errors may have been included. Yours sincerely, PAULINE Rivas Coding Level of Care Code Est Pt Level 3 (04795) Complex EM visit Add On G2211 Diagnoses Nocturia R35.1 Renal cyst N28.1 CPT Codes Post Residual Void - PVR CPT Code: 81231-Rmfj Void Residual by ultrasound ([id number])
--- OUTSIDE RECORDS SUMMARY | 2025-01-15 15:45 | XMS_ITS | Patient Health Record ---
Author Organization [facility] Address [address] [facility] [place] [address] Care Team Providers Care Wood Box Maker Name Role Phone La Zamora MD Primary Care Provider Unavailab Vee Crews Unavailable [phone] Allergies Allergen (clinical drug ingredient) Drug/Non Drug [...] Duration) Notes Start Date End Date Status Nxkbykny-Svoqusqvb-Pmjftlqe Not-Taking Nitro-Bid 2 % as directed Transdermal [...] Status W/U Status Risk Notes Problem Raynaud (218476511) Raynaud's syndrome without gangrene (I73.00) Active confirmed Problem Atherosclerosis of [place] arteries of the extremities (579423608961007) Atherosclerosis of [place] artery of both lower extremities, with unspecified presence of clinical manifestation (I70.203) Active confirmed Q7(A), Q8(2B), Q9(1B,2 C) Vital Signs Blood pressure diastolic 78 mm Hg 01/03/2025 Height 5 ft 7 in in 01/03/2025 Blood pressure systolic 150 mm Hg 01/03/2025 Weight 217 lbs 01/03/2025 BMI 33.98 kg/m2 01/03/2025 Procedures Procedure Date Ordered Date Performed Result Body Sit e 10092-OYEZGBR NAIL, 6 OR MORE 02/16/2024 N/A 36189-FEZQ SKIN LESIONS, OVER 4 02/16/2024 N/A 31112-HGMMDZJ NAIL, 6 OR MORE 04/19/2024 N/A 57749-DQGK SKIN LESIONS, OVER 4 04/19/2024 N/A 25513-XIIFVTH NAIL, 6 OR MORE 06/21/2024 N/A 52514-KETG SKIN LESIONS, OVER 4 06/21/2024 N/A 84045-GPXLDUL NAIL, 6 OR MORE 08/30/2024 N/A 38257-PRXZ SKIN LESIONS, OVER 4 08/30/2024 N/A 66877-DMULZFO NAIL, 6 OR MORE 11/01/2024 N/A 81896-IITG SKIN LESIONS, OVER 4 11/01/2024 N/A 02248-RCBAHFE NAIL, 6 OR MORE 01/03/2025 N/A 09680-Zymzskpr Plate 01/03/2025 N/A 52422-YGYY SKIN LESIONS, OVER 4 01/03/2025 N/A Encounters Encounter Location Date Provider Diagnosis [address] [address] 02/16/2024 Vee Black Unspecified atherosclerosis of [place] arteries of extremities, bilateral legs I70.203 ; Tinea unguium B35.1 ; Pain in right toe(s) M79.674 and Pain in left toe(s) M79.[address] [address] 04/19/2024 Vee Black Unspecified atherosclerosis of [place] arteries of extremities, bilateral legs I70.203 ; Neuritis of right foot G57.91 ; Tinea unguium B35.1 ; Pain in right toe(s) M79.674 ; Pain in left toe(s) M79.675 and Pain in right foot M79.[address] [address] 06/21/2024 Vee Black Neuritis of right fo ot G57.91 ; Pain in right foot M79.671 ; Atherosclerosis of [place] artery of both lower extremities, with unspecified presence of clinical manifestation I70.203 ; Tinea unguium B35.1 ; Pain in right toe(s) M79.674 and Pain in left toe(s) M79.[address] [address] 08/30/2024 Vee Black Atherosclerosis of [place] artery of both lower extremities, with unspecified presence of clinical manifestation I70.203 ; Tinea unguium B35.1 ; Pain in right toe(s) M79.674 and Pain in left toe(s) M79.[address] [address] 11/01/2024 Vee Black Atherosclerosis of [place] artery of both lower extremities, with unspecified presence of clinical manifestation I70.203 ; Tinea unguium B35.1 ; Pain in right toe(s) M79.674 and Pain in left toe(s) M79.675 [facility] [address] [place] [address] 01/03/2025 Vee Black Atherosclerosis of [place] artery of both lower extremities, with unspecified presence of clinical manifestation I70.203 ; Tinea unguium B35.1 ; Pain in right toe(s) M79.674 ; Pain in left toe(s) M79.675 and Ingrown nail L60.0 Assessments Encounter Date Diagnosis (ICD Code) Assessment Notes Treatment Notes Treatment Clinical Notes Section Notes 02/16/2024 Unspecified atherosclerosis of [place] arteries of extremities, bilateral legs (ICD-10 - I70.203) 04/19/2024 Unspecified atherosclerosis of [place] arteries of extremities, bilateral legs (ICD-10 - I70.203) 04/19/2024 Neuritis of right foot (ICD-10 - G57.91) 06/21/2024 Pain in right foot (ICD-10 - M79.671) 06/21/2024 Neuritis of right foot (ICD-10 - G57.91) Response to treatment - Improvement 08/30/2024 Tinea unguium (ICD-10 - B35.1) 08/30/2024 Atherosclerosis of [place] artery of both lower extremities, with unspecified presence of clinical manifestation (ICD-10 - I70.203) Q7(A), Q8(2B), Q9(1B,2C) 11/01/2024 Atherosclerosis of [place] artery of both lower extremities, with unspecified presence of clinical manifestation (ICD-10 - I70.203) Q7(A), Q8(2B), Q9(1B,2C) 01/03/2025 Atherosclerosis of [place] artery of both lower extremities, with unspecified presence of clinical manifestation (ICD-10 - I70.203) Q7(A), Q8(2B), Q9(1B,2C) 01/03/2025 Tinea unguium (ICD-10 - B35.1) 11/01/2024 Tinea unguium (ICD-10 - B35.1) 08/30/2024 Pain in right toe(s) (ICD-10 - M79.674) 06/21/2024 Atherosclerosis of [place] artery of both lower extremities, with unspecified [...] X ray : Foot, left 3V 11/10/2015 92785-JRDTMHR NAIL, 6 OR MORE 09/01/2015 99634-GXRZNYR NAIL, 6 OR MORE 11/10/2015 82504-BWZHXED NAIL, 6 OR MORE 01/13/2015 30841-YIOWYNH NAIL, 6 OR MORE 06/23/2015 34210-XFTUOSD NAIL, 6 OR MORE 05/27/2016 86418-CWHYSIW NAIL, 6 OR MORE 12/06/2013 91913-QJRIEQI NAIL, 6 OR MORE 03/11/2014 56569-TBZQDJK NAIL, 6 OR MORE 06/12/2014 34244-UQRPDZI NAIL, 6 OR MORE 09/04/2014 28700-QTQJFUO NAIL, 6 OR MORE 11/07/2014 54303-CIXWVKC NAIL, 6 OR MORE 04/21/2015 41152-XGDUSVE NAIL, 6 OR MORE 2016 74971-PNHOLNZ NAIL, 6 OR MORE 02/17/2017 12705-TKECLOZ NAIL, 6 OR MORE 04/21/2017 41910-QAUAGVB NAIL, 6 OR MORE 07/29/2016 87945-WBDZCFC NAIL, 6 OR MORE 10/11/2016 42663-PNQGMXG NAIL, 6 OR MORE 06/27/2017 58574-TYCAGLF NAIL, 6 OR MORE 09/08/2017 00632-HGCMCXP NAIL, 6 OR MORE 11/10/2017 83653-AHIBRQI NAIL, 6 OR MORE 01/12/2018 36654-QDRLLAM NAIL, 6 OR MORE 03/23/2018 87569-YWRZKUD NAIL, 6 OR MORE 05/25/2018 46801-QCRWWPD NAIL, 6 OR MORE 07/31/2018 21335-OYYLEUA NAIL, 6 OR MORE 10/02/2018 45691-TYSSOCO NAIL, 6 OR MORE 12/04/2018 40228-PXMBSJJ NAIL, 6 OR MORE 10/30/2020 96403-HVOEPXJ NAIL, 6 OR MORE 01/01/2021 79535-CAKQHCU NAIL, 6 OR MORE 03/12/2021 11018-WMGXCHQ NAIL, 6 OR MORE 05/15/2021 92787-PEJPIUG NAIL, 6 OR MORE 04/23/2019 85767-HIRETHG NAIL, 6 OR MORE 06/25/2019 94456-ZAOYSEL NAIL, 6 OR MORE 09/10/2019 67122-CLOOMMM NAIL, 6 OR MORE 11/21/2019 89773-FPIPMQD NAIL, 6 OR MORE 01/24/2020 97638-RPFHMTQ NAIL, 6 OR MORE 04/03/2020 07711-YZNZSFH NAIL, 6 OR MORE 06/16/2020 31772-OKJFDTM NAIL, 6 OR MORE 08/17/2021 79036-AQZAYDA NAIL, 6 OR MORE 08/18/2020 92814-FNRLSDJ NAIL, 6 OR MORE 11/26/2021 53522-TZXFVBC NAIL, 6 OR MORE 02/08/2022 48748-IUWNKFU NAIL, 6 OR MORE 04/12/2022 86306-XLOFUXQ NAIL, 6 OR MORE 06/14/2022 01743-OSCWJCZ NAIL, 6 OR MORE 08/16/2022 85919-BZVCPEL NAIL, 6 OR MORE 10/21/2022 57499-AAEXPNB NAIL, 6 OR MORE 12/23/2022 80677-UOLSTQG NAIL, 6 OR MORE 02/24/2023 01850-JMWUUGG NAIL, 6 OR MORE 04/28/2023 19240-UHZTRMD NAIL, 6 OR MORE 08/08/2023 80508-EQTLXEI NAIL, 6 OR MORE 10/13/2023 26154-WJQVCGO NAIL, 6 OR MORE 12/15/2023 51656-LIEWQZW NAIL, 6 OR MORE 02/16/2024 49950-QMFCCBG NAIL, 6 OR MORE 04/19/2024 77121-JSOUUSM NAIL, 6 OR MORE 06/21/2024 53537-BEOHJAL NAIL, 6 OR MORE 08/30/2024 37459-YGEXARU NAIL, 6 OR MORE 11/01/2024 27739-KTLYIQC NAIL, 6 OR MORE 01/03/2025 82585-CNQKFWS NAIL, 1-5 05/27/2016 95780-PLOUNQW NAIL, 1-5 01/12/2016 54138-RWNXMGH NAIL, 1-5 03/16/2016 13330-Tdle Destruction, -14 02/17/2017 06719-Cbin Destruction, -14 10/11/2016 69353-Rqlb Destruction, -14 2016 90965-Ggypmqfh Plate 2016 40743-Euttkcif Plate 04/21/2017 32487-Vgoqjudq Plate 06/27/2017 70648-Zotndkvr Plate 10/02/2018 70869-Hcphdeam Plate 07/31/2018 59318-Rallxqqo Plate 05/27/2016 08197-Chdnjegu Plate 12/06/2013 08134-Ulcuopof Plate 06/23/2015 60836-Hjhzlbcp Plate 04/21/2015 62176-Nbwoqbbi Plate 11/07/2014 10987-Msvusrdm Plate 01/13/2015 88046-Qchjqddv Plate 09/04/2014 11297-Tgktcawj Plate 06/12/2014 97004-Fbjomozu Plate 03/11/2014 07637-Epgfxxzn Plate 10/13/2023 61322-Hrkyhkay Plate 04/12/2022 29417-Hgkttpuj Plate 02/08/2022 54670-Xgcuzgkf Plate 11/26/2021 73356-Zwbvbncm Plate 04/03/2020 73715-Ftpfvrek Plate 09/10/2019 01857-Qnrsqcno Plate 03/12/2021 36370-Kqubibzm Plate 10/30/2020 24358-Ovkpberv Plate 06/16/2020 55247-Lqztyocb Plate 02/24/2023 46304-Mymguiqr Plate 01/03/2025 73629-Kyujhafr Plate Each Additional 39620-Ueqgypay Plate Each Additional 44541-Rrypverw Plate Each Additional 56871-Cwgyjvkn Plate Each Additional 95438-Quehjrqc Plate Each Additional 03573-Qleaaxnh Plate Each Additional 80989- Debride <25 sq cm 06/11/2016 96513- Debride <25 sq cm 12/03/2015 33042- Debride <25 sq cm 12/04/2018 16733- Debride <25 sq cm 03/23/2018 08712- Debride <25 sq cm 06/27/2017 98887- Debride <25 sq cm 04/21/2017 47254- Debride <25 sq cm 04/28/2023 16442- Debride <25 sq cm 02/08/2022 07582- Debride <25 sq cm 01/24/2020 87461- Debride <25 sq cm 01/01/2021 41214- Debride <25 sq cm 05/15/2021 23281- Debride <25 sq cm 08/17/2021 08851-SQLHKSI SKIN/TISSUE 11/07/2014 30788 I&D ABSCESS- SIMPLE,SINGLE 014 01393 I&D ABSCESS- SIMPLE,SINGLE 016 82851 I&D ABSCESS- SIMPLE,SINGLE 016 16504 I&D ABSCESS- SIMPLE,SINGLE 016 58298 I&D ABSCESS- SIMPLE,SINGLE 016 07426 I&D ABSCESS- SIMPLE,SINGLE 017 23659-EQYO SKIN LESIONS, OVER 4 12/05/19 19 97893-HSIB SKIN LESIONS, OVER 4 01/14/20 15 02575-TZGM SKIN LESIONS, OVER 4 04/21/20 15 21403-FFAB SKIN LESIONS, OVER 4 08/17/20 02371-RJFK SKIN LESIONS, OVER 4 05/15/20 05747-BCKQ SKIN LESIONS, OVER 4 03/12/20 44585-UHIT SKIN LESIONS, OVER 4 01/02/20 44203-PKAP SKIN LESIONS, OVER 4 08/18/20 20 55683-DQKV SKIN LESIONS, OVER 4 10/31/19 75105-PXVL SKIN LESIONS, OVER 4 02/13/20 19 39930-GXEZ SKIN LESIONS, OVER 4 04/03/20 76147-NLZY SKIN LESIONS, OVER 4 06/16/20 20 37100-WOLC SKIN LESIONS, OVER 4 11/21/19 62133-NUGF SKIN LESIONS, OVER 4 01/24/20 20 14507-GRXU SKIN LESIONS, OVER 4 06/25/20 19 69341-JMQL SKIN LESIONS, OVER 4 09/10/19 70930-IDEQ SKIN LESIONS, OVER 4 02/09/20 34803-PSAV SKIN LESIONS, OVER 4 11/27/19 62235-FIAN SKIN LESIONS, OVER 4 04/12/20 30557-VWZZ SKIN LESIONS, OVER 4 06/14/20 84088-USSV SKIN LESIONS, OVER 4 08/16/20 32767-PCBQ SKIN LESIONS, OVER 4 10/21/19 23 04426-MOII SKIN LESIONS, OVER 4 04/28/20 17526-SGSR SKIN LESIONS, OVER 4 02/25/20 23 41341-EYVG SKIN LESIONS, OVER 4 12/24/19 23 41029-YQRZ SKIN LESIONS, OVER 4 10/13/19 24 35969-AKNU SKIN LESIONS, OVER 4 08/08/20 23 52809-BKNF SKIN LESIONS, OVER 4 02/16/20 24 25047-HRKX SKIN LESIONS, OVER 4 12/15/19 24 98707-VXLP SKIN LESIONS, OVER 4 01/04/20 25 99079-OHUP SKIN LESIONS, OVER 4 11/02/19 25 98565-FKVB SKIN LESIONS, OVER 4 08/30/19 25 62917-OMRF SKIN LESIONS, OVER 4 06/21/20 24 86851-SAQK SKIN LESIONS, OVER 4 04/19/20 24 81414-CTJV SKIN LESIONS, 2 TO 4 10/02/19 19 38694-VVMF SKIN LESIONS, 2 TO 4 05/25/20 18 88413-XTJG SKIN LESIONS, 2 TO 4 07/31/20 18 43073-OLLM SKIN LESIONS, 2 TO 4 03/23/20 18 92558-WPXF SKIN LESIONS, 2 TO 4 01/13/20 18 37000-ZJZI SKIN LESIONS, 2 TO 4 09/08/19 18 00075-FHGF SKIN LESIONS, 2 TO 4 11/11/19 18 33865-Hlja. Subungual Hematoma 9 92872-OPNZCWZR OF HEMATOMA/FLUID 019 17293-OOFCSZEC OF HEMATOMA/FLUID 018 Next Appt Details Provider Name:Vee Ta , 05/16/2025 01:00:00 PM, [address] [place] [address], [phone], Provider Name:Vee Ta , 07/18/2025 01:00:00 PM, [address] [place] [address], [phone], Insurance Providers Payer Name Payer Address Payer Phone Subscriber Number Group Number Insured Name Patient Relationship to Insured Coverage Start Date Coverage End Date Medicare National [employer] [address] [place] [address] [id number] Lilo Bess Self - patient is the insured [employer] [address] [place] [address] [id number] Lilo Bess Self - patient is the [...]
--- OUTSIDE RECORDS SUMMARY | 2025-01-15 15:45 | XMS_ITS ---
Author Organization [facility] Address [address] [facility] [place] [address] Care Team Providers Care Registered Nurse Cardiac Name Role Phone La Zamora MD Primary Care Provider Unavailab Vee Crews Unavailable [phone] Allergies Allergen (clinical drug ingredient) Drug/Non Drug [...] at bedtime Orally Once a day Not-Taking Bykcztez-Ecfypufct-Vchhycji Not-Taking Nitro-Bid 2 % as directed Transdermal [...] Ordered Date Performed Result Body Sit e 27793-COEGCYE NAIL, 6 OR MORE 11/01/2024 N/A 92609-DKBZ SKIN LESIONS, OVER 4 11/01/2024 N/A Encounters Encounter Location Date Provider Diagnosis [facility] [address] [place] [address] 11/01/2024 Vee Black Atherosclerosis of [place] artery of both lower extremities, with unspecified presence of clinical manifestation I70.203 ; Tinea unguium B35.1 ; Pain in right toe(s) M79.674 and Pain in left toe(s) M79.675 Assessments Encounter Date Diagnosis (ICD Code) Assessment Notes Treatment Notes Treatment Clinical Notes Section Notes 11/01/2024 Atherosclerosis of [place] artery of both lower extremities, with unspecified presence of clinical manifestation (ICD-10 - I70.203) Q7(A), Q8(2B), Q9(1B,2C) 11/01/2024 Tinea unguium (ICD-10 - B35.1) 11/01/2024 Pain in right toe(s) (ICD-10 - M79.674) 11/01/2024 Pain in left toe(s) (ICD-10 - M79.675) Plan Of Treatment Pending Test Test Name Order Date 77094-OKOHDVO NAIL, 6 OR MORE 11/01/2024 60156-TIVY SKIN LESIONS, OVER 4 11/02/19 25 Next Appt Details Follow Up: prn, Reason: Provider Name:Vee Ta , 05/16/2025 01:00:00 PM, [address] [place] [address], [phone], Provider Name:Vee Ta , 07/18/2025 01:00:00 PM, [address] [place] [address], [phone], Procedure Notes * Category Sub-Category Detail Notes [...] of a nail nipper and/or dremel-type precision jig grinder, to a more viable healthy nail [...] to maintain effectiveness in symptomatic relief - 54023 Keratoma Treatment Parring or Cutting o f [...] instrumentation by the physician of record - 83986, Q8 Progress Notes * Lilo KAYE MDOB:1945 (78 yo F)Acc No.[id number]:11/01/2024 Progress Note Patient:?VARGASGricelan [place] Provider:?Vee Ta DPM :1945???Age:78 Y???Sex:Female D ate:11/01/2024 Address:[address] [place] [address] [phone] Pcp:La Zamora MD Subjective: * Chief Complaints: [...] able, cooking. ?Marital status: . 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 ???Drug/Alcohol:?AUDIT-C (Standard)?Did you have a drink [...] every 6 hrs Not-Taking/PRNFlax Seeds Baby Aspirin Chaodrfg-Zmyrxlzdg-Vrdxqykc Nitro-Bid 2 % Ointment as directed Transdermal apply bid to toes Iron 325 (65 Fe) MG Tablet 1 tablet Orally Once a day Flax Seeds Powder Orally Propranolol HCl ER Beads 80 MG Capsule Extended Release 24 Hour 1 capsule at bedtime Orally Once a day Medication List reviewed and reconciled with the patientNot-Taking/PRN Flax Seeds Not-Taking/PRN Baby Aspirin Not- Taking/PRN Zprapkck-Rkrvnvlun-Ugjvwkze Not-Taking/PRN Nitro-Bid 2 % Ointment as directed [...] (C):?absent, B/L.? Assessment: * Assessment: 1.?Atherosclerosis of [place] artery of both lower extremities, with unspecified presence of clinical manifestation - I70.203 (Primary)???Notes :Q7(A), Q8(2B), Q9(1B,2C)???2.?Tinea unguium - B35.1???3.?Pain in right toe(s) - M79.674???4.?Pain in left toe(s) - M79.675??? Plan: * Treatment: 2.?Tinea unguium?Procedure: 09879-NEBEQBL NAIL, 6 OR MORE * Procedures:?Debride Nail [...] of a nail nipper and/or dremel-type precision jig grinder, to a more viable healthy nail [...] to maintain effectiveness in symptomatic relief - 19899.?Keratoma Treatment:?Parring or Cutting of Benign Hyperkeratotic Lesion(s)?(-57) [...] instrumentation by the physician of record - 12256, Q8.? * Procedure Codes:?07721 DEBRI DE NAIL, 6 OR MORE, Modifiers: XS 36210 TRIM SKIN LESIONS, OVER 4, Modifiers: Q8 * Follow Up:?prn * Images: * Sign off status: Completed true * Provider:?Vee Ta DPM Date:?2024 Generated for Chastity mir/Janell/Yancy on:?01/15/2025 03:45 PM EDT History and Physical Notes * [...]
--- OUTSIDE RECORDS SUMMARY | 2025-01-15 15:45 | XMS_ITS ---
Author Organization [facility] Address [address] [facility] [place] [address] Care Team Providers Care Change Agent Name Role Phone La Zamora MD Primary Care Provider Unavailab Vee Crews Unavailable [phone] Allergies Allergen (clinical drug ingredient) Drug/Non Drug [...] Orally Not-Takin g Baby Aspirin Not-Dung ing Mrzgdbcw-Fgtmbccwc-Locgcdro Not-Taking Nitro-Bid 2 % as directed Transdermal [...] Ordered Date Performed Result Body Sit e 31916-JBQRSCG NAIL, 6 OR MORE 08/30/2024 N/A 18024-BITZ SKIN LESIONS, OVER 4 08/30/2024 N/A Encounters Encounter Location Date Provider Diagnosis [facility] [place] [address] [place] [address] 08/30/2024 Vee Ta Atherosclerosis of [place] artery of both lower extremities, with unspecified presence of clinical manifestation I70.203 ; Tinea unguium B35.1 ; Pain in right toe(s) M79.674 and Pain in left toe(s) M79.675 Assessments Encounter Date Diagnosis (ICD Code) Assessment Notes Treatment Notes Treatment Clinical Notes Section Notes 08/30/2024 Atherosclerosis of [place] artery of both lower extremities, with unspecified presence of clinical manifestation (ICD-10 - I70.203) Q7(A), Q8(2B), Q9(1B,2C) 08/30/2024 Tinea unguium (ICD-10 - B35.1) 08/30/2024 Pain in right toe(s) (ICD-10 - M79.674) 08/30/2024 Pain in left toe(s) (ICD-10 - M79.675) Plan Of Treatment Pending Test Test Name Order Date 18997-AOZDKYQ NAIL, 6 OR MORE 08/30/2024 85185-OGCZ SKIN LESIONS, OVER 4 08/30/19 25 Next Appt Details Follow Up: prn, Reason: Provider Name:Vee Ta , 05/16/2025 01:00:00 PM, [address] [place] [address], [phone], Provider Name:Vee Ta , 07/18/2025 01:00:00 PM, [address] [place] [address], [phone], Procedure Notes * Category Sub-Category Detail Notes [...] use of a nail nipper and/or dremel-type cast shell grinder, to a more viable healthy nail [...] to maintain effectiveness in symptomatic relief - 06760 Keratoma Treatment Parring or Cutting o f [...] instrumentation by the physician of record - 04577, Q8 Progress Notes * Lilo KAYE MDOB:1945 (78 yo F)Acc No.[id number]:08/30/2024 Progress Note Patient:?Lilo KAYE Provider:?Vee Ta DPM :1945???Age:78 Y???Sex:Female D ate:08/30/2024 Address:[address] [place] [address] [phone] Pcp:La Zamora MD Subjective: * Chief Complaints: [...] able, cooking. ?Marital status: . 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 * Medications:?TakinghydroCHLO ROthiazide 12.5 MG Tablet Orally [...] every 6 hrs Not-Taking/PRNFlax Seeds Baby Aspirin Udgoqlib-Nxhtugsaz-Jlplwskk Nitro-Bid 2 % Ointment as directed Transdermal apply bid to toes Iron 325 (65 Fe) MG Tablet 1 tablet Orally Once a day Flax Seeds Powder Orally Propranolol HCl ER Beads 80 MG Capsule Extended Release 24 Hour 1 capsule at bedtime Orally Once a day Medication List reviewed and reconciled with the patientNot-Taking/PRN Flax Seeds Not-Taking/PRN Baby Aspirin Not- Taking/PRN Hoeujwjd-Lvftfmxpb-Gociuvop Not-Taking/PRN Nitro-Bid 2 % Ointment as directed [...] Assessment: 1.?Tinea unguium - B35.1???2 .?Atherosclerosis of [place] artery of both lower extremities, with unspecified presence of clinical manifestation - I70.203 (Primary)???Notes :Q7(A), Q8(2B), Q9(1B,2C)???3.?Pain in right toe(s) - M79.674???4.?Pain in left toe(s) - M79.675??? Plan: * Treatment: 2.?Tinea unguium?Procedure: 95225-FSHKVUI NAIL, 6 OR MORE * Procedures:?Debride Nail [...] use of a nail nipper and/or dremel-type cast shell grinder, to a more viable healthy nail [...] to maintain effectiveness in symptomatic relief - 05668.?Keratoma Treatment:?Parring or Cutting of Benign Hyperkeratotic Lesion(s)?(-57) [...] instrumentation by the physician of record - 49446, Q8.? * Procedure Codes:?77261 DEBRI DE NAIL, 6 OR MORE, Modifiers: XS 08794 TRIM SKIN LESIONS, OVER 4, Modifiers: Q8 * Preventive Medicine:? ??Screening/Special Tests:?Fall Risk?Screening:?No falls in the past year * Follow Up:?prn * Images: * Sign off status: Completed true * Provider:?Vee Ta DPM Date:?2024 Generated for Chastity mir/Janell/eTransmitting on:?01/15/2025 03:45 PM EDT History and Physical [...]
--- OUTSIDE RECORDS SUMMARY | 2025-01-15 15:45 | XMS_ITS ---
Author Organization [facility] Address [address] [facility] [place] [address] Care Team Providers Care Prevention Coordinator Name Role Phone La Zamora MD Primary Care Provider Unavailab Vee Crews Unavailable [phone] Allergies Allergen (clinical drug ingredient) Drug/Non Drug [...] Duration) Notes Start Date End Date Status Fyejremr-Mfiarbnor-Fowrfkxa Not-Taking Nitro-Bid 2 % as directed Transdermal [...] Ordered Date Performed Result Body Sit e 41895-VGMCODS NAIL, 6 OR MORE 01/03/2025 N/A 52684-Ypjqwefn Plate 01/03/2025 N/A 75858-LEMP SKIN LESIONS, OVER 4 01/03/2025 N/A Encounters Encounter Location Date Provider Diagnosis [facility] [address] [place] [address] 01/03/2025 Vee Black Atherosclerosis of nisqu[place] artery of both lower extremities, with unspecified presence of clinical manifestation I70.203 ; Tinea unguium B35.1 ; Pain in right toe(s) M79.674 ; Pain in left toe(s) M79.675 and Ingrown nail L60.0 Assessments Encounter Date Diagnosis (ICD Code) Assessment Notes Treatment Notes Treatment Clinical Notes Section Notes 01/03/2025 Atherosclerosis of [place]qu[place] artery of both lower extremities, with unspecified presence of clinical manifestation (ICD-10 - I70.203) Q7(A), Q8(2B), Q9(1B,2C) 01/03/2025 Tinea unguium (ICD-10 - B35.1) 01/03/2025 Pain in right toe(s) (ICD-10 - M79.674) 01/03/2025 Pain in left toe(s) (ICD-10 - M79.675) 01/03/2025 Ingrown nail (ICD-10 - L60.0) Plan Of Treatment Pending Test Test Name Order Date 10833-XQACBST NAIL, 6 OR MORE 01/03/2025 49022-Xspsiaaq Plate 01/03/2025 10694-NDZS SKIN LESIONS, OVER 4 01/04/20 25 Next Appt Details Follow Up: 2 Weeks,prn, Reas on: Provider Name:Vee Ta , 05/16/2025 01:00:00 PM, [address] [place] [address], [phone], Provider Name:Vee Ta , 07/18/2025 01:00:00 PM, [address] [place] [address], [phone], Procedure Notes * Category Sub-Category Detail [...] was recommended for pain or discomfort - 98370,, CIRCULATION: Matricectomy deferred at this time due [...] use of a nail nipper and/or dremel-type computer numerical control grinder, to a more viable healthy nail [...] to maintain effectiveness in symptomatic relief - 70715 Keratoma Treatment Parring or Cutting o f [...] instrumentation by the physician of record - 08949, Q8 Progress Notes * Lilo KAYE MDOB:1945 (79 yo F)Acc No.[id number]:01/03/2025 Progress Note Patient:?Lilo KAYE Provider:?Vee Ta DPM :1945???Age:79 Y???Sex:Female D ate:01/03/2025 Address:[address] [place] [id number] Pcp:La Zamora MD Subjective: * Chief Complaints: [...] able, cooking. ?Marital status: . 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 * Medications:?TakinghydroCHLO ROthiazide 12.5 MG Tablet Orally [...] every 6 hrs Not-Taking/PRNFlax Seeds Baby Aspirin Nlaakoyz-Mmjjhkwbc-Rtkpiusx Nitro-Bid 2 % Ointment as directed Transdermal apply bid to toes Iron 325 (65 Fe) MG Tablet 1 tablet Orally Once a day Flax Seeds Powder Orally Propranolol HCl ER Beads 80 MG Capsule Extended Release 24 Hour 1 capsule at bedtime Orally Once a day Medication List reviewed and reconciled with the patientNot-Taking/PRN Flax Seeds Not-Taking/PRN Baby Aspirin Not- Taking/PRN Jvhsgtrm-Bwtrvbzkz-Rqbmrgym Not-Taking/PRN Nitro-Bid 2 % Ointment as directed [...] border, T5.? Assessment: * Assessment: 1.?Atherosclerosis of n[place]qu[place] artery of both lower extremities, with unspecified presence of clinical manifestation - I70.203 (Primary)???Notes :Q7(A), Q8(2B), Q9(1B,2C)???2.?Tinea unguium - B35.1???3.?Pain in right toe(s) - M79.674???4.?Pain in left toe(s) - M79.675???5.?Ingrown nail - L60.0??? Plan: * Treatment: 2.?Tinea unguium?Procedure: 08690-LHOZGIU NAIL, 6 OR MORE 3.?Ingrown nail?Procedure: 22192-Kfpwrpmc Plate * Procedures:?Debride Nail 6-10:?Nail debridement?Due to [...] use of a nail nipper and/or dremel-type computer numerical control grinder, to a more viable healthy nail [...] to maintain effectiveness in symptomatic relief - 00442.?Keratoma Treatment:?Parring or Cutting of Benign Hyperkeratotic Lesion(s)?(-57) [...] instrumentation by the physician of record - 85770, Q8.?Nail Avulsion:?Location?, Lateral nail border, T5.?Anesthesia?, 3cc [...] was recommended for pain or discomfort - 82402,, CIRCULATION: Matricectomy deferred at this time due to compromised circulation risk.? * Procedure Codes:?28108 DEBRI DE NAIL, 6 OR MORE, Modifiers: XS 56952 Avulsion Plate, Modifiers: T5 26888 TRIM SKIN LESIONS, OVER 4, Modifiers: Q8 * Follow Up:?2 Weeks,prn * Images: * Sign off status: Completed true * Provider:?Vee Ta DPM Date:?2024 Generated for Sanderi adeola/Janell/eTransmitting on:?01/15/2025 03:45 PM EDT History and Physical [...]
== END 2025-01-15 15:05 | disposition home or self-care (01) ==
LOC: HO.HUSH 14:18
PROVIDERS: PCP Family Medicine; Visit Provider Nurse Practitioner Family
DX: R35.1 Nocturia (principal); N28.1 Cyst of kidney, acquired; Z13.9 Encounter for screening, unspecified
CPT/HCPCS: 99213; G2211

== ENCOUNTER → 2025-01-15 14:17 | Outpatient (BNVA) | payer MEDICARE, SELFPAY | PROVIDERS: PCP Family Medicine; Visit Provider Nurse Practitioner Family | DX: R35.1 Nocturia (principal); N28.1 Cyst of kidney, acquired | CPT/HCPCS: 51798; 81003; 99212 ==

== ENCOUNTER 2025-01-24 09:33 | Outpatient (AMB) | payer MEDICARE, SELFPAY ==
--- OUTSIDE RECORDS SUMMARY | 2025-01-24 09:50 | XMS_ITS | Patient Health Record ---
Author Organization [facility] Address [address] [facility] [place] [address] Care Team Providers Care Motor Vehicle Light Assembler Name Role Phone La Zamora MD Primary Care Provider Unavailab Vee Crews Unavailable [phone] Allergies Allergen (clinical drug ingredient) Drug/Non Drug [...] Duration) Notes Start Date End Date Status Duafyuyc-Pcixhvndx-Oigxjvtk Not-Taking Nitro-Bid 2 % as directed Transdermal [...] Status W/U Status Risk Notes Problem Raynaud ([id number]) Raynaud's syndrome without gangrene (I73.00) Active confirmed Problem Atherosclerosis of mohegan arteries of the extremities ([id number]) Atherosclerosis of [place] artery of both lower extremities, with unspecified presence of clinical manifestation (I70.203) Active confirmed Q7(A), Q8(2B), Q9(1B,2 C) Vital Signs Blood pressure diastolic 78 mm Hg 01/03/2025 Height 5 ft 7 in in 01/03/2025 Blood pressure systolic 150 mm Hg 01/03/2025 Weight 217 lbs 01/03/2025 BMI 33.98 kg/m2 01/03/2025 Procedures Procedure Date Ordered Date Performed Result Body Sit e 56678-ELGCFLO NAIL, 6 OR MORE 02/16/2024 N/A 69721-QLXJ SKIN LESIONS, OVER 4 02/16/2024 N/A 05461-NCMNSFQ NAIL, 6 OR MORE 04/19/2024 N/A 60241-ZTON SKIN LESIONS, OVER 4 04/19/2024 N/A 33010-FYTAJBO NAIL, 6 OR MORE 06/21/2024 N/A 61115-DVFC SKIN LESIONS, OVER 4 06/21/2024 N/A 60796-RRBRWOU NAIL, 6 OR MORE 08/30/2024 N/A 32754-OJJJ SKIN LESIONS, OVER 4 08/30/2024 N/A 32580-AJBTKXO NAIL, 6 OR MORE 11/01/2024 N/A 17739-PUEL SKIN LESIONS, OVER 4 11/01/2024 N/A 57255-KAOHPBK NAIL, 6 OR MORE 01/03/2025 N/A 43701-Xbpdmpmb Plate 01/03/2025 N/A 11324-AHAD SKIN LESIONS, OVER 4 01/03/2025 N/A Encounters Encounter Location Date Provider Diagnosis [address] [address] 02/16/2024 Vee Black Unspecified atherosclerosis of mohegan arteries of extremities, bilateral legs I70.203 ; Tinea unguium B35.1 ; Pain in right toe(s) M79.674 and Pain in left toe(s) M79.[address] [address] 04/19/2024 Vee Black Unspecified atherosclerosis of mohegan arteries of extremities, bilateral legs I70.203 ; Neuritis of right foot G57.91 ; Tinea unguium B35.1 ; Pain in right toe(s) M79.674 ; Pain in left toe(s) M79.675 and Pain in right foot M79.[address] [address] 06/21/2024 Vee Black Neuritis of right fo ot G57.91 ; Pain in right foot M79.671 ; Atherosclerosis of mohe[place] artery of both lower extremities, with unspecified presence of clinical manifestation I70.203 ; Tinea unguium B35.1 ; Pain in right toe(s) M79.674 and Pain in left toe(s) M79.[address] [address] 08/30/2024 Vee Black Atherosclerosis of mohegan artery of both lower extremities, with unspecified presence of clinical manifestation I70.203 ; Tinea unguium B35.1 ; Pain in right toe(s) M79.674 and Pain in left toe(s) M79.[address] [address] 11/01/2024 Vee Black Atherosclerosis of mo[place]gan artery of both lower extremities, with unspecified presence of clinical manifestation I70.203 ; Tinea unguium B35.1 ; Pain in right toe(s) M79.674 and Pain in left toe(s) M79.675 [facility] [address] [place] [address] 01/03/2025 Vee Black Atherosclerosis of mohegan artery of both lower extremities, with unspecified presence of clinical manifestation I70.203 ; Tinea unguium B35.1 ; Pain in right toe(s) M79.674 ; Pain in left toe(s) M79.675 and Ingrown nail L60.0 Assessments Encounter Date Diagnosis (ICD Code) Assessment Notes Treatment Notes Treatment Clinical Notes Section Notes 02/16/2024 Unspecified atherosclerosis of mohegan arteries of extremities, bilateral legs (ICD-10 - I70.203) 04/19/2024 Unspecified atherosclerosis of mohegan arteries of extremities, bilateral legs (ICD-10 - I70.203) 04/19/2024 Neuritis of right foot (ICD-10 - G57.91) 06/21/2024 Pain in right foot (ICD-10 - M79.671) 06/21/2024 Neuritis of right foot (ICD-10 - G57.91) Response to treatment - Improvement 08/30/2024 Tinea unguium (ICD-10 - B35.1) 08/30/2024 Atherosclerosis of mohegan artery of both lower extremities, with unspecified presence of clinical manifestation (ICD-10 - I70.203) Q7(A), Q8(2B), Q9(1B,2C) 11/01/2024 Atherosclerosis of mohegan artery of both lower extremities, with unspecified presence of clinical manifestation (ICD-10 - I70.203) Q7(A), Q8(2B), Q9(1B,2C) 01/03/2025 Atherosclerosis of mohegan artery of both lower extremities, with unspecified presence of clinical manifestation (ICD-10 - I70.203) Q7(A), Q8(2B), Q9(1B,2C) 01/03/2025 Tinea unguium (ICD-10 - B35.1) 11/01/2024 Tinea unguium (ICD-10 - B35.1) 08/30/2024 Pain in right toe(s) (ICD-10 - M79.674) 06/21/2024 Atherosclerosis of mohegan artery of both lower extremities, with unspecified [...] X ray : Foot, left 3V 11/10/2015 73920-IIMHSNF NAIL, 6 OR MORE 09/01/2015 59406-NYXXPNY NAIL, 6 OR MORE 11/10/2015 47884-SVOJXAX NAIL, 6 OR MORE 01/13/2015 29745-SFMJNMR NAIL, 6 OR MORE 06/23/2015 27578-KTLUOTB NAIL, 6 OR MORE 05/27/2016 91441-ZTOSPBS NAIL, 6 OR MORE 12/06/2013 12279-CEAWCRV NAIL, 6 OR MORE 03/11/2014 01160-JDFDVZF NAIL, 6 OR MORE 06/12/2014 57369-XISZIHQ NAIL, 6 OR MORE 09/04/2014 27188-RQXWYOP NAIL, 6 OR MORE 11/07/2014 07455-JISRBCA NAIL, 6 OR MORE 04/21/2015 68126-THZTZGY NAIL, 6 OR MORE 2016 32173-YRDZKNI NAIL, 6 OR MORE 02/17/2017 15111-GTIMXEQ NAIL, 6 OR MORE 04/21/2017 24457-ROYZNWW NAIL, 6 OR MORE 07/29/2016 82613-VNFDAWD NAIL, 6 OR MORE 10/11/2016 49489-YYHAVPF NAIL, 6 OR MORE 06/27/2017 50927-DJYPKUH NAIL, 6 OR MORE 09/08/2017 30905-VCIGEPW NAIL, 6 OR MORE 11/10/2017 71729-SQIGIVI NAIL, 6 OR MORE 01/12/2018 07394-HPLYKFY NAIL, 6 OR MORE 03/23/2018 38189-YRDMEUW NAIL, 6 OR MORE 05/25/2018 55605-RGUXEWH NAIL, 6 OR MORE 07/31/2018 91236-MGEJTRB NAIL, 6 OR MORE 10/02/2018 76747-BIQHTBG NAIL, 6 OR MORE 12/04/2018 98693-SOGOJSF NAIL, 6 OR MORE 10/30/2020 32468-PCDSZON NAIL, 6 OR MORE 01/01/2021 79764-ZUDNYFF NAIL, 6 OR MORE 03/12/2021 73654-JKUCQHQ NAIL, 6 OR MORE 05/15/2021 85641-PMSXCQY NAIL, 6 OR MORE 04/23/2019 54986-PGFQAPK NAIL, 6 OR MORE 06/25/2019 73346-JATSDQB NAIL, 6 OR MORE 09/10/2019 46642-ZVLYOXW NAIL, 6 OR MORE 11/21/2019 18348-FYIRUNN NAIL, 6 OR MORE 01/24/2020 03281-LOUCTKU NAIL, 6 OR MORE 04/03/2020 83192-BWYZYVE NAIL, 6 OR MORE 06/16/2020 79912-TBTGRGU NAIL, 6 OR MORE 08/17/2021 45952-UCJGHUG NAIL, 6 OR MORE 08/18/2020 33018-WEQTVAS NAIL, 6 OR MORE 11/26/2021 24084-JWBZGSG NAIL, 6 OR MORE 02/08/2022 80187-XVIKLUL NAIL, 6 OR MORE 04/12/2022 02102-EQPDAUN NAIL, 6 OR MORE 06/14/2022 63241-DWEKVIX NAIL, 6 OR MORE 08/16/2022 27766-FGNUBHV NAIL, 6 OR MORE 10/21/2022 73093-DVPDSAE NAIL, 6 OR MORE 12/23/2022 63600-LWWGIYH NAIL, 6 OR MORE 02/24/2023 12999-KZWLYHC NAIL, 6 OR MORE 04/28/2023 78417-LKYIXLJ NAIL, 6 OR MORE 08/08/2023 76576-TNJYOCQ NAIL, 6 OR MORE 10/13/2023 80121-VRCYMJJ NAIL, 6 OR MORE 12/15/2023 80268-XYVWVTX NAIL, 6 OR MORE 02/16/2024 57832-AGUSHTQ NAIL, 6 OR MORE 04/19/2024 22358-FEFVOHS NAIL, 6 OR MORE 06/21/2024 14791-GILSFLA NAIL, 6 OR MORE 08/30/2024 65437-GLPFCIS NAIL, 6 OR MORE 11/01/2024 31083-TRULQSV NAIL, 6 OR MORE 01/03/2025 19916-DTWYPZR NAIL, 1-5 05/27/2016 95420-LMDUDSO NAIL, 1-5 01/12/2016 86823-RMLIZEZ NAIL, 1-5 03/16/2016 35993-Rfre Destruction, -14 02/17/2017 56293-Vlhk Destruction, -14 10/11/2016 99056-Nqoc Destruction, -14 2016 09134-Xuqcmzqx Plate 2016 23283-Cyqgbbcr Plate 04/21/2017 94149-Vwldreux Plate 06/27/2017 73611-Mkmepoap Plate 10/02/2018 77113-Vuwvxjsg Plate 07/31/2018 19978-Gmuwotwi Plate 05/27/2016 61044-Laginlmr Plate 12/06/2013 22573-Ibasgavd Plate 06/23/2015 25033-Phwdwjvl Plate 04/21/2015 77074-Fxfphicz Plate 11/07/2014 88956-Jnenxsjj Plate 01/13/2015 50648-Hebpwazh Plate 09/04/2014 33805-Lfmaxeic Plate 06/12/2014 51868-Nodccbky Plate 03/11/2014 24423-Gitjsxof Plate 10/13/2023 73456-Jmhquehf Plate 04/12/2022 07748-Fawlsbtj Plate 02/08/2022 12049-Grqhcots Plate 11/26/2021 76889-Qvbirlcl Plate 04/03/2020 89019-Gerrritr Plate 09/10/2019 02800-Nbfgmfny Plate 03/12/2021 26868-Xrjhfhbr Plate 10/30/2020 91493-Myluokcf Plate 06/16/2020 71596-Htbxvtbu Plate 02/24/2023 88286-Irgxalxq Plate 01/03/2025 95705-Taamdkyg Plate Each Additional 06432-Vxokcbhs Plate Each Additional 65409-Onjdzxqk Plate Each Additional 59107-Rcymmyoz Plate Each Additional 04081-Bdujsskw Plate Each Additional 09320-Uavuueit Plate Each Additional 10992- Debride <25 sq cm 06/11/2016 32076- Debride <25 sq cm 12/03/2015 78551- Debride <25 sq cm 12/04/2018 22168- Debride <25 sq cm 03/23/2018 67186- Debride <25 sq cm 06/27/2017 80545- Debride <25 sq cm 04/21/2017 37732- Debride <25 sq cm 04/28/2023 71431- Debride <25 sq cm 02/08/2022 92578- Debride <25 sq cm 01/24/2020 52481- Debride <25 sq cm 01/01/2021 75172- Debride <25 sq cm 05/15/2021 19289- Debride <25 sq cm 08/17/2021 55797-RTMCFVW SKIN/TISSUE 11/07/2014 09910 I&D ABSCESS- SIMPLE,SINGLE 014 33708 I&D ABSCESS- SIMPLE,SINGLE 016 84325 I&D ABSCESS- SIMPLE,SINGLE 016 96249 I&D ABSCESS- SIMPLE,SINGLE 016 77001 I&D ABSCESS- SIMPLE,SINGLE 016 51334 I&D ABSCESS- SIMPLE,SINGLE 017 89691-LZFT SKIN LESIONS, OVER 4 12/05/19 19 02665-NNLU SKIN LESIONS, OVER 4 01/14/20 15 18905-UNQI SKIN LESIONS, OVER 4 04/21/20 15 54653-FLFP SKIN LESIONS, OVER 4 08/17/20 24100-MZFE SKIN LESIONS, OVER 4 05/15/20 92482-EZZL SKIN LESIONS, OVER 4 03/12/20 09149-HZZT SKIN LESIONS, OVER 4 01/02/20 01090-QJOP SKIN LESIONS, OVER 4 08/18/20 20 97627-RNHO SKIN LESIONS, OVER 4 10/31/19 78390-MLSU SKIN LESIONS, OVER 4 02/13/20 19 91144-GJFT SKIN LESIONS, OVER 4 04/03/20 00358-OIAY SKIN LESIONS, OVER 4 06/16/20 20 67794-YZSI SKIN LESIONS, OVER 4 11/21/19 68729-GLAH SKIN LESIONS, OVER 4 01/24/20 20 89369-UTGW SKIN LESIONS, OVER 4 06/25/20 19 02395-SDAF SKIN LESIONS, OVER 4 09/10/19 04396-PPJM SKIN LESIONS, OVER 4 02/09/20 97773-YGEX SKIN LESIONS, OVER 4 11/27/19 65213-FQVZ SKIN LESIONS, OVER 4 04/12/20 76660-OHVR SKIN LESIONS, OVER 4 06/14/20 86862-UHFP SKIN LESIONS, OVER 4 08/16/20 71212-MKQH SKIN LESIONS, OVER 4 10/21/19 23 68586-BZKB SKIN LESIONS, OVER 4 04/28/20 92433-ACUI SKIN LESIONS, OVER 4 02/25/20 23 17885-TENJ SKIN LESIONS, OVER 4 12/24/19 23 89986-OOZI SKIN LESIONS, OVER 4 10/13/19 24 98546-ZSXC SKIN LESIONS, OVER 4 08/08/20 23 45389-BPLO SKIN LESIONS, OVER 4 02/16/20 24 33354-PENV SKIN LESIONS, OVER 4 12/15/19 24 62015-MLYK SKIN LESIONS, OVER 4 01/04/20 25 49954-LGTK SKIN LESIONS, OVER 4 11/02/19 25 98216-YXKE SKIN LESIONS, OVER 4 08/30/19 25 48848-DMLI SKIN LESIONS, OVER 4 06/21/20 24 10305-JSHG SKIN LESIONS, OVER 4 04/19/20 24 04363-VIYV SKIN LESIONS, 2 TO 4 10/02/19 19 37773-ZRKN SKIN LESIONS, 2 TO 4 05/25/20 18 64732-YPQV SKIN LESIONS, 2 TO 4 07/31/20 18 12375-ASAG SKIN LESIONS, 2 TO 4 03/23/20 18 62159-IPHO SKIN LESIONS, 2 TO 4 01/13/20 18 59696-CJOV SKIN LESIONS, 2 TO 4 09/08/19 18 31242-JLTJ SKIN LESIONS, 2 TO 4 11/11/19 18 62178-Bsap. Subungual Hematoma 9 38269-DPDYTZKD OF HEMATOMA/FLUID 019 23280-DWRIBMLK OF HEMATOMA/FLUID 018 Next Appt Details Provider Name:Vee Ta , 05/16/2025 01:00:00 PM, [address] [place] [address], [phone], Provider Name:Vee Ta , 07/18/2025 01:00:00 PM, [address] [place] [address], [phone], Insurance Providers Payer Name Payer Address Payer Phone Subscriber Number Group Number Insured Name Patient Relationship to Insured Coverage Start Date Coverage End Date Medicare National Govt S[employer] [address] [place] [address] [id number] Lilo Bess Self - patient is the insured [employer] [address] [place] [address] [id number] Lilo Bess Self - patient is the [...]
--- NOTE | 2025-01-24 10:03 | A.OFFVIS_ITS ---
Vital Signs 01/24/25 10:07 Height 5 ft 6 in Weight 219 lb 9.286 oz BMI 35.4 BP 120/62 Blood Pressure Location Rt brachial Position Sitting Pulse 60 Pulse Source Monitor Intake Visit Reasons: f/u holter results Certified Nurse Practitioner Required: No Accompanied by: Significant Other Allergies shellfish derived [shellfish] Allergy (Severe, Verified 01/15/25 21:33) Anaphylaxis Penicillins Allergy (Intermediate, Verified 01/15/25 21:33) Itching diclofenac [From Voltaren] Allergy (Mild, Verified 01/15/25 21:33) HIVES adhesive tape Adverse Reaction (Intermediate, Verified 01/15/25 21:33) blisters codeine [Codeine] Adverse Reaction (Intermediate, Verified 01/15/25 21:33) SYNCOPE,ABD PAIN erythromycin base [Erythromycin Base] Adverse Reaction (Mild, Verified 01/15/25 21:33) ABDOMINAL PAIN Medication List - Last Reconciled 01/24/25 by Dudley May MD acetaminophen ER (Tylenol Arthritis Pain) 650 mg PO Q12H PRN hydrochlorothiazide 12.5 mg PO QAM levothyroxine 50 mcg PO QAM walker Folding front wheeled walker HPI Comments Details: Lilo returns for follow-up. Recently seen in consultation regarding preoperative risk stratification before knee surgery. She does not have any pre vious cardiac history. No known coronary disease or myocardial infarction or cardiomyopathy. Otherwise, within limits of her activity she does not have any clear-cut symptoms like angina or shortness of breath. However, activities limited because of knee pain. She has a cane for ambulation. [facility] Medical History History of blood transfusion Anesthesia complication Uterine cancer GERD (gastroesophageal reflux disease) Murmur Lower extremity edema Eczema Chronic renal insufficiency Hiatal hernia Raynauds disease Hypothyroid Diverticulosis Coronary artery calcification seen on CAT scan PAD (peripheral artery disease) Anemia Varicose vein of leg Lymphedema Renal cyst Heart block Arthritis Hypertension Surgical History H/O colonoscopy History of excision of pilonidal cyst Hx of tonsillectomy History of bilateral total hip arthroplasty H/O: hysterectomy H/O thyroidectomy Social History Are you a primary child care attendant school to a significant other at home: No Do you presently have visiting nurse or other home services: No Patient Tobacco Use Status: Former Tobacco user Tobacco use type: Cigarette Years Smoked: 5 Current occupational status: retired Current occupation: right handed Review of Systems Const Denies chills, Denies fatigue, Denies fever(s), Denies frequent falls, Denies weakness, Denies weight gain and Denies weight loss ENT Denies dizziness Card Denies chest pain, Denies leg edema, Denies lightheadedness, Denies palpitations, Denies dyspnea and Denies dyspnea on exertion Resp Denies cough, Denies dyspnea and Denies dyspnea on exertion GI Denies hematochezia Musc Denies abnormal gait, Denies muscle weakness, Denies numbness, Denies radiating pain into limb and Denies tingling Neuro Denies abnormal gait, Denies dizziness, Denies frequent falls, Denies numbness, Denies tingling and Denies weakness Endo Denies fatigue and Denies palpitations Physical Exam Vital Signs: Last Vital Signs Pulse 60 01/24/25 10:07 BP 120/62 01/24/25 10:07 BMI result Body Mass Index 35.4 Const General: comfortable and no acute distress Orientation/consciousness: patient oriented x3 HEENT Other: Unremarkable Head: Yes normal to inspection Neck Neck: Yes normal visual inspection Chest Chest palpation & inspection: normal inspection of the chest Resp Auscultation: clear to auscultation bilaterally Cardio Palpation: normal PMI Heart sounds: S1 normal heart sound present, S2 normal heart sound present, no gallops, Murmur heart sound present systolic III/ and at the right sternal border and no rubs GI Palpation (GI): Soft to palpation Back/Spine/Pelvis Other: unremarkable Skin General skin exam: no rashes or lesions noted Neuro General: patient oriented x3 Extrem General: Yes normal to inspection Psych Mental Status: mental status grossly normal Office Procedures EKG Details: EKG with underlying sinus rhythm at 60/Min; IA prolongation to 316 milliseconds; left anterior fascicular block and right bundle-branch block. 40493-Bvqkbrvqhlaepgvoq, Complete Assessment & Plan Assessment & Plan (1) Heart block: Code(s): I45.9 - Conduction disorder, unspecified Category: Medical Plan: In the recent EKG from [facility], there is evidence of markedly prolonged IA to 472 millisecond; right bundle-branch block and left anterior fascicular block- bifascicular block. Today's EKG, IA interval is somewhat shorter but still has a bifascicular block. 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 Discussed with Dr. Agrawal, electrophysiology. Plan is for permanent pacemaker. Echocardiogram-LVEF 65-70%. Evidence of some septal hypertrophy with increased gradients across the LVOT but no dynamic obstruction. Mild aortic valve calcification but no significant stenosis. Moderate mitral annular calcification. (2) Preoperative cardiovascular examination: Code(s): Z01.810 - Encounter for preprocedural cardiovascular examination Category: Medical Plan: Can hold surgery until the pacemaker is completed. Coding Level of Care Code Est Pt Level 4 (71443) Complex EM visit Add On G2211 Diagnoses Heart block I45.9 Preoperative cardiovascular examination Z01.810 CPT Codes EKG - CPT: 09001-Taddsueymoqgmcsyn, Complete ([id number])
[2025-01-24 10:07] VITALS: BP 120/62; PULSE 60; BMI 35.4
== END 2025-01-24 10:30 | disposition home or self-care (01) ==
LOC: HO.HCS 09:33
PROVIDERS: PCP Family Medicine; Visit Provider Internal Medicine
DX: I45.9 Conduction disorder, unspecified (principal); Z01.810 Encounter for preprocedural cardiovascular examination
CPT/HCPCS: 93010; 99214; G2211

== ENCOUNTER → 2025-01-24 09:33 | Outpatient (BNVA) | payer MEDICARE, SELFPAY | PROVIDERS: PCP Family Medicine; Visit Provider Internal Medicine | DX: Z01.810 Encounter for preprocedural cardiovascular examination (principal); I45.9 Conduction disorder, unspecified; I44.0 Atrioventricular block, first degree; I45.2 Bifascicular block; R94.31 Abnormal electrocardiogram [ECG] [EKG] | CPT/HCPCS: 93005; 99212 ==

== ENCOUNTER 2025-02-14 13:46 | Outpatient (AMB) | payer MEDICARE, SELFPAY ==
--- NOTE | 2025-02-14 14:04 | A.OFFVIS_ITS ---
Vital Signs 02/14/25 14:08 Height 5 ft 6 in Weight 217 lb 13.067 oz BMI 35.2 BP 100/62 Blood Pressure Location Lt brachial Position Sitting Pulse 69 Pulse Source Pulse Oximeter Intake Visit Reasons: 2wk f/up-pacemaker placement 01/29 st [facility] Channel Installer Required: No Accompanied by: Significant Other Allergies shellfish derived (shellfish) Allergy (Severe, Verified 01/15/25 21:33) Anaphylaxis Penicillins Allergy (Intermediate, Verified 01/15/25 21:33) Itching diclofenac (From Voltaren) Allergy (Mild, Verified 01/15/25 21:33) HIVES adhesive tape Adverse Reaction (Intermediate, Verified 01/15/25 21:33) blisters codeine (Codeine) Adverse Reaction (Intermediate, Verified 01/15/25 21:33) SYNCOPE,ABD PAIN erythromycin base (Erythromycin Base) Adverse Reaction (Mild, Verified 01/15/25 21:33) ABDOMINAL PAIN HPI Comments Details: This is an 79-year-old female patient coming in for a follow-up status post pacemaker implantation. Patient was recently seen for a preoperative cardiac evaluation for a murmur and AV block on EKG that was noted at her preoperative orthopedic visit. Following this, patient underwent echo and a Holter study. 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 Patient had the pacemaker placed with Dr. Mehnaz Juan on 01/29/2025. Today, patient reports feeling well overall and denies any cardiac symptoms including exertional chest pain, shortness of breath, palpitations, dizziness, orthopnea, PND, leg edema, presyncope, or syncope. Patient is asking if she it is okay for her to proceed with a left knee replacement. [facility] Medical History History of blood transfusion Anesthesia complication Uterine cancer GERD (gastroesophageal reflux disease) Murmur Lower extremity edema Eczema Chronic renal insufficiency Hiatal hernia Raynauds disease Hypothyroid Diverticulosis Coronary artery calcification seen on CAT scan PAD (peripheral artery disease) Anemia Varicose vein of leg Lymphedema Renal cyst Heart block Arthritis Hypertension Surgical History H/O colonoscopy History of excision of pilonidal cyst Hx of tonsillectomy History of bilateral total hip arthroplasty H/O: hysterectomy H/O thyroidectomy Social History Are you a primary director of primary care to a significant other at home: No Do you presently have visiting nurse or other home services: No Patient Tobacco Use Status: Former Tobacco user Tobacco use type: Cigarette Years Smoked: 5 Current occupational status: retired Current occupation: right handed Review of Systems Const Denies chills, Denies fatigue, Denies fever(s), Denies frequent falls, Denies weakness, Denies weight gain and Denies weight loss ENT Denies dizziness Card Denies chest pain, Denies leg edema, Denies lightheadedness, Denies palpitations, Denies dyspnea and Denies dyspnea on exertion Resp Denies cough, Denies dyspnea and Denies dyspnea on exertion GI Denies hematochezia Musc Denies abnormal gait, Denies muscle weakness, Denies numbness, Denies radiating pain into limb and Denies tingling Neuro Denies abnormal gait, Denies dizziness, Denies frequent falls, Denies numbness, Denies tingling and Denies weakness Endo Denies fatigue and Denies palpitations Physical Exam Vital Signs: Last Vital Signs Pulse 69 02/14/25 14:08 BP 100/62 02/14/25 14:08 BMI result Body Mass Index 35.2 Const General: cooperative, healthy appearing, comfortable and no acute distress Orientation/consciousness: patient oriented x3 HEENT Head: Yes normal to inspection Neck Neck: Yes normal visual inspection, Yes trachea midline and Yes supple Chest Chest palpation & inspection: normal inspection of the chest Resp Effort & Inspection: normal respiratory effort Auscultation: clear to auscultation bilaterally, no crackles, no rales, no rhonc hi and no wheezes Cardio Jugular venous distension: no JVD Palpation: normal PMI Rate: regular rate Rhythm: regular rhythm Heart sounds: S1 normal heart sound present, S2 normal heart sound present, no click, no gallops, no murmurs and no rubs Peripheral pulses: Peripheral pulses 2+ throughout GI Inspection: Yes normal to inspection Palpation (GI): Soft to palpation Auscultation: normal bowel sounds Skin General skin exam: no rashes or lesions noted Neuro General: patient oriented x3 Extrem General: Yes normal to inspection, No no pedal edema and No calf tenderness Psych Appearance: grossly normal Mental Status: mental status grossly normal Speech and movement: Normal speech and movement present Office Procedures Cardiac Device Check Cardiac Device Check Details: [employer] dual-chamber permanent pacemaker showed battery life of 10.4 years, DDD mode with low rate of 60 beats per minute, atrial threshold 0.625 volts at 0.4 milliseconds, ventricular threshold at 0.75 at 0.4 milliseconds, a pacing 44%, v pacing 98%. 68998-Wiurvjk Device Interrogation, pacemaker Procedure code (CPT) selection complete Assessment & Plan Assessment & Plan (1) Heart block: Code(s): I45.9 - Conduction disorder, unspecified Category: Medical Plan: On EKG at [facility], it was noted that patient had evidence of prolonged CT to 472 milliseconds and bifascicular block. Following this patient underwent a Holter study that baseline sinus rhythm with average heart rate of 56 beats per minute, first-degree AV block noted with occasional atrioventricular Wenckebach with the occasional Mobitz type 1 second-degree AV block with junctional escapes. Patient is now status post permanent pacemaker implantation. (2) Status post cardiac pacemaker procedure: Comment: 01/29/[address] Vides at [facility] Code(s): Z95.0 - Presence of cardiac pacemaker Category: Surgical Plan: [employer]'s dual-chamber permanent pacemaker. We will follow patient remotely. Left anterior chest with a pacemaker insertion site is well healed and is clean dry intact. (3) Non-rheumatic aortic stenosis: Code(s): I35.0 - Nonrheumatic aortic (valve) stenosis Category: Medical Plan: 01/10/2025-echo study showed a normal ejection fraction between 65-70% with mild asymmetric septal hypertrophy with mild obstructive physiology without dynamic obstruction, mildly dilated left atrium, moderate calcification of the mitral valve, and mildly dilated ascending aorta. Clinically stable. Discussed in detail signs and symptoms to look for with . We we will monitor with repeat echoes periodically. (4) Preoperative cardiovascular examination: Code(s): Z01.810 - Encounter for preprocedural cardiovascular examination Category: Medical Plan: Patient can now proceed with her left knee replacement after the 1st week of February with the consideration that patient is at intermediate cardiac risk. Follow-up in 6 months with a device check. In the interim, patient will call the office with any concerns or change in symptoms. This note was generated using voice recognition software. While every effort has been made to ensure accuracy and proper geothermal heat pump machinist, there may be occasional errors that could affect the content or meaning of the described symptoms. Coding Level of Care Code Est Pt Level 4 (68558) Complex EM visit Add On G2211 Diagnoses Heart block I45.9 Status post cardiac pacemaker procedure Z95.0 Non-rheumatic aortic stenosis I35.0 Preoperative cardiovascular examination Z01.810 CPT Codes Cardiac Device Check - Cardiac Device 8: 58361-Jqsfemj Device Interrogation, pacemaker ([id number]) Time Spent (min) 32 Comment Time spent in reviewing the chart, test results, assessment, counseling and documentation.
[2025-02-14 14:08] VITALS: BP 100/62; PULSE 69; BMI 35.2
--- OUTSIDE RECORDS SUMMARY | 2025-02-14 14:59 | XMS_ITS | Patient Health Record ---
[facility] Address [address] [facility] [place] [address] Care Team Providers Care Load Out Person Name Role Phone La Zamora MD Primary Care Provider Unavailab Vee Crews Unavailable [phone] Allergies Allergen (clinical drug ingredient) Drug/Non Drug [...] Duration) Notes Start Date End Date Status Ewxaknsj-Ompvvptrv-Sugrflfj Not-Taking Nitro-Bid 2 % as directed Transdermal [...] Status W/U Status Risk Notes Problem Raynaud ([id number]) Raynaud's syndrome without gangrene (I73.00) Active confirmed Problem Atherosclerosis of kiana arteries of the extremities (716745076051371) Atherosclerosis of kiana artery of both lower extremities, with unspecified presence of clinical manifestation (I70.203) Active confirmed Q7(A), Q8(2B), Q9(1B,2 C) Vital Signs Blood pressure diastolic 78 mm Hg 01/03/2025 Height 5 ft 7 in in 01/03/2025 Blood pressure systolic 150 mm Hg 01/03/2025 Weight 217 lbs 01/03/2025 BMI 33.98 kg/m2 01/03/2025 Procedures Procedure Date Ordered Date Performed Result Body Sit e 56235-SIAOGHM NAIL, 6 OR MORE 02/16/2024 N/A 94984-ELTO SKIN LESIONS, OVER 4 02/16/2024 N/A 95201-TFHNNBN NAIL, 6 OR MORE 04/19/2024 N/A 92747-XSMV SKIN LESIONS, OVER 4 04/19/2024 N/A 56054-WFUKELF NAIL, 6 OR MORE 06/21/2024 N/A 79130-MOHV SKIN LESIONS, OVER 4 06/21/2024 N/A 83984-ONMMIBO NAIL, 6 OR MORE 08/30/2024 N/A 56877-FLHL SKIN LESIONS, OVER 4 08/30/2024 N/A 56189-MITSTOQ NAIL, 6 OR MORE 11/01/2024 N/A 39429-DKZE SKIN LESIONS, OVER 4 11/01/2024 N/A 13818-LZNLQUM NAIL, 6 OR MORE 01/03/2025 N/A 48980-Nugjqhan Plate 01/03/2025 N/A 38232-KYTP SKIN LESIONS, OVER 4 01/03/2025 N/A Encounters Encounter Location Date Provider Diagnosis [address] [address] 02/16/2024 Vee Black Unspecified atherosclerosis of kiana arteries of extremities, bilateral legs I70.203 ; Tinea unguium B35.1 ; Pain in right toe(s) M79.674 and Pain in left toe(s) M79.[address] [address] 04/19/2024 Vee Black Unspecified atherosclerosis of kiana arteries of extremities, bilateral legs I70.203 ; Neuritis of right foot G57.91 ; Tinea unguium B35.1 ; Pain in right toe(s) M79.674 ; Pain in left toe(s) M79.675 and Pain in right foot M79.[address] [address] 06/21/2024 Vee Black Neuritis of right fo ot G57.91 ; Pain in right foot M79.671 ; Atherosclerosis of kiana artery of both lower extremities, with unspecified presence of clinical manifestation I70.203 ; Tinea unguium B35.1 ; Pain in right toe(s) M79.674 and Pain in left toe(s) M79.[address] [address] 08/30/2024 Vee Black Atherosclerosis of kiana artery of both lower extremities, with unspecified presence of clinical manifestation I70.203 ; Tinea unguium B35.1 ; Pain in right toe(s) M79.674 and Pain in left toe(s) M79.[address] [address] 11/01/2024 Vee Black Atherosclerosis of kiana artery of both lower extremities, with unspecified presence of clinical manifestation I70.203 ; Tinea unguium B35.1 ; Pain in right toe(s) M79.674 and Pain in left toe(s) M79.675 [facility] [place] [address] [place] [address] 01/03/2025 Vee Black Atherosclerosis of kiana artery of both lower extremities, with unspecified presence of clinical manifestation I70.203 ; Tinea unguium B35.1 ; Pain in right toe(s) M79.674 ; Pain in left toe(s) M79.675 and Ingrown nail L60.0 Assessments Encounter Date Diagnosis (ICD Code) Assessment Notes Treatment Notes Treatment Clinical Notes Section Notes 02/16/2024 Unspecified atherosclerosis of kiana arteries of extremities, bilateral legs (ICD-10 - I70.203) 04/19/2024 Unspecified atherosclerosis of kiana arteries of extremities, bilateral legs (ICD-10 - I70.203) 04/19/2024 Neuritis of right foot (ICD-10 - G57.91) 06/21/2024 Pain in right foot (ICD-10 - M79.671) 06/21/2024 Neuritis of right foot (ICD-10 - G57.91) Response to treatment - Improvement 08/30/2024 Tinea unguium (ICD-10 - B35.1) 08/30/2024 Atherosclerosis of kiana artery of both lower extremities, with unspecified presence of clinical manifestation (ICD-10 - I70.203) Q7(A), Q8(2B), Q9(1B,2C) 11/01/2024 Atherosclerosis of kiana artery of both lower extremities, with unspecified presence of clinical manifestation (ICD-10 - I70.203) Q7(A), Q8(2B), Q9(1B,2C) 01/03/2025 Atherosclerosis of kiana artery of both lower extremities, with unspecified presence of clinical manifestation (ICD-10 - I70.203) Q7(A), Q8(2B), Q9(1B,2C) 01/03/2025 Tinea unguium (ICD-10 - B35.1) 11/01/2024 Tinea unguium (ICD-10 - B35.1) 08/30/2024 Pain in right toe(s) (ICD-10 - M79.674) 06/21/2024 Atherosclerosis of kiana artery of both lower extremities, with unspecified [...] X ray : Foot, left 3V 11/10/2015 74504-MPWOISV NAIL, 6 OR MORE 09/01/2015 98647-UQZWNHW NAIL, 6 OR MORE 11/10/2015 56139-XMDNRLY NAIL, 6 OR MORE 01/13/2015 28944-SUKDPFE NAIL, 6 OR MORE 06/23/2015 36046-JRYMWKA NAIL, 6 OR MORE 05/27/2016 44727-CYZPLHA NAIL, 6 OR MORE 12/06/2013 80705-XJASPYW NAIL, 6 OR MORE 03/11/2014 56448-EFDGELK NAIL, 6 OR MORE 06/12/2014 10489-FNQAARL NAIL, 6 OR MORE 09/04/2014 96155-EMRPXYC NAIL, 6 OR MORE 11/07/2014 58328-CHHPYTY NAIL, 6 OR MORE 04/21/2015 25948-XFUKLWU NAIL, 6 OR MORE 2016 00968-MSNKFII NAIL, 6 OR MORE 02/17/2017 49632-IJZESDN NAIL, 6 OR MORE 04/21/2017 90012-PNOBQRC NAIL, 6 OR MORE 07/29/2016 90790-TSUEDEW NAIL, 6 OR MORE 10/11/2016 57135-XXXGOCH NAIL, 6 OR MORE 06/27/2017 30335-EBVSURO NAIL, 6 OR MORE 09/08/2017 71235-YZMJGGG NAIL, 6 OR MORE 11/10/2017 48118-PFUIFWV NAIL, 6 OR MORE 01/12/2018 26990-FQSACOF NAIL, 6 OR MORE 03/23/2018 84992-EMJMSSS NAIL, 6 OR MORE 05/25/2018 11086-TEXEEXQ NAIL, 6 OR MORE 07/31/2018 82437-RALEWVB NAIL, 6 OR MORE 10/02/2018 49492-EOGMTOA NAIL, 6 OR MORE 12/04/2018 89324-BSOSADT NAIL, 6 OR MORE 10/30/2020 98758-JUUFZLJ NAIL, 6 OR MORE 01/01/2021 71073-QKMAOII NAIL, 6 OR MORE 03/12/2021 93181-RGLVWKQ NAIL, 6 OR MORE 05/15/2021 28436-LYLNVWX NAIL, 6 OR MORE 04/23/2019 10683-GFYARQU NAIL, 6 OR MORE 06/25/2019 40991-SRZIPYN NAIL, 6 OR MORE 09/10/2019 88577-BKEWPJL NAIL, 6 OR MORE 11/21/2019 41152-AZXCOZH NAIL, 6 OR MORE 01/24/2020 56348-NKOZHSC NAIL, 6 OR MORE 04/03/2020 23024-NHTNLMN NAIL, 6 OR MORE 06/16/2020 45696-HTZHLET NAIL, 6 OR MORE 08/17/2021 26888-ASGCZNW NAIL, 6 OR MORE 08/18/2020 20368-BKLWWQO NAIL, 6 OR MORE 11/26/2021 76472-BYOHOIN NAIL, 6 OR MORE 02/08/2022 27763-CEAYXMS NAIL, 6 OR MORE 04/12/2022 81615-CCJNMKK NAIL, 6 OR MORE 06/14/2022 90887-LRRYBRM NAIL, 6 OR MORE 08/16/2022 90241-TLSKRCV NAIL, 6 OR MORE 10/21/2022 30320-NSZQYVY NAIL, 6 OR MORE 12/23/2022 64941-ZEDZSOJ NAIL, 6 OR MORE 02/24/2023 21425-UDFHAPC NAIL, 6 OR MORE 04/28/2023 28989-ESUKYPX NAIL, 6 OR MORE 08/08/2023 76528-YMFQNFT NAIL, 6 OR MORE 10/13/2023 17993-HQSZBYW NAIL, 6 OR MORE 12/15/2023 95292-RLTSWQX NAIL, 6 OR MORE 02/16/2024 68916-HXCRVEM NAIL, 6 OR MORE 04/19/2024 93125-LIWXWQS NAIL, 6 OR MORE 06/21/2024 57700-UPSDXZR NAIL, 6 OR MORE 08/30/2024 70802-HHWKODQ NAIL, 6 OR MORE 11/01/2024 63321-SMTMSZK NAIL, 6 OR MORE 01/03/2025 24131-JSFQSBC NAIL, 1-5 05/27/2016 96026-MGMNTNI NAIL, 1-5 01/12/2016 12397-BVAUZUX NAIL, 1-5 03/16/2016 47378-Rzzl Destruction, -14 02/17/2017 01773-Eeud Destruction, -14 10/11/2016 09494-Xqjd Destruction, -14 2016 81761-Bldpxcfz Plate 2016 87780-Udjzdbfa Plate 04/21/2017 69978-Gmdhembc Plate 06/27/2017 09706-Zrpkbsva Plate 10/02/2018 89045-Xhaorbcy Plate 07/31/2018 93693-Mykiqnnb Plate 05/27/2016 73099-Twjntelu Plate 12/06/2013 86920-Ewbnfmko Plate 06/23/2015 64478-Pxijnjoa Plate 04/21/2015 90032-Wpkpefbe Plate 11/07/2014 05046-Cynornkw Plate 01/13/2015 04752-Ksqgedke Plate 09/04/2014 66903-Vgdgozxm Plate 06/12/2014 02841-Jphvnupr Plate 03/11/2014 91100-Xoldtfxl Plate 10/13/2023 03848-Exxqpfsp Plate 04/12/2022 12892-Nfrxckdb Plate 02/08/2022 42665-Qdjnwiqd Plate 11/26/2021 42379-Hflrsxvv Plate 04/03/2020 72957-Awzpevac Plate 09/10/2019 63316-Dlvemldd Plate 03/12/2021 32057-Duijomtb Plate 10/30/2020 26793-Szhqtwiw Plate 06/16/2020 45126-Qxbreieq Plate 02/24/2023 26716-Spxjfufm Plate 01/03/2025 84212-Hmtvcvxl Plate Each Additional 09264-Qfrchyzu Plate Each Additional 95082-Ubrmpfpv Plate Each Additional 04074-Fdyruyke Plate Each Additional 21002-Yzgerffz Plate Each Additional 52299-Qlfiwanr Plate Each Additional 37875- Debride <25 sq cm 06/11/2016 57966- Debride <25 sq cm 12/03/2015 48801- Debride <25 sq cm 12/04/2018 91483- Debride <25 sq cm 03/23/2018 51176- Debride <25 sq cm 06/27/2017 60991- Debride <25 sq cm 04/21/2017 45065- Debride <25 sq cm 04/28/2023 54740- Debride <25 sq cm 02/08/2022 17646- Debride <25 sq cm 01/24/2020 00924- Debride <25 sq cm 01/01/2021 27008- Debride <25 sq cm 05/15/2021 75578- Debride <25 sq cm 08/17/2021 29387-ULJUXOB SKIN/TISSUE 11/07/2014 74849 I&D ABSCESS- SIMPLE,SINGLE 014 34971 I&D ABSCESS- SIMPLE,SINGLE 016 66077 I&D ABSCESS- SIMPLE,SINGLE 016 35679 I&D ABSCESS- SIMPLE,SINGLE 016 34031 I&D ABSCESS- SIMPLE,SINGLE 016 34759 I&D ABSCESS- SIMPLE,SINGLE 017 22082-XXEV SKIN LESIONS, OVER 4 12/05/19 19 17532-IQWN SKIN LESIONS, OVER 4 01/14/20 15 47640-TTRT SKIN LESIONS, OVER 4 04/21/20 15 12701-CJPC SKIN LESIONS, OVER 4 08/17/20 32329-VHJY SKIN LESIONS, OVER 4 05/15/20 76801-PTLK SKIN LESIONS, OVER 4 03/12/20 21554-UVDS SKIN LESIONS, OVER 4 01/02/20 22957-EOKM SKIN LESIONS, OVER 4 08/18/20 20 02342-XEWW SKIN LESIONS, OVER 4 10/31/19 20995-JKBB SKIN LESIONS, OVER 4 02/13/20 19 75241-QRYT SKIN LESIONS, OVER 4 04/03/20 46844-IWWY SKIN LESIONS, OVER 4 06/16/20 20 04387-IBDD SKIN LESIONS, OVER 4 11/21/19 01476-RDJG SKIN LESIONS, OVER 4 01/24/20 20 06658-RVLI SKIN LESIONS, OVER 4 06/25/20 19 25107-XEZQ SKIN LESIONS, OVER 4 09/10/19 15479-TZVD SKIN LESIONS, OVER 4 02/09/20 97489-FBQX SKIN LESIONS, OVER 4 11/27/19 21574-FZWU SKIN LESIONS, OVER 4 04/12/20 03875-EBOA SKIN LESIONS, OVER 4 06/14/20 90068-BWKX SKIN LESIONS, OVER 4 08/16/20 85490-ZXGC SKIN LESIONS, OVER 4 10/21/19 23 23520-CENX SKIN LESIONS, OVER 4 04/28/20 23994-FZQL SKIN LESIONS, OVER 4 02/25/20 23 31010-ECYN SKIN LESIONS, OVER 4 12/24/19 23 32898-UMMQ SKIN LESIONS, OVER 4 10/13/19 24 38775-JNDO SKIN LESIONS, OVER 4 08/08/20 23 03963-RJQM SKIN LESIONS, OVER 4 02/16/20 24 57185-XVXA SKIN LESIONS, OVER 4 12/15/19 24 37331-XINE SKIN LESIONS, OVER 4 01/04/20 25 91234-EIOW SKIN LESIONS, OVER 4 11/02/19 25 58115-UDWW SKIN LESIONS, OVER 4 08/30/19 25 84582-IQRQ SKIN LESIONS, OVER 4 06/21/20 24 30871-LTSZ SKIN LESIONS, OVER 4 04/19/20 24 94113-LZUG SKIN LESIONS, 2 TO 4 10/02/19 19 00191-XRDU SKIN LESIONS, 2 TO 4 05/25/20 18 20411-PYXK SKIN LESIONS, 2 TO 4 07/31/20 18 29385-BOOA SKIN LESIONS, 2 TO 4 03/23/20 18 17661-FUXM SKIN LESIONS, 2 TO 4 01/13/20 18 09012-EKAF SKIN LESIONS, 2 TO 4 09/08/19 18 11331-IMBZ SKIN LESIONS, 2 TO 4 11/11/19 18 52373-Sihc. Subungual Hematoma 9 18993-IWNRYEKP OF HEMATOMA/FLUID 019 29384-KUDKHBYK OF HEMATOMA/FLUID 018 Next Appt Details Provider Name:Vee Ta , 05/16/2025 01:00:00 PM, [address] [place] [address], [phone], Provider Name:Vee Ta , 07/18/2025 01:00:00 PM, [address] [place] [address], [phone], Insurance Providers Payer Name Payer Address Payer Phone Subscriber Number Group Number Insured Name Patient Relationship to Insured Coverage Start Date Coverage End Date Medicare National Govt Sv[employer] [address] [place] [address] [phone] [id number] Lilo Bess Self - patient is the insured [employer] [address] [place] [address] [id number] Lilo Bess Self - patient is the [...]
== END 2025-02-14 14:40 | disposition home or self-care (01) ==
PROVIDERS: PCP Family Medicine
DX: Z01.810 Encounter for preprocedural cardiovascular examination (principal); I35.0 Nonrheumatic aortic (valve) stenosis; I45.9 Conduction disorder, unspecified; Z95.0 Presence of cardiac pacemaker
CPT/HCPCS: 93280; 99214; G2211

== ENCOUNTER → 2025-02-14 13:46 | Outpatient (BNVA) | payer MEDICARE, SELFPAY | PROVIDERS: PCP Family Medicine | DX: Z45.018 Encounter for adjustment and management of other part of cardiac pacemaker (principal); Z01.810 Encounter for preprocedural cardiovascular examination; I45.9 Conduction disorder, unspecified; I35.0 Nonrheumatic aortic (valve) stenosis | CPT/HCPCS: 93280; 99212 ==

== ENCOUNTER 2025-05-02 09:53 | Outpatient (REF) | payer MEDICARE, SELFPAY ==
[2025-05-02 11:42] LABS: Hemoglobin A1C 118.8855 umol/L; Total Hemoglobin (HGBA1C) 3045.6310 umol/L
[2025-05-02 11:44] LABS: Hematocrit 37.2 % (37.0-47.0); Hemoglobin 11.9 g/dl (12.0-16.0); Mean Corpuscular HGB Conc 32.0 g/dl (31.0-35.0); Mean Corpuscular Hemoglobin 28.7 pg (27.0-33.0); Mean Corpuscular Volume 89.9 fL (80.0-98.0); NRBC Abs Auto 0.000 X10*3/uL (0.0-0.012); NRBC Pct Auto 0.0 /100WBC (0.0-0.2); Platelet Count 205 X10*3/uL (160-400); Red Blood Count 4.14 X10*6/uL (4.20-5.50); White Blood Count 4.9 X10*3/uL (4.8-10.8)
[2025-05-02 12:05] LABS: Anion Gap 12 (12-20); Blood Urea Nitrogen 18 mg/dL (9-16); Calcium 9.2 mg/dL (8.4-10.2); Carbon Dioxide 29 mmol/L (22-29); Chloride 106 mmol/L (96-108); Estimated Glomerular Filt Rate > 60; Potassium 3.6 mmol/L (3.3-5.1); Sodium 143 mmol/L (135-145)
== END 2025-05-02 09:54 | disposition home or self-care (01) ==
LOC: HO.LAB 09:53
PROVIDERS: Physician Assistant; PCP Family Medicine; Visit Provider Orthopaedic Surgery
DX: Z01.818 Encounter for other preprocedural examination (principal); M17.12 Unilateral primary osteoarthritis, left knee; Z79.899 Other long term (current) drug therapy
CPT/HCPCS: 36415; 80048; 83036; 85027; 99212

== ENCOUNTER 2025-05-02 09:53 | Outpatient (AMB) | payer MEDICARE, SELFPAY ==
--- OUTSIDE RECORDS SUMMARY | 2025-03-07 10:45 | XMS_ITS ---
Author Organization [facility] mike [place] Address [address] [place] [address] [place] [address] Care Team Providers Care Water Reclamation Systems Operator Name Role Phone La Zamora MD Primary Care Provider Unavailab Crews Vee Ramos [phone] Encounters Encounter Location Date Provider Diagnosis [address] [address] 03/07/2025 Vee Ta Plan Of Treatment Next Appt Details Provider Name:Vee Espitia Keyon , 06/03/2025 09:00:00 AM, [address] [place] [address], [phone], Provider Name:Vee A Keyon , 08/05/2025 01:00:00 PM, [address] [place] [address], [phone], Progress Notes * Lilo KAYE MDOB:1945 (79 yo F)Acc No.[id number]:03/07/2025 Progress Note Patient: Mike RISSALilo [place] Provider: Manuel Ta DPM :1945 A ge:79 Y S ex:Female Date:03/07/2025 Address:[address] [place], [place] [phone] Pcp:La Zamora MD Subjective: * Chief [...] DPM Date: 0 03/07/2025 Generated for Chastity mir/[place] on: 0 05/02/2025 10:54 AM EDT
--- NOTE | 2025-05-02 10:14 | MHC.OFFVIS ---
Vital Signs 05/02/25 10:17 Height 5 ft 6 in Weight 210 lb BMI 33.9 Intake Visit Reasons: Pre-Op: L TKA w/ 05/06/25 Intake Note: Lilo is an 79 year old female who presents with complaints of progressively worsening left knee pain. She describes her pain as severe and sharp in nature. Her left knee pain has gotten worse over the last few years in spite of continued non operative treatments. She has tried Tylenol and anti-inflammatory medicines which gave her minimal relief. She has also done physical therapy exercises which aggravated her pain. She has had multiple injections. The most recent injection gave her no relief. The patient has difficulty walking even short distances because of her pain. At this point her left knee pain is interfering with her activities of daily living and her ability to sleep well through the night. The patient has undergone bilateral total hip replacement surgeries in the past. Following both of those surgeries she went to inpatient rehabilitation at [facility]. Allergies shellfish derived (shellfish) Allergy (Severe, Verified 05/02/25 10:15) Anaphylaxis Penicillins Allergy (Intermediate, Verified 05/02/25 10:15) Itching diclofenac (From Voltaren) Allergy (Mild, Verified 05/02/25 10:15) HIVES adhesive tape Adverse Reaction (Intermediate, Verified 05/02/25 10:15) blisters codeine (Codeine) Adverse Reaction (Intermediate, Verified 05/02/25 10:15) SYNCOPE,ABD PAIN erythromycin base (Erythromycin Base) Adverse Reaction (Mild, Verified 05/02/25 10:15) ABDOMINAL PAIN Medication List - Last Reconciled 05/02/25 by Da Valencia MD acetaminophen ER (Tylenol Arthritis Pain) 650 mg PO Q12H PRN hydrochlorothiazide 12.5 mg PO QAM levothyroxine 50 mcg PO QAM potassium chloride ER 10 mEq PO DAILY walker Folding front wheeled walker walker Folding front wheeled walker FOR[facility]LY [facility], 1928–1983 Medical History History of blood transfusion Anesthesia complication Uterine cancer GERD (gastroesophageal reflux disease) Murmur Lower extremity edema Eczema Chronic renal insufficiency Hiatal hernia Raynauds disease Hypothyroid Diverticulosis Coronary artery calcification seen on CAT scan PAD (peripheral artery disease) Anemia Varicose vein of leg Lymphedema Renal cyst Heart block Arthritis Hypertension Surgical History History of permanent cardiac pacemaker placement H/O colonoscopy History of excision of pilonidal cyst Hx of tonsillectomy History of bilateral total hip arthroplasty H/O: hysterectomy H/O thyroidectomy Social History Are you a primary care information associate to a significant other at home: No Do you presently have visiting nurse or other home services: No Alcohol intake: current Alcohol intake frequency: holidays/special occasions only Patient Tobacco Use Status: Former Tobacco user Tobacco use type: Cigarette Years Smoked: 5 Current occupational status: retired Current occupation: right handed Physical Exam Vital Signs: BMI result Body Mass Index 33.9 Const Other: Well-nourished well-developed very friendly female awake alert and oriented x3 in no acute distress Extrem Other: Left knee examination shows a minimal effusion, palpable crepitus with range of motion, pain with range of motion, range of motion from -3 degrees to 110 degrees, no instability Results Reviewed Results Reviewed: X-rays of the patient's left knee show end-stage degenerative joint disease with grade 4 xfex-so-gdsq arthritis, subchondral sclerosis, osteophyte formation, no acute bony abnormalities Assessment & Plan Assessment & Plan (1) Primary osteoarthritis of left knee: Code(s): M17.12 - Unilateral primary osteoarthritis, left knee Category: Medical Plan Ms. Bess presents with progressively worsening left knee pain due to end-stage degenerative joint disease. I had a lengthy discussion with the patient regarding the treatment options. At this point she has failed continued non operative treatments. The risks and benefits of left total knee replacement surgery were discussed at length with the patient. The patient wishes to proceed with surgery. director of career services will be consulted following surgery for inpatient rehabilitation. The patient will follow-up as instructed. Feel free to call me at any time should questions regarding her orthopedic management arise. I spent 22 minutes in reviewing the patient's records and imaging studies, seeing the patient and documenting in the medical record. Orders: Orders Hemoglobin A1c Today Z01.818 - Encounter for other preprocedural examination Coding Level of Care Code Est Pt Level 3 (89977) Complex EM visit Add On G2211 Diagnoses Primary osteoarthritis of left knee M17.12
[2025-05-02 10:17] VITALS: BMI 33.9
--- OUTSIDE RECORDS SUMMARY | 2025-05-02 10:54 | XMS_ITS | Patient Health Record ---
Author [facility] Address [address] [facility] [place] [address] Care Team Providers Care Citrus Peeler Name Role Phone La Zamora MD Primary Care Provider Unavailab Vee Crews Unavailable [phone] Allergies Allergen (clinical drug ingredient) Drug/Non Drug [...] 6 hrs Active Flax Seeds Not-Takin g hydroCHLOROthiazide 12.5 MG Orally Active Levothyroxine Sodium .05 1 tablet on an empty stomach in the morning Orally Once a day Active Nitro-Bid 2 % as directed Transdermal apply bid to toes; Duration: 30 days Not-Taking Iron 325 (65 Fe) MG 1 tablet Orally Once a day Not-Taking Baby Aspirin Not-Dung ing Fzvfciru-Pwlaeyulv-Fmbpravk Not-Taking Flax Seeds Orally Not-Takin g Propranolol HCl ER Beads 80 MG 1 capsule at bedtime Orally Once a day Not-Taking Immunizations Vaccine Route Administration Date Status Comme nts Influenza Unknown 05/29/2021 Administered Influenza Unknown 04/29/2024 Administered COVID-19 Moderna Vaccine Unknown 07/09/2021 Administered 1st 10/07/2020 2nd 11/04/2020 Social History Tobacco Use: Social History Observation [...] Problem Status W/U Status Risk Notes Problem Raynaud's disease (854445920) Raynaud's syndrome without gangrene (I73.00) Active confirmed Problem Bilateral atherosclerosis of arteries of lower limbs (disorder) (38663957290059797 ) Atherosclerosis of [place] artery of both lower extremities, with unspecified presence of clinical manifestation (I70.203) Active confirmed Q7(A), Q8(2B), Q9(1B,2 C) Vital Signs Blood pressure diastolic 78 mm Hg 04/01/2025 Height 5 ft 7 in in 04/01/2025 Blood pressure systolic 146 mm Hg 04/01/2025 Weight 218 lbs 04/01/2025 BMI 34.14 kg/m2 04/01/2025 Procedures Procedure Date Ordered Date Performed Result Body Sit e 15514-VBCBMPS NAIL, 6 OR MORE 06/21/2024 N/A 55444-YRZJ SKIN LESIONS, OVER 4 06/21/2024 N/A 38322-SASSQKY NAIL, 6 OR MORE 08/30/2024 N/A 00251-HOAA SKIN LESIONS, OVER 4 08/30/2024 N/A 67129-PUOWISM NAIL, 6 OR MORE 11/01/2024 N/A 87353-XAEC SKIN LESIONS, OVER 4 11/01/2024 N/A 26975-XLLIZGI NAIL, 6 OR MORE 01/03/2025 N/A 49150-Jmmegedl Plate 01/03/2025 N/A 90643-CZEO SKIN LESIONS, OVER 4 01/03/2025 N/A 97650-HFLPBRI NAIL, 6 OR MORE 04/01/2025 N/A 76883-Qfkbrbmi Plate 04/01/2025 N/A 60967-PQZF SKIN LESIONS, OVER 4 04/01/2025 N/A Encounters Encounter Location Date Provider Diagnosis [address] [address] 06/21/2024 Vee Black Neuritis of right fo ot G57.91 ; Pain in right foot M79.671 ; Atherosclerosis of [place] artery of both lower extremities, with unspecified presence of clinical manifestation I70.203 ; Tinea unguium B35.1 ; Pain in right toe(s) M79.674 and Pain in left toe(s) M79.[address] [address] 08/30/2024 Vee Black Atherosclerosis of [place] artery of both lower extremities, with unspecified presence of clinical manifestation I70.203 ; Tinea unguium B35.1 ; Pain in right toe(s) M79.674 and Pain in left toe(s) M79.[address] [address] 11/01/2024 Vee Black Atherosclerosis of [place] artery of both lower extremities, with unspecified presence of clinical manifestation I70.203 ; Tinea unguium B35.1 ; Pain in right toe(s) M79.674 and Pain in left toe(s) M79.[address] [address] 01/03/2025 Vee Black Atherosclerosis of [place] artery of both lower extremities, with unspecified presence of clinical manifestation I70.203 ; Tinea unguium B35.1 ; Pain in right toe(s) M79.674 ; Pain in left toe(s) M79.675 and Ingrown nail L60.[address] [address] 04/01/2025 Vee Black Atherosclerosis of [place] artery of both lower extremities, with unspecified presence of clinical manifestation I70.203 ; Tinea unguium B35.1 ; Pain in right toe(s) M79.674 ; Pain in left toe(s) M79.675 and Ingrown nail L60.[address] [facility] [address] [address] 02/20/2025 Vee Ta Assessments Encounter Date Diagnosis (ICD Code) Assessment Notes Treatment Notes Treatment Clinical Notes Section Notes 06/21/2024 Pain in right foot (ICD-10 - M79.671) 06/21/2024 Neuritis of right foot (ICD-10 - G57.91) Response to treatment - Improvement 08/30/2024 Tinea unguium (ICD-10 - B35.1) 08/30/2024 Atherosclerosis of [place] artery of both lower extremities, with unspecified presence of clinical manifestation (ICD-10 - I70.203) Q7(A), Q8(2B), Q9(1B,2C) 11/01/2024 Atherosclerosis of [place] artery of both lower extremities, with unspecified presence of clinical manifestation (ICD-10 - I70.203) Q7(A), Q8(2B), Q9(1B,2C) 01/03/2025 Atherosclerosis of [place] artery of both lower extremities, with unspecified presence of clinical manifestation (ICD-10 - I70.203) Q7(A), Q8(2B), Q9(1B,2C) 04/01/2025 Tinea unguium (ICD-10 - B35.1) 04/01/2025 Atherosclerosis of [place] artery of both lower extremities, with unspecified presence of clinical manifestation (ICD-10 - I70.203) Q7(A), Q8(2B), Q9(1B,2C) 04/01/2025 Pain in right toe(s) (ICD-10 - M79.674) 01/03/2025 Tinea unguium (ICD-10 - B35.1) 11/01/2024 Tinea unguium (ICD-10 - B35.1) 08/30/2024 Pain in right toe(s) (ICD-10 - M79.674) 06/21/2024 Atherosclerosis of [place] artery of both lower extremities, with unspecified presence of clinical manifestation (ICD-10 - I70.203) Q7(A), Q8(2B), Q9(1B,2C) 06/21/2024 Tinea unguium (ICD-10 - B35.1) 08/30/2024 Pain in left toe(s) (ICD-10 - M79.675) 11/01/2024 Pain in right toe(s) (ICD-10 - M79.674) 01/03/2025 Pain in right toe(s) (ICD-10 - M79.674) 04/01/2025 Pain in left toe(s) (ICD-10 - M79.675) 01/03/2025 Pain in left toe(s) (ICD-10 - M79.675) 11/01/2024 Pain in left toe(s) (ICD-10 - M79.675) 06/21/2024 Pain in right toe(s) (ICD-10 - M79.674) 06/21/2024 Pain in left toe(s) (ICD-10 - M79.675) 01/03/2025 Ingrown nail (ICD-10 - L60.0) 04/01/2025 Ingrown nail (ICD-10 - L60.0) Plan Of Treatment Pending Test Test Name Order Date X ray : Ankle, right 2V 08/18/2020 X ray : Foot, left 3V 11/10/2015 20725-CJFGDJJ NAIL, 6 OR MORE 09/01/2015 24601-PJMEPRN NAIL, 6 OR MORE 11/10/2015 66658-BIVJVFI NAIL, 6 OR MORE 01/13/2015 51232-TOVYTVE NAIL, 6 OR MORE 06/23/2015 92516-DCKYSZU NAIL, 6 OR MORE 05/27/2016 50012-FZCJOVD NAIL, 6 OR MORE 12/06/2013 30888-BOVDYXZ NAIL, 6 OR MORE 03/11/2014 66289-FWFHUND NAIL, 6 OR MORE 06/12/2014 30610-SRLARLG NAIL, 6 OR MORE 09/04/2014 04137-ZHMWNJZ NAIL, 6 OR MORE 11/07/2014 83652-FERUIQG NAIL, 6 OR MORE 04/21/2015 57499-PMBFMFS NAIL, 6 OR MORE 2016 45486-MRHQLET NAIL, 6 OR MORE 02/17/2017 58828-WLOZOMI NAIL, 6 OR MORE 04/21/2017 86271-YCFXQMP NAIL, 6 OR MORE 07/29/2016 67523-SSFZWLA NAIL, 6 OR MORE 10/11/2016 40010-KLKKGGI NAIL, 6 OR MORE 06/27/2017 03424-MJLYDDI NAIL, 6 OR MORE 09/08/2017 55368-HDNDAIW NAIL, 6 OR MORE 11/10/2017 91058-OBSOGWZ NAIL, 6 OR MORE 01/12/2018 39471-PDQUUSZ NAIL, 6 OR MORE 03/23/2018 12349-WMOCVTD NAIL, 6 OR MORE 05/25/2018 92468-DJGNWCK NAIL, 6 OR MORE 07/31/2018 12528-RWPXYQZ NAIL, 6 OR MORE 10/02/2018 80646-XHGTQCS NAIL, 6 OR MORE 12/04/2018 95083-PJCOSJA NAIL, 6 OR MORE 10/30/2020 36187-CZWKYGT NAIL, 6 OR MORE 01/01/2021 50943-LRHSYGK NAIL, 6 OR MORE 03/12/2021 52197-HFEEOAM NAIL, 6 OR MORE 05/15/2021 46022-YCMGJIC NAIL, 6 OR MORE 04/23/2019 04948-XJINNWY NAIL, 6 OR MORE 06/25/2019 64488-RCUCWSV NAIL, 6 OR MORE 09/10/2019 01984-FXUDPMV NAIL, 6 OR MORE 11/21/2019 64885-PAXELAY NAIL, 6 OR MORE 01/24/2020 03177-ILEQFAL NAIL, 6 OR MORE 04/03/2020 63454-GKBLQKR NAIL, 6 OR MORE 06/16/2020 35779-JIWXMEU NAIL, 6 OR MORE 08/17/2021 30876-NNLYBBX NAIL, 6 OR MORE 08/18/2020 76296-BZSOGIQ NAIL, 6 OR MORE 11/26/2021 41335-VOHHMYM NAIL, 6 OR MORE 02/08/2022 44840-FZZVAYM NAIL, 6 OR MORE 04/12/2022 16906-TGNHGMO NAIL, 6 OR MORE 06/14/2022 77705-CSJOTEM NAIL, 6 OR MORE 08/16/2022 91069-PLKPUTT NAIL, 6 OR MORE 10/21/2022 64219-JYFDKIB NAIL, 6 OR MORE 12/23/2022 06754-OYTZMAY NAIL, 6 OR MORE 02/24/2023 40722-TUNTUMV NAIL, 6 OR MORE 04/28/2023 38586-VZLNIOC NAIL, 6 OR MORE 08/08/2023 24468-WHVJCGC NAIL, 6 OR MORE 10/13/2023 72607-KOYEEDB NAIL, 6 OR MORE 12/15/2023 36306-TXSICAY NAIL, 6 OR MORE 02/16/2024 58548-KOYTFBI NAIL, 6 OR MORE 04/19/2024 69163-ILPNCUI NAIL, 6 OR MORE 06/21/2024 47480-NQYJZSP NAIL, 6 OR MORE 08/30/2024 93930-EUPJVCD NAIL, 6 OR MORE 11/01/2024 23515-LHSHZWP NAIL, 6 OR MORE 01/03/2025 03374-IXTIUWN NAIL, 6 OR MORE 04/01/2025 05198-UCJFHCN NAIL, 1-5 05/27/2016 31750-FPIIHLD NAIL, 1-5 01/12/2016 97680-ZSIRJQL NAIL, 1-5 03/16/2016 70812-Sxwh Destruction, 1-14 02/17/2017 13448-Mwov Destruction, 1-14 10/11/2016 67284-Gwkb Destruction, 1-14 2016 43214-Czyilpst Plate 2016 94328-Yshsqawf Plate 04/21/2017 66086-Qmxptkhd Plate 06/27/2017 25107-Rfhtcyvz Plate 10/02/2018 73810-Nrtreghk Plate 07/31/2018 52703-Tjkazssk Plate 05/27/2016 92462-Lubiehtq Plate 12/06/2013 44735-Uhostmcw Plate 06/23/2015 78727-Hrpcupsz Plate 04/21/2015 27068-Kkwfxilw Plate 11/07/2014 68122-Lfwtflag Plate 01/13/2015 18550-Bbbyoixs Plate 09/04/2014 73435-Szvltdrf Plate 06/12/2014 00015-Lelhvdpk Plate 03/11/2014 49001-Bibtbapw Plate 10/13/2023 77314-Swnvrvzl Plate 04/12/2022 55143-Igdioaku Plate 02/08/2022 53607-Ckfbzune Plate 11/26/2021 12613-Tzcpvxfy Plate 04/03/2020 52132-Iwrocrao Plate 09/10/2019 72056-Vbsjzbfb Plate 03/12/2021 42842-Zdgmotky Plate 10/30/2020 04021-Lwawmpqc Plate 06/16/2020 99756-Xcvhzvbn Plate 02/24/2023 04431-Yerjuwch Plate 04/01/2025 54284-Utvvoivy Plate 01/03/2025 57557-Zangfmei Plate Each Additional 42571-Joqgcbal Plate Each Additional 91711-Bzdxevxd Plate Each Additional 05210-Lpsqlhwu Plate Each Additional 60886-Axcnyrsw Plate Each Additional 10476-Hfqpihlx Plate Each Additional 76317- Debride <25 sq cm 06/11/2016 69810- Debride <25 sq cm 12/03/2015 54689- Debride <25 sq cm 12/04/2018 37860- Debride <25 sq cm 03/23/2018 49347- Debride <25 sq cm 06/27/2017 90194- Debride <25 sq cm 04/21/2017 46832- Debride <25 sq cm 04/28/2023 40200- Debride <25 sq cm 02/08/2022 61615- Debride <25 sq cm 01/24/2020 75839- Debride <25 sq cm 01/01/2021 88642- Debride <25 sq cm 05/15/2021 81458- Debride <25 sq cm 08/17/2021 87913-HYMLAYC SKIN/TISSUE 11/07/2014 87938 I&D ABSCESS- SIMPLE,SINGLE 014 20220 I&D ABSCESS- SIMPLE,SINGLE 016 60288 I&D ABSCESS- SIMPLE,SINGLE 016 74476 I&D ABSCESS- SIMPLE,SINGLE 016 78380 I&D ABSCESS- SIMPLE,SINGLE 016 78527 I&D ABSCESS- SIMPLE,SINGLE 017 36021-WJER SKIN LESIONS, OVER 4 12/05/19 19 40443-KXGN SKIN LESIONS, OVER 4 01/14/20 29018-JLDK SKIN LESIONS, OVER 4 04/21/20 22741-SZTE SKIN LESIONS, OVER 4 08/17/20 73684-QRCM SKIN LESIONS, OVER 4 05/15/20 59171-DLPN SKIN LESIONS, OVER 4 03/12/20 00717-AQLK SKIN LESIONS, OVER 4 01/02/20 22231-STNO SKIN LESIONS, OVER 4 08/18/20 63293-BAXD SKIN LESIONS, OVER 4 10/31/19 08804-CQFO SKIN LESIONS, OVER 4 02/13/20 57867-BQPJ SKIN LESIONS, OVER 4 04/03/20 10849-WGDB SKIN LESIONS, OVER 4 06/16/20 50172-ESSO SKIN LESIONS, OVER 4 11/21/19 30525-EJEH SKIN LESIONS, OVER 4 01/24/20 46338-RGHG SKIN LESIONS, OVER 4 06/25/20 54627-AMZA SKIN LESIONS, OVER 4 09/10/19 63174-YDVU SKIN LESIONS, OVER 4 02/09/20 60357-DQLB SKIN LESIONS, OVER 4 11/27/19 37784-EEWR SKIN LESIONS, OVER 4 04/12/20 48408-ABFE SKIN LESIONS, OVER 4 06/14/20 36850-BELO SKIN LESIONS, OVER 4 08/16/20 67418-TKOF SKIN LESIONS, OVER 4 10/21/19 93239-SYRM SKIN LESIONS, OVER 4 04/28/20 08562-LUQQ SKIN LESIONS, OVER 4 02/25/20 83132-DEQE SKIN LESIONS, OVER 4 12/24/19 24662-UWSL SKIN LESIONS, OVER 4 10/13/19 25704-JKLT SKIN LESIONS, OVER 4 08/08/20 39570-MVTB SKIN LESIONS, OVER 4 02/16/20 36582-EELM SKIN LESIONS, OVER 4 12/15/19 32116-CEIF SKIN LESIONS, OVER 4 01/04/20 99543-TNXI SKIN LESIONS, OVER 4 04/01/20 29645-GHSY SKIN LESIONS, OVER 4 11/02/19 46489-YGIL SKIN LESIONS, OVER 4 08/30/19 79557-IYJJ SKIN LESIONS, OVER 4 06/21/20 02096-DPOS SKIN LESIONS, OVER 4 08/22/20 24 33383-JQXO SKIN LESIONS, 2 TO 4 10/02/19 19 50446-RFTD SKIN LESIONS, 2 TO 4 05/25/20 18 28987-TVDC SKIN LESIONS, 2 TO 4 07/31/20 18 37052-GYJJ SKIN LESIONS, 2 TO 4 03/23/20 18 05637-BLGG SKIN LESIONS, 2 TO 4 01/13/20 18 63477-SOJV SKIN LESIONS, 2 TO 4 09/08/19 18 81903-EFIF SKIN LESIONS, 2 TO 4 11/11/19 18 20039-Viln. Subungual Hematoma 9 48724-ZWHTUVHB OF HEMATOMA/FLUID 019 72059-UKQXZMKF OF HEMATOMA/FLUID 018 Next Appt Details Provider Name:Vee Ta , 06/03/2025 09:00:00 AM, [address] [place] [address], [phone], Provider Name:Vee Ta , 08/05/2025 01:00:00 PM, [address] [place] [address], [phone], Insurance Providers Payer Name Payer Address Payer Phone Subscriber Number Group Number Insured Name Patient Relationship to Insured Coverage Start Date Coverage End Date Medicare National [employer] [address] [place] [address] [id number] Lilo Bess Self - patient is the insured [employer] [facility] [address] [place] [address] [id number] Lilo Bess Self - patient is the insured Medical (General) History Medical History History ICD Code Arthritis Back,Hip,and Knee pain Cancer Hiatal hernia High blood pressure Neuropathy Eczema Raynauds syndrome Scarlet fever Sciatica Thyroid disorder Skin ulcer Measles Mumps Chicken pox Bone implants/screws Transfusions covid Surgical History Surgery Date(Month/Year) vein surgery 05/01/21 Cortisone Inj 07/30/21 Cortisone Inj 04/11/23 cardiac pacemeker 01/29/25 Hospitalization History Reason Date(Month/Year) Wing ER- Stomach cramps/ diarrhea
== END 2025-05-02 10:35 | disposition home or self-care (01) ==
LOC: HO.HOS 09:53
PROVIDERS: PCP Family Medicine; Visit Provider Orthopaedic Surgery
DX: M17.12 Unilateral primary osteoarthritis, left knee (principal)
CPT/HCPCS: 99214; G2211

== ENCOUNTER → 2025-05-02 23:59 | Outpatient (BNV) | payer MEDICARE, SELFPAY ==
--- NOTE | 2025-05-08 12:20 | MHC.OFFVIS ---
Intake Visit Reasons: Remote device check- [facility] Allergies shellfish derived (shellfish) Allergy (Severe, Verified 05/02/25 10:15) Anaphylaxis Penicillins Allergy (Intermediate, Verified 05/02/25 10:15) Itching diclofenac (From Voltaren) Allergy (Mild, Verified 05/02/25 10:15) HIVES adhesive tape Adverse Reaction (Intermediate, Verified 05/02/25 10:15) blisters codeine (Codeine) Adverse Reaction (Intermediate, Verified 05/02/25 10:15) SYNCOPE,ABD PAIN erythromycin base (Erythromycin Base) Adverse Reaction (Mild, Verified 05/02/25 10:15) ABDOMINAL PAIN PFSH Medical History History of blood transfusion Anesthesia complication Uterine cancer GERD (gastroesophageal reflux disease) Murmur Lower extremity edema Eczema Chronic renal insufficiency Hiatal hernia Raynauds disease Hypothyroid Diverticulosis Coronary artery calcification seen on CAT scan PAD (peripheral artery disease) Anemia Varicose vein of leg Lymphedema Renal cyst Heart block Arthritis Hypertension Surgical History History of permanent cardiac pacemaker placement H/O colonoscopy History of excision of pilonidal cyst Hx of tonsillectomy History of bilateral total hip arthroplasty H/O: hysterectomy H/O thyroidectomy Social History Household Members: Spouse Housing: House Are you a primary managed care specialist to a significant other at home: No Do you presently have visiting nurse or other home services: No Alcohol intake: current Alcohol intake frequency: holidays/special occasions only Patient Tobacco Use Status: Former Tobacco user Tobacco use type: Cigarette Years Smoked: 5 service: No Current occupational status: retired Current occupation: right handed Office Procedures Cardiac Device Check Cardiac Device Check Details: Date of service- 05/02/2025 ; Battery life >10 years; normal lead parameters; AP 60%; FORKLIFT WHEEL LOADER 96%; no significant arrhythmias. Overall normal device function. [id number] Cardiac Device Interrogation, pacemaker Procedure code (CPT) selection complete Assessment & Plan Assessment & Plan (1) Pacemaker: Code(s): Z95.0 - Presence of cardiac pacemaker Category: Medical (2) Heart block: Code(s): I45.9 - Conduction disorder, unspecified Category: Medical Plan x Coding Level of Care Code Procedure Only Diagnoses Pacemaker Z95.0 Heart block I45.9 CPT Codes Cardiac Device Check - Cardiac Device 12: [id number] Cardiac Device Interrogation, pacemaker ([id number])
== END ==
PROVIDERS: PCP Family Medicine; Visit Provider Internal Medicine
DX: I45.9 Conduction disorder, unspecified (principal); Z95.0 Presence of cardiac pacemaker
CPT/HCPCS: 93294

== ENCOUNTER 2025-05-06 08:14 | Day surgery (SDC) | payer MEDICARE, SELFPAY ==
--- OUTSIDE RECORDS SUMMARY | 2024-12-18 14:21 | XMS_ITS ---
Author Organization [facility] Address [address] [facility] [place] [address] Care Team Providers Care Forensic Dna Analyst Name Role Phone La Zamora MD Primary Care Provider Unavailab Vee Crews Unavailable [phone] Allergies Allergen (clinical drug ingredient) Drug/Non Drug [...] at bedtime Orally Once a day Not-Taking Gkuahyjo-Nnppuaipt-Hdaybawb Not-Taking Iron 325 (65 Fe) MG 1 [...] W/U Status Risk Notes Problem Atherosclerosis of [place] arteries of the extremities ([id number]) Atherosclerosis of [place] artery of both lower extremities, with unspecified presence of clinical manifestation (I70.203) Active confirmed Q7(A), Q8(2B), Q9(1B,2 C) Vital Signs Height 5 ft 7 in in 06/21/2024 Weight 219 lbs 06/21/2024 BMI 34.3 kg/m2 06/21/2024 Procedures Procedure Date Ordered Date Performed Result Body Sit e 50964-MWPAFFM NAIL, 6 OR MORE 06/21/2024 N/A 56502-PUGZ SKIN LESIONS, OVER 4 06/21/2024 N/A Encounters Encounter Location Date Provider Diagnosis [facility] [address] [address] 06/21/2024 Vee Black Neuritis of right fo ot G57.91 ; Pain in right foot M79.671 ; Atherosclerosis of [place] artery of both lower extremities, with unspecified [...] foot (ICD-10 - M79.671) 06/21/2024 Atherosclerosis of [place] artery of both lower extremities, with unspecified presence of clinical manifestation (ICD-10 - I70.203) Q7(A), Q8(2B), Q9(1B,2C) 06/21/2024 Tinea unguium (ICD-10 - B35.1) 06/21/2024 Pain in right toe(s) (ICD-10 - M79.674) 06/21/2024 Pain in left toe(s) (ICD-10 - M79.675) Plan Of Treatment Pending Test Test Name Order Date 97018-QEJJPQW NAIL, 6 OR MORE 06/21/2024 59389-VWUI SKIN LESIONS, OVER 4 06/21/20 Next Appt Details Follow Up: prn, Reason: Provider Name:Vee Ta , 01/03/2025 01:00:00 PM, [address] [place] [address], [phone], Provider Name:Vee Ta , 03/07/2025 02:45:00 PM, [address] [place] [address], [phone], Procedure Notes * Category Sub-Category Detail Notes Debride Nail 6-10 Nail debridement Performance o f this nail treatment by a nonprofessional would put this patients foot and overall health at risk. Therefore, nail debridement was performed extensively to reduce/remove overall nail length, girth, thickness, subungual debris, and necrotic tissue, by manual and/or electrical means through the use of a nail nipper and/or dremel-type pulp grinder and blender, to a more viable healthy nail plate or bed tissue 6-10. Silver nitrate used for any petechial bleeding as necessary. Definitive antifungal treatment options have been reviewed and discussed with the patient. The patient chooses, no pharmaceutical tx - 15870 Keratoma Treatment Parring or Cutting o f Benign Hyperkeratotic Lesion(s) 01280 ( >4 Lesions) - The Benign hyperkeratotic lesions, as described above were pared, and/or cut utilizing a sterile #15 blade, tissue nippers, and/or dremel, Q8 Progress Notes * Lilo KAYE MDOB:1945 (78 yo F)Acc No.[id number]:06/21/2024 Progress Note Patient:?Lilo Kaye Provider:?Vee Ta DPM :1945???Age:78 Y???Sex:Female D ate:06/21/2024 Address:[address] [place], [place] [address] Pcp:La Zamora MD Subjective: * Chief Complaints: [...] able, cooking. ?Marital status: . 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 * Medications:?TakinghydroCHLO ROthiazide 12.5 MG Tablet [...] Orally every 6 hrsNot-Taking/PRNFlax Seeds Baby Aspirin Jfpyypps-Shnnsngvw-Gxgqzzpm Nitro-Bid 2 % Ointment as directed Transdermal apply bid to toesIron 325 (65 Fe) MG Tablet 1 tablet Orally Once a dayFlax Seeds Powder Orally Propranolol HCl ER Beads 80 MG Capsule Extended Release 24 Hour 1 capsule at bedtime Orally Once a dayMedication List reviewed and reconciled with the patientNot-Taking/PRN Flax Seeds Not-Taking/PRN Baby Aspirin Not- Taking/PRN Iqvcbtkl-Kcxpxhcyk-Iiuhqdqb Not-Taking/PRN Nitro-Bid 2 % Ointment as directed [...] (Primary), Response to treatment - Improvement?3.?Atherosclerosis of [place] artery of both lower extremities, with unspecified presence of clinical manifestation - I70.203, Q7(A), Q8(2B), Q9(1B,2C)?4.?Tinea unguium - B35.1?5.?Pain in right toe(s) - M79.674?6.?Pain in left toe(s) - M79.675? Plan: * Treatment: 2.?Tinea unguium?Procedure: 73889-RNIWUAO NAIL, 6 OR MORE * Procedures:?Debride Nail 6-10:?Nail debridement?Performance of this nail treatment by a nonprofessional would put this patients foot and overall health at risk. Therefore, nail debridement was performed extensively to reduce/remove overall nail length, girth, thickness, subungual debris, and necrotic tissue, by manual and/or electrical means through the use of a nail nipper and/or dremel-type pulp grinder and blender, to a more viable healthy nail plate or bed tissue 6-10. Silver nitrate used for any petechial bleeding as necessary. Definitive antifungal treatment options have been reviewed and discussed with the patient. The patient chooses, no pharmaceutical tx - 83047.?Keratoma Treatment:?Parring or Cutting of Benign Hyperkeratotic Lesion(s)?30758 ( >4 Lesions) - The Benign hyperkeratotic lesions, as described above were pared, and/or cut utilizing a sterile #15 blade, tissue nippers, and/or dremel, Q8.? * Procedure Codes:?59724 DEBRI DE NAIL, 6 OR MORE, Modifiers: XS 38963 TRIM SKIN LESIONS, OVER 4, Modifiers: Q8 [...] Provider:Anita Ta DPM Date:?2023 Generated for Chastity mir/Janell/eTransmitting on:?12/18/2024 02:21 PM EDT History and Physical Notes * HPI (History [...]
--- OUTSIDE RECORDS SUMMARY | 2024-12-18 14:21 | XMS_ITS ---
Author Organization [facility] Address [address] [facility] [place] [address] Care Team Providers Care Candlemaking Laborer Name Role Phone La Zamora MD Primary Care Provider Unavailab Vee Crews Unavailable [phone] Allergies Allergen (clinical drug ingredient) Drug/Non Drug [...] Orally Not-Takin g Baby Aspirin Not-Dung ing Hbdkqcnr-Nwzgwhktn-Jhsskitl Not-Taking Nitro-Bid 2 % as directed Transdermal [...] an other tobacco user? No Vital Signs Blood pressure systolic 145 mm Hg 08/30/19 25 Blood pressure diastolic 66 mm Hg 025 Height 5 ft 7 in in 08/30/2024 Weight 219 lbs 08/30/2024 BMI 34.3 kg/m2 08/30/2024 Procedures Procedure Date Ordered Date Performed Result Body Sit e 98795-ZSEDTDW NAIL, 6 OR MORE 08/30/2024 N/A 97908-ZDNC SKIN LESIONS, OVER 4 08/30/2024 N/A Encounters Encounter Location Date Provider Diagnosis [facility] [place] [address] [place] [address] 08/30/2024 Vee Ta Atherosclerosis of [place] artery of both lower extremities, with unspecified presence of clinical manifestation I70.203 ; Tinea unguium B35.1 ; Pain in right toe(s) M79.674 and Pain in left toe(s) M79.675 Assessments Encounter Date Diagnosis (ICD Code) Assessment Notes Treatment Notes Treatment Clinical Notes Section Notes 08/30/2024 Atherosclerosis of [place] artery of both lower extremities, with unspecified presence of clinical manifestation (ICD-10 - I70.203) Q7(A), Q8(2B), Q9(1B,2C) 08/30/2024 Tinea unguium (ICD-10 - B35.1) 08/30/2024 Pain in right toe(s) (ICD-10 - M79.674) 08/30/2024 Pain in left toe(s) (ICD-10 - M79.675) Plan Of Treatment Pending Test Test Name Order Date 77235-LWMPDYV NAIL, 6 OR MORE 08/30/2024 78835-GPWO SKIN LESIONS, OVER 4 08/30/19 25 Next Appt Details Follow Up: prn, Reason: Provider Name:Vee Ta , 01/03/2025 01:00:00 PM, [address] [place] [address], [phone], Provider Name:Vee Ta , 03/07/2025 02:45:00 PM, [address] [place] [address], [phone], Procedure Notes * Category Sub-Category Detail Notes [...] use of a nail nipper and/or dremel-type stand grinder, to a more viable healthy nail [...] to maintain effectiveness in symptomatic relief - 27672 Keratoma Treatment Parring or Cutting o f [...] instrumentation by the physician of record - 87167, Q8 Progress Notes * Lilo KAYE MDOB:1945 (78 yo F)Acc No.[id number]:08/30/2024 Progress Note Patient:?Lilo KAYE Provider:?Vee Ta DPM :1945???Age:78 Y???Sex:Female D ate:08/30/2024 Address:[address] [place] [address] [phone] Pcp:La Zamora MD Subjective: * Chief Complaints: [...] able, cooking. ?Marital status: . 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 * Medications:?TakinghydroCHLO ROthiazide 12.5 MG Tablet Orally [...] every 6 hrs Not-Taking/PRNFlax Seeds Baby Aspirin Djkxqpmb-Vaxmpjeak-Erhybruh Nitro-Bid 2 % Ointment as directed Transdermal apply bid to toes Iron 325 (65 Fe) MG Tablet 1 tablet Orally Once a day Flax Seeds Powder Orally Propranolol HCl ER Beads 80 MG Capsule Extended Release 24 Hour 1 capsule at bedtime Orally Once a day Medication List reviewed and reconciled with the patientNot-Taking/PRN Flax Seeds Not-Taking/PRN Baby Aspirin Not- Taking/PRN Byvzxumj-Iaufhxgwq-Jroaexfq Not-Taking/PRN Nitro-Bid 2 % Ointment as directed [...] Assessment: 1.?Tinea unguium - B35.1???2 .?Atherosclerosis of [place] artery of both lower extremities, with unspecified presence of clinical manifestation - I70.203 (Primary)???Notes :Q7(A), Q8(2B), Q9(1B,2C)???3.?Pain in right toe(s) - M79.674???4.?Pain in left toe(s) - M79.675??? Plan: * Treatment: 2.?Tinea unguium?Procedure: 38884-QXENFCV NAIL, 6 OR MORE * Procedures:?Debride Nail [...] use of a nail nipper and/or dremel-type stand grinder, to a more viable healthy nail [...] to maintain effectiveness in symptomatic relief - 31957.?Keratoma Treatment:?Parring or Cutting of Benign Hyperkeratotic Lesion(s)?(-57) [...] instrumentation by the physician of record - 99753, Q8.? * Procedure Codes:?29854 DEBRI DE NAIL, 6 OR MORE, Modifiers: XS 63851 TRIM SKIN LESIONS, OVER 4, Modifiers: Q8 * Preventive Medicine:? ??Screening/Special Tests:?Fall Risk?Screening:?No falls in the past year * Follow Up:?prn * Images: * Sign off status: Completed true * Provider:?Vee Ta DPM Date:?2024 Generated for Chastity mir/Janell/eTransmitting on:?12/18/2024 02:20 PM EDT History and Physical Notes * [...]
--- OUTSIDE RECORDS SUMMARY | 2024-12-18 14:21 | XMS_ITS | Patient Health Record ---
Author Organization [facility] mike Cervantes Address [address] [facility] [place] [address] Care Team Providers Care Crossbar Switch Adjuster Name Role Phone La Zamora MD Primary Care Provider Unavailab Vee Crews Unavailable [phone] Allergies Allergen (clinical drug ingredient) Drug/Non Drug [...] at bedtime Orally Once a day Not-Taking Oefcdpat-Uzivulexo-Igfvxghi Not-Taking Baby Aspirin Not-Dung ing Nitro-Bid 2 [...] W/U Status Risk Notes Problem Atherosclerosis of [place] arteries of the extremities (243813616511644) Unspecified atherosclerosis of [place] arteries of extremities, bilateral legs (I70.203) Active confirmed Problem Raynaud (631416745) Raynaud's syndrome without gangrene (I73.00) Active confirmed Problem Localized, primary osteoarthritis of the ankle and/or foot (657859440) Primary osteoarthritis, right ankle and foot (M19.071) Active confirmed Problem Ulcer of toe (868923386) Non-pressure chronic ulcer of other part of left foot limited to breakdown of skin (L97.521) Active confirmed Problem Non-pressure ulcer lower limb (349434008) Non-pressure chronic ulcer of other part of right foot limited to breakdown of 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) Active confirmed Problem Acquired hammer toe of right foot (9242281533400143 ) Other hammer toe(s) (acquired), right foot (M20.41) Active confirmed Problem Mononeuropathy of lower limb (215293157) Neuritis of right foot (G57.91) Active confirmed Response to treatment - Improvement Problem Atherosclerosis of [place] arteries of the extremities (955738287887736) Atherosclerosis of [place] artery of both lower extremities, with unspecified presence of clinical manifestation (I70.203) Active confirmed Q7(A), Q8(2B), Q9(1B,2C) Problem Ulcer of toe of right foot (disorder) (4851737436733899 1) Skin ulcer of toe of right foot, limited to breakdown of 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) Active confirmed Problem Ulcer of toe of left foot (disorder) (1773499198246683 2) Skin ulcer of toe of left foot, limited to breakdown of skin (L97.521) Active confirmed Vital Signs Blood pressure diastolic 70 mm Hg 11/01/2024 Height 5 ft 7 in in 11/01/2024 Blood pressure systolic 166 mm Hg 11/01/2024 Weight 216 lbs 11/01/2024 BMI 33.83 kg/m2 11/01/2024 Procedures Procedure Date Ordered Date Performed Result Body Sit e 54918-YEJCTDO NAIL, 6 OR MORE 02/16/2024 N/A 96010-GTPP SKIN LESIONS, OVER 4 02/16/2024 N/A 36701-TKYWZGV NAIL, 6 OR MORE 04/19/2024 N/A 39397-ECBX SKIN LESIONS, OVER 4 04/19/2024 N/A 52127-KBZLNQT NAIL, 6 OR MORE 06/21/2024 N/A 78453-MVDP SKIN LESIONS, OVER 4 06/21/2024 N/A 74274-JMHEAGT NAIL, 6 OR MORE 08/30/2024 N/A 94748-PRVH SKIN LESIONS, OVER 4 08/30/2024 N/A 22029-QYRVJPK NAIL, 6 OR MORE 11/01/2024 N/A 27416-BMNE SKIN LESIONS, OVER 4 11/01/2024 N/A Encounters Encounter Location Date Provider Diagnosis [facility] [address] [address] 02/16/2024 Vee Black Unspecified atherosclerosis of [place] arteries of extremities, bilateral legs I70.203 ; Tinea unguium B35.1 ; Pain in right toe(s) M79.674 and Pain in left toe(s) M79.675 [facility] [address] 04/19/2024 Vee Black Unspecified atherosclerosis of [place] arteries of extremities, bilateral legs I70.203 ; Neuritis of right foot G57.91 ; Tinea unguium B35.1 ; Pain in right toe(s) M79.674 ; Pain in left toe(s) M79.675 and Pain in right foot M79.[address] [address] 06/21/2024 Vee Black Neuritis of right fo ot G57.91 ; Pain in right foot M79.671 ; Atherosclerosis of [place] artery of both lower extremities, with unspecified presence of clinical manifestation I70.203 ; Tinea unguium B35.1 ; Pain in right toe(s) M79.674 and Pain in left toe(s) M79.[address] [address] 08/30/2024 Vee Black Atherosclerosis of [place] artery of both lower extremities, with unspecified presence of clinical manifestation I70.203 ; Tinea unguium B35.1 ; Pain in right toe(s) M79.674 and Pain in left toe(s) M79.[address] [address] 11/01/2024 Vee Black Atherosclerosis of [place] artery of both lower extremities, with unspecified presence of clinical manifestation I70.203 ; Tinea unguium B35.1 ; Pain in right toe(s) M79.674 and Pain in left toe(s) M79.675 Assessments Encounter Date Diagnosis (ICD Code) Assessment Notes Treatment Notes Treatment Clinical Notes Section Notes 02/16/2024 Unspecified atherosclerosis of [place] arteries of extremities, bilateral legs (ICD-10 - I70.203) 04/19/2024 Unspecified atherosclerosis of [place] arteries of extremities, bilateral legs (ICD-10 - I70.203) 04/19/2024 Neuritis of right foot (ICD-10 - G57.91) 06/21/2024 Pain in right foot (ICD-10 - M79.671) 06/21/2024 Neuritis of right foot (ICD-10 - G57.91) Response to treatment - Improvement 08/30/2024 Tinea unguium (ICD-10 - B35.1) 08/30/2024 Atherosclerosis of [place] artery of both lower extremities, with unspecified presence of clinical manifestation (ICD-10 - I70.203) Q7(A), Q8(2B), Q9(1B,2C) 11/01/2024 Atherosclerosis of [place] artery of both lower extremities, with unspecified presence of clinical manifestation (ICD-10 - I70.203) Q7(A), Q8(2B), Q9(1B,2C) 11/01/2024 Tinea unguium (ICD-10 - B35.1) 08/30/2024 Pain in right toe(s) (ICD-10 - M79.674) 06/21/2024 Atherosclerosis of [place] artery of both lower extremities, with unspecified presence of clinical manifestation (ICD-10 - I70.203) Q7(A), Q8(2B), Q9(1B,2C) 04/19/2024 Tinea unguium (ICD-10 - B35.1) 02/16/2024 Tinea unguium (ICD-10 - B35.1) 02/16/2024 Pain in right toe(s) (ICD-10 - M79.674) 04/19/2024 Pain in right toe(s) (ICD-10 - M79.674) 06/21/2024 Tinea unguium (ICD-10 - B35.1) 08/30/2024 [...] X ray : Foot, left 3V 11/10/2015 13011-ULDZBCO NAIL, 6 OR MORE 09/01/2015 30988-HDMFQJP NAIL, 6 OR MORE 11/10/2015 73113-HHAGJMT NAIL, 6 OR MORE 01/13/2015 73854-KOYSRIS NAIL, 6 OR MORE 06/23/2015 72994-SWXRLMH NAIL, 6 OR MORE 05/27/2016 20651-OVRCUVC NAIL, 6 OR MORE 12/06/2013 00004-GOIPQBL NAIL, 6 OR MORE 03/11/2014 98252-KUYTXYO NAIL, 6 OR MORE 06/12/2014 07681-SIKEIXE NAIL, 6 OR MORE 09/04/2014 96486-ZTFSVQQ NAIL, 6 OR MORE 11/07/2014 82880-WRPNMFI NAIL, 6 OR MORE 04/21/2015 56444-EAIPRKM NAIL, 6 OR MORE 2016 04741-AJAMMVL NAIL, 6 OR MORE 02/17/2017 97203-BUNYDFM NAIL, 6 OR MORE 04/21/2017 80315-NOLCRXG NAIL, 6 OR MORE 07/29/2016 78754-RBAUKWO NAIL, 6 OR MORE 10/11/2016 04632-RAOLIUZ NAIL, 6 OR MORE 06/27/2017 40788-PBADEXD NAIL, 6 OR MORE 09/08/2017 07205-GBMRJSA NAIL, 6 OR MORE 11/10/2017 00739-KDOKFGA NAIL, 6 OR MORE 01/12/2018 44329-XFYJEGL NAIL, 6 OR MORE 03/23/2018 98016-OFWHQUJ NAIL, 6 OR MORE 05/25/2018 24292-VVOYUCX NAIL, 6 OR MORE 07/31/2018 26298-TXFNLHA NAIL, 6 OR MORE 10/02/2018 67089-XZEPWWM NAIL, 6 OR MORE 12/04/2018 65574-FFKMAHS NAIL, 6 OR MORE 10/30/2020 89346-EPXBKIJ NAIL, 6 OR MORE 01/01/2021 79693-ELVHKTE NAIL, 6 OR MORE 03/12/2021 26926-SFVJIZY NAIL, 6 OR MORE 05/15/2021 35079-QAUYLXX NAIL, 6 OR MORE 04/23/2019 73478-BGENOQZ NAIL, 6 OR MORE 06/25/2019 40189-HCIJHSR NAIL, 6 OR MORE 09/10/2019 54617-YQQXXJD NAIL, 6 OR MORE 11/21/2019 98274-FIXJFLB NAIL, 6 OR MORE 01/24/2020 83839-SCUHRUU NAIL, 6 OR MORE 04/03/2020 58772-QXWLMZN NAIL, 6 OR MORE 06/16/2020 91043-VAOSZBE NAIL, 6 OR MORE 08/17/2021 10305-APGCHIU NAIL, 6 OR MORE 08/18/2020 91396-NPCIEQM NAIL, 6 OR MORE 11/26/2021 30636-TQXMZND NAIL, 6 OR MORE 02/08/2022 76302-MEFJCCU NAIL, 6 OR MORE 04/12/2022 07821-CRWWPYX NAIL, 6 OR MORE 06/14/2022 32569-RDASQZY NAIL, 6 OR MORE 08/16/2022 27675-IPRKBIF NAIL, 6 OR MORE 10/21/2022 30690-TFZDUCQ NAIL, 6 OR MORE 12/23/2022 66226-BTIIOZZ NAIL, 6 OR MORE 02/24/2023 98444-ZJGZSFY NAIL, 6 OR MORE 04/28/2023 70116-COACECN NAIL, 6 OR MORE 08/08/2023 57076-PVHDRCT NAIL, 6 OR MORE 10/13/2023 09549-KZXFFQG NAIL, 6 OR MORE 12/15/2023 82819-ANPZUKQ NAIL, 6 OR MORE 02/16/2024 16419-KZSRXKQ NAIL, 6 OR MORE 04/19/2024 61131-SMFSZXR NAIL, 6 OR MORE 06/21/2024 13870-BZSMJQU NAIL, 6 OR MORE 08/30/2024 90194-FYDNKLP NAIL, 6 OR MORE 11/01/2024 04405-VYUEWPL NAIL, 1-5 05/27/2016 65798-PYHKMAL NAIL, 1-5 01/12/2016 09578-HQKKIXG NAIL, 1-5 03/16/2016 69666-Qwba Destruction, 1-14 02/17/2017 79194-Jwju Destruction, -14 10/11/2016 83614-Fsta Destruction, -14 2016 53453-Mlwzklwr Plate 2016 40046-Yugaqzge Plate 04/21/2017 31358-Gnsortch Plate 06/27/2017 00656-Jakodons Plate 10/02/2018 70217-Tiitaoog Plate 07/31/2018 66979-Napvyzfd Plate 05/27/2016 23194-Pjyczhcr Plate 12/06/2013 95078-Rjihrasn Plate 06/23/2015 17106-Xnfwpcyp Plate 04/21/2015 77266-Wtygyonk Plate 11/07/2014 83883-Myuarpkj Plate 01/13/2015 68932-Jsjvsaut Plate 09/04/2014 79936-Pxnadtqd Plate 06/12/2014 40806-Nylidpgu Plate 03/11/2014 37693-Paalattm Plate 10/13/2023 02285-Keaqwojt Plate 04/12/2022 19096-Dtmopfsq Plate 02/08/2022 51485-Mepwehgw Plate 11/26/2021 93480-Nlsgybts Plate 04/03/2020 42059-Zsevvjiy Plate 09/10/2019 01294-Xnevsbwz Plate 03/12/2021 56913-Xupybxpu Plate 10/30/2020 38109-Ahipnioj Plate 06/16/2020 72351-Qvtmeqcp Plate 02/24/2023 29895-Destwtax Plate Each Additional 74802-Xaudyxmg Plate Each Additional 71789-Lbwuykds Plate Each Additional 06415-Soqvxqwj Plate Each Additional 12964-Ujphhbsz Plate Each Additional 46878-Rzwejprz Plate Each Additional 42363- Debride <25 sq cm 06/11/2016 62671- Debride <25 sq cm 12/03/2015 64778- Debride <25 sq cm 12/04/2018 79498- Debride <25 sq cm 03/23/2018 82223- Debride <25 sq cm 06/27/2017 94589- Debride <25 sq cm 04/21/2017 97051- Debride <25 sq cm 04/28/2023 62767- Debride <25 sq cm 02/08/2022 21767- Debride <25 sq cm 01/24/2020 29188- Debride <25 sq cm 01/01/2021 85483- Debride <25 sq cm 05/15/2021 97694- Debride <25 sq cm 08/17/2021 47430-EFLDTGR SKIN/TISSUE 11/07/2014 47464 I&D ABSCESS- SIMPLE,SINGLE 014 76841 I&D ABSCESS- SIMPLE,SINGLE 016 30485 I&D ABSCESS- SIMPLE,SINGLE 016 21315 I&D ABSCESS- SIMPLE,SINGLE 016 61700 I&D ABSCESS- SIMPLE,SINGLE 016 69821 I&D ABSCESS- SIMPLE,SINGLE 017 19356-DIHK SKIN LESIONS, OVER 4 12/05/19 19 55492-EXHK SKIN LESIONS, OVER 4 01/14/20 15 28081-XYDX SKIN LESIONS, OVER 4 04/21/20 15 15240-QIBX SKIN LESIONS, OVER 4 08/17/20 32072-AHVJ SKIN LESIONS, OVER 4 05/15/20 51669-PNSR SKIN LESIONS, OVER 4 03/12/20 48790-CNTR SKIN LESIONS, OVER 4 01/02/20 12628-QOSL SKIN LESIONS, OVER 4 08/18/20 60442-RGDB SKIN LESIONS, OVER 4 10/31/19 90205-ORBP SKIN LESIONS, OVER 4 02/13/20 71432-EPIH SKIN LESIONS, OVER 4 04/03/20 20214-UDON SKIN LESIONS, OVER 4 06/16/20 50214-ASXT SKIN LESIONS, OVER 4 11/21/19 03883-TEMK SKIN LESIONS, OVER 4 01/24/20 22579-RSTV SKIN LESIONS, OVER 4 06/25/20 89410-PFDF SKIN LESIONS, OVER 4 09/10/19 60412-KABA SKIN LESIONS, OVER 4 02/09/20 99032-TQNR SKIN LESIONS, OVER 4 11/27/19 52484-LRIR SKIN LESIONS, OVER 4 04/12/20 39970-XUDO SKIN LESIONS, OVER 4 06/14/20 19651-PHQO SKIN LESIONS, OVER 4 08/16/20 25270-EXJN SKIN LESIONS, OVER 4 10/21/19 24072-SDQI SKIN LESIONS, OVER 4 04/28/20 00240-FGQF SKIN LESIONS, OVER 4 02/25/20 12982-UMEP SKIN LESIONS, OVER 4 12/24/19 74272-KQEC SKIN LESIONS, OVER 4 10/13/19 11211-EPEM SKIN LESIONS, OVER 4 08/08/20 34245-KJQQ SKIN LESIONS, OVER 4 06/20/20 24 25635-MAFA SKIN LESIONS, OVER 4 12/15/19 24 40167-YPDX SKIN LESIONS, OVER 4 11/02/19 25 35450-NLXJ SKIN LESIONS, OVER 4 08/30/19 25 25163-NUNL SKIN LESIONS, OVER 4 06/21/20 24 14053-VYMN SKIN LESIONS, OVER 4 04/19/20 24 72776-HNFB SKIN LESIONS, 2 TO 4 10/02/19 19 78562-YWUO SKIN LESIONS, 2 TO 4 05/25/20 18 14891-BMCM SKIN LESIONS, 2 TO 4 07/31/20 18 62147-YQVK SKIN LESIONS, 2 TO 4 03/23/20 18 90630-SHVG SKIN LESIONS, 2 TO 4 01/13/20 76867-QDJM SKIN LESIONS, 2 TO 4 09/08/19 18 96313-WHES SKIN LESIONS, 2 TO 4 11/11/19 18 04250-Hbjj. Subungual Hematoma 9 41781-KFJSLCTZ OF HEMATOMA/FLUID 019 77941-EYHQIJZJ OF HEMATOMA/FLUID 018 Next Appt Details Provider Name:Vee Ta , 01/03/2025 01:00:00 PM, [address] [place] [address], [phone], Provider Name:Vee Ta , 03/07/2025 02:45:00 PM, [address] [place] [address], [phone], Insurance Providers Payer Name Payer Address Payer Phone Subscriber Number Group Number Insured Name Patient Relationship to Insured Coverage Start Date Coverage End Date Medicare National Govt Svcs Inc [address] [place] [address] [id number] Lilo Bess Self - patient is the insured [employer] Blue [employer] [address] [place] [address] [phone] [id number] Lilo Bess Self - patient is the [...]
--- OUTSIDE RECORDS SUMMARY | 2024-12-18 14:21 | XMS_ITS | Continuity of Care Document ---
Author Organization [facility] Address [address] [place] [address]- Support Name Relationship Address Phone HOPFE, BARBARA [...] Unknown Unav ailable Care Team Providers Care Underwriting Sales Representative Name Role Phone Noah DELGADO, La Conrad [id number]): [facility] - 12[facility]17/24 [facility] [address] [place], [place] [address] Attending Physician: Toby Harden MD Referring Physician: Da Valencia MD Encounter Type: Office Visit Allergies, Adverse Reactions, Alerts Substance Criticality Severity Reaction Reaction Severity Status codeine stomach pain fainted Active Adhesive Bandage 1 A ctive erythromycin stomach pain Acti ve penicillin vaginal itching Act yana Voltaren hives Active shellfish throat closes hives Active 1patient reports having blisters with fci use. Immunizations Given and Recorded Vaccine Date Status Refusal Reason influenza virus vaccine, inactivated 06/12/23 Abel rded influenza virus vaccine, inactivated 05/27/21 [...] vaccine, inactivated 5 05/29/12 Gi latasha SARS-CoV-2(COVID-19)mRNA-LNP vac([id number]) 06/12/23 Recorded [id number] bivalent booster vax 08/04/22 Recorded tetanus/diphtheria/pertussis, acel(Tdap) [...] Toxoid Vaccine (oldterm) 08/29/03 Given 1Location History: [facility] So. [place] 2Result Comment: [10/06/2016] given at [facility] 3Result Comment: [10/28/2014] [facility] 4Result Comment: [09/18/2013] Received at [facility] 5Admin Note: [facility] 6Admin Note: [facility] 7Admin Note: elsewhere 8Admin Note: [facility] 9Admin Note: Received at [facility] Medications clindamycin 300 mg oral capsule See Instructions, TAKE 2 CAPSULES BY MOUTH ONCE, # 2 capsule, 5 Refills, Maintenance, 11/21/24 2:20:00 PM EDT, [facility], 170, cm, 11/21/24 14:00:00 EDT, Height, 103.6, kg, 07/10/24 9:28:00 EST, Dry Weight Start Date: 11/21/24 Status: Ordered Quantity: 2.0 Unit: capsule Repeat number: 6 hydroCHLOROthiazide 12.5 mg oral capsule 1 capsule, By Mouth, Daily, # 90 capsule, 3 Refills, Maintenance, 11/21/24 2:19:00 PM EDT, [facility], 170, cm, 11/21/24 14:00:00 EDT, Height, 103.6, kg, 07/10/24 9:28:00 EST, Dry Weight Start Date: 11/21/24 Status: Ordered Quantity: 90.0 Unit: capsule Repeat number: 4 levothyroxine 0.05 mg oral tablet 1 tablet, By Mouth, Daily, # 90 tablet, 3 Refills, Maintenance, 11/21/24 2:19:00 PM EDT, [facility], 170, cm, 11/21/24 14:00:00 EDT, Height, 103.6, kg, 07/10/24 9:28:00 EST, Dry Weight Start Date: 11/21/24 Status: Ordered Quantity: 90.0 Unit: tablet Repeat number: 4 Potassium Chloride (Eqv-K-Tab) 10 mEq oral tablet, extended release 1 tablet = 10 mEq, By Mouth, Daily, # 14 tablet, 0 Refills, Acute 12/27/24 5:14:00 PM EDT, 12/12/24 5:13:00 PM EDT, [facility], Partial fill upon patient request if the prescription is for a schedule II opioid drug., 170, cm, 12/11/24 7:09:00 EDT, Height, 103.6, kg, 07/10/24 9:28:00 EST, Dry Weight Start Date: 12/12/24 Stop Date: 12/27/24 Status: Ordered Quantity: 14.0 Unit: tablet Repeat number: 1 Readi-Cat 2 Smoothie Creamy Vanilla 2% oral [...] Active Morbid Obesity (BMI>40) 278.01 Confirmed Active Obese class I Confirmed Active Obesity monitoring status Confirmed Active Osteoarthritis Confirmed Active PAD (peripheral artery disease) Confirmed Active Raynaud's Syndrome Confirmed Active Vital Signs Most recent to oldest [Reference Range]: 1 2 Height 170 cm (12/11/24 7:09 AM) 170 cm (12/10/24 10:15 AM) Weight 99.4 kg (12/11/24 7:09 AM) 99.4 kg (12/10/24 10:15 AM) Oxygen Saturation [94-100 %] 99 % (12/10/24 10:15 AM) Pulse Rate [55-90 bpm] 64 bpm (12/10/24 10:15 AM) Body Mass Index [18.5-24.99 kg/m2] 34.39 kg/m2 *>HHI* (12/10/24 10:15 AM) Blood Pressure [90-138/55-84 mm Hg] 153/ 54mm Hg *H* (12/10/24 10:15 AM) Respiratory Rate [16-30 br/min] 18 br/mi n (12/10/24 10:15 AM) Mode of Delivery (Oxygen) Room air (12/10/24 10:15 AM) Blood pressure sites Arm, left (12/10/24 10:15 AM) Weight Obtained Via Patient/family state d (12/10/24 10:15 AM) Social History Social History Type Response Smoking Status Former smoker; Start ed at age: 11; Stopped at age: 22; entered on: 09/22/15 Sex Sex Representation Female (finding) EKG study * Event Display: ECG 12-Lead Authored Date: Please click on pdf link to open report * Event Display: ECG 12-Lead Authored Date: Ventricular Rate: 55 BPM Atrial Rate: 55 BPM P-R Interval: 472 ms QRS Duration: 156 ms Q-T Interval: 498 ms QTC Calculation(Bazett): 476 ms P Oxford: 73 degrees R Oxford: -73 degrees T Oxford: 18 degrees Sinus bradycardia with 1st degree A-V block Right bundle branch block Left anterior fascicular block Bifascicular block Abnormal ECG Confirmed by JOLYNN MAKI ([id number]) on 12/10/2024 11:06:00 AM [place]: JOLYNN MAKI Patient Care team information Care Team Personnel Name: La Zamora MD Position: [facility] Physician - Primary Care Member Role: PCP Address: [address] [place] [address] [place] [address]- Telecom: Name: Priscilla Benites RN Position: [facility] RN Member Role: Primary Care Nurse Name: Dayana Rudolph RN Position: [facility] [place] Nurse Member Role: Primary Care Nurse Name: Ute Pal RN Position: [facility] RN Member Role: Primary Care Nurse Care Team Related Persons Name: BARBARA KAYE Name: LONNIE HUFF Insurance Providers Guarantor [facility] Plan Information #: 1 Payer: MEDICARE PART B OUTPT Member Number: [id number] Policy Number: NA Group Number: NA Health Plan Information #: 2 Payer: MEDEX Member Number: [id number] Policy Number: NA Group Number: NA
--- OUTSIDE RECORDS SUMMARY | 2024-12-18 14:21 | XMS_ITS ---
Author Organization [facility] Address [address] [facility] [place] [address] Care Team Providers Care Tassel Snipper Name Role Phone La Zamora MD Primary Care Provider Unavailab Vee Crews Unavailable [phone] Allergies Allergen (clinical drug ingredient) Drug/Non Drug [...] at bedtime Orally Once a day Not-Taking Twriwgoj-Oovrrhuxo-Pcppoqvu Not-Taking Nitro-Bid 2 % as directed Transdermal [...] point) Points 1 Interpretation Negative Vital Signs Blood pressure systolic 166 mm Hg 11/02/19 25 Blood pressure diastolic 70 mm Hg 025 Height 5 ft 7 in in 11/01/2024 Weight 216 lbs 11/01/2024 BMI 33.83 kg/m2 11/01/2024 Procedures Procedure Date Ordered Date Performed Result Body Sit e 13469-LWDFUMV NAIL, 6 OR MORE 11/01/2024 N/A 29376-NDPN SKIN LESIONS, OVER 4 11/01/2024 N/A Encounters Encounter Location Date Provider Diagnosis [facility] [place] [address] [place] [address] 11/01/2024 Vee Black Atherosclerosis of [place] artery of both lower extremities, with unspecified presence of clinical manifestation I70.203 ; Tinea unguium B35.1 ; Pain in right toe(s) M79.674 and Pain in left toe(s) M79.675 Assessments Encounter Date Diagnosis (ICD Code) Assessment Notes Treatment Notes Treatment Clinical Notes Section Notes 11/01/2024 Atherosclerosis of [place] artery of both lower extremities, with unspecified presence of clinical manifestation (ICD-10 - I70.203) Q7(A), Q8(2B), Q9(1B,2C) 11/01/2024 Tinea unguium (ICD-10 - B35.1) 11/01/2024 Pain in right toe(s) (ICD-10 - M79.674) 11/01/2024 Pain in left toe(s) (ICD-10 - M79.675) Plan Of Treatment Pending Test Test Name Order Date 77369-YSBLWJO NAIL, 6 OR MORE 11/01/2024 54216-JMPC SKIN LESIONS, OVER 4 11/02/19 25 Next Appt Details Follow Up: prn, Reason: Provider Name:Vee Ta , 01/03/2025 01:00:00 PM, [address] [place] [address], [phone], Provider Name:Vee Ta , 03/07/2025 02:45:00 PM, [address] [place] [address], [phone], Procedure Notes * Category Sub-Category Detail Notes [...] use of a nail nipper and/or dremel-type notch grinder, to a more viable healthy nail [...] to maintain effectiveness in symptomatic relief - 45732 Keratoma Treatment Parring or Cutting o f [...] instrumentation by the physician of record - 83871, Q8 Progress Notes * Lilo KAYE MDOB:1945 (78 yo F)Acc No.[id number]:11/01/2024 Progress Note Patient:?VARGASGricelan Houston Provider:?Vee Ta DPM :1945???Age:78 Y???Sex:Female D ate:11/01/2024 Address:[address] [place] [address] Billy [phone] Pcp:La Zamora MD Subjective: * Chief Complaints: [...] able, cooking. ?Marital status: . 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 ???Drug/Alcohol:?AUDIT-C (Standard)?Did you have a drink containing [...] every 6 hrs Not-Taking/PRNFlax Seeds Baby Aspirin Uavguaio-Qqgsvfkud-Ivluovkk Nitro-Bid 2 % Ointment as directed Transdermal apply bid to toes Iron 325 (65 Fe) MG Tablet 1 tablet Orally Once a day Flax Seeds Powder Orally Propranolol HCl ER Beads 80 MG Capsule Extended Release 24 Hour 1 capsule at bedtime Orally Once a day Medication List reviewed and reconciled with the patientNot-Taking/PRN Flax Seeds Not-Taking/PRN Baby Aspirin Not- Taking/PRN Oewpvpeu-Ypqadhtou-Lqtonseu Not-Taking/PRN Nitro-Bid 2 % Ointment as directed [...] (C):?absent, B/L.? Assessment: * Assessment: 1.?Atherosclerosis of [place] artery of both lower extremities, with unspecified presence of clinical manifestation - I70.203 (Primary)???Notes :Q7(A), Q8(2B), Q9(1B,2C)???2.?Tinea unguium - B35.1???3.?Pain in right toe(s) - M79.674???4.?Pain in left toe(s) - M79.675??? Plan: * Treatment: 2.?Tinea unguium?Procedure: 85620-KSDUOOI NAIL, 6 OR MORE * Procedures:?Debride Nail [...] use of a nail nipper and/or dremel-type notch grinder, to a more viable healthy nail [...] to maintain effectiveness in symptomatic relief - 59811.?Keratoma Treatment:?Parring or Cutting of Benign Hyperkeratotic Lesion(s)?(-57) [...] instrumentation by the physician of record - 97448, Q8.? * Procedure Codes:?91587 DEBRI DE NAIL, 6 OR MORE, Modifiers: XS 35393 TRIM SKIN LESIONS, OVER 4, Modifiers: Q8 * Follow Up:?prn * Images: * Sign off status: Completed true * Provider:?Vee Ta DPM Date:?2024 Generated for Chastity mir/Janell/Yancy on:?12/18/2024 02:21 PM EDT History and Physical [...]
[2025-01-07 12:23] VITALS: BP 132/60; PULSE 59; RESP 20; O2SAT 97; BMI 35.9
--- NOTE | 2025-01-07 12:47 | P.CONAN_ITS ---
HPI - Anesthesia Eval Consult details Narrative: Pending pacer 79yo F for Left Knee Replacement Total, 02/04/25 Eval at [facility] - new murmur and bifasic block, echo and cardiology eval pending No recent illness No CP/SOB with senior excercise twice weekly and house work GERD: no issues for years PAD: chronic 2+ LE edema with stocking compression PMFSH Active Problems Active Problems: All Active Problems Heart block (Acute) Cardiac abnormality (Acute) Arthritis of left knee (Acute) Renal cyst (Acute) Nocturia (Acute) Lymphedema (Acute) Primary osteoarthritis of left knee (Acute) Varicose veins of right lower extremity with inflammation (Acute) Osteoarthritis of left knee (Acute) Knee pain (Acute) Past Medical History Medical History History of blood transfusion Anesthesia complication Uterine cancer GERD (gastroesophageal reflux disease) Murmur Lower extremity edema Eczema Chronic renal insufficiency Hiatal hernia Raynauds disease Hypothyroid Diverticulosis Coronary artery calcification seen on CAT scan PAD (peripheral artery disease) Anemia Varicose vein of leg Lymphedema Renal cyst Heart block Arthritis Hypertension Family History Family history of problems with anesthesia: No Surgical History Surgical History H/O colonoscopy History of excision of pilonidal cyst Hx of tonsillectomy History of bilateral total hip arthroplasty H/O: hysterectomy H/O thyroidectomy History of Problems with Anesthesia: No Social History Social History Are you a primary primary care sales representative to a significant other at home: No Do you presently have visiting nurse or other home services: No Patient Tobacco Use Status: Former Tobacco user Tobacco use type: Cigarette Years Smoked: 5 Current occupational status: retired Current occupation: right handed Meds Allergies Allergy/AdvReac Type Severity Reaction Status Date / Time shellfish derived [shellfish] Allergy Severe Anaphylaxis Verified 01/15/25 21:33 Penicillins Allergy Intermediate Itching Verified 01/15/25 21:33 diclofenac [From Voltaren] Allergy Mild HIVES Verified 01/15/25 21:33 adhesive tape AdvReac Intermediate blisters Verified 01/15/25 21:33 codeine [Codeine] AdvReac Intermediate SYNCOPE,ABD Verified 01/15/25 21:33 PAIN erythromycin base AdvReac Mild ABDOMINAL Verified 01/15/25 21:33 [Erythromycin Base] PAIN Home Medications ?Medication ?Instructions ?Recorded ?Confirmed ?Last Taken ?Type hydrochlorothiazide 12.5 mg capsule 12.5 mg PO QAM 11/25/20 01/24/25 Unknown History levothyroxine 50 mcg tablet 50 mcg PO QAM 05/14/21 01/24/25 Unknown History acetaminophen 650 mg 650 mg PO Q12H PRN Pain 12/31/24 01/24/25 Unknown History tablet,extended release (Tylenol Arthritis Pain) Exam Height,Weight and Vital Signs: Height 5 ft 6 in Weight 100.9 kg Last Vital Signs Pulse 59 01/07/25 12:23 Resp 20 01/07/25 12:23 BP 132/60 01/07/25 12:23 Pulse Ox 97 01/07/25 12:23 O2 Del Method Room Air 01/07/25 12:23 Airway Mallampati Class: II TM Dist: >3cm Neck ROM: Full Loose/Missing/Broken Teeth: Yes (missing molars, crowns x 2) Heart: RRR + M Lungs: CTAB Assessment and Plan Assessment Anesthesia Assessment: Anesthesia Plan Discussed and PAT Visit Final Anesthetic Review Family History of Problems with Anesthesia: No History of Problems with Anesthesia: No
[2025-01-07 14:59] LABS: MRSA Nasal PCR NEGATIVE (Negative); SA Nasal PCR NEGATIVE (Negative)
[2025-04-22 12:09] VITALS: BP 124/60; PULSE 60; RESP 20; O2SAT 98; BMI 34.5
[2025-04-22 14:09] LABS: MRSA Nasal PCR NEGATIVE (Negative); SA Nasal PCR NEGATIVE (Negative)
[2025-05-06 08:30] VITALS: BMI 35.0
[2025-05-06 08:41] VITALS: BP 148/74; PULSE 66; RESP 16; TEMP 36.4; O2SAT 98
[2025-05-06] MEDS: Lactated Ringers 1,000 ML 100 ML IVCONT ×2 (09:15→15:23)
--- NOTE | 2025-05-06 10:35 | HO.ANESPROP2 ---
Documented by User: Gabriela Hawley NP 05/02/25 13:37 HPI - Anesthesia Eval Consult details Narrative: 79yo F for Left Knee Replacement Total Cardiac optimized 12/2024 preoperative cardiac evaluation for a murmur and AV block on EKG. Following this, patient underwent echo and a Holter study. 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 Patient had the pacemaker placed with Dr. Mehnaz Juan on 01/29/2025. Post pacer implant cardiac visit 01/2025 pt stable and feeling well 01/07/25 PAT visit (pre cardiac intervention) No recent illness No CP/SOB with senior exercise twice weekly and house work GERD: no issues for years PAD: chronic 2+ LE edema with stocking compression PMFSH Active Problems Active Problems: All Active Problems Pre-op evaluation (Acute) Status post cardiac pacemaker procedure (Acute) Preoperative cardiovascular examination (Acute) Non-rheumatic aortic stenosis (Acute) Heart block (Acute) Cardiac abnormality (Acute) Arthritis of left knee (Acute) Renal cyst (Acute) Nocturia (Acute) Lymphedema (Acute) Primary osteoarthritis of left knee (Acute) Varicose veins of right lower extremity with inflammation (Acute) Osteoarthritis of left knee (Acute) Knee pain (Acute) Past Medical History Medical History History of blood transfusion Anesthesia complication Uterine cancer GERD (gastroesophageal reflux disease) Murmur Lower extremity edema Eczema Chronic renal insufficiency Hiatal hernia Raynauds disease Hypothyroid Diverticulosis Coronary artery calcification seen on CAT scan PAD (peripheral artery disease) Anemia Varicose vein of leg Lymphedema Renal cyst Heart block Arthritis Hypertension Family History Family history of problems with anesthesia: No Surgical History Surgical History History of permanent cardiac pacemaker placement H/O colonoscopy History of excision of pilonidal cyst Hx of tonsillectomy History of bilateral total hip arthroplasty H/O: hysterectomy H/O thyroidectomy History of Problems with Anesthesia: No Social History Social History Are you a primary workforce investment act career manager to a significant other at home: No Do you presently have visiting nurse or other home services: No Alcohol intake: current Alcohol intake frequency: holidays/special occasions only Patient Tobacco Use Status: Former Tobacco user Tobacco use type: Cigarette Years Smoked: 5 Use of substances other than those prescribed or required for medical reasons: No Have you been hit, kicked, punched, or otherwise hurt by someone within the past year? If so, by whom?: No Spiritual Healthcare Practices: no Anabaptist Healthcare Practices: no Cultural Healthcare Practices: no Are you DNR?: Yes Advance Directives Information Provided: Yes (as above noted-advised to bring copies DOS) Advance Directives on File: No FDLMP: n/a Poor oral hygiene: No Current occupational status: retired Current occupation: right handed Meds Allergies Allergy/AdvReac Type Severity Reaction Status Date / Time shellfish derived (shellfish) Allergy Severe Anaphylaxis Verified 05/02/25 10:15 Penicillins Allergy Intermediate Itching Verified 05/02/25 10:15 diclofenac (From Voltaren) Allergy Mild HIVES Verified 05/02/25 10:15 adhesive tape AdvReac Intermediate blisters Verified 05/02/25 10:15 codeine (Codeine) AdvReac Intermediate SYNCOPE,ABD Verified 05/02/25 10:15 PAIN erythromycin base AdvReac Mild ABDOMINAL Verified 05/02/25 10:15 (Erythromycin Base) PAIN Active Medications: Current Medications Clindamycin Phosphate (Cleocin) 900 mg in 50 mls @ 50 mls/hr IV PREOP ONE Stop: 05/06/25 06:17 Home Medications ?Medication ?Instructions ?Recorded ?Confirmed ?Last Taken ?Type hydrochlorothiazide 12.5 mg capsule 12.5 mg PO QAM 11/25/20 05/06/25 05/05/25 08:45 History levothyroxine 50 mcg tablet 50 mcg PO QAM 05/14/21 05/02/25 Unknown History acetaminophen 650 mg 650 mg PO Q12H PRN Pain 12/31/24 05/06/25 05/06/25 07:00 History tablet,extended release (Tylenol Arthritis Pain) Exam Height,Weight and Vital Signs: Height 5 ft 6 in Weight 97.069 kg Last Vital Signs Pulse 60 04/22/25 12:09 Resp 20 04/22/25 12:09 BP 124/60 04/22/25 12:09 Pulse Ox 98 04/22/25 12:09 O2 Del Method Room Air 04/22/25 12:09 Pertinent Lab Results Pertinent Lab Results: Laboratory Tests 01/07/25 04/22/25 05/02/25 12:40 12:20 11:06 Nasal Screen MRSA (PCR) NEGATIVE NEGATIVE Nasal S. aureus Screen NEGATIVE NEGATIVE Nasal MRSA/S.aureus Interp SEE NOTE SEE NOTE Blood Type A Positive Antibody Screen NEGATIVE Narrative Narrative: EKG 12/2024 EKG Details: EKG with underlying sinus rhythm at 60/Min; OR prolongation to 316 milliseconds; left anterior fascicular block and right bundle-branch block. Cardiac Device Check 01/2025 Details: [employer] dual-chamber permanent pacemaker showed battery life of 10.4 years, DDD mode with low rate of 60 beats per minute, atrial threshold 0.625 volts at 0.4 milliseconds, ventricular threshold at 0.75 at 0.4 milliseconds, a pacing 44%, v pacing 98%. ECHO 12/2024 Conclusions: - 1. Normal LV ejection fraction of 65-70% with mild asymmetric septal hypertrophy with mild obstructive physiology without dynamic obstruction 2. Mildly dilated left atrium 3. Moderate mitral calcification with normal cardiac valvular Dopplers 4. Normal RV systolic pressure 5. Mildly dilated ascending aorta 6. No pericardial effusion Holter 12/2024 1. Patient was monitored for total period of 3 days and 19 hours 2. Baseline was normal sinus rhythm with average heart of 56 beats per minute 3. No significant pauses noted but frequent sinus bradycardia noted with 67% of time heart rate below 60 beats per minute 4. First-degree AV block noted with occasional atrial ventricular Wenckebach noted with occasional Mobitz type 1 second-degree AV block noted with junctional escapes 5. Rare PACs and PVCs noted 6. No patient reported events Airway Mallampati Class: II TM Dist: >3cm Neck ROM: Full Loose/Missing/Broken Teeth: Yes (missing molars, crowns x 2) Assessment and Plan Assessment Anesthesia Assessment: Chart Reviewed (JENNIFER kat 12/2024) Final Anesthetic Review Family History of Problems with Anesthesia: No History of Problems with Anesthesia: No Documented by User: Ruma Swain 05/06/25 11:45 HPI - Anesthesia Eval Consult details Narrative: 79yo F for Left Knee Replacement Total Cardiac optimized 12/2024 preoperative cardiac evaluation for a murmur and AV block on EKG. Following this, patient underwent echo and a Holter study. 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 Patient had the pacemaker placed with Dr. Mehnaz Juan on 01/29/2025. Post pacer implant cardiac visit 01/2025 pt stable and feeling well 01/07/25 PAT visit (pre cardiac intervention) No recent illness No CP/SOB with senior exercise twice weekly and house work GERD: no issues for years PAD: chronic 2+ LE edema with stocking compression PMFSH Past Medical History Medical History History of blood transfusion Anesthesia complication Uterine cancer GERD (gastroesophageal reflux disease) Murmur Lower extremity edema Eczema Chronic renal insufficiency Hiatal hernia Raynauds disease Hypothyroid Diverticulosis Coronary artery calcification seen on CAT scan PAD (peripheral artery disease) Anemia Varicose vein of leg Lymphedema Renal cyst Heart block Arthritis Hypertension Family History Family history of problems with anesthesia: No Surgical History Surgical History History of permanent cardiac pacemaker placement H/O colonoscopy History of excision of pilonidal cyst Hx of tonsillectomy History of bilateral total hip arthroplasty H/O: hysterectomy H/O thyroidectomy History of Problems with Anesthesia: No Social History Social History Are you a primary workforce investment act career manager to a significant other at home: No Do you presently have visiting nurse or other home services: No Alcohol intake: current Alcohol intake frequency: holidays/special occasions only Patient Tobacco Use Status: Former Tobacco user Tobacco use type: Cigarette Years Smoked: 5 Use of substances other than those prescribed or required for medical reasons: No Have you been hit, kicked, punched, or otherwise hurt by someone within the past year? If so, by whom?: No Spiritual Healthcare Practices: no Anabaptist Healthcare Practices: no Cultural Healthcare Practices: no Are you DNR?: Yes Advance Directives Information Provided: Yes (as above noted-advised to bring copies DOS) Advance Directives on File: No FDLMP: n/a Poor oral hygiene: No Current occupational status: retired Current occupation: right handed Meds Allergies Allergy/AdvReac Type Severity Reaction Status Date / Time shellfish derived (shellfish) Allergy Severe Anaphylaxis Verified 05/02/25 10:15 Penicillins Allergy Intermediate Itching Verified 05/02/25 10:15 diclofenac (From Voltaren) Allergy Mild HIVES Verified 05/02/25 10:15 adhesive tape AdvReac Intermediate blisters Verified 05/02/25 10:15 codeine (Codeine) AdvReac Intermediate SYNCOPE,ABD Verified 05/02/25 10:15 PAIN erythromycin base AdvReac Mild ABDOMINAL Verified 05/02/25 10:15 (Erythromycin Base) PAIN Home Medications ?Medication ?Instructions ?Recorded ?Confirmed ?Last Taken ?Type hydrochlorothiazide 12.5 mg capsule 12.5 mg PO QAM 11/25/20 05/06/25 05/05/25 08:45 History levothyroxine 50 mcg tablet 50 mcg PO QAM 05/14/21 05/02/25 Unknown History acetaminophen 650 mg 650 mg PO Q12H PRN Pain 12/31/24 05/06/25 05/06/25 07:00 History tablet,extended release (Tylenol Arthritis Pain) Exam Exam Date and Time: 05/06/25 1035 Height,Weight and Vital Signs: Height 5 ft 6 in Weight 97.069 kg Last Vital Signs Pulse 60 04/22/25 12:09 Resp 20 04/22/25 12:09 BP 124/60 04/22/25 12:09 Pulse Ox 98 04/22/25 12:09 O2 Del Method Room Air 04/22/25 12:09 Vital Signs Pulse Rate 59 01/07/25 12:23 Respiratory Rate 20 01/07/25 12:23 Blood Pressure 132/60 01/07/25 12:23 Pulse Oximetry 97 01/07/25 12:23 Oxygen Delivery Method Room Air 01/07/25 12:23 Temperature 97.6 F 05/06/25 08:41 Pulse Rate 66 05/06/25 08:41 Respiratory Rate 16 05/06/25 08:41 Blood Pressure 148/74 H 05/06/25 08:41 Pulse Oximetry 98 05/06/25 08:41 Oxygen Delivery Method Room Air 05/06/25 08:41 Airway Mallampati Class: II TM Dist: >3cm Neck ROM: Full Loose/Missing/Broken Teeth: Yes (missing molars, crowns x 2) Heart: S1S2 Lungs: CTAB Assessment and Plan Assessment Anesthesia Assessment: Anesthesia Plan Discussed and Chart Reviewed Final Anesthetic Review Family History of Problems with Anesthesia: No History of Problems with Anesthesia: No NPO: Yes ASA Class: III Final Preanesthetic Review: No Changes in Pt Med Stat, Meds/Allgs Chart Reviewed, Consent Obtained/Reviewed and Anes Risks/Benef Reviewed Patient Risk: Intermediate Procedure Risk: Intermediate Anesthetic Plan Anesthetic Plan: Spinal, Regional Block (left adductor canal block and left ipack block) and Agree w/ Assess. and Plan Disposition: Standard PACU
[2025-05-06 13:54] VITALS: BP 98/48; PULSE 70; RESP 12; TEMP 36.1; O2SAT 94
[2025-05-06 14:09] VITALS: BP 95/58; PULSE 70; RESP 12; O2SAT 97
--- NOTE | 2025-05-06 14:14 | P.BOP_ITS ---
Brief Operative Note Date of Service: 05/06/25 Pre-op diagnosis: Left knee degenerative joint disease Post-op diagnosis: same Procedure: Left total knee arthroplasty Implants: Mable Triathlon cemented posterior stabilized total knee arthroplasty with a femoral component size 4 left, universal tibial component size 4, polyethylene liner size 4 with 13 mm of thickness, an asymmetric patellar component size 29 with 9 mm of thickness, tibial stem size 12 mm in diameter by 50 mm in length Surgeon: Da Valencia MD Anesthesia: regional and spinal Was an Furniture Installer used for this Procedure?: No Furniture Installer: Mohan Ruiz Estimated blood loss (mL): 200 Pathology: other (Bony fragments from the left femur, tibia and patella) Condition: stable Disposition: PACU
--- NOTE | 2025-05-06 14:17 | P.OP_ITS ---
Operative Note Operative Note Date of Service: 05/06/25 Narrative: After the patient was identified as Lilo Bess and her left knee was initialed by myself the patient was brought to the holding area where a left leg nerve block was performed by the anesthesiologist in routine fashion. The patient was then brought to the operating room where conscious sedation and spinal anesthesia were performed by the anesthesiologist in routine fashion. Because of the patient's allergy to penicillins she was given both IV clindamycin and IV vancomycin preoperatively for infection prophylaxis. The patient's left lower extremity was prepped and draped in sterile fashion. A formal time-out was completed. The patient's left knee was placed onto a small bump to produce 30? of knee flexion during exposure. A #10 scalpel blade was used to make a midline incision extending 1 handbreadth proximal and distal to the patella. A second #10 scalpel blade was used to dissect the subcutaneous tissues down to the extensor mechanism. The subcutaneous flaps were maintained as thick as possible. A medial parapatellar arthrotomy was then performed using a #10 scalpel blade. The arthrotomy was begun just medial to the patellar tendon. The arthrotomy was continued 1 cm medial to the patella and then 5 mm into the medial aspect of the quadriceps tendon. The infrapatellar fat pad was partially excised to help with exposure. The soft tissue retinaculum was raised one-half of the way around the medial aspect of the proximal tibia. The patella was everted and the knee was flexed to 90?. There was no injury to the patellar tendon or its insertion onto the tibial tubercle. A drill bit was introduced into the distal aspect of the femur with a starting point 1 cm anterior to the origin of the posterior cruciate ligament. The intramedullary alignment amy was put into place. The distal alignment guide was set for a 5 degree valgus cut. The distal cutting block was put into place and we held it with 4 pins. The intramedullary alignment amy was removed. Soft tissues were retracted in the distal femoral cut was made using a sagittal saw. The distal aspect of the femur measured to be a size 4 left component. Two drill holes were placed into the distal aspect of the femur marking 3? of external rotation. The distal cutting block was impacted into place and we held it with 2 pins. Soft tissues were retracted and the 4 distal femoral cuts were made using a sagittal saw. Final notching and drilling of the distal aspect of the femur were performed in routine fashion. The trial femoral component was impacted into place. The knee was taken through a full range of motion. The patella tracked well. The patella was everted and the knee was flexed to 90?. The trial component was removed and our attention was directed to the proximal tibia. The medial and lateral menisci were removed using a #10 scalpel blade. A small rim of the medial meniscus was left intact to help prevent injury to the medial collateral ligament. A drill bit was then introduced into the proximal tibia with a starting point midway from medial to lateral and one-third of the way posteriorly. The intramedullary alignment amy was put into place. The proximal tibial cutting guide was placed over the alignment amy in line with the 2nd toe. The guide was held in place using 3 pins. The intramedullary alignment amy was removed. Soft tissues were retracted and the proximal tibial cut was made using a sagittal saw. The proximal tibia measured to be a size 4 component. There was a cyst along the posterolateral aspect of the tibia measuring approximately 5 mm x 10 mm x 10 mm. Because of the presence of the cyst and the patient's obesity the decision was made to use a tibial stem to help prevent loosening of the tibial component in the future. The tibial tray was put into place with a 13 mm liner. The femoral component was impacted into place. The knee was taken through a full range of motion. There was full flexion and full extension. There was no instability with varus or valgus stress testing with the knee in flexion or extension. The patella tracked well with no medially directed force. The rotation of the tibial tray was marked using electrocautery with the knee in extension. The patella was everted and the knee was flexed to 90?. All trial components were removed. The tibial tray was placed onto the proximal tibia in line with the electrocautery ene. The tray was held in place using 3 pins. Final broaching and drilling of the proximal tibia were performed in routine fashion. The trial liner and trial femoral component were put into place. The knee was brought into extension and our attention was directed to the patella. The patella measured 25 mm in thickness. The patellar resection guide was set for a 10 mm resection. Soft tissues were retracted and the patella cut was made using a sagittal saw. The remaining patella measured 15 mm in thickness. The undersurface of the patella was measured to be a size 29 asymmetric component. Three drill holes were placed into the undersurface of the patella in routine fashion. The trial component was put into place. The knee was taken through a full range of motion. The patella tracked well. The patella was everted and the knee was flexed to 90?. All trial components were removed. The knee was once again brought into extension and placed onto a small bump. The knee joint was irrigated with copious amounts of normal saline solution via pulse lavage while the cement was mixed. The patella was everted and the knee was flexed to 90?. A small amount of cement was placed along the posterior aspects of the tibial and femoral components. Cement was then pressurized into the proximal tibia. The tibial component was impacted into place. Any excess cement was removed. The polyethylene liner was then impacted into place. Cement was then pressurized into the distal aspect of the femur. A small amount of cement was placed into the intramedullary canal to help reduce bleeding. The femoral component was impacted into place. Any excess cement was removed. The knee was then brought into extension. Cement was pressurized into the undersurface of the patella. The patellar component was put into place and was held with a patella clamp. Any excess cement was removed. Once the cement had hardened the patellar clamp was removed. The knee was taken through a full range of motion. There was full flexion and extension. There was no instability with varus or valgus stress testing with the knee in flexion or extension. The patella tracked well with no medially directed force. The knee joint was irrigated with copious amounts of normal saline solution via pulse lavage. Any significant bleeding vessels were coagulated. The patient's left knee was placed onto a small bump. The arthrotomy was closed with #2 Ethibond [id number] interrupted suture as well as #1 Vicryl [id number] interrupted suture. The wound was once again irrigated. The subcutaneous tissues were closed with 0 Vicryl and 2-0 Vicryl interrupted sutures. The skin was closed with skin devora. Dry sterile dressing and Berto bandages were placed over the patient's left knee. The patient was awake and alert. The patient was transferred to the recovery room in stable condition. Justification for PA Operations Recruiter: The complexity of this total knee arthroplasty, involving significant bony deformity and soft tissue releases, necessitates the assistance of a qualified surgical appliance fitter for optimal surgical exposure, hemostasis and efficient execution of the procedure.
[2025-05-06 14:24] VITALS: BP 116/48; PULSE 70; RESP 12; TEMP 36.1; O2SAT 97
[2025-05-06 14:42] VITALS: BMI 35.0
[2025-05-06 14:50] VITALS: BP 109/52; PULSE 60; RESP 16; O2SAT 96
[2025-05-06] MEDS: oxyCODONE HCl Immed Release 5 MG TABLET PO (17:55)
[2025-05-06 19:52] VITALS: BP 116/58; PULSE 72; RESP 18; TEMP 36.1; O2SAT 96
[2025-05-06] MEDS: oxyCODONE HCl ER 10 MG TAB.ER.12H PO (20:16)
[2025-05-07] MEDS: Lactated Ringers 1,000 ML 100 ML IVCONT ×2 (01:26→10:24)
--- NOTE | 2025-05-07 03:05 | PC.NURSE ---
05/06/25- post op left knee surgery, patient able to void 450ml to purewick at 2130 and also noted to be incontinent of moderate amount of urine. PVR scan revealed 303ml, no action taken at that time. Patient denied bladder pain or pressure, and would like to wait and try to void again, will monitor output, DTV between [id number].
[2025-05-07 03:26] VITALS: BP 125/56; PULSE 63; RESP 18; TEMP 36.6; O2SAT 97
--- NOTE | 2025-05-07 03:42 | PC.NURSE ---
0330- noted 200ml of yellow urine to purewick canister, also incontinent of large amount of urine. PVR scan showed 101 ml, will continue to monitor output.
[2025-05-07 06:49] LABS: MANUAL DIFF FLAG NO
[2025-05-07 06:57] LABS: Hematocrit 28.4 % (37.0-47.0); Hemoglobin 9.1 g/dl (12.0-16.0); Imm Gran Abs Auto 0.03 X10*3/uL (0.00-0.03); Imm Gran Pct Auto 0.4 % (0.0-0.4); Lymphocytes Absolute Auto 0.5 X10*3/uL (1.2-4.9); Mean Corpuscular HGB Conc 32.0 g/dl (31.0-35.0); Mean Corpuscular Hemoglobin 28.5 pg (27.0-33.0); Mean Corpuscular Volume 89.0 fL (80.0-98.0); NRBC Abs Auto 0.000 X10*3/uL (0.0-0.012); NRBC Pct Auto 0.0 /100WBC (0.0-0.2); Platelet Count 173 X10*3/uL (160-400); Red Blood Count 3.19 X10*6/uL (4.20-5.50); White Blood Count 7.5 X10*3/uL (4.8-10.8)
[2025-05-07 07:46] VITALS: BP 133/63; PULSE 65; RESP 18; TEMP 36; O2SAT 65
[2025-05-07 07:52] LABS: Anion Gap 12 (12-20); Blood Urea Nitrogen 22 mg/dL (9-16); Calcium 8.6 mg/dL (8.4-10.2); Carbon Dioxide 27 mmol/L (22-29); Chloride 106 mmol/L (96-108); Creatinine Clr Calc Pharmacy 70.5; Estimated Glomerular Filt Rate > 60; Potassium 4.0 mmol/L (3.3-5.1); Sodium 141 mmol/L (135-145)
--- NOTE | 2025-05-07 08:12 | P.PNOP_ITS ---
Subjective Subjective Date of Service: 05/07/25 Interval history: POD 1 s/p LT TKA no overnight events resting in bed has not worked with PT yet pain well managed Physical Exam Vital Signs: Vital Signs: Last Vital Signs Temp 96.8 F 05/07/25 07:46 Pulse 65 05/07/25 07:46 Resp 18 05/07/25 07:46 BP 133/63 05/07/25 07:46 Pulse Ox 65 L 05/07/25 07:46 O2 Del Method Room Air 05/07/25 07:46 BMI result Body Mass Index 35.0 Const: General: cooperative, healthy appearing and no acute distress Resp: Effort & Inspection: normal respiratory effort and able to speak in complete sentences Cardio: Rate: regular rate Peripheral pulses: Peripheral pulses 2+ throughout GI: Palpation (GI): Soft to palpation Skin: General skin exam: no rashes or lesions noted Extrem: Other: left knee bandage clean, dry and intact. She is able to plantar and dorsi flex. NVI Procedures Date of Service Date of Service: 05/07/25 Progress Note: A&P Assessment and plan (1) Status post total left knee replacement: Status: Acute Assessment and Plan: * Continue pain mgmnt * Begin Aspirin for dvt ppx * begin PT for LT TKA * Dispo planning-Pending PT eval, pain mgmnt Time Spent With Patient Time: Total time managing care of this patient today ____ minutes. Quality Stroke Does the patient have a stroke diagnosis?: No VTE Prior VTE?: No VTE Risk Level:: Surgical - very high VTE Device Contraindication: N/A - Device Ordered VTE Drug Contraindication: N/A - Med Ordered
--- NOTE | 2025-05-07 08:15 | P.DS_ITS ---
DS: Providers Provider Date of Service: 05/07/25 Date of discharge: 05/07/25 Primary care physician: La Zamora MD Consults: 05/06/25 14:42 Consult to Case Management Routine Comment: Consult to Hospitalist Routine Comment: Consulting Provider: [facility] Reason For Exam: Routine medical management DS: Diagnosis Discharge Diagnosis (1) Status post total left knee replacement: Status: Acute DS: Summary Hospital Course Hospital Course: The patient underwent a successful left total knee arthroplasty on 05/06/[address] Valencia, was transferred to PACU and then to the floor to recover. During their stay, their vitals were stable, afebrile at . Labs were unremarkable, H/H 9.1/28.4 . POD 1 96.8 she was started on ASA 325mg tabs po bid for DVT ppx, they also received Physical Therapy services twice a day. Physical therapy should include gait training, ROM to tolerance and quad strength. She is WBAT. Prior to discharge, her dressing was clean dry and intact. The Aquacel dressing should remain intact and dry at all times. Any concerns with the dressing, please contact orthopedic office. No showering. The plan is to be discharged to [facility] Attestation Discharge Coordination Time (in mins): 30 Quality: Safe Use of Opioids Does Pt have an Active Cancer Diagnosis on the Problem List?: No Quality: Stroke Does the patient have a stroke diagnosis?: No Physical Exam Vital Signs: Vital Signs: Last Vital Signs Temp 96.8 F 05/07/25 07:46 Pulse 65 05/07/25 07:46 Resp 18 05/07/25 07:46 BP 133/63 05/07/25 07:46 Pulse Ox 65 L 05/07/25 07:46 O2 Del Method Room Air 05/07/25 07:46 BMI result Body Mass Index 35.0 DS: Data Data Completed and Pending Pending studies at discharge: Pending at discharge 05/06/25 12:06 Surgical [PTH] Routine Labs on day of discharge: Laboratory Results - last 24 hr 05/07/25 05:52 WBC 7.5 RBC 3.19 L D Hgb 9.1 L D Hct 28.4 L D MCV 89.0 MCH 28.5 MCHC 32.0 RDW 14.7 Plt Count 173 MPV 10.3 Immature Gran % (Auto) 0.4 Neut % (Auto) 83.1 H Lymph % (Auto) 6.6 L [place] % (Auto) 9.8 Eos % (Auto) 0.0 Baso % (Auto) 0.1 Lymph # (Auto) 0.5 L [place] # (Auto) 0.7 Eos # (Auto) 0.0 Baso # (Auto) 0.0 Abs Immat Gran (auto) 0.03 Absolute Neuts (auto) 6.2 Absolute Nucleated RBC 0.000 Nucleated RBC % (auto) 0.0 Sodium 141 Potassium 4.0 Chloride 106 Carbon Dioxide 27 Anion Gap 12 BUN 22 H Creatinine 0.74 Estim Creat Clear Calc 70.5 Estimated GFR > 60 Fasting Glucose 132 H Calcium 8.6 D Discharge Plan Discharge Patient Disposition: Xfer Other Referrals: [facility] [Other] - 1 Week Nohemi Vasquez PA-C [Physician Mechanic'S Assistant, Orthopedics] - 1 Week Referral Note: 05/23/25 10:00 [facility] Nohemi Vasquez PA-C Discharge Medications: New celecoxib 200 mg Capsule 200 mg PO BID 30 Days Qty: 60 0RF acetaminophen 325 mg Tablet 650 mg PO Q6H PRN (Reason: Pain, Mild 1-3,Fever,Headache) 30 Days Qty: 240 0RF aspirin 325 mg Tablet 325 mg PO BID 42 Days Qty: 84 0RF docusate sodium 100 mg Capsule 100 mg PO BID 7 Days Qty: 14 0RF oxycodone 5 mg Tablet 5 mg PO Q4H PRN (Reason: Pain, Moderate(Pain Scale 4-6)) 7 Days Qty: 42 0RF Rx Instructions: Partial Fill upon patient request. Continued (DME) walker Misc See Rx Instructions .ROUTE .MEDSUPPLY Qty: 1 0RF Rx Instructions: Folding front wheeled walker (DME) walker Misc See Rx Instructions .MEDSUPPLY Qty: 1 0RF Rx Instructions: Folding front wheeled walker hydrochlorothiazide 12.5 mg capsule 12.5 mg PO QAM levothyroxine 50 mcg tablet 50 mcg PO QAM Discontinued acetaminophen [Tylenol Arthritis Pain] 650 mg tablet extended release 650 mg PO Q12H PRN (Reason: Pain) Discharge Orders: Discharge Order (Routine); Ordered 05/07/25 Ordered By: Buzz Ceja Diet: Regular diet Activity on Discharge: Use cane or walker Activity Restrictions/Additional Instructions: Physical Therapy for ROM 0-120, quad strength, gait training. Use walker for ambulation Limit stair climbing No shower or tub bath No driving for 6 weeks Continue anticoagulant Keep Aquacel dressing clean, dry and intact. Follow up with orthopedics in 2 weeks -Bandage/Incision Site Care: -Ice 20mins at a time -Make sure you use a towel or cloth on your skin as a barrier -DO NOT remove the bandage -Keep Bandage clean, dry and intact -Do not get the bandage wet: -No tub bath, pools or hot tubs -If there are any concerns regarding the bandage please call orthopedics: [phone] -Knee Precautions: -Refrain from putting pillows under the knee -Keep leg straight while resting the knee -Avoid low chairs and deep couches -Use supportive shoes with nonslip soles -Physical Therapy: -Patient is WBAT with the use of a walker -Range of Motion: 0-120 degrees. -Strengthening: Quadriceps and hip muscles -Walking: Gait training and gradually increasing distance with walker -Ankle pumps and incentive spirometry to limit the risk of blood clot -Diet: -Resume regular diet as tolerated. -Drink plenty of fluids and eat a high-fiber foods to avoid constipation -This is a common side effect of pain medication) -Take stool softeners as prescribed -Blood Clot Prevention: -Take the prescribed blood thinner (Aspirin) as directed for 6 weeks -Perform ankle pumps and walk frequently with the walker and assistance if n eeded -Report calf pain, swelling, or shortness of breath immediately Print Language: Prydeinig
--- NOTE | 2025-05-07 08:25 | HO.POSTANES ---
Post Anesthesia Evaluation Post Anesthesia Evaluation Date of Service: 05/07/25 Vital Signs: Vital Signs Temp Pulse Resp BP Pulse Ox O2 Del Method 05/07/25 07:46 96.8 F 65 18 133/63 65 L Room Air 05/07/25 03:26 97.9 F 63 18 125/56 L 97 Room Air Anesthesia: Spinal Mental Status: Awake Pain Control: Satisfactory Nausea/Vomiting: None Hydration: Adequate Anesthesia-Related Issues: No Anes. Related Issues
[2025-05-07] MEDS: oxyCODONE HCl ER 10 MG TAB.ER.12H PO (08:53)
--- NOTE | 2025-05-07 08:59 | MHC.CM.PN ---
pt dcd home self care prior to being seen by cm
--- NOTE | 2025-05-07 10:45 | MHC.CM.PN ---
pt lives with pt requesting acute rehab stay at [facility] will be transported by amb
--- NOTE | 2025-05-07 13:35 | MHC.CM.PN ---
pt to be transferred to [facility] at 4:30 todaY
[2025-05-07 15:15] VITALS: BP 120/56; PULSE 60; RESP 18; TEMP 36.3; O2SAT 99
[2025-05-07] MEDS: oxyCODONE HCl Immed Release 5 MG TABLET PO (16:08)
== END 2025-05-07 18:11 | disposition other institution (70) ==
LOC: HO.SSS 08:14 → HO.S3 14:14
PROVIDERS: Nurse Practitioner; Physician Assistant; PCP Family Medicine; Visit Provider Orthopaedic Surgery
PROC: (CPT 27447; principal; 2025-05-06 10:30)
DX: M17.12 Unilateral primary osteoarthritis, left knee (principal); M25.562 Pain in left knee; R26.2 Difficulty in walking, not elsewhere classified; I12.9 Hypertensive chronic kidney disease with stage 1 through stage 4 chronic kidney disease, or unspecified chronic kidney disease; N18.9 Chronic kidney disease, unspecified; I73.00 Raynaud's syndrome without gangrene; R60.0 Localized edema; L30.9 Dermatitis, unspecified; I73.9 Peripheral vascular disease, unspecified; I89.0 Lymphedema, not elsewhere classified; D64.9 Anemia, unspecified; I25.84 Coronary atherosclerosis due to calcified coronary lesion; I45.9 Conduction disorder, unspecified; Z95.0 Presence of cardiac pacemaker; Z79.899 Other long term (current) drug therapy; Z79.1 Long term (current) use of non-steroidal anti-inflammatories (NSAID); Z88.0 Allergy status to penicillin; Z88.8 Allergy status to other drugs, medicaments and biological substances; Z88.5 Allergy status to narcotic agent; Z96.643 Presence of artificial hip joint, bilateral; Z98.890 Other specified postprocedural states; Z87.891 Personal history of nicotine dependence
CPT/HCPCS: 27447; 36415; 80048; 85025; 86850; 86900; 86901; 87640; 87641; 88305; 88311; 88341; 88342; 97110; 97161; 97165; A6260; C1776; J0131; J0736; J1100; J1171; J2003; J2250; J2371; J2704; J2795; J3374; J7120

== ENCOUNTER → 2025-05-06 08:14 | Outpatient (BNV) | payer MEDICARE, SELFPAY | PROVIDERS: PCP Family Medicine; Visit Provider Orthopaedic Surgery | DX: Z47.1 Aftercare following joint replacement surgery (principal); Z96.652 Presence of left artificial knee joint | CPT/HCPCS: 27447; 99024 ==

== ENCOUNTER 2025-05-18 12:09 | Emergency (ER) | payer MEDICARE, SELFPAY ==
--- OUTSIDE RECORDS SUMMARY | 2025-03-07 10:45 | XMS_ITS ---
Author Organization [facility] mike [place] Address [address] [place] [address] [place] [address] Care Team Providers Care Imaging Clerk Name Role Phone La Zamora MD Primary Care Provider Unavailab Crews Vee Ramos [phone] Encounters Encounter Location Date Provider Diagnosis [address] [address] 03/07/2025 Vee Ta Plan Of Treatment Next Appt Details Provider Name:Vee Espitia Keyon , 06/03/2025 09:00:00 AM, [address] [place] [address], [phone], Provider Name:Vee A Keyon , 08/05/2025 01:00:00 PM, [address] [place] [address], [phone], Progress Notes * Lilo KAYE MDOB:1945 (79 yo F)Acc No.[id number]:03/07/2025 Progress Note Patient: Mike RISSALilo TURNER [place] Provider: Manuel Ta DPM :1945 A ge:79 Y S ex:Female Date:03/07/2025 Address:[address] [place], [place] [phone] Pcp:La Zamora MD Subjective: * Chief [...] 03/07/2025 Generated for Chastity Montero on: 0 05/18/2025 12:29 PM EDT
--- OUTSIDE RECORDS SUMMARY | 2025-05-16 09:00 | XMS_ITS ---
Author Organization [facility] Address [address] [place] [address] [place] [address] Care Team Providers Care Supervisor Phosphorus Processing Name Role Phone La Zamora MD Primary Care Provider Unavailab Crews Vee Ramos [phone] Encounters Encounter Location Date Provider Diagnosis [address] [address] 05/16/2025 Vee Ta Plan Of Treatment Next Appt Details Provider Name:Vee Espitia Keyon , 06/03/2025 09:00:00 AM, [address] [place] [address], [phone], Provider Name:Vee A Keyon , 08/05/2025 01:00:00 PM, [address] [place] [address], [phone], Progress Notes * Lilo KAYE MDOB:1945 (79 yo F)Acc No.[id number]:05/16/2025 Progress Note Patient: Mack RISSAGricel TURNERmaureen Conrad Provider: Manuel Ta DPM :1945 A ge:79 Y S ex:Female Date:05/16/2025 Address:[address] [place], [place] [phone] Pcp:La Zamora MD Subjective: * Chief [...] 0 05/16/2025 Generated for Chastity Montero on: 05/18/2025 12:29 PM EDT
--- NOTE | ~2025-05-18 | US_ITS ---
CLINICAL HISTORY: swelling LLE, post op Left lower extremity venous duplex ultrasound Comparison: None available Findings: The visualized deep veins are fully compressible with normal flow. No popliteal cyst. There is a lymph node with normal morphology in the left groin measuring 2.3 cm in length. Impression: No deep vein thrombosis. This document has been electronically signed by: Yue Yun MD on 05/18/2025 14:30:38
--- NOTE | 2025-05-18 12:14 | ED.GENADULT ---
HPI - General Adult General Chief complaint: Extremity Problem Stated complaint: for ultrasound of l leg Time Seen by Provider: 05/18/25 12:14 Source: patient Mode of arrival: ambulatory Limitations: no limitations History of Present Illness ED Provider: Jenny Weaver APRN HPI narrative: 79-year-old female with a history of hypothyroidism who had a left total knee on May 06 presents to the ER with complaints of left ankle swelling noted this morning with waking. Patient reports after her surgery she went to [facility] for short-term rehab. She was discharged home on Tuesday of this week. She has been feeling well since being home. Pain is minimal. She has only required 1 dose of p.r.n. oxycodone since being home. She has been walking around and has been quite active. She noted this morning with waking she noted left ankle swelling. She has had no pain associated with this. There is no associated warmth, redness, numbness or tingling of the extremity. Patient has taken a full aspirin daily. She reached out to the on-call orthopedic surgeon who recommend she come into the emergency room to rule out a DVT. Related Data Home Medications ?Medication ?Instructions ?Recorded ?Confirmed hydrochlorothiazide 12.5 mg capsule 12.5 mg PO QAM 11/25/20 05/06/25 levothyroxine 50 mcg tablet 50 mcg PO QAM 05/14/21 05/02/25 Previous Rx's ?Medication ?Instructions ?Recorded walker #1 ea 12/03/24 walker #1 ea 03/08/25 acetaminophen 325 mg tablet 650 mg (2 x 325 mg) PO Q6H PRN 05/07/25 Pain, Mild 1-3,Fever,Headache 30 days #240 tabs aspirin 325 mg tablet 325 mg PO BID 42 days #84 tabs 05/07/25 celecoxib 200 mg capsule 200 mg PO BID 30 days #60 caps 05/07/25 docusate sodium 100 mg capsule 100 mg PO BID 7 days #14 caps 05/07/25 oxycodone 5 mg tablet 5 mg PO Q4H PRN Pain, 05/07/25 Moderate(Pain Scale 4-6) 7 days #42 tabs Allergies Allergy/AdvReac Type Severity Reaction Status Date / Time shellfish derived (shellfish) Allergy Severe Anaphylaxis Verified 05/18/25 12:17 Penicillins Allergy Intermediate Itching Verified 05/18/25 12:17 diclofenac (From Voltaren) Allergy Mild HIVES Verified 05/18/25 12:17 adhesive tape AdvReac Intermediate blisters Verified 05/18/25 12:17 codeine (Codeine) AdvReac Intermediate SYNCOPE,ABD Verified 05/18/25 12:17 PAIN erythromycin base AdvReac Mild ABDOMINAL Verified 05/18/25 12:17 (Erythromycin Base) PAIN Review of Systems Review of Systems: Yes all other systems are reviewed and are negative Constitutional: Constitutional: Reports no additional constitutional complaints, Denies body ache(s), Denies chills, Denies fever(s), Denies headache(s) and Denies weakness Eyes: Eyes: Reports no additional eye complaints and Denies change in vision ENT: Reports system reviewed and no additional complaints, except as documented, Denies dizziness, Denies headache(s), Denies nasal congestion, Denies nasal discharge and Denies neck pain Cardiovascular: Cardiovascular: Reports no additional cardiovascular complaints, Denies chest pain, Reports leg edema and Denies dyspnea Respiratory: Respiratory: Reports no additional respiratory complaints, Denies cough and Denies dyspnea Gastrointestinal: Gastrointestinal: Reports no additional gastrointestinal complaints, Denies abdominal pain, Denies diarrhea, Denies nausea and Denies vomiting Genitourinary: Genitourinary: Reports no additional female genitourinary complaints and Denies urinary incontinence Musculoskeletal: Musculoskeletal: Reports no additional musculoskeletal complaints, Denies back pain, Denies arthralgias, Denies joint swelling, Denies neck pain, Denies numbness and Denies tingling Integumentary/Breasts: Skin/Breast: Reports system reviewed and no additional complaints, except as docu and Denies rash Neurologic: Reports system reviewed and no additional complaints, except as documented, Denies Abnormal speech present, Denies dizziness, Denies headache(s), Denies numbness, Denies tingling and Denies weakness [facility] Past Medical History Attestation statement: The following information was validated with the patient. Source: old records reviewed and nursing notes reviewed Medical History History of blood transfusion Anesthesia complication Uterine cancer GERD (gastroesophageal reflux disease) Murmur Lower extremity edema Eczema Chronic renal insufficiency Hiatal hernia Raynauds disease Hypothyroid Diverticulosis Coronary artery calcification seen on CAT scan PAD (peripheral artery disease) Anemia Varicose vein of leg Lymphedema Renal cyst Heart block Arthritis Hypertension Surgical History History of permanent cardiac pacemaker placement H/O colonoscopy History of excision of pilonidal cyst Hx of tonsillectomy History of bilateral total hip arthroplasty H/O: hysterectomy H/O thyroidectomy Social History Social History Household Members: Spouse Housing: House Are you a primary school childcare attendant to a significant other at home: No Do you presently have visiting nurse or other home services: No Alcohol intake: current Alcohol intake frequency: holidays/special occasions only Patient Tobacco Use Status: Former Tobacco user Tobacco use type: Cigarette Years Smoked: 5 Smoked in Last 30 Days: No Use of substances other than those prescribed or required for medical reasons: No Advance Directives: No Advance Directives Information Provided: Yes Do you have a plan to hurt others: No Plan service: No Current occupational status: retired Current occupation: right handed Physical Exam ED Vital Signs: Vital Signs - 24 hr 05/18/25 12:15 05/18/25 13:36 05/18/25 14:50 Temperature 97 F 98 F Pulse Rate 62 59 62 Respiratory Rate 16 16 18 Blood Pressure 138/63 131/84 134/52 L Pulse Oximetry 100 100 100 Oxygen Delivery Method Room Air Room Air Room Air BMI result Body Mass Index 33.7 Const General: cooperative, healthy appearing, comfortable and no acute distress Orientation/consciousness: patient oriented x3 Limitations: no limitations [facility] Head: Yes normal to inspection Ears: hearing grossly normal bilaterally General nose exam: Normal external nose present Face and sinus: Yes normal facial exam Mouth: Normal oral and palatal mucosa present Throat: Yes posterior oropharynx normal Eyes General: appearance normal, both eyes and all related structures Pupils: Equal, round and reactive pupils present Neck Neck: Yes normal visual inspection Chest Chest palpation & inspection: normal inspection of the chest Resp Effort & Inspection: normal respiratory effort Auscultation: clear to auscultation bilaterally Cardio Rate: regular rate Rhythm: regular rhythm Peripheral pulses: Peripheral pulses 2+ throughout GI Inspection: Yes normal to inspection Palpation (GI): Soft to palpation and nontender Auscultation: normal bowel sounds Back/Spine/Pelvis Thoracic/Lumbar Spine: thoracic and lumbar spine normal to inspection Skin General skin exam: no rashes or lesions noted Neuro General: patient oriented x3, no focal motor deficits and normal sensation to monofilament Cranial nerves: Yes Equal, round and reactive pupils present Cognition (Neuro): normal cognition Speech: No Abnormal speech present Gait exam (Neuro): Normal gait present Motor exam (neuro): 5/5 motor strength present throughout Extrem Other: Compartments are soft and compressible. There is no calf pain on exam. There are 2+ DP and PT pulses distally. There is normal sensation. There is no warmth on exam. No redness on exam. Patient has good range of motion distally. Course Course Course Narrative: This is an RME: Additional HPI, ROS, PE not included below will be deferred to primary provider. RME assessment and note performed by: Celeste Castro PA-C This is a [id number]-female who presents to the ER with a complaint of left lower extremity swelling and increased pain. Pt had a right TKA by Dr. Valencia on 05/06. Reports over the last few days she has had increased swelling and pain. Plan: Reevaluation(s) Reevaluation #1: Reviewed findings with the patient. Recommend she follow up outpatient with Orthopedics. Reviewed worrisome signs and symptoms of when to return to the emergency room. Comfortable plan for discharge home Medical Decision Making Medical Decision Making MDM Narrative: 79-year-old female with a history of hypothyroidism who had a left total knee on May 06 presents to the ER with complaints of left ankle swelling noted this morning with waking. Patient reports after her surgery she went to [facility] for short-term rehab. She was discharged home on Tuesday of this week. She has been feeling well since being home. Pain is minimal. She has only required 1 dose of p.r.n. oxycodone since being home. She has been walking around and has been quite active. She noted this morning with waking she noted left ankle swelling. She has had no pain associated with this. There is no associated warmth, redness, numbness or tingling of the extremity. Patient has taken a full aspirin daily. She reached out to the on-call orthopedic surgeon who recommend she come into the emergency room to rule out a DVT. See PE for photos Compartments are soft and compressible. There is no calf pain on exam. There are 2+ DP and PT pulses distally. There is normal sensation. There is no warmth on exam. No redness on exam. Patient has good range of motion distally. Will review ultrasound and lab Differential Diagnosis Differential Diagnoses: The differential diagnosis associated with the presentation includes DVT, dependent edema, doubt cellulitis/septic joint Admission/Observation Consideration of admission/observation: Escalation of care including admission/observation considered Consult Healthcare Provider Management of the patient was discussed with: [employer]acker [id number]-I spoke to the orthopedic PA Mohna who is on-call this weekend. Recommend obtaining a venous ultrasound. I sent him photos of the patient's lower extremity. If ultrasound is negative he recommended elevation and follow-up as scheduled next week and the office Lab Data MDM Lab Attestation statement: I reviewed the patient's lab results. 05/18/25 12:24 05/18/25 12:24 Labs: Lab Results 05/18/25 Range/Units 12:24 WBC 5.2 (4.8-10.8) X10*3/uL RBC 3.35 L (4.20-5.50) X10*6/uL Hgb 9.4 L (12.0-16.0) g/dl Hct 30.9 L (37.0-47.0) % MCV 92.2 (80.0-98.0) fL MCH 28.1 (27.0-33.0) pg MCHC 30.4 L (31.0-35.0) g/dl RDW 15.4 (11.0-16.0) % Plt Count 250 D (160-400) X10*3/uL MPV 9.1 L (9.4-12.3) fL Immature Gran % (Auto) 0.4 (0.0-0.4) % Neut % (Auto) 69.7 (45-73) % Lymph % (Auto) 16.9 L (20-40) % Snyder % (Auto) 9.5 (2-11) % Eos % (Auto) 3.1 (0-4) % Baso % (Auto) 0.4 (0-2) % Lymph # (Auto) 0.9 L (1.2-4.9) X10*3/uL Snyder # (Auto) 0.5 (0.1-1.2) X10*3/uL Eos # (Auto) 0.2 (0.0-0.4) X10*3/uL Baso # (Auto) 0.0 (0.0-0.2) X10*3/uL Abs Immat Gran (auto) 0.02 (0.00-0.03) X10*3/uL Absolute Neuts (auto) 3.6 (2.0-8.3) x10*3/uL Absolute Nucleated RBC 0.000 (0.0-0.012) X10*3/uL Nucleated RBC % (auto) 0.0 (0.0-0.2) /100WBC ESR 48 H (0-20) MM/HR Sodium 141 (135-145) mmol/L Potassium 3.6 (3.3-5.1) mmol/L Chloride 105 (96-108) mmol/L Carbon Dioxide 27 (22-29) mmol/L Anion Gap 13 (12-20) BUN 19 H (9-16) mg/dL Creatinine 0.83 (0.5-1.4) mg/dL Estim Creat Clear Calc 63.8 Estimated GFR > 60 Random Glucose 98 (60-115) mg/dL Calcium 9.3 D (8.4-10.2) mg/dL Total Bilirubin 0.6 (0.0-1.0) mg/dL AST 29 (5-31) U/L ALT 12 (0-31) U/L Alkaline Phosphatase 71 (39-117) U/L C-Reactive Protein 5.66 H (< or = 0.50) mg/dL Total Protein 6.9 (6.5-8.0) g/dL Albumin 3.8 (3.5-5.0) g/dL Independent Interpretation I performed an independent interpretation of an: EKG and Ultrasound Interpretation: I independently viewed the ultrasound agree with the radiology report I independently viewed the EKG which shows paced rhythm Radiology Impression Discussion of test interpretation with radiology: I have reviewed the radiologist's reading. Radiologist Impression: [address] [address] Ultrasound Report Signed Patient: Lilo Bess MR#: [id number] : 1945 Acct:[id number] Age/Sex: 79 / F ADM Date: 05/18/25 Loc: HO.ED Attending Dr: Ordering Physician: Celeste Castro Date of Service: 05/18/25 Procedure(s): US venous duplex LE LT Accession Number(s): [id number] cc: La Zamora MD; Celeste Castro~ Reason for Exam: swelling LLE, post op CLINICAL HISTORY: swelling LLE, post op Left lower extremity venous duplex ultrasound Comparison: None available Findings: The visualized deep veins are fully compressible with normal flow. No popliteal cyst. There is a lymph node with normal morphology in the left groin measuring 2.3 cm in length. Impression: No deep vein thrombosis. This document has been electronically s Independent Historian Clinical information obtained from an independent historian. History obtained from or confirmed by: Spouse Discharge Plan Discharge Clinical Impression: Edema Patient Disposition: Home, Self-Care Instructions: Edema (ED) Additional Instructions: Elevate the leg, use compression stocking, follow-up with orthopedics as scheduled Prescriptions: No Action (DME) walker Misc See Rx Instructions .ROUTE .MEDSUPPLY Qty: 1 0RF Rx Instructions: Folding front wheeled walker (DME) walker Misc See Rx Instructions .MEDSUPPLY Qty: 1 0RF Rx Instructions: Folding front wheeled walker celecoxib 200 mg Capsule 200 mg PO BID 30 Days Qty: 60 0RF acetaminophen 325 mg Tablet 650 mg PO Q6H PRN (Reason: Pain, Mild 1-3,Fever,Headache) 30 Days Qty: 240 0RF aspirin 325 mg Tablet 325 mg PO BID 42 Days Qty: 84 0RF docusate sodium 100 mg Capsule 100 mg PO BID 7 Days Qty: 14 0RF oxycodone 5 mg Tablet 5 mg PO Q4H PRN (Reason: Pain, Moderate(Pain Scale 4-6)) 7 Days Qty: 42 0RF Rx Instructions: Partial Fill upon patient request. hydrochlorothiazide 12.5 mg capsule 12.5 mg PO QAM levothyroxine 50 mcg tablet 50 mcg PO QAM [place] [facility] [place] [facility] [place] Group] Interventions: ED Discharge Assessment Last Done: 05/18/25 14:50 Discharge Date/Time: 05/18/25 14:51 Print Language: Honduran
[2025-05-18 12:15] VITALS: BP 138/63; PULSE 62; RESP 16; TEMP 36.1; O2SAT 100; BMI 33.7
--- NOTE | 2025-05-18 12:25 | ECG_ITS ---
Test Reason : hypertension Blood Pressure : */* mmHG Vent. Rate : 60 BPM Atrial Rate : 60 BPM P-R Int : 176 ms QRS Dur : 154 ms QT Int : 514 ms P-R-T Axes : 7 103 32 degrees QTcB Int : 514 ms AV dual-paced rhythm Abnormal ECG When compared with ECG of 16-Oct-2018 04:38, Electronic ventricular pacemaker has replaced Sinus rhythm Referred By: Richie Lopez Electronically Signed By: RACHEL KENNY
--- OUTSIDE RECORDS SUMMARY | 2025-05-18 12:29 | XMS_ITS | Patient Health Record ---
[facility] Organization [facility] Address [address] [place] [address] Care Team Providers Care Occupational Therapist Assistant Name Role Phone La Zamora MD Primary Care Provider Unavailab Vee Crews Unavailable [phone] Allergies Allergen (clinical drug ingredient) Drug/Non Drug [...] a day Not-Taking Baby Aspirin Not-Dung ing Oebxuhqk-Pniefjmgl-Uyjrnqqr Not-Taking Flax Seeds Orally Not-Takin g Propranolol [...] W/U Status Risk Notes Problem Raynaud's disease (207144509) Raynaud's syndrome without gangrene (I73.00) Active confirmed Problem Bilateral atherosclerosis of arteries of lower limbs (disorder) (81962765292950643 ) Atherosclerosis of [place] artery of both lower extremities, with unspecified presence of clinical manifestation (I70.203) Active confirmed Q7(A), Q8(2B), Q9(1B,2 C) Vital Signs Blood pressure diastolic 78 mm Hg 04/01/2025 Height 5 ft 7 in in 04/01/2025 Blood pressure systolic 146 mm Hg 04/01/2025 Weight 218 lbs 04/01/2025 BMI 34.14 kg/m2 04/01/2025 Procedures Procedure Date Ordered Date Performed Result Body Sit e 93692-VZYIWDN NAIL, 6 OR MORE 06/21/2024 N/A 57584-FVKM SKIN LESIONS, OVER 4 06/21/2024 N/A 10578-CPCUDZT NAIL, 6 OR MORE 08/30/2024 N/A 82397-QXTW SKIN LESIONS, OVER 4 08/30/2024 N/A 60757-GECDPTP NAIL, 6 OR MORE 11/01/2024 N/A 47715-EYXF SKIN LESIONS, OVER 4 11/01/2024 N/A 95156-PJORMUB NAIL, 6 OR MORE 01/03/2025 N/A 10962-Qxdtxfxb Plate 01/03/2025 N/A 68804-JXUO SKIN LESIONS, OVER 4 01/03/2025 N/A 84220-FSBPBOW NAIL, 6 OR MORE 04/01/2025 N/A 99060-Wkipspko Plate 04/01/2025 N/A 49376-AQYI SKIN LESIONS, OVER 4 04/01/2025 N/A Encounters Encounter Location Date Provider Diagnosis [address] [address] 06/21/2024 Vee Black Neuritis of right fo ot G57.91 ; Pain in right foot M79.671 ; Atherosclerosis of [place] artery of both lower extremities, with unspecified presence of clinical manifestation I70.203 ; Tinea unguium B35.1 ; Pain in right toe(s) M79.674 and Pain in left toe(s) M79.[address] [address] 08/30/2024 Vee Black Atherosclerosis of [place] artery of both lower extremities, with unspecified presence of clinical manifestation I70.203 ; Tinea unguium B35.1 ; Pain in right toe(s) M79.674 and Pain in left toe(s) M79.[address] [address] 11/01/2024 Vee Black Atherosclerosis of [place] artery of both lower extremities, with unspecified presence of clinical manifestation I70.203 ; Tinea unguium B35.1 ; Pain in right toe(s) M79.674 and Pain in left toe(s) M79.[address] [address] 01/03/2025 Vee Black Atherosclerosis of [place] artery of both lower extremities, with unspecified presence of clinical manifestation I70.203 ; Tinea unguium B35.1 ; Pain in right toe(s) M79.674 ; Pain in left toe(s) M79.675 and Ingrown nail L60.[address] [address] 04/01/2025 Vee Black Atherosclerosis of [place] artery of both lower extremities, with unspecified presence of clinical manifestation I70.203 ; Tinea unguium B35.1 ; Pain in right toe(s) M79.674 ; Pain in left toe(s) M79.675 and Ingrown nail L60.0 [facility] [address] [address] 02/20/2025 Vee Ta Assessments Encounter Date Diagnosis (ICD Code) Assessment Notes Treatment Notes Treatment Clinical Notes Section Notes 06/21/2024 Pain in right foot (ICD-10 - M79.671) 06/21/2024 Neuritis of right foot (ICD-10 - G57.91) Response to treatment - Improvement 08/30/2024 Tinea unguium (ICD-10 - B35.1) 08/30/2024 Atherosclerosis of [place] artery of both lower extremities, with unspecified presence of clinical manifestation (ICD-10 - I70.203) Q7(A), Q8(2B), Q9(1B,2C) 11/01/2024 Atherosclerosis of [place] artery of both lower extremities, with unspecified presence of clinical manifestation (ICD-10 - I70.203) Q7(A), Q8(2B), Q9(1B,2C) 01/03/2025 Atherosclerosis of [place] artery of both lower extremities, with unspecified presence of clinical manifestation (ICD-10 - I70.203) Q7(A), Q8(2B), Q9(1B,2C) 04/01/2025 Tinea unguium (ICD-10 - B35.1) 04/01/2025 Atherosclerosis of [place] artery of both lower extremities, with unspecified presence of clinical manifestation (ICD-10 - I70.203) Q7(A), Q8(2B), Q9(1B,2C) 04/01/2025 Pain in right toe(s) (ICD-10 - M79.674) 01/03/2025 Tinea unguium (ICD-10 - B35.1) 11/01/2024 Tinea unguium (ICD-10 - B35.1) 08/30/2024 Pain in right toe(s) (ICD-10 - M79.674) 06/21/2024 Atherosclerosis of [place] artery of both lower extremities, with unspecified [...] X ray : Foot, left 3V 11/10/2015 20326-SMBRQPY NAIL, 6 OR MORE 09/01/2015 74661-ZJIPBLV NAIL, 6 OR MORE 11/10/2015 31189-QYYEZGH NAIL, 6 OR MORE 01/13/2015 36456-YHDJRRJ NAIL, 6 OR MORE 06/23/2015 57103-BMPMYBM NAIL, 6 OR MORE 05/27/2016 02535-JZSILTC NAIL, 6 OR MORE 12/06/2013 00927-GMRGBGJ NAIL, 6 OR MORE 03/11/2014 00884-YZBWHGY NAIL, 6 OR MORE 06/12/2014 40224-IEGBRPH NAIL, 6 OR MORE 09/04/2014 94992-OPERXFO NAIL, 6 OR MORE 11/07/2014 75554-LLEGHYU NAIL, 6 OR MORE 04/21/2015 46812-YPWVDID NAIL, 6 OR MORE 2016 60415-VBGEQNT NAIL, 6 OR MORE 02/17/2017 35307-ELBDMNL NAIL, 6 OR MORE 04/21/2017 09384-GKBBWDH NAIL, 6 OR MORE 07/29/2016 69002-PTHCSAV NAIL, 6 OR MORE 10/11/2016 08696-BXUNLSE NAIL, 6 OR MORE 06/27/2017 15844-CWIAVDX NAIL, 6 OR MORE 09/08/2017 13437-QHLAXYP NAIL, 6 OR MORE 11/10/2017 51835-UDNCUZU NAIL, 6 OR MORE 01/12/2018 23577-NJDIHKW NAIL, 6 OR MORE 03/23/2018 61482-VPOAAQR NAIL, 6 OR MORE 05/25/2018 45847-OVZQBJF NAIL, 6 OR MORE 07/31/2018 01636-UOXVXOI NAIL, 6 OR MORE 10/02/2018 21024-JYAHMZI NAIL, 6 OR MORE 12/04/2018 19405-PWASTFI NAIL, 6 OR MORE 10/30/2020 98164-WKUWAOV NAIL, 6 OR MORE 01/01/2021 57914-DANVHXY NAIL, 6 OR MORE 03/12/2021 98289-WSNMXOT NAIL, 6 OR MORE 05/15/2021 22916-MBIWCSU NAIL, 6 OR MORE 04/23/2019 42431-GYUQIEB NAIL, 6 OR MORE 06/25/2019 47383-OTTUJWI NAIL, 6 OR MORE 09/10/2019 12389-FWPQUUH NAIL, 6 OR MORE 11/21/2019 64138-PULXDHS NAIL, 6 OR MORE 01/24/2020 55904-DQJYTTN NAIL, 6 OR MORE 04/03/2020 20060-VLVKCLW NAIL, 6 OR MORE 06/16/2020 10834-HZPDJCI NAIL, 6 OR MORE 08/17/2021 86533-QEHIFKD NAIL, 6 OR MORE 08/18/2020 46365-YDPKLTE NAIL, 6 OR MORE 11/26/2021 02875-RTRNCZL NAIL, 6 OR MORE 02/08/2022 23037-MJZVDUX NAIL, 6 OR MORE 04/12/2022 29746-XFXGFTS NAIL, 6 OR MORE 06/14/2022 86772-HDXFCJD NAIL, 6 OR MORE 08/16/2022 74188-LGPBHOY NAIL, 6 OR MORE 10/21/2022 38423-TKJSJRU NAIL, 6 OR MORE 12/23/2022 72830-XHGIFYO NAIL, 6 OR MORE 02/24/2023 19016-IWOWFQV NAIL, 6 OR MORE 04/28/2023 68281-TCNKODT NAIL, 6 OR MORE 08/08/2023 69064-ZVKHQIF NAIL, 6 OR MORE 10/13/2023 89111-ZTCBPRY NAIL, 6 OR MORE 12/15/2023 59370-AFZTKVF NAIL, 6 OR MORE 02/16/2024 78809-JUOFNBE NAIL, 6 OR MORE 04/19/2024 91716-MVQUTRT NAIL, 6 OR MORE 06/21/2024 17755-HMBEVFY NAIL, 6 OR MORE 08/30/2024 14213-KZZVERX NAIL, 6 OR MORE 11/01/2024 20213-PGQKFHE NAIL, 6 OR MORE 01/03/2025 68126-XDRECQC NAIL, 6 OR MORE 04/01/2025 25001-FVLLPUE NAIL, 1-5 05/27/2016 51471-ARFSAXW NAIL, 1-5 01/12/2016 82514-XUHJRGZ NAIL, 1-5 03/16/2016 13953-Ljnc Destruction, 1-14 02/17/2017 77396-Hgpt Destruction, 1-14 10/11/2016 43447-Vbsp Destruction, 1-14 2016 28200-Fuzkphvu Plate 2016 75957-Qtqaulxa Plate 04/21/2017 66757-Gsjjdxbd Plate 06/27/2017 69459-Nbpjcduv Plate 10/02/2018 93573-Inwqzcir Plate 07/31/2018 22139-Eeuevaiy Plate 05/27/2016 20228-Gnpzdqbd Plate 12/06/2013 66560-Wkvkzhwl Plate 06/23/2015 69359-Tuayjjlc Plate 04/21/2015 36826-Ctiitqiy Plate 11/07/2014 29646-Beavyywr Plate 01/13/2015 93249-Ftcegpqp Plate 09/04/2014 78539-Etlyepvp Plate 06/12/2014 44593-Lxfdfkfz Plate 03/11/2014 73756-Tqmusjgq Plate 10/13/2023 13517-Okrhfkjw Plate 04/12/2022 02215-Rbsliwuq Plate 02/08/2022 55447-Gctvshto Plate 11/26/2021 86145-Ubtljqvf Plate 04/03/2020 13031-Enpgurfy Plate 09/10/2019 65430-Rbkkebvm Plate 03/12/2021 52018-Dmsjwtfq Plate 10/30/2020 40357-Nfmxgyoq Plate 06/16/2020 07422-Phusupiu Plate 02/24/2023 51486-Smvytjjb Plate 04/01/2025 82458-Hzgzybte Plate 01/03/2025 74840-Rdaceeae Plate Each Additional 15596-Ssabwbkk Plate Each Additional 34428-Twdfpost Plate Each Additional 47864-Cvsnwmaz Plate Each Additional 61350-Bzqhirns Plate Each Additional 00537-Hmcpfrcm Plate Each Additional 99467- Debride <25 sq cm 06/11/2016 77651- Debride <25 sq cm 12/03/2015 37281- Debride <25 sq cm 12/04/2018 18327- Debride <25 sq cm 03/23/2018 58302- Debride <25 sq cm 06/27/2017 67979- Debride <25 sq cm 04/21/2017 46608- Debride <25 sq cm 04/28/2023 86310- Debride <25 sq cm 02/08/2022 20740- Debride <25 sq cm 01/24/2020 11461- Debride <25 sq cm 01/01/2021 88088- Debride <25 sq cm 05/15/2021 17494- Debride <25 sq cm 08/17/2021 27899-AFWKKQU SKIN/TISSUE 11/07/2014 15542 I&D ABSCESS- SIMPLE,SINGLE 014 77410 I&D ABSCESS- SIMPLE,SINGLE 016 89341 I&D ABSCESS- SIMPLE,SINGLE 016 26287 I&D ABSCESS- SIMPLE,SINGLE 016 35632 I&D ABSCESS- SIMPLE,SINGLE 016 85381 I&D ABSCESS- SIMPLE,SINGLE 017 84506-JRWA SKIN LESIONS, OVER 4 12/05/19 19 59072-VGXK SKIN LESIONS, OVER 4 01/14/20 24733-YETV SKIN LESIONS, OVER 4 04/21/20 13257-RMWR SKIN LESIONS, OVER 4 08/17/20 76385-GUMA SKIN LESIONS, OVER 4 05/15/20 04154-NSKG SKIN LESIONS, OVER 4 03/12/20 22954-ZGPD SKIN LESIONS, OVER 4 01/02/20 26095-OPZU SKIN LESIONS, OVER 4 08/18/20 05223-LIXY SKIN LESIONS, OVER 4 10/31/19 43291-LHSI SKIN LESIONS, OVER 4 02/13/20 47329-DNMC SKIN LESIONS, OVER 4 04/03/20 47959-SXWE SKIN LESIONS, OVER 4 06/16/20 90078-JCLE SKIN LESIONS, OVER 4 11/21/19 85396-PCRO SKIN LESIONS, OVER 4 01/24/20 51683-KPFG SKIN LESIONS, OVER 4 06/25/20 85468-RNYU SKIN LESIONS, OVER 4 09/10/19 45648-MRYU SKIN LESIONS, OVER 4 02/09/20 44985-EBZM SKIN LESIONS, OVER 4 11/27/19 55684-EPLB SKIN LESIONS, OVER 4 04/12/20 79250-NQGO SKIN LESIONS, OVER 4 06/14/20 75980-XULC SKIN LESIONS, OVER 4 08/16/20 83824-RPNB SKIN LESIONS, OVER 4 10/21/19 23887-MYSR SKIN LESIONS, OVER 4 04/28/20 41925-JBSK SKIN LESIONS, OVER 4 02/25/20 58615-GCQR SKIN LESIONS, OVER 4 12/24/19 24780-RSNG SKIN LESIONS, OVER 4 10/13/19 59599-ESAH SKIN LESIONS, OVER 4 08/08/20 85571-EGOI SKIN LESIONS, OVER 4 02/16/20 51865-CSNS SKIN LESIONS, OVER 4 12/15/19 38446-RRIN SKIN LESIONS, OVER 4 01/04/20 42370-BYZM SKIN LESIONS, OVER 4 04/01/20 50723-MTPT SKIN LESIONS, OVER 4 11/02/19 07715-QRYK SKIN LESIONS, OVER 4 08/30/19 89178-BPSH SKIN LESIONS, OVER 4 06/21/20 49659-XWWK SKIN LESIONS, OVER 4 08/22/20 24 64853-LWMX SKIN LESIONS, 2 TO 4 10/02/19 19 14001-HBVI SKIN LESIONS, 2 TO 4 05/25/20 18 84734-THPY SKIN LESIONS, 2 TO 4 07/31/20 18 58766-IBUF SKIN LESIONS, 2 TO 4 03/23/20 18 19617-SIEY SKIN LESIONS, 2 TO 4 01/13/20 18 89872-JFCG SKIN LESIONS, 2 TO 4 09/08/19 18 58859-VUJV SKIN LESIONS, 2 TO 4 11/11/19 18 81112-Ogfb. Subungual Hematoma 9 25485-LRJCLZWZ OF HEMATOMA/FLUID 019 50564-RTBCAXAN OF HEMATOMA/FLUID 018 Next Appt Details Provider Name:Vee Ta , 06/03/2025 09:00:00 AM, [address] [place] [address], [phone], Provider Name:Vee Ta , 08/05/2025 01:00:00 PM, [address] [place] [address], [phone], Insurance Providers Payer Name Payer Address Payer Phone Subscriber Number Group Number Insured Name Patient Relationship to Insured Coverage Start Date Coverage End Date Medicare National [employer] [address] [place] [address] [id number] Lilo Bess Self - patient is the insured [employer] [facility] [address] [place] [address] [phone] [id number] Lilo Bess Self - patient is the [...]
[2025-05-18 12:49] LABS: MANUAL DIFF FLAG NO
[2025-05-18 12:52] LABS: Hematocrit 30.9 % (37.0-47.0); Hemoglobin 9.4 g/dl (12.0-16.0); Imm Gran Abs Auto 0.02 X10*3/uL (0.00-0.03); Imm Gran Pct Auto 0.4 % (0.0-0.4); Lymphocytes Absolute Auto 0.9 X10*3/uL (1.2-4.9); Mean Corpuscular HGB Conc 30.4 g/dl (31.0-35.0); Mean Corpuscular Hemoglobin 28.1 pg (27.0-33.0); Mean Corpuscular Volume 92.2 fL (80.0-98.0); NRBC Abs Auto 0.000 X10*3/uL (0.0-0.012); NRBC Pct Auto 0.0 /100WBC (0.0-0.2); Platelet Count 250 X10*3/uL (160-400); Red Blood Count 3.35 X10*6/uL (4.20-5.50); White Blood Count 5.2 X10*3/uL (4.8-10.8)
[2025-05-18 13:19] LABS: Alanine Aminotransferase 12 U/L (0-31); Albumin Level 3.8 g/dL (3.5-5.0); Alkaline Phosphatase 71 U/L (39-117); Anion Gap 13 (12-20); Aspartate Amino Transferase 29 U/L (5-31); Blood Urea Nitrogen 19 mg/dL (9-16); Calcium 9.3 mg/dL (8.4-10.2); Carbon Dioxide 27 mmol/L (22-29); Chloride 105 mmol/L (96-108); Creatinine Clr Calc Pharmacy 63.8; Estimated Glomerular Filt Rate > 60; Potassium 3.6 mmol/L (3.3-5.1); Sodium 141 mmol/L (135-145); Total Protein 6.9 g/dL (6.5-8.0)
[2025-05-18 13:36] VITALS: BP 131/84; PULSE 59; RESP 16; O2SAT 100
[2025-05-18 14:50] VITALS: BP 134/52; PULSE 62; RESP 18; TEMP 36.6; O2SAT 100
--- OUTSIDE RECORDS SUMMARY | 2025-07-13 20:00 | XMS_ITS | Clinical Summary ---
Author Organization Unknown Care Team Providers Care Business System Manager Name Role Phone HARMONY DELGADO, LAUREN Unavailable Unavailable ELAINE PT, MATTHEW Unavailable Unavailabl sherice DAVALOS ARCHITECTURE INTERN, ADIN Unavailable Unavailable READING OT, CALVIN Unavailable Unavailable Payers Payer Name Policy Type Policy Number Effective Date Expira tion Date MEDICARE.NGS.PDGM [id number] Problems Condition Name Condition Details Condition Category Status Onset Date Resolution Date Last Treatment Date Treating Clinician Comments UNILATERAL PRIMARY OSTEOARTHRIT IS, LEFT KNEE Active 05-15 00:00: 00 Allergies, Adverse Reactions, Alerts Allergy Name Allergy Type Status Severity Reaction(s) Onset Date Inactive Date Treating Clinician Comments ADHESIVE Propensity to adverse reactions Active 05-16 20:16: 34 CODEINE Propensity to adverse reactions Active 05-16 20:16: 49 DICLOFENAC Propensity to adverse reactions Active 05-16 20:17: 25 ERYTHROMYCIN BASE Propensity to adverse reactions Active 05-16 20:17: 41 PENICILLIN PRODUCTS Propensity to adverse reactions Active 05-16 20:17: 59 SHELLFISH AND SHELFISH PRODUCT Propensity to adverse reactions Active 05-16 20:18: 18 Vital Signs Vital Name Observation Time Observation Value Commen ts Temperature 2025-05-16 16:33:00.000 97.8 [degF] BMI (%) 2025-05-16 15:57:52.000 33 kg/m2 Height 2025-05-16 15:57:45.000 67 [in_us] Pulse 2025-05-16 16:33:00.000 61 /min O2 Saturation (%) 2025-05-16 16:33:00.000 100 % Respirations 2025-05-16 16:33:00.000 18 /min Weight (lbs) 2025-05-16 15:57:52.000 215 [lb_av] Systolic Blood Pressure 2025-05-16 16:33:00.000 128 mm [Hg] Diastolic Blood Pressure 2025-05-16 16:33:00.000 64 mm [Hg] Plan of Treatment Planned Activity Planned Date Details Comments Future Scheduled Test AGENCY MAY PERFORM A RESUMPTION OF CARE VISIT FOLLOWING ANY HOSPITAL ADMISSION. PT TO EVALUATE, OBSERVE / ASSESS, AND MONITOR, ARCHITECTURE INTERN TO OBSERVE AND MONITOR, PROVIDE SKILLED THERAPEUTIC INTERVENTION, ACTIVITY, EDUCATION, AND TRAINING TO ADDRESS; [code = AGENCY MAY PERFORM A RESUMPTION OF CARE VISIT FOLLOWING ANY HOSPITAL ADMISSION. PT TO EVALUATE, OBSERVE / ASSESS, AND MONITOR, ARCHITECTURE INTERN TO OBSERVE AND MONITOR, PROVIDE SKILLED THERAPEUTIC INTERVENTION, ACTIVITY, EDUCATION, AND TRAINING TO ADDRESS;] Future Scheduled Test SIT TO/FRO M STAND TRANSFERS (PT/ARCHITECTURE INTERN) [code = SIT TO/FROM STAND TRANSFERS (PT/ARCHITECTURE INTERN)] Future Scheduled Test PT/ARCHITECTURE INTERN TO PROVIDE GAIT TRAINING FOR IMPROVED MOBILITY AND /OR TO NORMALIZE GAIT PATTERN [code = PT/ARCHITECTURE INTERN TO PROVIDE GAIT TRAINING FOR IMPROVED MOBILITY AND /OR TO NORMALIZE GAIT PATTERN] Future Scheduled Test PT/ARCHITECTURE INTERN TO PROVIDE STAIR TRAINING [code = PT/ARCHITECTURE INTERN TO PROVIDE STAIR TRAINING] Future Scheduled Test THERAPEUTI C EXERCISES AND ESTABLISHING A HOME EXERCISE PROGRAM (PT/ARCHITECTURE INTERN) [code = THERAPEUTIC EXERCISES AND ESTABLISHING A HOME EXERCISE PROGRAM (PT/ARCHITECTURE INTERN)] Future Scheduled Test PT/ARCHITECTURE INTERN TO IDENTIFY FALL RISK FACTORS; EDUCATE THE PATIENT/CAREGIVER ON WAYS TO REDUCE FALL RISK FACTORS AND ESTABLISH HOME EXERCISE PROGRAM TO MINIMIZE FALL RISK. MAY TEACH THE PATIENT FLOOR RECOVERY WHEN CLINICALLY APPROPRIATE [code = PT/ARCHITECTURE INTERN TO IDENTIFY FALL RISK FACTORS; EDUCATE THE PATIENT/CAREGIVER ON WAYS TO REDUCE FALL RISK FACTORS AND ESTABLISH HOME EXERCISE PROGRAM TO MINIMIZE FALL RISK. MAY TEACH THE PATIENT FLOOR RECOVERY WHEN CLINICALLY APPROPRIATE] Future Scheduled Test PT/ARCHITECTURE INTERN TO TEACH KNEE REPLACEMENT SELF-MANAGEMENT [code = PT/ARCHITECTURE INTERN TO TEACH KNEE REPLACEMENT SELF-MANAGEMENT] Future Scheduled Test PT TO ASSE SS / ARCHITECTURE INTERN TO MONITOR FOR AND REPORT EARLY SIGNS OF ANTICOAGULANT TOXICITY TO THE PHYSICIAN AND/OR THE RN CLINICAL BALANCE TRUER FOR PHYSICIAN NOTIFICATION AND TO PROVIDE PATIENT/CAREGIVER EDUCATION ON ANTICOAGULANT THERAPY [code = PT TO ASSESS / ARCHITECTURE INTERN TO MONITOR FOR AND REPORT EARLY SIGNS OF ANTICOAGULANT TOXICITY TO THE PHYSICIAN AND/OR THE RN CLINICAL BALANCE TRUER FOR PHYSICIAN NOTIFICATION AND TO PROVIDE PATIENT/CAREGIVER EDUCATION ON ANTICOAGULANT THERAPY] Future Scheduled Test PT / ARCHITECTURE INTERN T O MONITOR AND EDUCATE ON OXYGEN SATURATION DURING ADLS/IADLS, NOTIFY PHYSICIAN AND/OR THE RN CLINICAL BALANCE TRUER FOR PHYSICIAN NOTIFICATION AND IF O2 SATS BELOW PHYSICIAN ORDERED PARAMETERS AFTER 10 MIN OF REST [code = PT / ARCHITECTURE INTERN TO MONITOR AND EDUCATE ON OXYGEN SATURATION DURING ADLS/IADLS, NOTIFY PHYSICIAN AND/OR THE RN CLINICAL BALANCE TRUER FOR PHYSICIAN NOTIFICATION AND IF O2 SATS BELOW PHYSICIAN ORDERED PARAMETERS AFTER 10 MIN OF REST] Future Scheduled Test PT / ARCHITECTURE INTERN M AY EDUCATE ON PAIN MANAGEMENT CLINICALLY INDICATED, INCLUDING NON-PHARMACOLOGICAL PAIN REDUCTION TECHNIQUES AND USE OF CRYOTHERAPY UP TO 20 MIN AT A TIME FOR PAIN MANAGEMENT [code = PT / ARCHITECTURE INTERN MAY EDUCATE ON PAIN MANAGEMENT CLINICALLY INDICATED, INCLUDING NON-PHARMACOLOGICAL PAIN REDUCTION TECHNIQUES AND USE OF CRYOTHERAPY UP TO 20 MIN AT A TIME FOR PAIN MANAGEMENT] Future Scheduled Test PT / ARCHITECTURE INTERN T O OBSERVE WOUND/INCISION AND/OR INTACT DRESSING ON L KNEE AND REPORT EARLY SIGNS AND SYMPTOMS OF WOUND DETERIORATION, COMPLICATIONS, OR INFECTION TO PHYSICIAN AND/OR THE RN CLINICAL BALANCE TRUER FOR PHYSICIAN NOTIFICATION. [code = PT / ARCHITECTURE INTERN TO OBSERVE WOUND/INCISION AND/OR INTACT DRESSING ON L KNEE AND REPORT EARLY SIGNS AND SYMPTOMS OF WOUND DETERIORATION, COMPLICATIONS, OR INFECTION TO PHYSICIAN AND/OR THE RN CLINICAL BALANCE TRUER FOR PHYSICIAN NOTIFICATION.] Goal Patient Goal - RETURN TO PLO F Goal Provider Goal - Goal Provider Goal - PT STG: PATIENT WILL DEMONSTRATE IMPROVED ABILITY TO PERFORM SIT TO/FROM STAND TRANSFERS TO REDUCE THE RISK OF SKIN BREAKDOWN AND REDUCE FALL RISK FROM SBA TO INDEP WITHIN 2 WEEKS Goal Provider Goal - PT LTG: PATIENT WILL DEMONSTRATE REDUCED FALL RISK EVIDENCED BY IMPROVED SELF- SELECTED WALKING SPEED (SSWS CUT SCORE 0.6 TO 0.9 INDICATES MODERATE FALL RISK, 0.6 M/S INDICATES HIGH FALL RISK) FROM 0.5 TO 0.8 WITHIN 2 WEEKS Goal Provider Goal - PT LTG: PATIENT WILL DEMONSTRATE IMPROVED ABILITY TO SAFELY NEGOTIATE STAIRS FROM CGA TO INDEP USING HANDRAIL IN ORDER WITHIN 2 WEEKS Goal Provider Goal - PT LTG: PATIENT WILL DEMONSTRATE INCREASED STRENGTH OF L KNEE FROM 3-/5 TO 3+/5 WITHIN 2 WEEKS Goal Provider Goal - PT LTG: PATIENT/CAREGIVER WILL DEMONSTRATE ADHERENCE TO FALL REDUCTION SELF-MANAGEMENT AND REDUCING FALL RISK FACTORS TO MINIMIZE FALL RISK BY END OF EPISODE Goal Provider Goal - PT GOAL: PATIENT WILL DEMONSTRATE OPTIMAL OUTCOMES, INCLUDING INCREASED ROM AND STRENGTH AND FUNCTIONAL MOBILITY FOLLOWING KNEE SURGERY BY END OF EPISODE. Goal Provider Goal - PT LTG: PATIENT WILL NOT EXHIBIT SIGNS AND SYMPTOMS OF ANTICOAGULANT TOXICITY THROUGHOUT EPISODE OF CARE. Goal Provider Goal - PT LTG: PATIENT WILL MAINTAIN OXYGEN SATURATION WITHIN PHYSICIAN ORDERED PARAMETERS THROUGHOUT EPISODE OF CARE. Goal Provider Goal - PT GOAL: PATIENT WILL DEMONSTRATE UNDERSTANDING OF PAIN MANAGEMENT TECHNIQUES EVIDENCED BY REDUCED PAIN IN L KNEE FROM 7/10 TO 3/10 WITHIN 2 WEEKS Goal Provider Goal - PT GOAL: THE PATIENT WILL NOT DEMONSTRATE ANY WOUND COMPLICATIONS DURING THE EPISODE OF CARE. Progress Notes Progress Notes <paragraph>[Visit Date: 2024 by MATTHEW HENRY PT]:</paragraph><paragraph>THE PS IS AN 79 YO F REFERRED S/P L TKA WITH DR KEANE ON 05/06 CLOSED BY PRIMARY INTENSION WITH WATER OCCLUSIVE BANDAGE DRESSING. PT IN REHAB AT [facility] 05/14. DRESSNG IN TACT WITHOUT SIGNS OF INFECTION. NO FORMAL OUTPATIENT PT IS SCHEDULED. BANDAGE TO BE REMOVED BY MD AT FOLLOW UP ON 05/23. </paragraph><paragraph></paragraph><paragraph>PMH INCLUDES HTN AND HYPOTHYROIDISM</paragraph><paragraph></paragraph><paragraph>PT LIVE IN A TWO STORY HOME WITH HER WITH ACCOMMODATIONS ON THE FIRST FLOOR WITH [address] THE HOME. HAS DEMENTIA. PRIOR TO TKA THE PT WAS IDEPENDENT WITH ADLS AND HAD ASSISTANCE FOR IADLS. THE PT WAS AMBULATING WITH A CANE IN THE HOME AND WALKER OUTSIDE THE HOME. STAIR NAVIGATION WAS NON RECIPROCAL. CURRENTLY THR PT REQUIRES CGA WITH INDOOR AND OUTDOR AMBULATION WITH USE OF A RW. STAIR NAVIGATION REQUIRES CGA WITH USE OF HANDRAIL AND NON RECIPROCAL STAIR NAVIGATION. THERE IS MODERATE PITTNG EDEMA PRESENT IN THE LLE. ROM MEASURES 10-110 DEGREES. DEFICITS ARE PRESENT FROM STRENGTH, ROM, AMBULATION, BALANCE, TRANSFERS, AND FUNCTIONAL MOBILITY. THE PATIENT WOULD BENEFIT FROM PHYSICAL THERAPY TO ADDRESS THESE IMPAIRMENTS AND MAXIMILY AND IMPROVE FUNCTION. DISCUSSED PROPOSED POC, FREQUENCY AND GOALS WITH PT IN AGREEMENT. CALL US PROGRAM REVIEWED WITH VERBAL UNDERSTANDING.</paragraph> Encounters Start Date/Time End Date/Time Encounter Type Admission Type Attending Clinicians Care Facility Care Department Encounter ID Discharge Date Discharge Status Discharge Condition Discharge Reason Percent Goals Met 2025-05-16 00:00:00 2025-07-14 00:00:00 Outpatient NEW ADMISSION MATTHEW HENRY [facility] [id number]
== END 2025-05-18 14:51 | disposition home or self-care (01) ==
PROVIDERS: Physician Assistant Medical; Emergency Provider Emergency Medicine; PCP Family Medicine
DX: R60.9 Edema, unspecified (principal); M79.89 Other specified soft tissue disorders; I10 Essential (primary) hypertension; E03.9 Hypothyroidism, unspecified; Z96.652 Presence of left artificial knee joint; Z79.899 Other long term (current) drug therapy
CPT/HCPCS: 36415; 80053; 85025; 85652; 86140; 93005; 93971; 99284

== ENCOUNTER → 2025-05-18 12:18 | Outpatient (BNV) | payer MEDICARE, SELFPAY | PROVIDERS: Emergency Provider Emergency Medicine; PCP Family Medicine; Visit Provider Radiology Diagnostic Radiology | DX: R22.42 Localized swelling, mass and lump, left lower limb (principal) | CPT/HCPCS: 93971 ==

== ENCOUNTER → 2025-05-18 12:25 | Outpatient (BNV) | payer MEDICARE, SELFPAY | PROVIDERS: Emergency Provider Emergency Medicine; PCP Family Medicine; Visit Provider Internal Medicine | DX: R94.31 Abnormal electrocardiogram [ECG] [EKG] (principal); I10 Essential (primary) hypertension; Z95.0 Presence of cardiac pacemaker | CPT/HCPCS: 93010 ==

== ENCOUNTER 2025-05-23 09:40 | Outpatient (AMB) | payer MEDICARE, SELFPAY ==
--- OUTSIDE RECORDS SUMMARY | 2025-03-07 10:45 | XMS_ITS ---
Author Organization [facility] mike [place] Address [address] [place] [address] [place] [address] Care Team Providers Care Parking Patroller Name Role Phone La Zamora MD Primary Care Provider Unavailab Crews Vee Ramos [phone] Encounters Encounter Location Date Provider Diagnosis [address] [address] 03/07/2025 Vee Ta Plan Of Treatment Next Appt Details Provider Name:Vee Espitia Keyon , 06/03/2025 09:00:00 AM, [address] [place] [address], [phone], Provider Name:Vee A Keyon , 08/05/2025 01:00:00 PM, [address] [place] [address], [phone], Progress Notes * Lilo KAYE MDOB:1945 (79 yo F)Acc No.[id number]:03/07/2025 Progress Note Patient: Mike RISSALilo [place] Provider: Manuel Ta DPM :1945 A ge:79 Y S ex:Female Date:03/07/2025 Address:[address] [place], [place] [phone] Pcp:La Zamora MD Subjective: * Chief [...] 0 03/07/2025 Generated for Chastity Montero on: 0 05/23/2025 11:28 AM EDT
--- OUTSIDE RECORDS SUMMARY | 2025-05-16 09:00 | XMS_ITS ---
Author Organization [facility] mike [place] Address [address] [place] [address] [place] [address] Care Team Providers Care Photoengraving Helper Name Role Phone La Zamora MD Primary Care Provider Unavailab Crews Vee Ramos [phone] Encounters Encounter Location Date Provider Diagnosis [address] [address] 05/16/2025 Vee Ta Plan Of Treatment Next Appt Details Provider Name:Vee Espitia Keyon , 06/03/2025 09:00:00 AM, [address] [place] [address], [phone], Provider Name:Vee A Keyon , 08/05/2025 01:00:00 PM, [address] [place] [address], [phone], Progress Notes * Lilo KAYE MDOB:1945 (79 yo F)Acc No.[id number]:05/16/2025 Progress Note Patient: Mike RISSAGricel TURNERmaureen Conrad Provider: Manuel Ta DPM :1945 A ge:79 Y S ex:Female Date:05/16/2025 Address:[address] [place], [place] [phone] Pcp:La Zamora MD Subjective: * Chief [...] Ta DPM Date: 05/16/2025 Generated for Chastity mir/[place] on: 05/23/2025 11:27 AM EDT
--- NOTE | 2025-05-23 09:51 | A.OFFVIS_ITS ---
Vital Signs 05/23/25 10:02 Height 5 ft 7 in Weight 215 lb BMI 33.7 Intake Visit Reasons: 2WKPO: L TKA w/ 05/06/25 Intake Note: Lilo is a 79 year old female who presents today for a post operative appointment status post left total knee arthroscopy done on 05/06/[address] Valencia. Patient reports she is just having a ache today, with no pain. Allergies shellfish derived (shellfish) Allergy (Severe, Verified 05/23/25 10:01) Anaphylaxis Penicillins Allergy (Intermediate, Verified 05/23/25 10:01) Itching diclofenac (From Voltaren) Allergy (Mild, Verified 05/23/25 10:01) HIVES adhesive tape Adverse Reaction (Intermediate, Verified 05/23/25 10:01) blisters codeine (Codeine) Adverse Reaction (Intermediate, Verified 05/23/25 10:01) SYNCOPE,ABD PAIN erythromycin base (Erythromycin Base) Adverse Reaction (Mild, Verified 05/23/25 10:01) ABDOMINAL PAIN HPI HPI 2WKPO: L TKA w/ 05/06/25: Details: Ms. Bess is an 79-year-old female who presents to the office today status post left total knee arthroplasty performed by Dr. Valencia on 05/06/2025. Patient has been working with physical therapy through the [facility] at home. She is no longer taking any narcotic pain medications. She is only taking Tylenol to manage her pain. She reports little to no discomfort. She is using a cane to assist with ambulation. She was discharged to [facility] and has since returned home. [facility] Medical History History of blood transfusion Anesthesia complication Uterine cancer GERD (gastroesophageal reflux disease) Murmur Lower extremity edema Eczema Chronic renal insufficiency Hiatal hernia Raynauds disease Hypothyroid Diverticulosis Coronary artery calcification seen on CAT scan PAD (peripheral artery disease) Anemia Varicose vein of leg Lymphedema Renal cyst Heart block Arthritis Hypertension Surgical History History of permanent cardiac pacemaker placement H/O colonoscopy History of excision of pilonidal cyst Hx of tonsillectomy History of bilateral total hip arthroplasty H/O: hysterectomy H/O thyroidectomy Social History Household Members: Spouse Housing: House Are you a primary managed care coordinator to a significant other at home: No Do you presently have visiting nurse or other home services: No Alcohol intake: current Alcohol intake frequency: holidays/special occasions only Patient Tobacco Use Status: Former Tobacco user Tobacco use type: Cigarette Years Smoked: 5 service: No Current occupational status: retired Current occupation: right handed Review of Systems Const All systems reviewed & are unremarkable except as noted in HPI and below Physical Exam Vital Signs: BMI result Body Mass Index 33.7 Const General: cooperative, healthy appearing and no acute distress Resp Effort & Inspection: normal respiratory effort and able to speak in complete sentences Extrem Other: Left knee incision site is clean dry and intact. Chris intact. No drainage. No signs of infection. Range of motion 0-110 degrees. NVI. Psych Appearance: grossly normal Mental Status: mental status grossly normal Attitude: cooperative Assessment & Plan Assessment & Plan (1) Status post total left knee replacement: Code(s): Z96.652 - Presence of left artificial knee joint Category: Surgical Plan Ms. Bess is an 79-year-old female who presents to the office today status post left total knee arthroplasty performed by Dr. Valencia on 05/06/2025. Patient has been working with physical therapy through the [facility] at home. She is no longer taking any narcotic pain medications. She is only taking Tylenol to manage her pain. She reports little to no discomfort. She is using a cane to assist with ambulation. She was discharged to [facility] and has since returned home. While the office today, chris were removed and Steri-Strips were applied. She will continue physical therapy through the [facility]. We discussed that she is able to return to driving as this is her left knee and she is not taking any narcotic medications nor does she drive a standard. Patient and is overall very satisfied with her recovery. And therefore outpatient physical therapy has been deferred at this time. She will continue anticoagulation use for a total of 6 weeks postoperatively. She will follow up with Dr. Valencia in 4 weeks, sooner if needed. X-rays of the left knee which were obtained while in the office today and were reviewed by me, Nohemi Pedro PA-C, revealed intact left total knee arthroplasty with satisfactory alignment. Orders: Orders XR knee LT 3V Today M25.569 - Pain in unspecified knee Coding Level of Care Code Global (63384) Diagnoses Status post total left knee replacement Z96.652
[2025-05-23 10:02] VITALS: BMI 33.7
--- OUTSIDE RECORDS SUMMARY | 2025-05-23 11:28 | XMS_ITS | Patient Health Record ---
[facility] Address [address] [place] [address] Care Team Providers Care Tours Hostess Name Role Phone La Zamora MD Primary Care Provider Unavailab Vee Crews Unavailable [phone] Allergies Allergen (clinical drug ingredient) Drug/Non Drug [...] a day Not-Taking Baby Aspirin Not-Dung ing Mhnazvcv-Mwskfcovk-Azxjemfz Not-Taking Flax Seeds Orally Not-Takin g Propranolol [...] W/U Status Risk Notes Problem Raynaud's disease (970733407) Raynaud's syndrome without gangrene (I73.00) Active confirmed Problem Bilateral atherosclerosis of arteries of lower limbs (disorder) (14606315910038461 ) Atherosclerosis of [place] artery of both lower extremities, with unspecified presence of clinical manifestation (I70.203) Active confirmed Q7(A), Q8(2B), Q9(1B,2 C) Vital Signs Blood pressure diastolic 78 mm Hg 04/01/2025 Height 5 ft 7 in in 04/01/2025 Blood pressure systolic 146 mm Hg 04/01/2025 Weight 218 lbs 04/01/2025 BMI 34.14 kg/m2 04/01/2025 Procedures Procedure Date Ordered Date Performed Result Body Sit e 59611-JOVMFMG NAIL, 6 OR MORE 06/21/2024 N/A 19403-ZEUP SKIN LESIONS, OVER 4 06/21/2024 N/A 36675-DQPGVAL NAIL, 6 OR MORE 08/30/2024 N/A 93406-LWVR SKIN LESIONS, OVER 4 08/30/2024 N/A 23417-SQIMCYU NAIL, 6 OR MORE 11/01/2024 N/A 83748-XZJY SKIN LESIONS, OVER 4 11/01/2024 N/A 71126-LKVSUVB NAIL, 6 OR MORE 01/03/2025 N/A 96239-Pogppanz Plate 01/03/2025 N/A 56974-VCDP SKIN LESIONS, OVER 4 01/03/2025 N/A 73125-HARELDO NAIL, 6 OR MORE 04/01/2025 N/A 78165-Fcfcxnnp Plate 04/01/2025 N/A 23401-ZAEO SKIN LESIONS, OVER 4 04/01/2025 N/A Encounters Encounter Location Date Provider Diagnosis [address] [address] 06/21/2024 Vee Black Neuritis of right fo ot G57.91 ; Pain in right foot M79.671 ; Atherosclerosis of [place] artery of both lower extremities, with unspecified presence of clinical manifestation I70.203 ; Tinea unguium B35.1 ; Pain in right toe(s) M79.674 and Pain in left toe(s) M79.[address] [address] 08/30/2024 Vee Black Atherosclerosis of [place] artery of both lower extremities, with unspecified presence of clinical manifestation I70.203 ; Tinea unguium B35.1 ; Pain in right toe(s) M79.674 and Pain in left toe(s) M79.[address] [address] 11/01/2024 Vee Black Atherosclerosis of [place] artery of both lower extremities, with unspecified presence of clinical manifestation I70.203 ; Tinea unguium B35.1 ; Pain in right toe(s) M79.674 and Pain in left toe(s) M79.[address] [address] 01/03/2025 Vee Black Atherosclerosis of [place] artery of both lower extremities, with unspecified presence of clinical manifestation I70.203 ; Tinea unguium B35.1 ; Pain in right toe(s) M79.674 ; Pain in left toe(s) M79.675 and Ingrown nail L60.[address] [address] 04/01/2025 Vee Black Atherosclerosis of [place] artery of both lower extremities, with unspecified presence of clinical manifestation I70.203 ; Tinea unguium B35.1 ; Pain in right toe(s) M79.674 ; Pain in left toe(s) M79.675 and Ingrown nail L60.0 [facility] [address] [address] 02/20/2025 Vee Ta Assessments Encounter Date Diagnosis (ICD Code) Assessment Notes Treatment Notes Treatment Clinical Notes Section Notes 06/21/2024 Pain in right foot (ICD-10 - M79.671) 06/21/2024 Neuritis of right foot (ICD-10 - G57.91) Response to treatment - Improvement 08/30/2024 Tinea unguium (ICD-10 - B35.1) 08/30/2024 Atherosclerosis of [place] artery of both lower extremities, with unspecified presence of clinical manifestation (ICD-10 - I70.203) Q7(A), Q8(2B), Q9(1B,2C) 11/01/2024 Atherosclerosis of [place] artery of both lower extremities, with unspecified presence of clinical manifestation (ICD-10 - I70.203) Q7(A), Q8(2B), Q9(1B,2C) 01/03/2025 Atherosclerosis of [place] artery of both lower extremities, with unspecified presence of clinical manifestation (ICD-10 - I70.203) Q7(A), Q8(2B), Q9(1B,2C) 04/01/2025 Tinea unguium (ICD-10 - B35.1) 04/01/2025 Atherosclerosis of [place] artery of both lower extremities, with unspecified presence of clinical manifestation (ICD-10 - I70.203) Q7(A), Q8(2B), Q9(1B,2C) 04/01/2025 Pain in right toe(s) (ICD-10 - M79.674) 01/03/2025 Tinea unguium (ICD-10 - B35.1) 11/01/2024 Tinea unguium (ICD-10 - B35.1) 08/30/2024 Pain in right toe(s) (ICD-10 - M79.674) 06/21/2024 Atherosclerosis of [place] artery of both lower extremities, with [...] X ray : Foot, left 3V 11/10/2015 56478-EYXBMSY NAIL, 6 OR MORE 09/01/2015 27686-IRNLHJO NAIL, 6 OR MORE 11/10/2015 24835-WGMICMN NAIL, 6 OR MORE 01/13/2015 84225-IVAOBKW NAIL, 6 OR MORE 06/23/2015 95298-POIMBKE NAIL, 6 OR MORE 05/27/2016 90287-GMHVVKR NAIL, 6 OR MORE 12/06/2013 33837-ELJMHWD NAIL, 6 OR MORE 03/11/2014 79268-JSIBRQI NAIL, 6 OR MORE 06/12/2014 65190-QZIDQSM NAIL, 6 OR MORE 09/04/2014 00680-YKAORYQ NAIL, 6 OR MORE 11/07/2014 54505-HVKQJRJ NAIL, 6 OR MORE 04/21/2015 84867-BUDLRWG NAIL, 6 OR MORE 2016 36559-IDEVTVM NAIL, 6 OR MORE 02/17/2017 88158-QSPGPPS NAIL, 6 OR MORE 04/21/2017 12219-UJYJMYF NAIL, 6 OR MORE 07/29/2016 54432-AZKVIZN NAIL, 6 OR MORE 10/11/2016 24783-KADVKZO NAIL, 6 OR MORE 06/27/2017 61009-ILWNORB NAIL, 6 OR MORE 09/08/2017 98064-YSQHXCT NAIL, 6 OR MORE 11/10/2017 10457-AQBLXSW NAIL, 6 OR MORE 01/12/2018 11640-HISEYNB NAIL, 6 OR MORE 03/23/2018 39824-SIYOGJU NAIL, 6 OR MORE 05/25/2018 98779-NAVTSVV NAIL, 6 OR MORE 07/31/2018 62214-RJTXAYG NAIL, 6 OR MORE 10/02/2018 90657-UWDZSLO NAIL, 6 OR MORE 12/04/2018 90577-PRQGFAR NAIL, 6 OR MORE 10/30/2020 55307-GQBQVQL NAIL, 6 OR MORE 01/01/2021 02728-GGQKRUT NAIL, 6 OR MORE 03/12/2021 94724-JGRJRBE NAIL, 6 OR MORE 05/15/2021 51211-HEZRUMS NAIL, 6 OR MORE 04/23/2019 35729-ARDOWHM NAIL, 6 OR MORE 06/25/2019 38169-MNXCDQR NAIL, 6 OR MORE 09/10/2019 17219-KNIEHSS NAIL, 6 OR MORE 11/21/2019 42584-WOMCNWI NAIL, 6 OR MORE 01/24/2020 06083-OTXRBQF NAIL, 6 OR MORE 04/03/2020 53690-BAUNUUW NAIL, 6 OR MORE 06/16/2020 29748-IVCSSKE NAIL, 6 OR MORE 08/17/2021 94639-BRPHMGD NAIL, 6 OR MORE 08/18/2020 60901-UDPYLBS NAIL, 6 OR MORE 11/26/2021 88447-YRINCRL NAIL, 6 OR MORE 02/08/2022 08408-YOUGWYT NAIL, 6 OR MORE 04/12/2022 30066-HTWTICJ NAIL, 6 OR MORE 06/14/2022 73073-ONZZYHV NAIL, 6 OR MORE 08/16/2022 72706-IUVJYVH NAIL, 6 OR MORE 10/21/2022 03088-WPZIIYS NAIL, 6 OR MORE 12/23/2022 26902-QSFJBVF NAIL, 6 OR MORE 02/24/2023 24059-QWICNTE NAIL, 6 OR MORE 04/28/2023 35820-WNHFNXV NAIL, 6 OR MORE 08/08/2023 44334-JFOUCED NAIL, 6 OR MORE 10/13/2023 11247-JOFARNR NAIL, 6 OR MORE 12/15/2023 75989-ECIJSWH NAIL, 6 OR MORE 02/16/2024 95130-DSSDEUM NAIL, 6 OR MORE 04/19/2024 45649-XRZRYGP NAIL, 6 OR MORE 06/21/2024 24149-EQLAAIP NAIL, 6 OR MORE 08/30/2024 01104-XGVYLVP NAIL, 6 OR MORE 11/01/2024 27595-JZOCZUE NAIL, 6 OR MORE 01/03/2025 30629-DIFLVQL NAIL, 6 OR MORE 04/01/2025 33790-CPXQBVB NAIL, 1-5 05/27/2016 31640-ZGQQDCI NAIL, 1-5 01/12/2016 67113-XWMMZXV NAIL, 1-5 03/16/2016 87970-Oipp Destruction, 1-14 02/17/2017 16421-Oobj Destruction, 1-14 10/11/2016 37695-Reoh Destruction, 1-14 2016 12019-Furwnwau Plate 2016 55110-Pkaawkgc Plate 04/21/2017 20922-Nbfbtrtq Plate 06/27/2017 21528-Aurcmjaq Plate 10/02/2018 37347-Tbhodjkl Plate 07/31/2018 07322-Moonhkvy Plate 05/27/2016 55416-Irdipbuv Plate 12/06/2013 45304-Sktbiefy Plate 06/23/2015 45225-Iemhxnnr Plate 04/21/2015 26632-Xcyvrytj Plate 11/07/2014 11834-Lrgttfur Plate 01/13/2015 75265-Pmlmlnea Plate 09/04/2014 37476-Rsumkmrt Plate 06/12/2014 81679-Magvlwbt Plate 03/11/2014 00852-Juejalpi Plate 10/13/2023 91424-Dsyyhjzv Plate 04/12/2022 31023-Chbuwyuh Plate 02/08/2022 86707-Keykyira Plate 11/26/2021 06894-Amvjyfvu Plate 04/03/2020 80839-Bgkxeakl Plate 09/10/2019 45172-Tsvaexqd Plate 03/12/2021 52102-Gzcmyulc Plate 10/30/2020 40392-Uuyrcqhf Plate 06/16/2020 02759-Nzezyeeh Plate 02/24/2023 16280-Tgvpyzfl Plate 04/01/2025 18667-Vdxrejnm Plate 01/03/2025 89398-Idcrtssr Plate Each Additional 85723-Ozvqgacd Plate Each Additional 71922-Mpwvhwts Plate Each Additional 86827-Svuuyxyb Plate Each Additional 87112-Chptrnzo Plate Each Additional 80781-Wvjxryve Plate Each Additional 62578- Debride <25 sq cm 06/11/2016 94174- Debride <25 sq cm 12/03/2015 25275- Debride <25 sq cm 12/04/2018 04254- Debride <25 sq cm 03/23/2018 35417- Debride <25 sq cm 06/27/2017 94355- Debride <25 sq cm 04/21/2017 70368- Debride <25 sq cm 04/28/2023 61297- Debride <25 sq cm 02/08/2022 59074- Debride <25 sq cm 01/24/2020 58717- Debride <25 sq cm 01/01/2021 66782- Debride <25 sq cm 05/15/2021 91619- Debride <25 sq cm 08/17/2021 64842-PPMQGRF SKIN/TISSUE 11/07/2014 71782 I&D ABSCESS- SIMPLE,SINGLE 014 86877 I&D ABSCESS- SIMPLE,SINGLE 016 28306 I&D ABSCESS- SIMPLE,SINGLE 016 25272 I&D ABSCESS- SIMPLE,SINGLE 016 86252 I&D ABSCESS- SIMPLE,SINGLE 016 55095 I&D ABSCESS- SIMPLE,SINGLE 017 46030-DLGE SKIN LESIONS, OVER 4 12/05/19 19 83803-ZLTQ SKIN LESIONS, OVER 4 01/14/20 71471-RNNE SKIN LESIONS, OVER 4 04/21/20 07918-SIRC SKIN LESIONS, OVER 4 08/17/20 31194-YJPS SKIN LESIONS, OVER 4 05/15/20 62937-WOCN SKIN LESIONS, OVER 4 03/12/20 84344-LIPK SKIN LESIONS, OVER 4 01/02/20 65687-EMYJ SKIN LESIONS, OVER 4 08/18/20 74405-YUDU SKIN LESIONS, OVER 4 10/31/19 69203-GVHP SKIN LESIONS, OVER 4 02/13/20 31899-OPLB SKIN LESIONS, OVER 4 04/03/20 80422-VXTK SKIN LESIONS, OVER 4 06/16/20 75263-IVWT SKIN LESIONS, OVER 4 11/21/19 92904-FADV SKIN LESIONS, OVER 4 01/24/20 70864-JYRS SKIN LESIONS, OVER 4 06/25/20 81567-CCJX SKIN LESIONS, OVER 4 09/10/19 95702-YPUH SKIN LESIONS, OVER 4 02/09/20 34401-JYSY SKIN LESIONS, OVER 4 11/27/19 76601-TWJQ SKIN LESIONS, OVER 4 04/12/20 99519-HVLG SKIN LESIONS, OVER 4 06/14/20 14110-ADLP SKIN LESIONS, OVER 4 08/16/20 20204-SWPE SKIN LESIONS, OVER 4 10/21/19 36256-DTLR SKIN LESIONS, OVER 4 04/28/20 76975-DFVT SKIN LESIONS, OVER 4 02/25/20 55521-DEOZ SKIN LESIONS, OVER 4 12/24/19 13166-ULYY SKIN LESIONS, OVER 4 10/13/19 79451-QPFW SKIN LESIONS, OVER 4 08/08/20 90372-XZHD SKIN LESIONS, OVER 4 02/16/20 28824-PGIO SKIN LESIONS, OVER 4 12/15/19 50357-PJJL SKIN LESIONS, OVER 4 01/04/20 41433-ZUDP SKIN LESIONS, OVER 4 04/01/20 76032-NRJX SKIN LESIONS, OVER 4 11/02/19 92755-OJMH SKIN LESIONS, OVER 4 08/30/19 78813-DPLY SKIN LESIONS, OVER 4 06/21/20 60282-KCVE SKIN LESIONS, OVER 4 08/22/20 24 12193-XIBG SKIN LESIONS, 2 TO 4 10/02/19 19 04388-EDCQ SKIN LESIONS, 2 TO 4 05/25/20 18 03781-UGLD SKIN LESIONS, 2 TO 4 07/31/20 18 93934-ZLQX SKIN LESIONS, 2 TO 4 03/23/20 18 92528-BZKV SKIN LESIONS, 2 TO 4 01/13/20 18 03811-FETL SKIN LESIONS, 2 TO 4 09/08/19 18 99845-XBGD SKIN LESIONS, 2 TO 4 11/11/19 18 36893-Ubno. Subungual Hematoma 9 21204-UVALOAXM OF HEMATOMA/FLUID 019 08849-RRRFOVBF OF HEMATOMA/FLUID 018 Next Appt Details Provider Name:Vee Ta , 06/03/2025 09:00:00 AM, [address] [place] [address], [phone], Provider Name:Vee Ta , 08/05/2025 01:00:00 PM, [address] [place] [address], [phone], Insurance Providers Payer Name Payer Address Payer Phone Subscriber Number Group Number Insured Name Patient Relationship to Insured Coverage Start Date Coverage End Date Medicare National [employer] [address] [facility] [place] [address] [id number] Lilo Bess Self - patient is the insured [employer] [facility] [address] [place] [address] [id number] Lilo Bess Self - patient is the [...]
--- OUTSIDE RECORDS SUMMARY | 2025-07-13 20:00 | XMS_ITS | Clinical Summary ---
Author Organization Unknown Care Team Providers Care Non Destructive Testing Inspector Name Role Phone HARMONY DELGADO, LAUREN Unavailable Unavailable ELAINE PT, MATTHEW Unavailable Unavailabl sherice DAVALOS PRESSURE DISPATCHER, ADIN Unavailable Unavailable READING OT, CALVIN Unavailable Unavailable Payers Payer Name Policy Type Policy Number Effective Date Expira tion Date MEDICARE.NGS.PDGM [id number] Problems Condition Name Condition Details Condition Category [...] 05-16 00:00: 00 ATHSCL HEART DISEASE OF [place] CORONARY ARTERY W/O ANG PCTRS Active 05-16 [...] ARTIFICIAL KNEE JOINT Active 05-16 00:00: 00 SENIOR CARE (CURRENT) USE OF ASPIRIN Active 05-16 00:00: 00 SENIOR CARE (CURRENT) USE OF NON-STEROIDA L NON-INFLAM (NSAID) [...] TO EVALUATE, OBSERVE / ASSESS, AND MONITOR, PRESSURE DISPATCHER TO OBSERVE AND MONITOR, PROVIDE SKILLED THERAPEUTIC INTERVENTION, ACTIVITY, EDUCATION, AND TRAINING TO ADDRESS; [code = AGENCY MAY PERFORM A RESUMPTION OF CARE VISIT FOLLOWING ANY HOSPITAL ADMISSION. PT TO EVALUATE, OBSERVE / ASSESS, AND MONITOR, PRESSURE DISPATCHER TO OBSERVE AND MONITOR, PROVIDE SKILLED THERAPEUTIC INTERVENTION, ACTIVITY, EDUCATION, AND TRAINING TO ADDRESS;] Future Scheduled Test SIT TO/FRO M STAND TRANSFERS (PT/PRESSURE DISPATCHER) [code = SIT TO/FROM STAND TRANSFERS (PT/PRESSURE DISPATCHER)] Future Scheduled Test PT/PRESSURE DISPATCHER TO PROVIDE GAIT TRAINING FOR IMPROVED MOBILITY AND /OR TO NORMALIZE GAIT PATTERN [code = PT/PRESSURE DISPATCHER TO PROVIDE GAIT TRAINING FOR IMPROVED MOBILITY AND /OR TO NORMALIZE GAIT PATTERN] Future Scheduled Test PT/PRESSURE DISPATCHER TO PROVIDE STAIR TRAINING [code = PT/PRESSURE DISPATCHER TO PROVIDE STAIR TRAINING] Future Scheduled Test THERAPEUTI C EXERCISES AND ESTABLISHING A HOME EXERCISE PROGRAM (PT/PRESSURE DISPATCHER) [code = THERAPEUTIC EXERCISES AND ESTABLISHING A HOME EXERCISE PROGRAM (PT/PRESSURE DISPATCHER)] Future Scheduled Test PT/PRESSURE DISPATCHER TO IDENTIFY FALL RISK FACTORS; EDUCATE THE PATIENT/CAREGIVER ON WAYS TO REDUCE FALL RISK FACTORS AND ESTABLISH HOME EXERCISE PROGRAM TO MINIMIZE FALL RISK. MAY TEACH THE PATIENT FLOOR RECOVERY WHEN CLINICALLY APPROPRIATE [code = PT/PRESSURE DISPATCHER TO IDENTIFY FALL RISK FACTORS; EDUCATE THE PATIENT/CAREGIVER ON WAYS TO REDUCE FALL RISK FACTORS AND ESTABLISH HOME EXERCISE PROGRAM TO MINIMIZE FALL RISK. MAY TEACH THE PATIENT FLOOR RECOVERY WHEN CLINICALLY APPROPRIATE] Future Scheduled Test PT/PRESSURE DISPATCHER TO TEACH KNEE REPLACEMENT SELF-MANAGEMENT [code = PT/PRESSURE DISPATCHER TO TEACH KNEE REPLACEMENT SELF-MANAGEMENT] Future Scheduled Test PT TO ASSE SS / PRESSURE DISPATCHER TO MONITOR FOR AND REPORT EARLY SIGNS OF ANTICOAGULANT TOXICITY TO THE PHYSICIAN AND/OR THE RN CLINICAL SALES ASSISTANTS AND SALESPERSONS FOR PHYSICIAN NOTIFICATION AND TO PROVIDE PATIENT/CAREGIVER EDUCATION ON ANTICOAGULANT THERAPY [code = PT TO ASSESS / PRESSURE DISPATCHER TO MONITOR FOR AND REPORT EARLY SIGNS OF ANTICOAGULANT TOXICITY TO THE PHYSICIAN AND/OR THE RN CLINICAL SALES ASSISTANTS AND SALESPERSONS FOR PHYSICIAN NOTIFICATION AND TO PROVIDE PATIENT/CAREGIVER EDUCATION ON ANTICOAGULANT THERAPY] Future Scheduled Test PT / PRESSURE DISPATCHER T O MONITOR AND EDUCATE ON OXYGEN SATURATION DURING ADLS/IADLS, NOTIFY PHYSICIAN AND/OR THE RN CLINICAL SALES ASSISTANTS AND SALESPERSONS FOR PHYSICIAN NOTIFICATION AND IF O2 SATS BELOW PHYSICIAN ORDERED PARAMETERS AFTER 10 MIN OF REST [code = PT / PRESSURE DISPATCHER TO MONITOR AND EDUCATE ON OXYGEN SATURATION DURING ADLS/IADLS, NOTIFY PHYSICIAN AND/OR THE RN CLINICAL SALES ASSISTANTS AND SALESPERSONS FOR PHYSICIAN NOTIFICATION AND IF O2 SATS BELOW PHYSICIAN ORDERED PARAMETERS AFTER 10 MIN OF REST] Future Scheduled Test PT / PRESSURE DISPATCHER M AY EDUCATE ON PAIN MANAGEMENT CLINICALLY INDICATED, INCLUDING NON-PHARMACOLOGICAL PAIN REDUCTION TECHNIQUES AND USE OF CRYOTHERAPY UP TO 20 MIN AT A TIME FOR PAIN MANAGEMENT [code = PT / PRESSURE DISPATCHER MAY EDUCATE ON PAIN MANAGEMENT CLINICALLY INDICATED, INCLUDING NON-PHARMACOLOGICAL PAIN REDUCTION TECHNIQUES AND USE OF CRYOTHERAPY UP TO 20 MIN AT A TIME FOR PAIN MANAGEMENT] Future Scheduled Test PT / PRESSURE DISPATCHER T O OBSERVE WOUND/INCISION AND/OR INTACT DRESSING ON L KNEE AND REPORT EARLY SIGNS AND SYMPTOMS OF WOUND DETERIORATION, COMPLICATIONS, OR INFECTION TO PHYSICIAN AND/OR THE RN CLINICAL SALES ASSISTANTS AND SALESPERSONS FOR PHYSICIAN NOTIFICATION. [code = PT / PRESSURE DISPATCHER TO OBSERVE WOUND/INCISION AND/OR INTACT DRESSING ON L KNEE AND REPORT EARLY SIGNS AND SYMPTOMS OF WOUND DETERIORATION, COMPLICATIONS, OR INFECTION TO PHYSICIAN AND/OR THE RN CLINICAL SALES ASSISTANTS AND SALESPERSONS FOR PHYSICIAN NOTIFICATION.] Goal Patient Goal - [...] End Date/Time Encounter Type Admission Type Attending [facility] Care Department Encounter ID Discharge Date Discharge Status Discharge Condition Discharge Reason Percent Goals Met 2025-05-16 00:00:00 2025-07-14 00:00:00 Outpatient NEW ADMISSION MATTHEW HENRY [facility] [id number] 0.00
== END 2025-05-23 10:42 | disposition home or self-care (01) ==
LOC: HO.HOS 09:41
PROVIDERS: PCP Family Medicine; Visit Provider Physician Assistant
DX: Z96.652 Presence of left artificial knee joint (principal)
CPT/HCPCS: 99024

== ENCOUNTER → 2025-05-23 09:44 | Outpatient (BNV) | payer MEDICARE, SELFPAY | PROVIDERS: Visit Provider Radiology Diagnostic Radiology | DX: Z96.652 Presence of left artificial knee joint (principal) | CPT/HCPCS: 73562 ==

== ENCOUNTER 2025-05-23 11:19 | Outpatient (REF) | payer MEDICARE, SELFPAY ==
--- OUTSIDE RECORDS SUMMARY | 2025-03-07 10:45 | XMS_ITS ---
Author Organization [facility] mike [place] Address [address] [place] [address] [place] [address] Care Team Providers Care Process Owner Name Role Phone La Zamora MD Primary Care Provider Unavailab Crews Vee Ramos [phone] Encounters Encounter Location Date Provider Diagnosis [address] [address] 03/07/2025 Vee Ta Plan Of Treatment Next Appt Details Provider Name:Vee Espitia Keyon , 06/03/2025 09:00:00 AM, [address] [place] [address], [phone], Provider Name:Vee A Keyon , 08/05/2025 01:00:00 PM, [address] [place] [address], [phone], Progress Notes * Lilo KAYE MDOB:1945 (79 yo F)Acc No.[id number]:03/07/2025 Progress Note Patient: Mike RISSALilo T[place]NER [place] Provider: Manuel Ta DPM :1945 A ge:79 Y S ex:Female Date:03/07/2025 Address:[address] [place], [place] [phone] Pcp:La Zamora MD Subjective: * Chief Complaints: * * Medical History: Objective: * Vitals: Assessment: Plan: * Treatment: * Images: * The named appointment provid er may or may not be the originator of this progress note, and it is not deemed complete until electronically signed by the appointment provider. Sign off status: Pending * Provider: Manuel Ta DPM Date: 0 03/07/2025 Generated for Chastity Montero on: 05/24/2025 01:09 PM EDT
--- OUTSIDE RECORDS SUMMARY | 2025-05-16 09:00 | XMS_ITS ---
Author Organization [facility] Address [address] [place] [address] [place] [address] Care Team Providers Care Chipper Feeder Name Role Phone La Zamora MD Primary Care Provider Unavailab Crews Vee Ramos [phone] Encounters Encounter Location Date Provider Diagnosis [address] [address] 05/16/2025 Vee Ta Plan Of Treatment Next Appt Details Provider Name:Vee Espitia Keyon , 06/03/2025 09:00:00 AM, [address] [place] [address], [phone], Provider Name:Vee A Keyon , 08/05/2025 01:00:00 PM, [address] [place] [address], [phone], Progress Notes * Lilo KAYE MDOB:1945 (79 yo F)Acc No.[id number]:05/16/2025 Progress Note Patient: Mack RISSAGricel TURNERmaureen Conrad Provider: Manuel Ta DPM :1945 A ge:79 Y S ex:Female Date:05/16/2025 Address:[address] [place], [place] [phone] Pcp:La Zamora MD Subjective: * Chief Complaints: * * Medical History: Objective: * Vitals: Assessment: Plan: * Treatment: * Images: * The named appointment provid er may or may not be the originator of this progress note, and it is not deemed complete until electronically signed by the appointment provider. Sign off status: Pending * Provider: Manuel Ta DPM Date: 05/16/2025 Generated for Chastity Montero on: 05/24/2025 01:09 PM EDT
--- NOTE | ~2025-05-23 | XR_ITS ---
EXAMINATION: XR KNEE, LEFT CLINICAL INFORMATION: M25.569 - Pain in unspecified knee COMPARISON: October 31, 2024 TECHNIQUE: AP bilateral, sunrise, and lateral views of the left knee. FINDINGS: Since prior examination, total knee arthroscopy has been performed. Hardware is anatomically positioned. There is a joint effusion. Skin devora are present anteriorly . No fractures are identified XR/XR knee LT 3V IMPRESSION: Appropriate alignment of the left total knee arthroplasty. No periprosthetic fracture. Electronically signed by: Steven Sosa MD 05/23/2025 09:59 AM EDT
--- OUTSIDE RECORDS SUMMARY | 2025-05-24 13:10 | XMS_ITS | Patient Health Record ---
[facility] Billy Address [address] [facility] [place] [address] Care Team Providers Care Dba Developer Name Role Phone La Zamora MD Primary Care Provider Unavailab Vee Crews Unavailable [phone] Allergies Allergen (clinical drug ingredient) Drug/Non Drug [...] a day Not-Taking Baby Aspirin Not-Dung ing Utbonzrf-Tfpkcltyc-Dzfghpfu Not-Taking Flax Seeds Orally Not-Takin g Propranolol [...] W/U Status Risk Notes Problem Raynaud's disease (537394301) Raynaud's syndrome without gangrene (I73.00) Active confirmed Problem Bilateral atherosclerosis of arteries of lower limbs (disorder) (28633466334418944 ) Atherosclerosis of [place] artery of both lower extremities, with unspecified presence of clinical manifestation (I70.203) Active confirmed Q7(A), Q8(2B), Q9(1B,2 C) Vital Signs Blood pressure diastolic 78 mm Hg 04/01/2025 Height 5 ft 7 in in 04/01/2025 Blood pressure systolic 146 mm Hg 04/01/2025 Weight 218 lbs 04/01/2025 BMI 34.14 kg/m2 04/01/2025 Procedures Procedure Date Ordered Date Performed Result Body Sit e 81131-ROEZMZF NAIL, 6 OR MORE 06/21/2024 N/A 84982-DLIF SKIN LESIONS, OVER 4 06/21/2024 N/A 04287-UZRFVPA NAIL, 6 OR MORE 08/30/2024 N/A 06840-ECDU SKIN LESIONS, OVER 4 08/30/2024 N/A 75912-UCQKPVS NAIL, 6 OR MORE 11/01/2024 N/A 32228-ANRV SKIN LESIONS, OVER 4 11/01/2024 N/A 25876-QIMDLIB NAIL, 6 OR MORE 01/03/2025 N/A 19014-Ltcfqbjb Plate 01/03/2025 N/A 12618-XEBO SKIN LESIONS, OVER 4 01/03/2025 N/A 62615-SWSHMHQ NAIL, 6 OR MORE 04/01/2025 N/A 61682-Ahtaebkf Plate 04/01/2025 N/A 15012-ZKBB SKIN LESIONS, OVER 4 04/01/2025 N/A Encounters Encounter Location Date Provider Diagnosis [address] [address] 06/21/2024 Vee Black Neuritis of right fo ot G57.91 ; Pain in right foot M79.671 ; Atherosclerosis of [place] artery of both lower extremities, with unspecified presence of clinical manifestation I70.203 ; Tinea unguium B35.1 ; Pain in right toe(s) M79.674 and Pain in left toe(s) M79.[address] [address] 08/30/2024 Vee Black Atherosclerosis of hus[place] artery of both lower extremities, with unspecified presence of clinical manifestation I70.203 ; Tinea unguium B35.1 ; Pain in right toe(s) M79.674 and Pain in left toe(s) M79.[address] [address] 11/01/2024 Vee Black Atherosclerosis of huslia artery of both lower extremities, with unspecified presence of clinical manifestation I70.203 ; Tinea unguium B35.1 ; Pain in right toe(s) M79.674 and Pain in left toe(s) M79.[address] [address] 01/03/2025 Vee Black Atherosclerosis of [place] artery of both lower extremities, with unspecified presence of clinical manifestation I70.203 ; Tinea unguium B35.1 ; Pain in right toe(s) M79.674 ; Pain in left toe(s) M79.675 and Ingrown nail L60.[address] [address] 04/01/2025 Vee Black Atherosclerosis of [place] artery of both lower extremities, with unspecified presence of clinical manifestation I70.203 ; Tinea unguium B35.1 ; Pain in right toe(s) M79.674 ; Pain in left toe(s) M79.675 and Ingrown nail L60.0 [facility] [address] [address] 02/20/2025 Vee Ta Assessments Encounter Date Diagnosis (ICD Code) Assessment Notes Treatment Notes Treatment Clinical Notes Section Notes 06/21/2024 Pain in right foot (ICD-10 - M79.671) 06/21/2024 Neuritis of right foot (ICD-10 - G57.91) Response to treatment - Improvement 08/30/2024 Tinea unguium (ICD-10 - B35.1) 08/30/2024 Atherosclerosis of [place]lia artery of both lower extremities, with unspecified presence of clinical manifestation (ICD-10 - I70.203) Q7(A), Q8(2B), Q9(1B,2C) 11/01/2024 Atherosclerosis of [place] artery of both lower extremities, with unspecified presence of clinical manifestation (ICD-10 - I70.203) Q7(A), Q8(2B), Q9(1B,2C) 01/03/2025 Atherosclerosis of [place] artery of both lower extremities, with unspecified presence of clinical manifestation (ICD-10 - I70.203) Q7(A), Q8(2B), Q9(1B,2C) 04/01/2025 Tinea unguium (ICD-10 - B35.1) 04/01/2025 Atherosclerosis of huslia artery of both lower extremities, with unspecified presence of clinical manifestation (ICD-10 - I70.203) Q7(A), Q8(2B), Q9(1B,2C) 04/01/2025 Pain in right toe(s) (ICD-10 - M79.674) 01/03/2025 Tinea unguium (ICD-10 - B35.1) 11/01/2024 Tinea unguium (ICD-10 - B35.1) 08/30/2024 Pain in right toe(s) (ICD-10 - M79.674) 06/21/2024 Atherosclerosis of [place] artery of both lower extremities, with unspecified [...] X ray : Foot, left 3V 11/10/2015 12360-RTHGZJC NAIL, 6 OR MORE 09/01/2015 55012-OOIMPFN NAIL, 6 OR MORE 11/10/2015 70251-KZMIJAR NAIL, 6 OR MORE 01/13/2015 64718-GVNXLEX NAIL, 6 OR MORE 06/23/2015 02121-DFQEHZH NAIL, 6 OR MORE 05/27/2016 50166-QCERVIB NAIL, 6 OR MORE 12/06/2013 18370-GYUKMVO NAIL, 6 OR MORE 03/11/2014 62381-GPKOLMT NAIL, 6 OR MORE 06/12/2014 09815-IRXQHQR NAIL, 6 OR MORE 09/04/2014 91986-OXWRDVG NAIL, 6 OR MORE 11/07/2014 68835-IJTOUAG NAIL, 6 OR MORE 04/21/2015 54615-NZMYZBH NAIL, 6 OR MORE 2016 36223-KIAMNHE NAIL, 6 OR MORE 02/17/2017 16802-ZKMXSLF NAIL, 6 OR MORE 04/21/2017 79009-DGPDCQF NAIL, 6 OR MORE 07/29/2016 23670-RNQDUPU NAIL, 6 OR MORE 10/11/2016 79824-LUBBZHN NAIL, 6 OR MORE 06/27/2017 06830-GVHHCIW NAIL, 6 OR MORE 09/08/2017 69844-KLYQQQN NAIL, 6 OR MORE 11/10/2017 21995-YKPQRIM NAIL, 6 OR MORE 01/12/2018 14936-RZBLRJV NAIL, 6 OR MORE 03/23/2018 22907-KQYDEYU NAIL, 6 OR MORE 05/25/2018 17443-VAOWNXD NAIL, 6 OR MORE 07/31/2018 37112-GUPIQIJ NAIL, 6 OR MORE 10/02/2018 80229-WFQJNYE NAIL, 6 OR MORE 12/04/2018 61753-LTAVHKC NAIL, 6 OR MORE 10/30/2020 43036-NPFIBHY NAIL, 6 OR MORE 01/01/2021 81450-VLFFWKM NAIL, 6 OR MORE 03/12/2021 41781-SFLAVHS NAIL, 6 OR MORE 05/15/2021 58061-WYSANKE NAIL, 6 OR MORE 04/23/2019 15817-IVODAON NAIL, 6 OR MORE 06/25/2019 44832-WXVXNWE NAIL, 6 OR MORE 09/10/2019 16193-DQUWDZA NAIL, 6 OR MORE 11/21/2019 91281-AKYIBFH NAIL, 6 OR MORE 01/24/2020 15480-VNLYLDF NAIL, 6 OR MORE 04/03/2020 01508-BAYIXYK NAIL, 6 OR MORE 06/16/2020 24948-WVGATON NAIL, 6 OR MORE 08/17/2021 07464-MOWGMGV NAIL, 6 OR MORE 08/18/2020 77806-VHLIIUC NAIL, 6 OR MORE 11/26/2021 64833-NYAFXGU NAIL, 6 OR MORE 02/08/2022 68651-GQQNMLX NAIL, 6 OR MORE 04/12/2022 58450-ZQVCPXI NAIL, 6 OR MORE 06/14/2022 83279-FNLIJDJ NAIL, 6 OR MORE 08/16/2022 79708-COIIGOD NAIL, 6 OR MORE 10/21/2022 96202-MRRXIVZ NAIL, 6 OR MORE 12/23/2022 78517-BBWRTQJ NAIL, 6 OR MORE 02/24/2023 92381-DTYYODO NAIL, 6 OR MORE 04/28/2023 62849-VUZAMKT NAIL, 6 OR MORE 08/08/2023 71516-WDURMHH NAIL, 6 OR MORE 10/13/2023 78858-WBBUITV NAIL, 6 OR MORE 12/15/2023 46548-NGTPADY NAIL, 6 OR MORE 02/16/2024 12029-CFYYZGH NAIL, 6 OR MORE 04/19/2024 82127-GPCETKO NAIL, 6 OR MORE 06/21/2024 23754-CPEMWLX NAIL, 6 OR MORE 08/30/2024 70429-FQUVRJH NAIL, 6 OR MORE 11/01/2024 38750-OCQYCYZ NAIL, 6 OR MORE 01/03/2025 81876-PBRUZCM NAIL, 6 OR MORE 04/01/2025 51762-BPRPUVQ NAIL, 1-5 05/27/2016 25193-SGHZBIV NAIL, 1-5 01/12/2016 74362-LDXJCNK NAIL, 1-5 03/16/2016 19123-Kiio Destruction, 1-14 02/17/2017 51629-Vjgy Destruction, 1-14 10/11/2016 76839-Oupc Destruction, 1-14 2016 62019-Bwnllukv Plate 2016 96650-Gkmbhxtn Plate 04/21/2017 65860-Iiiworaa Plate 06/27/2017 50642-Lycdsrpx Plate 10/02/2018 35543-Woiyeyvq Plate 07/31/2018 81444-Tjatyvgf Plate 05/27/2016 80271-Hecotwhu Plate 12/06/2013 83581-Xgbxfvtz Plate 06/23/2015 59827-Ojwodwyl Plate 04/21/2015 79959-Kmvmmbnb Plate 11/07/2014 51725-Zleajfco Plate 01/13/2015 73406-Navqtucn Plate 09/04/2014 44779-Dkbmxmhn Plate 06/12/2014 98126-Fqeifkdm Plate 03/11/2014 67862-Noxhyqpp Plate 10/13/2023 39724-Cfwtissr Plate 04/12/2022 05861-Ejmhprqi Plate 02/08/2022 72407-Ufcswnjb Plate 11/26/2021 00877-Gwejxfcj Plate 04/03/2020 39821-Vurffehm Plate 09/10/2019 88611-Mogemskx Plate 03/12/2021 02297-Liyberoq Plate 10/30/2020 00829-Qwaasaqn Plate 06/16/2020 69473-Flbwhhqi Plate 02/24/2023 75212-Uzhkekyb Plate 04/01/2025 35909-Gxrbilvz Plate 01/03/2025 36441-Ygyptgcc Plate Each Additional 48011-Srkiptdi Plate Each Additional 49813-Jeuyhuso Plate Each Additional 54144-Orqigsup Plate Each Additional 62044-Pbbrqdtn Plate Each Additional 75497-Ecixtnix Plate Each Additional 54079- Debride <25 sq cm 06/11/2016 54150- Debride <25 sq cm 12/03/2015 60647- Debride <25 sq cm 12/04/2018 21149- Debride <25 sq cm 03/23/2018 21346- Debride <25 sq cm 06/27/2017 94701- Debride <25 sq cm 04/21/2017 72338- Debride <25 sq cm 04/28/2023 21077- Debride <25 sq cm 02/08/2022 64754- Debride <25 sq cm 01/24/2020 64179- Debride <25 sq cm 01/01/2021 37313- Debride <25 sq cm 05/15/2021 75336- Debride <25 sq cm 08/17/2021 60425-XHDEESC SKIN/TISSUE 11/07/2014 55974 I&D ABSCESS- SIMPLE,SINGLE 014 76396 I&D ABSCESS- SIMPLE,SINGLE 016 67239 I&D ABSCESS- SIMPLE,SINGLE 016 47339 I&D ABSCESS- SIMPLE,SINGLE 016 81289 I&D ABSCESS- SIMPLE,SINGLE 016 21231 I&D ABSCESS- SIMPLE,SINGLE 017 49836-NYXT SKIN LESIONS, OVER 4 12/05/19 19 40189-UBJW SKIN LESIONS, OVER 4 01/14/20 69543-TLCD SKIN LESIONS, OVER 4 04/21/20 48440-UOOK SKIN LESIONS, OVER 4 08/17/20 40833-MTJM SKIN LESIONS, OVER 4 05/15/20 34184-MTDI SKIN LESIONS, OVER 4 03/12/20 85523-WUFG SKIN LESIONS, OVER 4 01/02/20 87172-TXQN SKIN LESIONS, OVER 4 08/18/20 56730-EIWA SKIN LESIONS, OVER 4 10/31/19 10031-XKCF SKIN LESIONS, OVER 4 02/13/20 96530-RVBA SKIN LESIONS, OVER 4 04/03/20 85749-FXOH SKIN LESIONS, OVER 4 06/16/20 93646-GQVK SKIN LESIONS, OVER 4 11/21/19 58040-QDEJ SKIN LESIONS, OVER 4 01/24/20 49279-RAUY SKIN LESIONS, OVER 4 06/25/20 93167-BMOE SKIN LESIONS, OVER 4 09/10/19 15981-WZQD SKIN LESIONS, OVER 4 02/09/20 44683-SGEP SKIN LESIONS, OVER 4 11/27/19 78928-BVPJ SKIN LESIONS, OVER 4 04/12/20 36856-JYGV SKIN LESIONS, OVER 4 06/14/20 95721-TOEQ SKIN LESIONS, OVER 4 08/16/20 92003-CFRQ SKIN LESIONS, OVER 4 10/21/19 64743-XDZJ SKIN LESIONS, OVER 4 04/28/20 79602-WFFH SKIN LESIONS, OVER 4 02/25/20 82506-GAFR SKIN LESIONS, OVER 4 12/24/19 55574-QQVG SKIN LESIONS, OVER 4 10/13/19 37664-XVSJ SKIN LESIONS, OVER 4 08/08/20 58748-QNZW SKIN LESIONS, OVER 4 02/16/20 25364-QMSU SKIN LESIONS, OVER 4 12/15/19 81132-UREX SKIN LESIONS, OVER 4 01/04/20 27625-XRCD SKIN LESIONS, OVER 4 04/01/20 61348-IVXA SKIN LESIONS, OVER 4 11/02/19 18496-MHXW SKIN LESIONS, OVER 4 08/30/19 27682-ASEM SKIN LESIONS, OVER 4 06/21/20 46731-ASEN SKIN LESIONS, OVER 4 08/22/20 24 45863-FNRF SKIN LESIONS, 2 TO 4 10/02/19 19 76284-ZQPP SKIN LESIONS, 2 TO 4 05/25/20 18 26357-JONJ SKIN LESIONS, 2 TO 4 07/31/20 18 86985-ACFZ SKIN LESIONS, 2 TO 4 03/23/20 18 04896-OBNI SKIN LESIONS, 2 TO 4 01/13/20 18 53110-SCSV SKIN LESIONS, 2 TO 4 09/08/19 18 09344-XOAM SKIN LESIONS, 2 TO 4 11/11/19 18 91915-Xgny. Subungual Hematoma 9 98171-EOPFCNHO OF HEMATOMA/FLUID 019 84027-GOVCZHHJ OF HEMATOMA/FLUID 018 Next Appt Details Provider Name:Vee Ta , 06/03/2025 09:00:00 AM, [address] [place] [address], [phone], Provider Name:Vee Ta , 08/05/2025 01:00:00 PM, [address] [place] [address], [phone], Insurance Providers Payer Name Payer Address Payer Phone Subscriber Number Group Number Insured Name Patient Relationship to Insured Coverage Start Date Coverage End Date Medicare National [employer] [address] [facility] [place] [address] [id number] Lilo Bess Self - patient is the insured [employer] [facility] [address] [place] [address] [id number] Lilo Bess Self - patient is the [...]
--- OUTSIDE RECORDS SUMMARY | 2025-07-13 20:00 | XMS_ITS | Clinical Summary ---
Author Organization Unknown Care Team Providers Care Skimmer Reverberatory Name Role Phone HARMONY DELGADO, LAUREN Unavailable Unavailable ELAINE PT, MATTHEW Unavailable Unavailabl sherice DAVALOS ROUGH ROUNDER MACHINE, ADIN Unavailable Unavailable READING OT, CALVIN Unavailable Unavailable Payers Payer Name Policy Type Policy Number Effective Date Expira tion Date MEDICARE.NGS.PDGM [id number] Problems Condition Name Condition Details Condition Category Status Onset Date Resolution Date Last Treatment Date Treating Clinician Comments AFTERCARE FOLLOWING JOINT REPLACEMENT SURGERY Active 05-06 00:00: 00 ESSENTIAL (PRIMARY) HYPERTENSION Active 05-16 00:00: 00 HYPOTHYROIDI SM, UNSPECIFIED Active 05-16 00:00: 00 CONSTIPATION , UNSPECIFIED Active 05-16 00:00: 00 CANDIDIASIS, UNSPECIFIED Active 05-16 00:00: 00 FREQUENCY OF MICTURITION Active 05-16 00:00: 00 ANEMIA, UNSPECIFIED Active 05-16 00:00: 00 ATHSCL HEART DISEASE OF [place] CORONARY ARTERY W/O ANG PCTRS Active 05-16 00:00: 00 GASTRO-ESOPH AGEAL REFLUX DISEASE WITHOUT ESOPHAGITIS Active 05-16 00:00: 00 CONDUCTION DISORDER, UNSPECIFIED Active 05-16 00:00: 00 LYMPHEDEMA, NOT ELSEWHERE CLASSIFIED Active 05-16 00:00: 00 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 Active 05-16 00:00: 00 PERSONAL HISTORY OF MALIGNANT NEOPLASM OF OTH PRT UTERUS Active 05-16 00:00: 00 PRESENCE OF LEFT ARTIFICIAL KNEE JOINT Active 05-16 00:00: 00 MCC (CURRENT) USE OF ASPIRIN Active 05-16 00:00: 00 MCC (CURRENT) USE OF NON-STEROIDA L NON-INFLAM (NSAID) Active 05-16 00:00: 00 Allergies, Adverse Reactions, Alerts Allergy [...] Observation Time Observation Value Commen ts Temperature 2025-05-22 11:02:00.000 98 [degF] Temperature 2025-05-21 13:06:00.000 97.4 [degF] Temperature 2025-05-16 16:33:00.000 97.8 [degF] BMI (%) 2025-05-16 15:57:52.000 33 kg/m2 Height 2025-05-16 15:57:45.000 67 [in_us] Pulse 2025-05-22 11:02:00.000 70 /min Pulse 2025-05-21 13:06:00.000 96 /min Pulse 2025-05-16 16:33:00.000 61 /min O2 Saturation (%) 2025-05-21 13:06:00.000 96 % O2 Saturation (%) 2025-05-16 16:33:00.000 100 % Respirations 2025-05-22 11:02:00.000 18 /min Respirations 2025-05-21 13:06:00.000 17 /min Respirations 2025-05-16 16:33:00.000 18 /min Weight (lbs) 2025-05-16 15:57:52.000 215 [lb_av] Systolic Blood Pressure 2025-05-22 11:02:00.000 110 mm [Hg] Systolic Blood Pressure 2025-05-21 13:06:00.000 178 mm [Hg] Systolic Blood Pressure 2025-05-16 16:33:00.000 128 mm [Hg] Diastolic Blood Pressure 2025-05-22 11:02:00.000 60 mm [Hg] Diastolic Blood Pressure 2025-05-21 13:06:00.000 70 mm [Hg] Diastolic Blood Pressure 2025-05-16 16:33:00.000 64 mm [Hg] Plan of Treatment Planned Activity Planned Date Details Comments Future Scheduled Test AGENCY MAY PERFORM A RESUMPTION OF CARE VISIT FOLLOWING ANY HOSPITAL ADMISSION. PT TO EVALUATE, OBSERVE / ASSESS, AND MONITOR, ROUGH ROUNDER MACHINE TO OBSERVE AND MONITOR, PROVIDE SKILLED THERAPEUTIC INTERVENTION, ACTIVITY, EDUCATION, AND TRAINING TO ADDRESS; [code = AGENCY MAY PERFORM A RESUMPTION OF CARE VISIT FOLLOWING ANY HOSPITAL ADMISSION. PT TO EVALUATE, OBSERVE / ASSESS, AND MONITOR, ROUGH ROUNDER MACHINE TO OBSERVE AND MONITOR, PROVIDE SKILLED THERAPEUTIC INTERVENTION, ACTIVITY, EDUCATION, AND TRAINING TO ADDRESS;] Future Scheduled Test SIT TO/FRO M STAND TRANSFERS (PT/ROUGH ROUNDER MACHINE) [code = SIT TO/FROM STAND TRANSFERS (PT/ROUGH ROUNDER MACHINE)] Future Scheduled Test PT/ROUGH ROUNDER MACHINE TO PROVIDE GAIT TRAINING FOR IMPROVED MOBILITY AND /OR TO NORMALIZE GAIT PATTERN [code = PT/ROUGH ROUNDER MACHINE TO PROVIDE GAIT TRAINING FOR IMPROVED MOBILITY AND /OR TO NORMALIZE GAIT PATTERN] Future Scheduled Test PT/ROUGH ROUNDER MACHINE TO PROVIDE STAIR TRAINING [code = PT/ROUGH ROUNDER MACHINE TO PROVIDE STAIR TRAINING] Future Scheduled Test THERAPEUTI C EXERCISES AND ESTABLISHING A HOME EXERCISE PROGRAM (PT/ROUGH ROUNDER MACHINE) [code = THERAPEUTIC EXERCISES AND ESTABLISHING A HOME EXERCISE PROGRAM (PT/ROUGH ROUNDER MACHINE)] Future Scheduled Test PT/ROUGH ROUNDER MACHINE TO IDENTIFY FALL RISK FACTORS; EDUCATE THE PATIENT/CAREGIVER ON WAYS TO REDUCE FALL RISK FACTORS AND ESTABLISH HOME EXERCISE PROGRAM TO MINIMIZE FALL RISK. MAY TEACH THE PATIENT FLOOR RECOVERY WHEN CLINICALLY APPROPRIATE [code = PT/ROUGH ROUNDER MACHINE TO IDENTIFY FALL RISK FACTORS; EDUCATE THE PATIENT/CAREGIVER ON WAYS TO REDUCE FALL RISK FACTORS AND ESTABLISH HOME EXERCISE PROGRAM TO MINIMIZE FALL RISK. MAY TEACH THE PATIENT FLOOR RECOVERY WHEN CLINICALLY APPROPRIATE] Future Scheduled Test PT/ROUGH ROUNDER MACHINE TO TEACH KNEE REPLACEMENT SELF-MANAGEMENT [code = PT/ROUGH ROUNDER MACHINE TO TEACH KNEE REPLACEMENT SELF-MANAGEMENT] Future Scheduled Test PT TO ASSE SS / ROUGH ROUNDER MACHINE TO MONITOR FOR AND REPORT EARLY SIGNS OF ANTICOAGULANT TOXICITY TO THE PHYSICIAN AND/OR THE RN CLINICAL COMPENSATION DIRECTOR FOR PHYSICIAN NOTIFICATION AND TO PROVIDE PATIENT/CAREGIVER EDUCATION ON ANTICOAGULANT THERAPY [code = PT TO ASSESS / ROUGH ROUNDER MACHINE TO MONITOR FOR AND REPORT EARLY SIGNS OF ANTICOAGULANT TOXICITY TO THE PHYSICIAN AND/OR THE RN CLINICAL COMPENSATION DIRECTOR FOR PHYSICIAN NOTIFICATION AND TO PROVIDE PATIENT/CAREGIVER EDUCATION ON ANTICOAGULANT THERAPY] Future Scheduled Test PT / ROUGH ROUNDER MACHINE T O MONITOR AND EDUCATE ON OXYGEN SATURATION DURING ADLS/IADLS, NOTIFY PHYSICIAN AND/OR THE RN CLINICAL COMPENSATION DIRECTOR FOR PHYSICIAN NOTIFICATION AND IF O2 SATS BELOW PHYSICIAN ORDERED PARAMETERS AFTER 10 MIN OF REST [code = PT / ROUGH ROUNDER MACHINE TO MONITOR AND EDUCATE ON OXYGEN SATURATION DURING ADLS/IADLS, NOTIFY PHYSICIAN AND/OR THE RN CLINICAL COMPENSATION DIRECTOR FOR PHYSICIAN NOTIFICATION AND IF O2 SATS BELOW PHYSICIAN ORDERED PARAMETERS AFTER 10 MIN OF REST] Future Scheduled Test PT / ROUGH ROUNDER MACHINE M AY EDUCATE ON PAIN MANAGEMENT CLINICALLY INDICATED, INCLUDING NON-PHARMACOLOGICAL PAIN REDUCTION TECHNIQUES AND USE OF CRYOTHERAPY UP TO 20 MIN AT A TIME FOR PAIN MANAGEMENT [code = PT / ROUGH ROUNDER MACHINE MAY EDUCATE ON PAIN MANAGEMENT CLINICALLY INDICATED, INCLUDING NON-PHARMACOLOGICAL PAIN REDUCTION TECHNIQUES AND USE OF CRYOTHERAPY UP TO 20 MIN AT A TIME FOR PAIN MANAGEMENT] Future Scheduled Test PT / ROUGH ROUNDER MACHINE T O OBSERVE WOUND/INCISION AND/OR INTACT DRESSING ON L KNEE AND REPORT EARLY SIGNS AND SYMPTOMS OF WOUND DETERIORATION, COMPLICATIONS, OR INFECTION TO PHYSICIAN AND/OR THE RN CLINICAL COMPENSATION DIRECTOR FOR PHYSICIAN NOTIFICATION. [code = PT / ROUGH ROUNDER MACHINE TO OBSERVE WOUND/INCISION AND/OR INTACT DRESSING ON L KNEE AND REPORT EARLY SIGNS AND SYMPTOMS OF WOUND DETERIORATION, COMPLICATIONS, OR INFECTION TO PHYSICIAN AND/OR THE RN CLINICAL COMPENSATION DIRECTOR FOR PHYSICIAN NOTIFICATION.] Goal Patient Goal - [...] WOUND COMPLICATIONS DURING THE EPISODE OF CARE. Encounters Start Date/Time End Date/Time Encounter Type Admission Type Attending [facility] Care Department Encounter ID Discharge Date Discharge Status Discharge Condition Discharge Reason Percent Goals Met 2025-05-16 00:00:00 2025-07-14 00:00:00 Outpatient NEW ADMISSION MATTHEW HENRY [facility] [id number] 0.00
--- OUTSIDE RECORDS SUMMARY | 2025-07-13 20:00 | XMS_ITS | Clinical Summary ---
Author Organization Unknown Care Team Providers Care Microscopist Name Role Phone HARMONY DELGADO, LAUREN Unavailable Unavailable ELAINE PT, MATTHEW Unavailable Unavailabl sherice DAVALOS LITIGATION SERVICES MANAGER, ADIN Unavailable Unavailable READING OT, CALVIN Unavailable Unavailable Payers Payer Name Policy Type Policy Number Effective Date Expira tion Date MEDICARE.NGS.PDGM [id number] Problems Condition Name Condition Details Condition Category [...] 05-16 00:00: 00 ATHSCL HEART DISEASE OF [place] CORONARY ARTERY W/O ANG PCTRS Active 05-16 [...] ARTIFICIAL KNEE JOINT Active 05-16 00:00: 00 [facility] (CURRENT) USE OF ASPIRIN Active 05-16 00:00: 00 [facility] (CURRENT) USE OF NON-STEROIDA L NON-INFLAM (NSAID) [...] TO EVALUATE, OBSERVE / ASSESS, AND MONITOR, LITIGATION SERVICES MANAGER TO OBSERVE AND MONITOR, PROVIDE SKILLED THERAPEUTIC INTERVENTION, ACTIVITY, EDUCATION, AND TRAINING TO ADDRESS; [code = AGENCY MAY PERFORM A RESUMPTION OF CARE VISIT FOLLOWING ANY HOSPITAL ADMISSION. PT TO EVALUATE, OBSERVE / ASSESS, AND MONITOR, LITIGATION SERVICES MANAGER TO OBSERVE AND MONITOR, PROVIDE SKILLED THERAPEUTIC INTERVENTION, ACTIVITY, EDUCATION, AND TRAINING TO ADDRESS;] Future Scheduled Test SIT TO/FRO M STAND TRANSFERS (PT/LITIGATION SERVICES MANAGER) [code = SIT TO/FROM STAND TRANSFERS (PT/LITIGATION SERVICES MANAGER)] Future Scheduled Test PT/LITIGATION SERVICES MANAGER TO PROVIDE GAIT TRAINING FOR IMPROVED MOBILITY AND /OR TO NORMALIZE GAIT PATTERN [code = PT/LITIGATION SERVICES MANAGER TO PROVIDE GAIT TRAINING FOR IMPROVED MOBILITY AND /OR TO NORMALIZE GAIT PATTERN] Future Scheduled Test PT/LITIGATION SERVICES MANAGER TO PROVIDE STAIR TRAINING [code = PT/LITIGATION SERVICES MANAGER TO PROVIDE STAIR TRAINING] Future Scheduled Test THERAPEUTI C EXERCISES AND ESTABLISHING A HOME EXERCISE PROGRAM (PT/LITIGATION SERVICES MANAGER) [code = THERAPEUTIC EXERCISES AND ESTABLISHING A HOME EXERCISE PROGRAM (PT/LITIGATION SERVICES MANAGER)] Future Scheduled Test PT/LITIGATION SERVICES MANAGER TO IDENTIFY FALL RISK FACTORS; EDUCATE THE PATIENT/CAREGIVER ON WAYS TO REDUCE FALL RISK FACTORS AND ESTABLISH HOME EXERCISE PROGRAM TO MINIMIZE FALL RISK. MAY TEACH THE PATIENT FLOOR RECOVERY WHEN CLINICALLY APPROPRIATE [code = PT/LITIGATION SERVICES MANAGER TO IDENTIFY FALL RISK FACTORS; EDUCATE THE PATIENT/CAREGIVER ON WAYS TO REDUCE FALL RISK FACTORS AND ESTABLISH HOME EXERCISE PROGRAM TO MINIMIZE FALL RISK. MAY TEACH THE PATIENT FLOOR RECOVERY WHEN CLINICALLY APPROPRIATE] Future Scheduled Test PT/LITIGATION SERVICES MANAGER TO TEACH KNEE REPLACEMENT SELF-MANAGEMENT [code = PT/LITIGATION SERVICES MANAGER TO TEACH KNEE REPLACEMENT SELF-MANAGEMENT] Future Scheduled Test PT TO ASSE SS / LITIGATION SERVICES MANAGER TO MONITOR FOR AND REPORT EARLY SIGNS OF ANTICOAGULANT TOXICITY TO THE PHYSICIAN AND/OR THE RN CLINICAL FILM LIBRARY CLERK FOR PHYSICIAN NOTIFICATION AND TO PROVIDE PATIENT/CAREGIVER EDUCATION ON ANTICOAGULANT THERAPY [code = PT TO ASSESS / LITIGATION SERVICES MANAGER TO MONITOR FOR AND REPORT EARLY SIGNS OF ANTICOAGULANT TOXICITY TO THE PHYSICIAN AND/OR THE RN CLINICAL FILM LIBRARY CLERK FOR PHYSICIAN NOTIFICATION AND TO PROVIDE PATIENT/CAREGIVER EDUCATION ON ANTICOAGULANT THERAPY] Future Scheduled Test PT / LITIGATION SERVICES MANAGER T O MONITOR AND EDUCATE ON OXYGEN SATURATION DURING ADLS/IADLS, NOTIFY PHYSICIAN AND/OR THE RN CLINICAL FILM LIBRARY CLERK FOR PHYSICIAN NOTIFICATION AND IF O2 SATS BELOW PHYSICIAN ORDERED PARAMETERS AFTER 10 MIN OF REST [code = PT / LITIGATION SERVICES MANAGER TO MONITOR AND EDUCATE ON OXYGEN SATURATION DURING ADLS/IADLS, NOTIFY PHYSICIAN AND/OR THE RN CLINICAL FILM LIBRARY CLERK FOR PHYSICIAN NOTIFICATION AND IF O2 SATS BELOW PHYSICIAN ORDERED PARAMETERS AFTER 10 MIN OF REST] Future Scheduled Test PT / LITIGATION SERVICES MANAGER M AY EDUCATE ON PAIN MANAGEMENT CLINICALLY INDICATED, INCLUDING NON-PHARMACOLOGICAL PAIN REDUCTION TECHNIQUES AND USE OF CRYOTHERAPY UP TO 20 MIN AT A TIME FOR PAIN MANAGEMENT [code = PT / LITIGATION SERVICES MANAGER MAY EDUCATE ON PAIN MANAGEMENT CLINICALLY INDICATED, INCLUDING NON-PHARMACOLOGICAL PAIN REDUCTION TECHNIQUES AND USE OF CRYOTHERAPY UP TO 20 MIN AT A TIME FOR PAIN MANAGEMENT] Future Scheduled Test PT / LITIGATION SERVICES MANAGER T O OBSERVE WOUND/INCISION AND/OR INTACT DRESSING ON L KNEE AND REPORT EARLY SIGNS AND SYMPTOMS OF WOUND DETERIORATION, COMPLICATIONS, OR INFECTION TO PHYSICIAN AND/OR THE RN CLINICAL FILM LIBRARY CLERK FOR PHYSICIAN NOTIFICATION. [code = PT / LITIGATION SERVICES MANAGER TO OBSERVE WOUND/INCISION AND/OR INTACT DRESSING ON L KNEE AND REPORT EARLY SIGNS AND SYMPTOMS OF WOUND DETERIORATION, COMPLICATIONS, OR INFECTION TO PHYSICIAN AND/OR THE RN CLINICAL FILM LIBRARY CLERK FOR PHYSICIAN NOTIFICATION.] Goal Patient Goal - [...] End Date/Time Encounter Type Admission Type Attending [facility] Care Department Encounter ID Discharge Date Discharge Status Discharge Condition Discharge Reason Percent Goals Met 2025-05-16 00:00:00 2025-07-14 00:00:00 Outpatient NEW ADMISSION MATTHEW [facility] [id number] 0.00
== END 2025-05-23 11:20 | disposition home or self-care (01) ==
LOC: HO.HOSX 11:19
PROVIDERS: Visit Provider Physician Assistant
DX: Z47.1 Aftercare following joint replacement surgery (principal); Z96.652 Presence of left artificial knee joint
CPT/HCPCS: 73562; 99212

== ENCOUNTER 2025-06-13 10:22 | Outpatient (AMB) | payer MEDICARE, SELFPAY ==
--- OUTSIDE RECORDS SUMMARY | 2025-03-07 10:45 | XMS_ITS ---
Author Organization [facility] [place] Address [address] [place] [address] [place] [address] Care Team Providers Care Lacquer Machine Feeder Name Role Phone La Zamora MD Primary Care Provider Unavailab Crews Vee Richard [phone] Encounters Encounter Location Date Provider Diagnosis [address] [address] 03/07/2025 Vee Ta Plan Of Treatment Next Appt Details Provider Name:Vee Espitia Keyon , 08/05/2025 01:00:00 PM, [address] [place] [address], [phone], Provider Name:Vee Espitia Keyon , 10/07/2025 01:00:00 PM, [address] [place] [address], [phone], Progress Notes * Lilo KAYE MDOB:1945 (79 yo F)Acc No.[id number]:03/07/2025 Progress Note Patient: Mike RISSALilo [place] Provider: Manuel Ta DPM :1945 A ge:79 Y S ex:Female Date:03/07/2025 Address:[address] [place], [place] [phone] Pcp:La Zamora MD Subjective: * Chief [...] 0 03/07/2025 Generated for Chastity Montero on: 1 12:49 PM EDT
--- OUTSIDE RECORDS SUMMARY | 2025-05-16 09:00 | XMS_ITS ---
Author Organization [facility] mike [place] Address [address] [place] [address] [place] [address] Care Team Providers Care Aeronautical Products Sales Engineer Name Role Phone La Zamora MD Primary Care Provider Unavailab Crews Vee Richard [phone] Encounters Encounter Location Date Provider Diagnosis [address] [address] 05/16/2025 Vee Ta Plan Of Treatment Next Appt Details Provider Name:Vee Espitia Keyon , 08/05/2025 01:00:00 PM, [address] [place] [address], [phone], Provider Name:Vee Espitia Keyon , 10/07/2025 01:00:00 PM, [address] [place] [address], [phone], Progress Notes * Lilo KAYE MDOB:1945 (79 yo F)Acc No.[id number]:05/16/2025 Progress Note Patient: Mike RISSAGricel TURNERmaureen Conrad Provider: Manuel Ta DPM :1945 A ge:79 Y S ex:Female Date:05/16/2025 Address:[address] [place], [place] [phone] Pcp:La Zamora MD Subjective: * Chief Complaints: * * Medical History: Objective: * Vitals: Assessment: Plan: * Treatment: * Images: * The named appointment provid er may or may not be the originator of this progress note, and it is not deemed complete until electronically signed by the appointment provider. Sign off status: Pending * Provider: Manuel Ta DPM Date: 0 05/16/2025 Generated for Chastity Montero on: 1 12:48 PM EDT
[2025-06-13 10:30] VITALS: BMI 33.7
--- NOTE | 2025-06-13 10:30 | MHC.OFFVIS ---
Vital Signs 06/13/25 10:30 Height 5 ft 7 in Weight 215 lb BMI 33.7 Intake Visit Reasons: 6WKPO: L TKA w/ 05/06/25 Intake Note: Lilo is a 79 year old woman who presents today for a post operative visit after undergoing a left knee total arthroplasty on 05/06/2025. Patient states she is doing very well, little to no pain, she has mild swelling and continues to work with P.T. with good ROM improvement. She denies any fevers or chills. Allergies shellfish derived (shellfish) Allergy (Severe, Verified 06/13/25 10:35) Anaphylaxis Penicillins Allergy (Intermediate, Verified 06/13/25 10:35) Itching diclofenac (From Voltaren) Allergy (Mild, Verified 06/13/25 10:35) HIVES adhesive tape Adverse Reaction (Intermediate, Verified 06/13/25 10:35) blisters codeine (Codeine) Adverse Reaction (Intermediate, Verified 06/13/25 10:35) SYNCOPE,ABD PAIN erythromycin base (Erythromycin Base) Adverse Reaction (Mild, Verified 06/13/25 10:35) ABDOMINAL PAIN Medication List - Last Reconciled 06/13/25 by Da Valencia MD acetaminophen 650 mg (2 x 325 mg) PO Q6H PRN 30 days aspirin 325 mg PO BID 42 days celecoxib 200 mg PO BID 30 days docusate sodium 100 mg PO BID 7 days hydrochlorothiazide 12.5 mg PO QAM levothyroxine 50 mcg PO QAM oxycodone 5 mg PO Q4H PRN 7 days walker Folding front wheeled walker walker Folding front wheeled walker [facility] Medical History History of blood transfusion Anesthesia complication Uterine cancer GERD (gastroesophageal reflux disease) Murmur Lower extremity edema Eczema Chronic renal insufficiency Hiatal hernia Raynauds disease Hypothyroid Diverticulosis Coronary artery calcification seen on CAT scan PAD (peripheral artery disease) Anemia Varicose vein of leg Lymphedema Renal cyst Heart block Arthritis Hypertension Surgical History History of permanent cardiac pacemaker placement H/O colonoscopy History of excision of pilonidal cyst Hx of tonsillectomy History of bilateral total hip arthroplasty H/O: hysterectomy H/O thyroidectomy Social History Household Members: Spouse Housing: House Are you a primary personal care aide to a significant other at home: No Do you presently have visiting nurse or other home services: No Alcohol intake: current Alcohol intake frequency: holidays/special occasions only Patient Tobacco Use Status: Former Tobacco user Tobacco use type: Cigarette Years Smoked: 5 service: No Current occupational status: retired Current occupation: right handed Physical Exam Vital Signs: BMI result Body Mass Index 33.7 Extrem Other: Left knee examination shows that the surgical incision is well healed, no erythema, full active extension and flexion to 120 degrees, her patella tracks well Assessment & Plan Assessment & Plan (1) Knee pain: Code(s): M25.569 - Pain in unspecified knee Category: Medical Plan Ms. Bess is doing well after undergoing left total knee replacement surgery on 05/06/2025. She will continue with her physical therapy exercises. She does know to take antibiotics before any dental work. 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 Thus, I will arrange for her to have a consultation in our hematology department. She will follow up as instructed. She will contact me prior to her follow-up appointment in 3 months should any questions or concerns arise. Feel free to call me at any time should questions regarding her orthopedic management arise. 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
--- OUTSIDE RECORDS SUMMARY | 2025-06-13 12:49 | XMS_ITS | Patient Health Record ---
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 Name Role Phone La Zamora MD Primary Care Provider Unavailab Vee Crews Unavailable [phone] Allergies Allergen (clinical drug ingredient) Drug/Non Drug [...] Duration) Notes Start Date End Date Status Jknhxzpj-Maztqrnhy-Tfhsnbhe Not-Taking Baby Aspirin Not-Dung ing Flax Seeds Not-Takin g Tylenol Extra Strength 500 MG 1 tablet as needed Orally every 6 hrs Active Levothyroxine Sodium .05 1 tablet on an empty stomach in the morning Orally Once a day Active hydroCHLOROthiazide 12.5 MG Orally Active CeleBREX Active Multi Vitamin Active Propranolol HCl ER Beads 80 MG 1 capsule at bedtime Orally Once a day Not-Taking Centrum Silver - as directed Orally Active Flax Seeds Orally Not-Takin g Iron 325 (65 Fe) MG 1 tablet Orally Once a day Not-Taking Nitro-Bid 2 % as directed Transdermal apply bid to toes; Duration: 30 days Not-Taking Immunizations Vaccine Route Administration [...] W/U Status Risk Notes Problem Raynaud's disease (137411100) Raynaud's syndrome without gangrene (I73.00) Active confirmed Problem Bilateral atherosclerosis of arteries of lower limbs (disorder) (93055510544285766 ) Atherosclerosis of [place] artery of both lower extremities, with unspecified presence of clinical manifestation (I70.203) Active confirmed Q7(A), Q8(2B), Q9(1B,2 C) Problem Ulcer of toe of right foot (disorder) (00872348335214396 ) Skin ulcer of toe of right foot, limited to breakdown of 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) Active confirmed Vital Signs Blood pressure diastolic 78 mm Hg 06/03/2025 Height 5 ft 7 in in 06/03/2025 Blood pressure systolic 146 mm Hg 06/03/2025 Weight 218 lbs 06/03/2025 BMI 34.14 kg/m2 06/03/2025 Procedures Procedure Date Ordered Date Performed Result Body Sit e 03343-TVQWRGQ NAIL, 6 OR MORE 06/21/2024 N/A 28372-BQSG SKIN LESIONS, OVER 4 06/21/2024 N/A 29508-YCHKXJM NAIL, 6 OR MORE 08/30/2024 N/A 28777-KYWA SKIN LESIONS, OVER 4 08/30/2024 N/A 57418-MCXORKK NAIL, 6 OR MORE 11/01/2024 N/A 86095-TYBB SKIN LESIONS, OVER 4 11/01/2024 N/A 38437-CETQQEP NAIL, 6 OR MORE 01/03/2025 N/A 09284-Uhdlxxsf Plate 01/03/2025 N/A 14150-EOON SKIN LESIONS, OVER 4 01/03/2025 N/A 13394-WQQUTBE NAIL, 6 OR MORE 04/01/2025 N/A 54782-Fgpxpygj Plate 04/01/2025 N/A 73240-OSFW SKIN LESIONS, OVER 4 04/01/2025 N/A 04425-GSSYRIB NAIL, 6 OR MORE 06/03/2025 N/A 67775- Debride <25 sq cm 06/03/2025 N/A 13273 I&D ABSCESS- SIMPLE,SINGLE 06/03/2025 N/A 66513-TPFD SKIN LESIONS, OVER 4 06/03/2025 N/A Encounters Encounter Location Date Provider Diagnosis [address] [address] 06/21/2024 Vee Black Neuritis of right fo ot G57.91 ; Pain in right foot M79.671 ; Atherosclerosis of [place] artery of both lower extremities, with unspecified presence of clinical manifestation I70.203 ; Tinea unguium B35.1 ; Pain in right toe(s) M79.674 and Pain in left toe(s) M79.[address] [address] 08/30/2024 Vee Black Atherosclerosis of [place] artery of both lower extremities, with unspecified presence of clinical manifestation I70.203 ; Tinea unguium B35.1 ; Pain in right toe(s) M79.674 and Pain in left toe(s) M79.[address] [address] 11/01/2024 Vee Black Atherosclerosis of [place] artery of both lower extremities, with unspecified presence of clinical manifestation I70.203 ; Tinea unguium B35.1 ; Pain in right toe(s) M79.674 and Pain in left toe(s) M79.[address] [address] 01/03/2025 Vee Black Atherosclerosis of [place] artery of both lower extremities, with unspecified presence of clinical manifestation I70.203 ; Tinea unguium B35.1 ; Pain in right toe(s) M79.674 ; Pain in left toe(s) M79.675 and Ingrown nail L60.[address] [address] 04/01/2025 Vee Black Atherosclerosis of [place] artery of both lower extremities, with unspecified presence of clinical manifestation I70.203 ; Tinea unguium B35.1 ; Pain in right toe(s) M79.674 ; Pain in left toe(s) M79.675 and Ingrown nail L60.[address] [address] 06/03/2025 Vee Black Atherosclerosis of [place] artery of both lower extremities, with unspecified presence of clinical manifestation I70.203 ; Tinea unguium B35.1 ; Pain in right toe(s) M79.674 ; Pain in left toe(s) M79.675 ; Skin ulcer of toe of right foot, limited to breakdown of skin L97.511 and Abscess of toe, left L02.[address] [address] 02/20/2025 Vee Black Assessments Encounter Date Diagnosis (ICD Code) Assessment Notes Treatment Notes Treatment Clinical Notes Section Notes 06/21/2024 Pain in right foot (ICD-10 - M79.671) 06/21/2024 Neuritis of right foot (ICD-10 - G57.91) Response to treatment - Improvement 08/30/2024 Tinea unguium (ICD-10 - B35.1) 08/30/2024 Atherosclerosis of [place] artery of both lower extremities, with unspecified presence of clinical manifestation (ICD-10 - I70.203) Q7(A), Q8(2B), Q9(1B,2C) 11/01/2024 Atherosclerosis of [place] artery of both lower extremities, with unspecified presence of clinical manifestation (ICD-10 - I70.203) Q7(A), Q8(2B), Q9(1B,2C) 01/03/2025 Atherosclerosis of [place] artery of both lower extremities, with unspecified presence of clinical manifestation (ICD-10 - I70.203) Q7(A), Q8(2B), Q9(1B,2C) 04/01/2025 Tinea unguium (ICD-10 - B35.1) 04/01/2025 Atherosclerosis of [place] artery of both lower extremities, with unspecified presence of clinical manifestation (ICD-10 - I70.203) Q7(A), Q8(2B), Q9(1B,2C) 06/03/2025 Tinea unguium (ICD-10 - B35.1) 06/03/2025 Atherosclerosis of [place] artery of both lower extremities, with unspecified presence of clinical manifestation (ICD-10 - I70.203) Q7(A), Q8(2B), Q9(1B,2C) 06/03/2025 Pain in right toe(s) (ICD-10 - M79.674) 04/01/2025 Pain in right toe(s) (ICD-10 - M79.674) 01/03/2025 Tinea unguium (ICD-10 - B35.1) 11/01/2024 Tinea unguium (ICD-10 - B35.1) 08/30/2024 Pain in right toe(s) (ICD-10 - M79.674) 06/21/2024 Atherosclerosis of [place] artery of both lower extremities, with unspecified presence of clinical manifestation (ICD-10 - I70.203) Q7(A), Q8(2B), Q9(1B,2C) 06/21/2024 Tinea unguium (ICD-10 - B35.1) 08/30/2024 Pain in left toe(s) (ICD-10 - M79.675) 11/01/2024 Pain in right toe(s) (ICD-10 - M79.674) 01/03/2025 Pain in right toe(s) (ICD-10 - M79.674) 04/01/2025 Pain in left toe(s) (ICD-10 - M79.675) 06/03/2025 Pain in left toe(s) (ICD-10 - M79.675) 06/03/2025 Skin ulcer of toe of right foot, limited to breakdown of skin (ICD-10 - L97.511) Patient Educated with: WOUND CARE INSTRUCTIONS. pdf (WOUND CARE INSTRUCTIONS. pdf) 01/03/2025 Pain in left toe(s) (ICD-10 - M79.675) 11/01/2024 Pain in left toe(s) (ICD-10 - M79.675) 06/21/2024 Pain in right toe(s) (ICD-10 - M79.674) 06/21/2024 Pain in left toe(s) (ICD-10 - M79.675) 01/03/2025 Ingrown nail (ICD-10 - L60.0) 04/01/2025 Ingrown nail (ICD-10 - L60.0) 06/03/2025 Abscess of toe, left (ICD-10 - L02.612) Patient Educated with: WOUND CARE INSTRUCTIONS. pdf (WOUND CARE INSTRUCTIONS. pdf) Plan Of Treatment Pending Test Test Name Order Date X ray : Ankle, right 2V 08/18/2020 X ray : Foot, left 3V 11/10/2015 13374-GQTNRDI NAIL, 6 OR MORE 09/01/2015 78063-GGKEZHQ NAIL, 6 OR MORE 11/10/2015 71322-POHRJOA NAIL, 6 OR MORE 01/13/2015 22330-NNYBHYE NAIL, 6 OR MORE 06/23/2015 45307-ATXIXIR NAIL, 6 OR MORE 05/27/2016 83288-QPRASWW NAIL, 6 OR MORE 12/06/2013 58765-NNZTRRC NAIL, 6 OR MORE 03/11/2014 33638-CGKZDLE NAIL, 6 OR MORE 06/12/2014 84918-ZSHRBLL NAIL, 6 OR MORE 09/04/2014 44758-AFUFMHU NAIL, 6 OR MORE 11/07/2014 71549-SLWLBHY NAIL, 6 OR MORE 04/21/2015 14374-MBXOBOY NAIL, 6 OR MORE 2016 27791-FDYFOAT NAIL, 6 OR MORE 02/17/2017 37353-KTKDWGA NAIL, 6 OR MORE 04/21/2017 03062-TTQNXXD NAIL, 6 OR MORE 07/29/2016 98850-XEOWKIY NAIL, 6 OR MORE 10/11/2016 42531-SDLYUIQ NAIL, 6 OR MORE 06/27/2017 02960-RNNLFMN NAIL, 6 OR MORE 09/08/2017 45336-XJMWHHT NAIL, 6 OR MORE 11/10/2017 77063-MOAUXNI NAIL, 6 OR MORE 01/12/2018 70984-OQBUWHN NAIL, 6 OR MORE 03/23/2018 04929-CYOGFTX NAIL, 6 OR MORE 05/25/2018 09954-VGTUKGQ NAIL, 6 OR MORE 07/31/2018 69821-BDPQQOA NAIL, 6 OR MORE 10/02/2018 94998-MJEJAOB NAIL, 6 OR MORE 12/04/2018 65951-BSMONZX NAIL, 6 OR MORE 10/30/2020 99405-TOAJJHF NAIL, 6 OR MORE 01/01/2021 16209-FQRZTBX NAIL, 6 OR MORE 03/12/2021 37788-DGUEKJD NAIL, 6 OR MORE 05/15/2021 96390-DRVTTCK NAIL, 6 OR MORE 04/23/2019 44926-KFQZVYN NAIL, 6 OR MORE 06/25/2019 97447-CJHGHAU NAIL, 6 OR MORE 09/10/2019 96659-PBLSAFI NAIL, 6 OR MORE 11/21/2019 30992-UBKAXNF NAIL, 6 OR MORE 01/24/2020 42140-OZUXFBT NAIL, 6 OR MORE 04/03/2020 84803-JJDJPWQ NAIL, 6 OR MORE 06/16/2020 73084-NSCCFMP NAIL, 6 OR MORE 08/17/2021 07461-BNLBSKF NAIL, 6 OR MORE 08/18/2020 00107-JEATSFF NAIL, 6 OR MORE 11/26/2021 33831-DSVOCNT NAIL, 6 OR MORE 02/08/2022 74234-ZJMGYZW NAIL, 6 OR MORE 04/12/2022 21989-RAOVRZO NAIL, 6 OR MORE 06/14/2022 15609-QVFYFND NAIL, 6 OR MORE 08/16/2022 52540-KBUESOW NAIL, 6 OR MORE 10/21/2022 99359-SPPDPYO NAIL, 6 OR MORE 12/23/2022 37891-ODZSING NAIL, 6 OR MORE 02/24/2023 02584-ZFQGIDA NAIL, 6 OR MORE 04/28/2023 79716-KJHZESO NAIL, 6 OR MORE 08/08/2023 42226-IFHMEEF NAIL, 6 OR MORE 10/13/2023 83931-XWSMKRS NAIL, 6 OR MORE 12/15/2023 84779-RTPIOGJ NAIL, 6 OR MORE 02/16/2024 79415-RYWKNNX NAIL, 6 OR MORE 04/19/2024 29064-CNLVNDU NAIL, 6 OR MORE 06/21/2024 55561-HXJGJQN NAIL, 6 OR MORE 08/30/2024 65012-JVSSDCI NAIL, 6 OR MORE 11/01/2024 41517-DTXZBIN NAIL, 6 OR MORE 01/03/2025 71014-AXUDHYX NAIL, 6 OR MORE 04/01/2025 40217-HVESRRE NAIL, 6 OR MORE 06/03/2025 96814-EYRPSWT NAIL, 1-5 05/27/2016 98993-ASUHMVZ NAIL, 1-5 01/12/2016 34206-WUYLDSB NAIL, 1-5 03/16/2016 45154-Rsbu Destruction, 1-14 02/17/2017 18701-Lfbb Destruction, 1-14 10/11/2016 05135-Yvyy Destruction, 1-14 2016 68233-Khmianss Plate 2016 80653-Vmagtixf Plate 04/21/2017 75384-Xxwtlbgv Plate 06/27/2017 36303-Hevienbu Plate 10/02/2018 75977-Xjpnkhjd Plate 07/31/2018 80740-Fukhebjy Plate 05/27/2016 60497-Hfrkghvn Plate 12/06/2013 11902-Otmlirak Plate 06/23/2015 09493-Wbueyiha Plate 04/21/2015 29610-Thwsbonj Plate 11/07/2014 05529-Ghnedngj Plate 01/13/2015 02233-Frmjhkgd Plate 09/04/2014 45304-Iwkzunuv Plate 06/12/2014 47295-Fvorotnf Plate 03/11/2014 97508-Vbrkicuf Plate 10/13/2023 12162-Oipwckse Plate 04/12/2022 82386-Vtxmubnl Plate 02/08/2022 97339-Qmrdxfvu Plate 11/26/2021 91828-Gdregivv Plate 04/03/2020 45707-Ugtpqwdw Plate 09/10/2019 22244-Iwewmell Plate 03/12/2021 79956-Djlbqbgc Plate 10/30/2020 97430-Nmeyvqzo Plate 06/16/2020 11088-Lljqwgcj Plate 02/24/2023 20912-Xltoxzwd Plate 04/01/2025 57235-Bvdrnxjk Plate 01/03/2025 69566-Vfazxpiy Plate Each Additional 39832-Rmwvqqnn Plate Each Additional 46729-Zfckravi Plate Each Additional 20016-Qzapwtex Plate Each Additional 30745-Aqohvuma Plate Each Additional 05834-Kvxcvmtz Plate Each Additional 52881- Debride <25 sq cm 06/11/2016 01007- Debride <25 sq cm 12/03/2015 39326- Debride <25 sq cm 12/04/2018 95180- Debride <25 sq cm 03/23/2018 04726- Debride <25 sq cm 06/27/2017 99478- Debride <25 sq cm 04/21/2017 02427- Debride <25 sq cm 04/28/2023 33747- Debride <25 sq cm 02/08/2022 63804- Debride <25 sq cm 01/24/2020 18208- Debride <25 sq cm 01/01/2021 53057- Debride <25 sq cm 05/15/2021 28473- Debride <25 sq cm 08/17/2021 60634- Debride <25 sq cm 06/03/2025 74409-NXBFCFT SKIN/TISSUE 11/07/2014 98070 I&D ABSCESS- SIMPLE,SINGLE 014 08440 I&D ABSCESS- SIMPLE,SINGLE 016 46140 I&D ABSCESS- SIMPLE,SINGLE 016 29648 I&D ABSCESS- SIMPLE,SINGLE 016 78838 I&D ABSCESS- SIMPLE,SINGLE 016 27763 I&D ABSCESS- SIMPLE,SINGLE 017 61606 I&D ABSCESS- SIMPLE,SINGLE 025 12148-VBGF SKIN LESIONS, OVER 4 06/03/20 25 91813-IDAW SKIN LESIONS, OVER 4 05/08/20 25 64190-ECFH SKIN LESIONS, OVER 4 04/01/20 42607-OGVE SKIN LESIONS, OVER 4 11/02/19 67726-ERDU SKIN LESIONS, OVER 4 08/30/19 73530-URRN SKIN LESIONS, OVER 4 06/21/20 11373-CGQI SKIN LESIONS, OVER 4 04/19/20 38465-ECFR SKIN LESIONS, OVER 4 12/05/19 54716-RHHY SKIN LESIONS, OVER 4 01/14/20 71885-LKFU SKIN LESIONS, OVER 4 04/21/20 33602-ZSQZ SKIN LESIONS, OVER 4 08/17/20 45399-GVVU SKIN LESIONS, OVER 4 05/15/20 80671-RZCJ SKIN LESIONS, OVER 4 03/12/20 60007-YTPP SKIN LESIONS, OVER 4 01/02/20 41209-FJEC SKIN LESIONS, OVER 4 08/18/20 54972-FLCW SKIN LESIONS, OVER 4 10/31/19 08043-NQGJ SKIN LESIONS, OVER 4 02/13/20 71905-VUTT SKIN LESIONS, OVER 4 04/03/20 90894-VCVV SKIN LESIONS, OVER 4 06/16/20 44260-KMTP SKIN LESIONS, OVER 4 11/21/19 64643-CJBL SKIN LESIONS, OVER 4 01/24/20 28709-ZWYL SKIN LESIONS, OVER 4 06/25/20 01125-FJHG SKIN LESIONS, OVER 4 09/10/19 25322-JMDK SKIN LESIONS, OVER 4 02/09/20 79955-JQIH SKIN LESIONS, OVER 4 11/27/19 94282-YYWF SKIN LESIONS, OVER 4 04/12/20 52714-NMQM SKIN LESIONS, OVER 4 06/14/20 06762-ULNJ SKIN LESIONS, OVER 4 08/16/20 84901-KFRA SKIN LESIONS, OVER 4 10/21/19 82496-QSAL SKIN LESIONS, OVER 4 04/28/20 58186-DROM SKIN LESIONS, OVER 4 02/25/20 57345-NUQL SKIN LESIONS, OVER 4 12/24/19 32066-ASTS SKIN LESIONS, OVER 4 10/13/19 21034-PEWO SKIN LESIONS, OVER 4 08/08/20 73824-KGBA SKIN LESIONS, OVER 4 06/20/20 24 00996-HNOQ SKIN LESIONS, OVER 4 12/15/19 24 39463-EQQL SKIN LESIONS, 2 TO 4 10/02/19 19 29434-SJCX SKIN LESIONS, 2 TO 4 05/25/20 18 55088-WTLF SKIN LESIONS, 2 TO 4 07/31/20 18 58963-ZNGI SKIN LESIONS, 2 TO 4 03/23/20 18 37005-WYVR SKIN LESIONS, 2 TO 4 01/13/20 18 23182-QLPD SKIN LESIONS, 2 TO 4 09/08/19 18 34018-SZET SKIN LESIONS, 2 TO 4 11/11/19 18 83102-Avgk. Subungual Hematoma 9 71294-PCUQSUZV OF HEMATOMA/FLUID 019 44329-AHTDSZGF OF HEMATOMA/FLUID 018 Next Appt Details Provider Name:Vee Ta , 08/05/2025 01:00:00 PM, [address] [place] [address], [phone], Provider Name:Vee Ta , 10/07/2025 01:00:00 PM, [address] [place] [address], [phone], Insurance Providers Payer Name Payer Address Payer Phone Subscriber Number Group Number Insured Name Patient Relationship to Insured Coverage Start Date Coverage End Date Medicare [employer] [address] [place] [address] [id number] Lilo Bess Self - patient is the insured [facility] [address] [place] [address] [phone] [id number] Lilo Bess Self - patient is the insured Medical (General) History Medical History History ICD Code Arthritis Back,Hip,and Knee pain Cancer Hiatal hernia High blood pressure Neuropathy Eczema Raynauds syndrome Scarlet fever Sciatica Thyroid disorder Skin ulcer Measles Mumps Chicken pox Bone implants/screws Transfusions covid Surgical History Surgery Date(Month/Year) vein surgery 05/01/21 Cortisone Inj 07/30/21 Cortisone Inj 04/11/23 cardiac pacemeker 01/29/25 total knee replacement 05/06/25 Hospitalization History Reason Date(Month/Year) swelling in leg 05/23 [facility]- Stomach cramps/ diarrhea
--- OUTSIDE RECORDS SUMMARY | 2025-07-13 20:00 | XMS_ITS | Clinical Summary ---
Author Organization Unknown Care Team Providers Care Supervisor Customer Records Division Name Role Phone HARMONY DELGADO, LAUREN Unavailable Unavailable ELAINE PT, MATTHEW Unavailable Unavailabl sherice DAVALOS APPLICATION SECURITY DEVELOPER, ADIN Unavailable Unavailable READING OT, CALVIN Unavailable Unavailable Payers Payer Name Policy Type Policy Number Effective Date Expira tion Date MEDICARE.NGS.PDGM [id number] Problems Condition Name Condition Details Condition Category Status Onset Date Resolution Date Last Treatment Date Treating Clinician Comments AFTERCARE FOLLOWING JOINT REPLACEMENT SURGERY Active 05-06 00:00: 00 PRESENCE OF LEFT ARTIFICIAL KNEE JOINT Active 05-06 00:00: 00 ESSENTIAL (PRIMARY) HYPERTENSION Active 05-16 00:00: 00 HYPOTHYROIDI SM, UNSPECIFIED Active 05-16 00:00: 00 CONSTIPATION , UNSPECIFIED Active 05-16 00:00: 00 CANDIDIASIS, UNSPECIFIED Active 05-16 00:00: 00 FREQUENCY OF MICTURITION Active 05-16 00:00: 00 ANEMIA, UNSPECIFIED Active 05-16 00:00: 00 ATHSCL HEART DISEASE OF [place] CORONARY ARTERY W/O ANG PCTRS Active 05-16 00:00: 00 GASTRO-ESOPH AGEAL REFLUX DISEASE WITHOUT ESOPHAGITIS Active 05-16 00:00: 00 CONDUCTION DISORDER, UNSPECIFIED Active 05-16 00:00: 00 LYMPHEDEMA, NOT ELSEWHERE CLASSIFIED Active 05-16 00:00: 00 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 Ordering Clinician Indication Dosage Frequency Signature (SIG) Comments Components celecoxib 200 mg capsule 05-13 00:00: 00 05-16 00:00 :00 No [id number] Per instruc tions Per instructio ns (route: oral) Med Classific ation: Analgesic , Anti-infl ammatory or Antipyret ic oxycodone 5 mg tablet 05-06 00:00: 00 Yes [id number] PAIN 1 tablet EVERY 4 HOURS 1 tablet EVERY 4 HOURS (route: oral) Med Classific ation: Analgesic , Anti-infl ammatory or Antipyret ic acetaminoph en ER 650 mg tablet,exte nded release 05-06 00:00: 00 Yes [id number] PAIN 1 tablet EVERY 6 HOURS 1 tablet EVERY 6 HOURS (route: oral) Med Classific ation: Analgesic , Anti-infl ammatory or Antipyret ic aspirin 325 mg tablet 05-06 00:00: 00 Yes [id number] ANTICOAGULA TION 1 tablet 2 TIMES DAILY 1 tablet 2 TIMES DAILY (route: oral) Med Classific ation: Analgesic , Anti-infl ammatory or Antipyret ic Celebrex 200 mg capsule 05-06 00:00: 00 Yes [id number] PAIN 1 capsule 2 TIMES DAILY 1 capsule 2 TIMES DAILY (route: oral) Med Classific ation: Analgesic , Anti-infl ammatory or Antipyret ic ferrous sulfate 325 mg (65 mg iron) tablet 03-29 00:00: 00 Yes [id number] SUPPLEMENT 1 tablet 2 TIMES DAILY 1 tablet 2 TIMES DAILY (route: oral) Med Classific ation: Electroly te Balance-N utritiona l Products hydrochloro thiazide 12.5 mg tablet 03-29 00:00: 00 Yes [id number] BLOOD PRESSURE 1 tablet DAILY 1 tablet DAILY (route: oral) Med Classific ation: Cardiovas cular Therapy Agents levothyroxi ne 50 mcg capsule 03-29 00:00: 00 Yes [id number] THYROID 1 capsule DAILY 1 capsule DAILY (route: oral) Med Classific ation: Endocrine multivitami n tablet 02-26 00:00: 00 Yes [id number] SUPPLEMENT 1 tablet DAILY 1 tablet DAILY (route: oral) Med Classific ation: Electroly te Balance-N utritiona l Products pantoprazol e 20 mg tablet,kenyatta yed release 03-29 00:00: 00 Yes [id number] GERD 1 mg DAILY 1 mg MAYELIN Y (route: oral) Med Classific ation: Gastroint estinal Therapy Agents polyethylen e glycol 3350 8.5 gram oral powder packet 05-06 00:00: 00 Yes [id number] GUT MOTILITY 1 packet DAILY 1 packet DAILY (route: oral) Med Classific ation: Gastroint estinal Therapy Agents Tums 200 mg (as calcium carbonate 500 mg) chewable tablet 05-06 00:00: 00 Yes [id number] GERD 1 tablet EVERY 8 HOURS 1 tablet EVERY 8 HOURS (route: oral) Med Classific ation: Gastroint estinal Therapy Agents Vital Signs Vital Name Observation Time Observation Value Commen ts Temperature 2025-06-06 09:24:00.000 98.2 [degF] Temperature 2025-06-03 18:11:00.000 98.6 [degF] Temperature 2025-05-30 09:34:00.000 98 [degF] Temperature 2025-05-27 16:03:00.000 97.5 [degF] Temperature 2025-05-27 09:38:00.000 97.2 [degF] Temperature 2025-05-24 09:19:00.000 97.6 [degF] Temperature 2025-05-22 11:02:00.000 98 [degF] Temperature 2025-05-21 13:06:00.000 97.4 [degF] Temperature 2025-05-16 16:33:00.000 97.8 [degF] BMI (%) 2025-05-16 15:57:52.000 33 kg/m2 Height 2025-05-16 15:57:45.000 67 [in_us] Pulse 2025-06-06 09:24:00.000 78 /min Pulse 2025-06-03 18:11:00.000 78 /min Pulse 2025-05-30 09:34:00.000 78 /min Pulse 2025-05-27 16:03:00.000 60 /min Pulse 2025-05-27 09:38:00.000 70 /min Pulse 2025-05-24 09:19:00.000 63 /min Pulse 2025-05-22 11:02:00.000 70 /min Pulse 2025-05-21 13:06:00.000 96 /min Pulse 2025-05-16 16:33:00.000 61 /min O2 Saturation (%) 2025-05-27 16:03:00.000 99 % O2 Saturation (%) 2025-05-27 09:38:00.000 100 % O2 Saturation (%) 2025-05-24 09:19:00.000 98 % O2 Saturation (%) 2025-05-21 13:06:00.000 96 % O2 Saturation (%) 2025-05-16 16:33:00.000 100 % Respirations 2025-06-06 09:24:00.000 18 /min Respirations 2025-06-03 18:11:00.000 18 /min Respirations 2025-05-30 09:34:00.000 18 /min Respirations 2025-05-27 16:03:00.000 17 /min Respirations 2025-05-27 09:38:00.000 17 /min Respirations 2025-05-24 09:19:00.000 17 /min Respirations 2025-05-22 11:02:00.000 18 /min Respirations 2025-05-21 13:06:00.000 17 /min Respirations 2025-05-16 16:33:00.000 18 /min Weight (lbs) 2025-05-16 15:57:52.000 215 [lb_av] Systolic Blood Pressure 2025-06-06 09:24:00.000 122 mm [Hg] Systolic Blood Pressure 2025-06-03 18:11:00.000 122 mm [Hg] Systolic Blood Pressure 2025-05-30 09:34:00.000 110 mm [Hg] Systolic Blood Pressure 2025-05-27 16:03:00.000 134 mm [Hg] Systolic Blood Pressure 2025-05-27 09:38:00.000 118 mm [Hg] Systolic Blood Pressure 2025-05-24 09:19:00.000 122 mm [Hg] Systolic Blood Pressure 2025-05-22 11:02:00.000 110 mm [Hg] Systolic Blood Pressure 2025-05-21 13:06:00.000 178 mm [Hg] Systolic Blood Pressure 2025-05-16 16:33:00.000 128 mm [Hg] Diastolic Blood Pressure 2025-06-06 09:24:00.000 70 mm [Hg] Diastolic Blood Pressure 2025-06-03 18:11:00.000 70 mm [Hg] Diastolic Blood Pressure 2025-05-30 09:34:00.000 62 mm [Hg] Diastolic Blood Pressure 2025-05-27 16:03:00.000 70 mm [Hg] Diastolic Blood Pressure 2025-05-27 09:38:00.000 64 mm [Hg] Diastolic Blood Pressure 2025-05-24 09:19:00.000 84 mm [Hg] Diastolic Blood Pressure 2025-05-22 11:02:00.000 60 mm [Hg] Diastolic Blood Pressure 2025-05-21 13:06:00.000 70 mm [Hg] Diastolic Blood Pressure 2025-05-16 16:33:00.000 64 mm [Hg] Plan of Treatment Planned Activity Planned Date Details Comments Future Scheduled Test AGENCY MAY PERFORM A RESUMPTION OF CARE VISIT FOLLOWING ANY HOSPITAL ADMISSION. PT TO EVALUATE, OBSERVE / ASSESS, AND MONITOR, APPLICATION SECURITY DEVELOPER TO OBSERVE AND MONITOR, PROVIDE SKILLED THERAPEUTIC INTERVENTION, ACTIVITY, EDUCATION, AND TRAINING TO ADDRESS; [code = AGENCY MAY PERFORM A RESUMPTION OF CARE VISIT FOLLOWING ANY HOSPITAL ADMISSION. PT TO EVALUATE, OBSERVE / ASSESS, AND MONITOR, APPLICATION SECURITY DEVELOPER TO OBSERVE AND MONITOR, PROVIDE SKILLED THERAPEUTIC INTERVENTION, ACTIVITY, EDUCATION, AND TRAINING TO ADDRESS;] Future Scheduled Test SIT TO/FRO M STAND TRANSFERS (PT/APPLICATION SECURITY DEVELOPER) [code = SIT TO/FROM STAND TRANSFERS (PT/APPLICATION SECURITY DEVELOPER)] Future Scheduled Test PT/APPLICATION SECURITY DEVELOPER TO PROVIDE GAIT TRAINING FOR IMPROVED MOBILITY AND /OR TO NORMALIZE GAIT PATTERN [code = PT/APPLICATION SECURITY DEVELOPER TO PROVIDE GAIT TRAINING FOR IMPROVED MOBILITY AND /OR TO NORMALIZE GAIT PATTERN] Future Scheduled Test PT/APPLICATION SECURITY DEVELOPER TO PROVIDE STAIR TRAINING [code = PT/APPLICATION SECURITY DEVELOPER TO PROVIDE STAIR TRAINING] Future Scheduled Test THERAPEUTI C EXERCISES AND ESTABLISHING A HOME EXERCISE PROGRAM (PT/APPLICATION SECURITY DEVELOPER) [code = THERAPEUTIC EXERCISES AND ESTABLISHING A HOME EXERCISE PROGRAM (PT/APPLICATION SECURITY DEVELOPER)] Future Scheduled Test PT/APPLICATION SECURITY DEVELOPER TO IDENTIFY FALL RISK FACTORS; EDUCATE THE PATIENT/CAREGIVER ON WAYS TO REDUCE FALL RISK FACTORS AND ESTABLISH HOME EXERCISE PROGRAM TO MINIMIZE FALL RISK. MAY TEACH THE PATIENT FLOOR RECOVERY WHEN CLINICALLY APPROPRIATE [code = PT/APPLICATION SECURITY DEVELOPER TO IDENTIFY FALL RISK FACTORS; EDUCATE THE PATIENT/CAREGIVER ON WAYS TO REDUCE FALL RISK FACTORS AND ESTABLISH HOME EXERCISE PROGRAM TO MINIMIZE FALL RISK. MAY TEACH THE PATIENT FLOOR RECOVERY WHEN CLINICALLY APPROPRIATE] Future Scheduled Test PT/APPLICATION SECURITY DEVELOPER TO TEACH KNEE REPLACEMENT SELF-MANAGEMENT [code = PT/APPLICATION SECURITY DEVELOPER TO TEACH KNEE REPLACEMENT SELF-MANAGEMENT] Future Scheduled Test PT TO ASSE SS / APPLICATION SECURITY DEVELOPER TO MONITOR FOR AND REPORT EARLY SIGNS OF ANTICOAGULANT TOXICITY TO THE PHYSICIAN AND/OR THE RN CLINICAL TIE BUYER FOR PHYSICIAN NOTIFICATION AND TO PROVIDE PATIENT/CAREGIVER EDUCATION ON ANTICOAGULANT THERAPY [code = PT TO ASSESS / APPLICATION SECURITY DEVELOPER TO MONITOR FOR AND REPORT EARLY SIGNS OF ANTICOAGULANT TOXICITY TO THE PHYSICIAN AND/OR THE RN CLINICAL TIE BUYER FOR PHYSICIAN NOTIFICATION AND TO PROVIDE PATIENT/CAREGIVER EDUCATION ON ANTICOAGULANT THERAPY] Future Scheduled Test PT / APPLICATION SECURITY DEVELOPER T O MONITOR AND EDUCATE ON OXYGEN SATURATION DURING ADLS/IADLS, NOTIFY PHYSICIAN AND/OR THE RN CLINICAL TIE BUYER FOR PHYSICIAN NOTIFICATION AND IF O2 SATS BELOW PHYSICIAN ORDERED PARAMETERS AFTER 10 MIN OF REST [code = PT / APPLICATION SECURITY DEVELOPER TO MONITOR AND EDUCATE ON OXYGEN SATURATION DURING ADLS/IADLS, NOTIFY PHYSICIAN AND/OR THE RN CLINICAL TIE BUYER FOR PHYSICIAN NOTIFICATION AND IF O2 SATS BELOW PHYSICIAN ORDERED PARAMETERS AFTER 10 MIN OF REST] Future Scheduled Test PT / APPLICATION SECURITY DEVELOPER M AY EDUCATE ON PAIN MANAGEMENT CLINICALLY INDICATED, INCLUDING NON-PHARMACOLOGICAL PAIN REDUCTION TECHNIQUES AND USE OF CRYOTHERAPY UP TO 20 MIN AT A TIME FOR PAIN MANAGEMENT [code = PT / APPLICATION SECURITY DEVELOPER MAY EDUCATE ON PAIN MANAGEMENT CLINICALLY INDICATED, INCLUDING NON-PHARMACOLOGICAL PAIN REDUCTION TECHNIQUES AND USE OF CRYOTHERAPY UP TO 20 MIN AT A TIME FOR PAIN MANAGEMENT] Future Scheduled Test PT / APPLICATION SECURITY DEVELOPER T O OBSERVE WOUND/INCISION AND/OR INTACT DRESSING ON L KNEE AND REPORT EARLY SIGNS AND SYMPTOMS OF WOUND DETERIORATION, COMPLICATIONS, OR INFECTION TO PHYSICIAN AND/OR THE RN CLINICAL TIE BUYER FOR PHYSICIAN NOTIFICATION. [code = PT / APPLICATION SECURITY DEVELOPER TO OBSERVE WOUND/INCISION AND/OR INTACT DRESSING ON L KNEE AND REPORT EARLY SIGNS AND SYMPTOMS OF WOUND DETERIORATION, COMPLICATIONS, OR INFECTION TO PHYSICIAN AND/OR THE RN CLINICAL TIE BUYER FOR PHYSICIAN NOTIFICATION.] Goal Patient Goal - [...] 2025-07-14 00:00:00 Outpatient NEW ADMISSION MATTHEW [facility] [id number] 18.18
== END 2025-06-13 11:00 | disposition home or self-care (01) ==
LOC: HO.HOS 10:23
PROVIDERS: PCP Family Medicine; Visit Provider Orthopaedic Surgery
DX: M25.569 Pain in unspecified knee (principal)
CPT/HCPCS: 99024

== ENCOUNTER → 2025-06-13 10:22 | Outpatient (BNVA) | payer MEDICARE, SELFPAY | PROVIDERS: PCP Family Medicine; Visit Provider Orthopaedic Surgery | DX: Z47.1 Aftercare following joint replacement surgery (principal); M25.562 Pain in left knee; Z96.652 Presence of left artificial knee joint | CPT/HCPCS: 99212 ==

== ENCOUNTER → 2025-06-26 10:27 | Outpatient (BNV) | payer MEDICARE, SELFPAY | PROVIDERS: PCP Family Medicine; Visit Provider Internal Medicine Medical Oncology | DX: D47.Z9 Other specified neoplasms of uncertain behavior of lymphoid, hematopoietic and related tissue (principal) | CPT/HCPCS: 99204 ==

== ENCOUNTER → 2025-08-19 12:24 | Outpatient (BNV) | payer MEDICARE, SELFPAY | PROVIDERS: PCP Family Medicine; Visit Provider Internal Medicine | DX: I45.9 Conduction disorder, unspecified (principal) | CPT/HCPCS: 93294 ==